=== PATIENT | male | born 1970 | race African-American/Black ===

== ENCOUNTER 2017-12-08 08:32 | Emergency (ER) | payer MEDICAID ==
[~2017-12-08] VITALS: Ht 177.8 cm; Wt 6.4 kg
[2017-12-08] MEDS ORDERED: Morphine Sulfate 4mg/ml Inj IVP ONE (08:45)
--- NOTE | 2017-12-08 08:48 | Emergency Room Report ---
History of Present Illness General Chief Complaint: Abdominal Pain Source: Patient Present Illness HPI 47-year-old male presents to ED for evaluation. Patient presents with abdominal pain with vomiting. Brought in by EMS. Notes blood tinged vomitus. Started yesterday. Started after patient ate pizza. Patient describes history of gastritis. States he is currently not taking any medication. Also admits to marijuana use. Pain is epigastric, 8/10, nonradiating. Denies any alcohol use. Denies any other drug use. No other aggravating relieving factors. Denies any other associated symptom Allergies: Coded Allergies: No Known Allergies (Unverified , 12/08/17) Patient History Past Medical History: GERD Past Surgical History: none Pertinent Family History: none Social History: Reports: drug use Immunizations: UTD Reviewed Nursing Documentation: PMH: Agreed, PSxH: Agreed Nursing Documentation-PMH Past Medical History: No History, Except For Hx Gastrointestinal Problems: Yes - Gastritis Review of Systems All Other Systems: negative except mentioned in HPI Physical Exam Vital Signs Date Time Temp Pulse Resp B/P (MAP) Pulse Ox O2 Delivery O2 Flow Rate FiO2 12/08/17 08:11 99.1 60 16 121/83 98 Room Air Sp02 EP Interpretation: reviewed, normal General Appearance: no apparent distress, alert, GCS 15, non-toxic Head: normocephalic, atraumatic Eyes: bilateral eye normal inspection, bilateral eye PERRL ENT: hearing grossly normal, normal pharynx, no angioedema, normal voice Neck: full range of motion, supple/symm/no masses Respiratory: chest non-tender, lungs clear, normal breath sounds, speaking full sentences Cardiovascular #1: regular rate, rhythm, no edema Cardiovascular #2: 2+ carotid (R), 2+ carotid (L), 2+ radial (R), 2+ radial (L) , 2+ dorsalis pedis (R), 2+ dorsalis pedis (L) Gastrointestinal: normal bowel sounds, soft, non-distended, no guarding, no rebound, tenderness - epigastric Rectal: deferred Genitourinary: normal inspection, no CVA tenderness Musculoskeletal: back normal, gait/station normal, normal range of motion, non- tender Neurologic: alert, oriented x3, responsive, motor strength/tone normal, sensory intact, speech normal Psychiatric: judgement/insight normal, memory normal, mood/affect normal, no suicidal/homicidal ideation Reflexes: 3+ bicep (R), 3+ bicep (L), 3+ tricep (R), 3+ tricep (L), 3+ knee (R) , 3+ knee (L) Skin: normal color, no rash, warm/dry, well hydrated Lymphatic: no adenopathy Medical Decision Making Diagnostic Impression: Primary Impression: Gastritis Qualified Codes: K29.01 - Acute gastritis with bleeding ER Course Hospital Course 47-year-old M presents to ED with epigastric pain with N/V. differential diagnosis: gastritis, SBO, cholecystits Clinical course Patient placed on stretcher. 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 After initial history and physical I ordered labs, IV fluids, Zofran, pain meds and pepcid Labs - noted leukocytosis, no electrolyte abnormalities, LFTs normal Upon reassessment, patient states pain has improved. tolerating PO intake. findings consistent with gastritis I feel this is a highly complex case requiring extensive working including EKG/ Rhythm strip, Xray/CT/US, Blood/urine lab work, repeat exams while in ED, and administration of strong opiates/narcotics for pain control, admission to hospital or close patient follow up. Diagnosis - gastritis Stable and discharged to home with prescriptions for Zantac, zofran. Followup with PMD. Return to ED if symptoms recur or worsen Labs Test 12/08/17 08:40 White Blood Count 14.6 K/UL (4.8-10.8) Red Blood Count 6.42 M/UL (4.70-6.10) Hemoglobin 18.3 G/DL (14.2-18.0) Hematocrit 56.9 % (42.0-52.0) Mean Corpuscular Volume 89 FL (80-99) Mean Corpuscular Hemoglobin 28.6 PG (27.0-31.0) Mean Corpuscular Hemoglobin Concent 32.2 G/DL (32.0-36.0) Red Cell Distribution Width 11.6 % (11.6-14.8) Platelet Count 439 K/UL (150-450) Mean Platelet Volume 5.8 FL (6.5-10.1) Neutrophils (%) (Auto) 69.9 % (45.0-75.0) Lymphocytes (%) (Auto) 19.6 % (20.0-45.0) Monocytes (%) (Auto) 9.8 % (1.0-10.0) Eosinophils (%) (Auto) 0.3 % (0.0-3.0) Basophils (%) (Auto) 0.5 % (0.0-2.0) Sodium Level 136 MMOL/L (136-145) Potassium Level 3.4 MMOL/L (3.5-5.1) Chloride Level 97 MMOL/L (98-107) Carbon Dioxide Level 29 MMOL/L (21-32) Anion Gap 10 mmol/L (5-15) Blood Urea Nitrogen 14 mg/dL (7-18) Creatinine 1.0 MG/DL (0.55-1.30) Estimat Glomerular Filtration Rate > 60 mL/min (>60) Glucose Level 109 MG/DL (74-106) Calcium Level 9.8 MG/DL (8.5-10.1) Total Bilirubin 0.5 MG/DL (0.2-1.0) Aspartate Amino Transf (AST/SGOT) 40 U/L (15-37) Alanine Aminotransferase (ALT/SGPT) 72 U/L (12-78) Alkaline Phosphatase 104 U/L (46-116) Total Protein 8.6 G/DL (6.4-8.2) Albumin 4.3 G/DL (3.4-5.0) Globulin 4.3 g/dL Albumin/Globulin Ratio 1.0 (1.0-2.7) Lipase 101 U/L (73-393) Last Vital Signs Date Time Temp Pulse Resp B/P (MAP) Pulse Ox O2 Delivery O2 Flow Rate FiO2 12/08/17 08:11 99.1 60 16 121/83 98 Room Air Status: improved Disposition: HOME, SELF-CARE Condition: Stable Scripts Ondansetron Odt* (ZOFRAN ODT*) 4 Mg Tab.rapdis 4 MG ORAL Q6H Y for Nausea & Vomiting, #30 TAB 0 Refills Prov: MANUELITO LAZO M.D. 12/08/17 Ranitidine Hcl* (ZANTAC*) 150 Mg Tablet 150 MG ORAL TWICE A DAY, #30 TAB Prov: MANUELITO LAZO M.D. 12/08/17 MANUELITO LAZO M.D. Dec 08, 2017 08:48
[2017-12-08 09:21] LABS: BASOPHILS % (AUTO) 0.5 % (0.0-2.0); EOSINOPHILS % (AUTO) 0.3 % (0.0-3.0); HEMATOCRIT 56.9 % (42.0-52.0); LYMPHOCYTES % (AUTO) 19.6 % (20.0-45.0); MEAN CORPUSCULAR VOLUME 89 FL (80-99); MONOCYTES % (AUTO) 9.8 % (1.0-10.0); NEUTROPHILS % (AUTO) 69.9 % (45.0-75.0); PLATELET COUNT 439 K/UL (150-450); RED BLOOD COUNT 6.42 M/UL (4.70-6.10); RED CELL DISTRIBUTION WIDTH 11.6 % (11.6-14.8); WHITE BLOOD COUNT 14.6 K/UL (4.8-10.8)
[2017-12-08 09:27] LABS: HEMOGLOBIN 18.3 G/DL (14.2-18.0)
[2017-12-08 09:28] LABS: ANION GAP 10 mmol/L (5-15); BLOOD UREA NITROGEN 14 mg/dL (7-18); CALCIUM 9.8 MG/DL (8.5-10.1); CARBON DIOXIDE 29 MMOL/L (21-32); CHLORIDE 97 MMOL/L (98-107); POTASSIUM 3.4 MMOL/L (3.5-5.1); SODIUM 136 MMOL/L (136-145)
[2017-12-08 09:32] LABS: ALANINE AMINOTRANSFERASE 72 U/L (12-78); ALBUMIN 4.3 G/DL (3.4-5.0); ALKALINE PHOSPHATASE 104 U/L (46-116); ASPARTATE AMINO TRANSFERASE 40 U/L (15-37); BILIRUBIN,TOTAL 0.5 MG/DL (0.2-1.0)
[2017-12-08 10:04] VITALS: BP 125/84
[2017-12-08] MEDS ORDERED: ZOFRAN ODT4 MG ORAL (11:36)
[2017-12-08] MEDS ORDERED: ZANTAC150 MG ORAL (11:36)
[2017-12-08 12:58] VITALS: BP 128/84
== END 2017-12-08 12:58 | disposition home or self-care (01) ==
LOC: EDBD 08:32 → EMR 10:18
DX: K29.70 Gastritis, unspecified, without bleeding (principal); K21.9 Gastro-esophageal reflux disease without esophagitis
CPT/HCPCS: 36415; 80053; 83690; 85025; 96361; 96374; 96375; 99284; J2270; J2405; S0028

== ENCOUNTER 2019-09-04 21:13 | Inpatient (IN) | payer MEDICAID ==
[~2019-09-04] VITALS: Ht 177.8 cm; Wt 68.9 kg
[~2019-09-04 21:13] MED LIST: ZANTAC150 MG ORAL; ZOFRAN ODT4 MG ORAL
--- NOTE | 2019-09-04 21:20 | NUR ---
ED Nurse Note: Recieved pt from home, BIBA with c/o severe abd p[ain with active nausea and emesis, pt is awake, alert and oriented x 4, pt states just released from hospitl for gastritis 3 days ago, caused by marijuanna use and pt admits to smoking prior to s/s, denies cp, no sob or labored breathing, pt immediately gowned and palced on monitoring, MD at bedside, will resume care as ordered and closely monitor.
[2019-09-04] MEDS ORDERED: Haloperidol Lactate 5 MG in D5W 55 ML IVPB ONE (21:30)
[2019-09-04] MEDS ORDERED: Promethazine HCl 25 MG in NS 55 ML IVPB ONE ×2 (21:30→23:45)
--- NOTE | 2019-09-04 21:34 | Emergency Room Report ---
History of Present Illness General Chief Complaint: Abdominal Pain Source: Patient Present Illness HPI This is a 48-year-old male with a history of cyclic vomiting syndrome based on the description of multiple episode of abdominal pain with nausea and vomiting. He presented with chief complaint of abdominal pain with vomiting. He was just at [facility] yesterday. Vomiting is nonstop. Unable to keep anything down. Pain is sharp and crampy. 9 out of 10. Similar symptoms in the past. He smokes marijuana. Said he is cutting down. No blood. No diarrhea. No fever. Nothing made it better. Nothing made it worse. Allergies: Coded Allergies: No Known Allergies (Unverified , 12/08/17) Patient History Past Medical History: see triage record, old chart reviewed Past Surgical History: none Pertinent Family History: none Social History: Reports: drug use - Immunizations: other Reviewed Nursing Documentation: PMH: Agreed; PSxH: Agreed Nursing Documentation-PMH Past Medical History: No History, Except For Hx Gastrointestinal Problems: Yes - GASTRITIS Review of Systems Eye: Denies: eye pain, blurred vision ENT: Denies: ear pain, nose congestion, throat swelling Respiratory: Denies: cough, shortness of breath Cardiovascular: Denies: chest pain, palpitations Gastrointestinal: Reports: abdominal pain, nausea, vomiting; Denies: diarrhea Musculoskeletal: Denies: back pain, joint pain Skin: Denies: rash Neurological: Denies: headache, numbness Endocrine: Denies: increased thirst, increased urine Hematologic/Lymphatic: Denies: easy bruising All Other Systems: negative except mentioned in HPI Physical Exam Vital Signs Date Time Temp Pulse Resp B/P (MAP) Pulse Ox O2 Delivery O2 Flow Rate FiO2 09/04/19 21:08 98.8 68 18 143/89 (107) 96 Room Air Vitals normal Sp02 EP Interpretation: reviewed, normal General Appearance: well appearing, no apparent distress, alert Head: normocephalic, atraumatic Eyes: bilateral eye PERRL, bilateral eye EOMI ENT: hearing grossly normal, normal pharynx Neck: full range of motion, supple, no meningismus Respiratory: chest non-tender, lungs clear, normal breath sounds Cardiovascular #1: regular rate, rhythm, no murmur Gastrointestinal: no mass, no organomegaly, no bruit, non-distended, decreased bowel sounds Musculoskeletal: back normal, gait/station normal, normal range of motion Psychiatric: mood/affect normal Medical Decision Making Diagnostic Impression: Primary Impression: Intractable abdominal pain Additional Impressions: Intractable nausea and vomiting Cyclic vomiting syndrome ER Course This patient presents with intractable abdominal pain with nausea and vomiting. This is a chronic problem. He was just admitted and discharged from [facility] for the same thing. Several episode of vomiting here even after multiple rounds of antiemetics and pain medication. Because of this, will admit for IV hydration. I contacted Dr. Vazquez who will admit for Dr. Jack. Last Vital Signs Date Time Temp Pulse Resp B/P (MAP) Pulse Ox O2 Delivery O2 Flow Rate FiO2 09/04/19 21:08 98.8 68 18 143/89 (107) 96 Room Air Status: improved Disposition: ADMITTED INPATIENT Condition: Serious Víctor Saez MD Sep 04, 2019 21:34
[2019-09-04 21:39] LABS: BASOPHILS % (AUTO) 0.8 % (0.0-2.0); EOSINOPHILS % (AUTO) 1.2 % (0.0-3.0); HEMATOCRIT 45.6 % (42.0-52.0); HEMOGLOBIN 15.3 G/DL (14.2-18.0); LYMPHOCYTES % (AUTO) 21.4 % (20.0-45.0); MEAN CORPUSCULAR VOLUME 87 FL (80-99); MONOCYTES % (AUTO) 6.2 % (1.0-10.0); NEUTROPHILS % (AUTO) 70.4 % (45.0-75.0); PLATELET COUNT 373 K/UL (150-450); RED BLOOD COUNT 5.22 M/UL (4.70-6.10); RED CELL DISTRIBUTION WIDTH 11.8 % (11.6-14.8); WHITE BLOOD COUNT 12.9 K/UL (4.8-10.8)
[2019-09-04 21:59] LABS: ANION GAP 12 mmol/L (5-15); BLOOD UREA NITROGEN 7 mg/dL (7-18); CALCIUM 9.2 MG/DL (8.5-10.1); CARBON DIOXIDE 26 MMOL/L (21-32); CHLORIDE 104 MMOL/L (98-107); CREATININE 1.1 MG/DL (0.55-1.30); POTASSIUM 3.4 MMOL/L (3.5-5.1); SODIUM 142 MMOL/L (136-145)
[2019-09-04 22:00] VITALS: BP 129/83
[2019-09-04 22:12] LABS: APPEARANCE,URINE SLIGHTLY CLOUDY; BILIRUBIN, URINE NEGATIVE (NEGATIVE); COLOR,URINE PALE YELLOW; GLUCOSE, URINE (UA) NEGATIVE (NEGATIVE); KETONES,URINE 2+ (NEGATIVE); LEUKOCYTE ESTERASE ,URINE 1+ (NEGATIVE); NITRITE,URINE NEGATIVE (NEGATIVE); PH,URINE 8 (4.5-8.0); PROTEIN,URINE 2+ (NEGATIVE); UROBILINOGEN,URINE NORMAL MG/DL (0.0-1.0)
[2019-09-04] MEDS ORDERED: HYDROmorphone 1mg/ml Carpuject IVP ONE (22:15)
[2019-09-04 23:00] VITALS: BP 134/88
--- NOTE | 2019-09-04 23:00 | NUR ---
ED Nurse Note: pt continues to c/o having abd pain, nausea has gotten a little better, MD informed, pt re-medicated, remains on cardiac monitoring, IV site patent, urine sample collected and sent, IV fluids infusing as ordered, will continue t0 closely monitor.
--- NOTE | 2019-09-05 | NUR ---
ED Nurse Note: Pt copntinues to have active emesis, requiring very frequent assistance, emesis is first food contents, now with yellow and greenish solored sputum, large amounts, pt also c/o having pain return at 10/10, pt assisted to bathroom, ambulates with assistance due to pain, remains with active vomiting, denies cp, no sob or labored breahting, during having emesis pt IV line out, new line restarted, informed of pt request for more nausea and pain meds, pt waiting for admission, will continue to closely monitor and medicate as ordered.
[2019-09-05 00:15] VITALS: BP 133/86
[2019-09-05] MEDS ORDERED: Morphine Sulfate 4mg/ml Inj (IV USE ONLY) IVP PRN (01:15)
--- NOTE | 2019-09-05 01:25 | NUR ---
ED Nurse Note: Pt medicated with zofran and morphine, emesis resolved for now, pt sleeping quietly, arouses easilyt o verbal stimuli, no sob or labored breathing, pt denies chest pain, pt has room for hospital admission, report called to floor nurse shital ayon, pt has all belonging and list completed, pt being taken to unit via gurney with er-tech, nad noted during pt transport to floor.
[2019-09-05] MEDS ORDERED: LORazepam Inj 2mg/ml 1ml IV PRN (01:30)
--- NOTE | 2019-09-05 01:30 | NUR ---
ED Nurse Note: Pt being taken to unit via gurney with ER-Tech, pt has all belongings, IV site patent with fluid bolus completing as ordered, pt denies cp, sob, or any other complaints, med rec completed, nad noted during pt transport.
[2019-09-05 04:00] VITALS: BP 142/80
--- NOTE | 2019-09-05 07:25 | NUR ---
HAND-OFF: Report given to Julia JOLLEY.
--- NOTE | 2019-09-05 07:56 | NUR ---
NURSE NOTES: Received report from Delmy JOLLEY. Patient is awake and oriented, vomiting green colored emesis. Clear liquid tray at bedside, educated patient not to eat if unable to tolerate. Will administer Zofran per order. IVF running per order. Patient not reporting pain otherwise at this time. Updated on plan of care for the day. Side rails upx2, bed low and locked, call light in reach. Will continue to monitor.
[2019-09-05 08:00] VITALS: BP 143/86
[2019-09-05] MEDS: Enoxaparin 40mg Inj SUBQ SCH (08:31)
--- NOTE | 2019-09-05 11:52 | History and Physical ---
History of Present Illness General Date patient seen: Sep 05, 2019 Time patient seen: 11:20 Reason for Hospitalization: Abdominal Pain Present Illness HPI 48-year-old male with a history of cyclic vomiting syndrome based on the description of multiple episode of abdominal pain with nausea and vomiting in the recent past. He presented to [facility] last night with chief complaint of abdominal pain with vomiting. He was just at [facility] yesterday and reports having been in 2 hospitals in the past 2 weeks. Vomiting is nonstop. Unable to keep anything down. Pain is sharp and crampy. 9 out of 10. Similar symptoms in the past. He smokes marijuana and reports not having been told that it can be the cause of his vomiting. Said he is cutting down MJ use. No blood. No diarrhea. No fever. Nothing made it better. Nothing made it worse. He was admitted for IVF support and anti emetic therapy. Allergies: Coded Allergies: No Known Allergies (Unverified , 12/08/17) Medication History Scheduled Ranitidine Hcl* (Zantac*), 150 MG ORAL TWICE A DAY Scheduled PRN Ondansetron Odt* (Zofran Odt*), 4 MG ORAL Q6H PRN for Nausea & Vomiting Patient History Healthcare decision maker Resuscitation status Full Code Advanced Directive on File Review of Systems Constitutional: Reports: see HPI Gastrointestinal: Reports: abdominal pain, nausea, vomiting Physical Exam General Appearance: moderate distress Lines, tubes and drains: peripheral HEENT: normocephalic, atraumatic Neck: supple Respiratory/Chest: lungs clear Cardiovascular/Chest: regular rhythm Abdomen: soft, hyperactive bowel sounds, guarding, tender Extremities: normal range of motion 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 Last 24 Hour Vital Signs Date Time Temp Pulse Resp B/P (MAP) Pulse Ox O2 Delivery O2 Flow Rate FiO2 09/05/19 08:00 98.0 69 17 143/86 (105) 98 09/05/19 06:01 Room Air 09/05/19 04:00 97.8 84 18 142/80 (100) 99 09/05/19 01:56 Room Air 09/05/19 01:38 98.8 09/05/19 01:35 98.8 72 18 133/86 98 Room Air 09/05/19 00:15 98.8 72 18 133/86 98 Room Air 09/04/19 23:00 98.8 74 18 134/88 98 Room Air 09/04/19 22:53 98.8 09/04/19 22:00 98.8 68 18 129/83 98 Room Air 09/04/19 21:20 68 18 Room Air 09/04/19 21:08 98.8 68 18 143/89 (107) 96 Room Air Intake and Output 09/04/19 09/05/19 19:00 07:00 Intake Total 181.25 ml Output Total 350 ml Balance -168.75 ml Intake IV Total 181.25 ml Output Emesis 350 ml # Voids 3 Laboratory Tests Test 09/04/19 19:15 09/04/19 21:35 White Blood Count 12.9 K/UL (4.8-10.8) H Red Blood Count 5.22 M/UL (4.70-6.10) Hemoglobin 15.3 G/DL (14.2-18.0) Hematocrit 45.6 % (42.0-52.0) Mean Corpuscular Volume 87 FL (80-99) Mean Corpuscular Hemoglobin 29.3 PG (27.0-31.0) Mean Corpuscular Hemoglobin Concent 33.5 G/DL (32.0-36.0) Red Cell Distribution Width 11.8 % (11.6-14.8) Platelet Count 373 K/UL (150-450) Mean Platelet Volume 4.6 FL (6.5-10.1) L Neutrophils (%) (Auto) 70.4 % (45.0-75.0) Lymphocytes (%) (Auto) 21.4 % (20.0-45.0) Monocytes (%) (Auto) 6.2 % (1.0-10.0) Eosinophils (%) (Auto) 1.2 % (0.0-3.0) Basophils (%) (Auto) 0.8 % (0.0-2.0) Sodium Level 142 MMOL/L (136-145) Potassium Level 3.4 MMOL/L (3.5-5.1) L Chloride Level 104 MMOL/L (98-107) Carbon Dioxide Level 26 MMOL/L (21-32) Anion Gap 12 mmol/L (5-15) Blood Urea Nitrogen 7 mg/dL (7-18) Creatinine 1.1 MG/DL (0.55-1.30) Estimat Glomerular Filtration Rate > 60 mL/min (>60) Glucose Level 127 MG/DL (74-106) H Calcium Level 9.2 MG/DL (8.5-10.1) Urine Color Pale yellow Urine Appearance Slightly cloudy Urine pH 8 (4.5-8.0) Urine Specific [place] 1.010 (1.005-1.035) Urine Protein 2+ (NEGATIVE) H Urine Glucose (UA) Negative (NEGATIVE) Urine Ketones 2+ (NEGATIVE) H Urine Blood 1+ (NEGATIVE) H Urine Nitrite Negative (NEGATIVE) Urine Bilirubin Negative (NEGATIVE) Urine Urobilinogen Normal MG/DL (0.0-1.0) Urine Leukocyte Esterase 1+ (NEGATIVE) H Urine RBC 2-4 /HPF (0 - 0) H Urine WBC 0-2 /HPF (0 - 0) Urine Squamous Epithelial Cells None /LPF (NONE/OCC) Urine Amorphous Sediment Few /LPF (NONE) H Urine Bacteria Few /HPF (NONE) Height (Feet): 5 Height (Inches): 10.00 Weight (Pounds): 150 Medications Current Medications Medications (Trade) Dose Ordered Sig/Toni Route PRN Reason Start Time Stop Time Status Last Admin Dose Admin Acetaminophen (Tylenol) 650 mg Q4H PRN ORAL Mild Pain (Pain Scale 1-3) 09/05/19 01:30 10/05/19 01:29 Dextrose (Dextrose 50%) 25 ml Q30M PRN IV Hypoglycemia 09/05/19 01:30 10/05/19 01:29 Dextrose (Dextrose 50%) 50 ml Q30M PRN IV Hypoglycemia 09/05/19 01:30 10/05/19 01:29 Enoxaparin Sodium (Lovenox) 40 mg Q24H SUBQ 09/05/19 09:00 10/05/19 08:59 09/05/19 08:31 Hydromorphone HCl (Dilaudid) 0.5 mg Q6H PRN IVP Pain Scale (6-10) 09/05/19 01:30 09/12/19 01:29 Lorazepam (Ativan 2mg/ml 1ml) 0.5 mg Q4H PRN IV For Anxiety 09/05/19 01:30 09/12/19 01:29 Ondansetron HCl (Zofran) 4 mg Q6H PRN IVP Nausea & Vomiting 09/05/19 01:30 10/05/19 01:29 09/05/19 08:29 Sodium Chloride 1,000 ml @ 75 mls/hr [id number] IVLG 09/05/19 02:30 10/05/19 02:29 09/05/19 02:35 Assessment/Plan Status: not improved Assessment/Plan: 48-year-old male with a history of cyclic vomiting syndrome based on the description of multiple episode of abdominal pain with nausea and vomiting. # Abdominal pain # Cyclic vomiting syndrome due to Cannabis use - Supportive care with IVF - If persistent will consider GI evaluation. - Antiemetics Zofran and trial of compazine - Repeat labs today as he is at risk of electrolyte derangement # Cannabis use - Counselling provided - SW follow up as needed # DVT ppx - Ambulatory, low risk for DVT # GI ppx - PPI started IV # FULL CODE # Diet as tolerated. Loraine Abarca MD Sep 05, 2019 11:52
[2019-09-05] MEDS ORDERED: Prochlorperazine 10mg tab ORAL PRN (12:00)
--- NOTE | 2019-09-05 12:31 | NUR ---
NURSE NOTES: Informed Dr. Abarca patient still vomiting frequently and unlikely to keep down any PO meds. MD gave order to change Compazine to IV PRN. Order entered, will carry out.
[2019-09-05 12:51] VITALS: BP 140/83
[2019-09-05 13:10] LABS: BASOPHILS % (AUTO) 0.6 % (0.0-2.0); HEMATOCRIT 48.4 % (42.0-52.0); LYMPHOCYTES % (AUTO) 11.1 % (20.0-45.0); MEAN CORPUSCULAR VOLUME 88 FL (80-99); MONOCYTES % (AUTO) 6.1 % (1.0-10.0); NEUTROPHILS % (AUTO) 82.2 % (45.0-75.0); PLATELET COUNT 353 K/UL (150-450); RED BLOOD COUNT 5.51 M/UL (4.70-6.10); RED CELL DISTRIBUTION WIDTH 11.8 % (11.6-14.8); WHITE BLOOD COUNT 15.1 K/UL (4.8-10.8)
[2019-09-05] MEDS: D5 1/2NS w/KCl 20mEq 1,000 ML IV SCH ×2 (13:26→23:00)
[2019-09-05 13:43] LABS: ANION GAP 17 mmol/L (5-15); BLOOD UREA NITROGEN 6 mg/dL (7-18); CALCIUM 9.1 MG/DL (8.5-10.1); CARBON DIOXIDE 24 MMOL/L (21-32); CHLORIDE 104 MMOL/L (98-107); CREATININE 0.8 MG/DL (0.55-1.30); POTASSIUM 3.7 MMOL/L (3.5-5.1); SODIUM 144 MMOL/L (136-145)
--- NOTE | 2019-09-05 13:50 | NUR ---
NURSE NOTES: Contacted Dr. Abarca, informed MD patient's WBC increased to 15.1. is aware, no new orders received at this time.
[2019-09-05 16:00] VITALS: BP 154/91
--- NOTE | 2019-09-05 19:30 | NUR ---
HAND-OFF: Report given to Felice JOLLEY.
--- NOTE | 2019-09-05 20:02 | NUR ---
NURSE NOTES: Patient asleep in bed. IV site intact and running fluids. No pain at this time. Needs attended. Call light within reach. Needs attended. In stable condition.
[2019-09-05 20:05] VITALS: BP 100/75
[2019-09-06] VITALS: BP 123/72
--- NOTE | 2019-09-06 01:35 | NUR ---
NURSE NOTES: Patient still has episode of nausea and vomiting. PRN anti emetics given. IV fluid tolerated. Needs attended.
[2019-09-06 04:00] VITALS: BP 147/86
[2019-09-06 07:10] LABS: BASOPHILS % (AUTO) 1.2 % (0.0-2.0); EOSINOPHILS % (AUTO) 0.2 % (0.0-3.0); HEMATOCRIT 51.9 % (42.0-52.0); HEMOGLOBIN 17.3 G/DL (14.2-18.0); LYMPHOCYTES % (AUTO) 22.4 % (20.0-45.0); MEAN CORPUSCULAR VOLUME 87 FL (80-99); NEUTROPHILS % (AUTO) 68.2 % (45.0-75.0); PLATELET COUNT 372 K/UL (150-450); RED BLOOD COUNT 5.98 M/UL (4.70-6.10); RED CELL DISTRIBUTION WIDTH 10.9 % (11.6-14.8); WHITE BLOOD COUNT 16.1 K/UL (4.8-10.8)
[2019-09-06 07:24] LABS: ANION GAP 7 mmol/L (5-15); BLOOD UREA NITROGEN 6 mg/dL (7-18); CALCIUM 9.7 MG/DL (8.5-10.1); CARBON DIOXIDE 29 MMOL/L (21-32); CHLORIDE 103 MMOL/L (98-107); POTASSIUM 3.6 MMOL/L (3.5-5.1); SODIUM 139 MMOL/L (136-145)
--- NOTE | 2019-09-06 07:30 | NUR ---
NURSE NOTES: Patient is in bed asleep. Stable. No visible signs of distress noted. Breathing is even and unlabored. Patient is in bed in locked and lowest position with call light within reach. All safety measures provided. Will continue to monitor.
[2019-09-06 08:00] VITALS: BP 116/78
[2019-09-06 08:33] LABS: ALANINE AMINOTRANSFERASE 30 U/L (12-78); ALBUMIN 3.9 G/DL (3.4-5.0); ALKALINE PHOSPHATASE 93 U/L (46-116); ASPARTATE AMINO TRANSFERASE 22 U/L (15-37); BILIRUBIN,DIRECT 0.1 MG/DL (0.0-0.3); BILIRUBIN,TOTAL 0.6 MG/DL (0.2-1.0)
[2019-09-06] MEDS: Enoxaparin 40mg Inj SUBQ SCH (08:35)
[2019-09-06] MEDS: D5 1/2NS w/KCl 20mEq 1,000 ML IV SCH ×3 (09:00→22:38)
[2019-09-06] MEDS ORDERED: Omnipaque-300 100ml vial INJ PRN ×2 (11:45→19:15)
[2019-09-06 12:00] VITALS: BP 150/96
[2019-09-06] MEDS: Pantoprazole Inj IVP SCH (12:51)
--- NOTE | 2019-09-06 13:06 | General Progress Note ---
Assessment/Plan Problem List: (1) Cyclic vomiting syndrome ICD Codes: R11.15 - Cyclical vomiting syndrome unrelated to migraine SNOMED: 96540461 (2) Intractable abdominal pain ICD Codes: R10.9 - Unspecified abdominal pain SNOMED: 52154440 (3) Intractable nausea and vomiting ICD Codes: R11.2 - Nausea with vomiting, unspecified SNOMED: 647038539 (4) Marijuana abuse ICD Codes: F12.10 - Cannabis abuse, uncomplicated SNOMED: 48838443 (5) Gastritis ICD Codes: K29.70 - Gastritis, unspecified, without bleeding SNOMED: 0893819 Status: not improved, unchanged Assessment/Plan: 48-year-old male with a history of cyclic vomiting syndrome based on the description of multiple episode of abdominal pain with nausea and vomiting. # Abdominal pain, epigastric/left upper quadrant/nonradiating for the past 2 to 3 days. Not associated with eating. Differential includes gastritis, peptic ulcer, due to persistent nausea/ vomiting from marijuana hyperemesis, gastroenteritis. Doubt ACS given negative troponin. Doubt pancreatitis given normal lipase. # Cyclic vomiting syndrome due to Cannabis use #Leukocytosis, suspect reactive. Will rule out infectious etiology. #hypokalemia due to vomiting - CT abdomen pelvis with contrast given persistent abdominal pain - RUQ abdominal ultrasound to rule out acute oli - Supportive care with IVF -Appreciate GI recommendations: Dr. Zabala -Appreciate general surgery recommendations: Dr. Back -Zofran 4 mg IV every 6 hours (QTC normal) -Compazine as needed for breakthrough nausea -Protonix 40mg IV daily -Will consider Haldol -Follow electrolytes and replete PRN # Cannabis use - Counselling provided - follow up as needed FENPPX DVTPPX: Lovenox 40mg SbQ daily GI PPX: protonix Fluids: D5 1/2 NS @100 cc/hr Diet: CLD Lines: peripheral PT/OT: pending Code status: Full code Dispo: Home after acute issues resolved Reason for continued hospitalization: Intractable nausea vomiting and abdominal pain 38 minutes spent on this encounter. Discussed with RN, patient, GI, general surgery . > 50% spent on counseling and care coordination. Time of note may not reflect time patient was seen. Subjective Date patient seen: Sep 06, 2019 Constitutional: Denies: chills, diaphoresis, fever, malaise, weakness, other HEENT: Denies: eye pain, blurred vision, tearing, double vision, ear pain, ear discharge, nose pain, nose congestion, throat pain, throat swelling, mouth pain , mouth swelling, other Cardiovascular: Denies: chest pain, edema, irregular heart rate, lightheadedness, palpitations, syncope, other Respiratory: Denies: cough, orthopnea, shortness of breath, SOB with excertion , SOB at rest, sputum, stridor, wheezing, other Gastrointestinal/Abdominal: Reports: abdominal pain, nausea, vomiting; Denies: abdomen distended, black stools, tarry stools, blood in stool, constipated, diarrhea, difficulty swallowing, poor appetite, poor fluid intake, rectal bleeding, other Genitourinary: Denies: burning, discharge, frequency, flank pain, hematuria, incontinence, pain, urgency, other Neurologic/Psychiatric: Denies: anxiety, depressed, emotional problems, headache, numbness, paresthesia, pre-existing deficit, seizure, tingling, tremors, weakness, other Endocrine: Denies: excessive sweating, flushing, intolerance to cold, intolerance to heat, increased hunger, increased thirst, increased urine, unexplained weight gain, unexplained weight loss, other Hematologic/Lymphatic: Denies: anemia, easy bleeding, easy bruising, other Allergies: Coded Allergies: No Known Allergies (Unverified , 12/08/17) Subjective Patient continues to complain of left upper quadrant/epigastric abdominal pain, constant, sharp, 8 out of 10, nonradiating. Continues to have persistent nausea with nonbloody bilious emesis. Positive bowel movements. Uses Zofran 3 times and Compazine 2 times in the past 24 hours. Denies any chest pain, fever , cough, cold symptoms. Has a mild frontal bilateral tension type headache. No focal numbness tingling or weakness. Patient denies any prior alcohol use. He does smoke marijuana heavily every day. He does not quantify how much but he says it is a lot. Objective Last 24 Hour Vital Signs Date Time Temp Pulse Resp B/P (MAP) Pulse Ox O2 Delivery O2 Flow Rate FiO2 09/06/19 09:00 Room Air 09/06/19 08:00 98.0 70 18 116/78 (91) 99 09/06/19 04:00 99.1 80 18 147/86 (106) 97 09/06/19 00:00 98.2 72 18 123/72 (89) 98 09/05/19 21:00 Room Air 09/05/19 20:28 98.0 09/05/19 20:05 75 17 100/75 (83) 09/05/19 16:00 98.2 63 17 154/91 (112) 98 Intake and Output 09/05/19 09/06/19 19:00 07:00 Intake Total 1150 ml 600 ml Output Total 3100 ml 800 ml Balance -1950 ml -200 ml Intake Oral 250 ml IV Total 900 ml 600 ml Output Urine Total 400 ml Emesis 2700 ml 800 ml # Voids 3 Laboratory Tests 09/06/19 04:45: White Blood Count 16.1H, Red Blood Count 5.98, Hemoglobin 17.3, Hematocrit 51.9 , Mean Corpuscular Volume 87, Mean Corpuscular Hemoglobin 28.9, Mean Corpuscular Hemoglobin Concent 33.3, Red Cell Distribution Width 10.9L, Platelet Count 372, Mean Platelet Volume 4.9L, Neutrophils (%) (Auto) 68.2, Lymphocytes (%) (Auto) 22.4, Monocytes (%) (Auto) 8.0, Eosinophils (%) (Auto) 0.2, Basophils (%) (Auto) 1.2, Sodium Level 139, Potassium Level 3.6, Chloride Level 103, Carbon Dioxide Level 29, Anion Gap 7, Blood Urea Nitrogen 6L, Creatinine 1.0, Estimat Glomerular Filtration Rate > 60, Glucose Level 112H, Calcium Level 9.7, Phosphorus Level 3.6, Total Bilirubin 0.6, Direct Bilirubin 0.1, Aspartate Amino Transf (AST/SGOT) 22, Alanine Aminotransferase (ALT/SGPT) 30, Alkaline Phosphatase 93, Troponin I 0.000, Total Protein 7.5, Albumin 3.9, Lipase 91 Height (Feet): 5 Height (Inches): 10.00 Weight (Pounds): 150 General Appearance: WD/WN, alert, mild distress EENT: PERRL/EOMI, normal ENT inspection Neck: non-tender, normal alignment, supple Cardiovascular: normal peripheral pulses, normal rate, regular rhythm, no JVD Respiratory/Chest: chest wall non-tender, lungs clear, normal breath sounds Abdomen: normal bowel sounds, soft, other - Epigastric/left upper quadrant tenderness with mild guarding and rebound. 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 Sep 06, 2019 13:06
--- NOTE | 2019-09-06 13:15 | GI Initial Consult Note ---
History of Present Illness General Date patient seen: Sep 06, 2019 Time patient seen: 13:11 Reason for Hospitalization: Abdominal Pain Referring physician: SANDY Reason for Consultation: CYCLIC VOMITING SYNDROME Present Illness HPI This is a 48-year-old male with a history of cyclic vomiting syndrome based on the description of multiple episode of abdominal pain with nausea and vomiting. He presented with chief complaint of abdominal pain with vomiting. He was just at [facility] yesterday. Vomiting is nonstop. Unable to keep anything down. Pain is sharp and crampy. 9 out of 10. Similar symptoms in the past. He smokes marijuana. Said he is cutting down. No blood. No diarrhea. No fever. Nothing made it better. Nothing made it worse. GI consulted for persistent nausea and vomiting. Patient seen, awake alert oriented x4. At time of evaluation, the patient has complaint of severe nausea with reported vomiting. No reports of any melena emesis or coffee grounds. Patient has no history of endoscopy. All labs reviewed. Home Meds Active Scripts Ondansetron Odt* (ZOFRAN ODT*) 4 Mg Tab.rapdis, 4 MG ORAL Q6H PRN for Nausea & Vomiting, #30 TAB 0 Refills Prov:Siddharth Suazo MD 12/08/17 Ranitidine Hcl* (ZANTAC*) 150 Mg Tablet, 150 MG ORAL TWICE A DAY, #30 TAB Prov:Siddharth Suazo MD 12/08/17 Med list reviewed/reconciled: Yes Allergies: Coded Allergies: No Known Allergies (Unverified , 12/08/17) Patient History Limited by: medical condition History Provided By: Patient, Medical Record PMH Narrative Past Medical History: see triage record, old chart reviewed Past Surgical History: none Pertinent Family History: none Social History: Reports: drug use - MJ Immunizations: other Reviewed Nursing Documentation: PMH: Agreed; PSxH: Agreed Nursing Documentation-PMH Past Medical History: No History, Except For Hx Gastrointestinal Problems: Yes - GASTRITIS Social History: Reports: drug use Review of Systems All Other Systems: negative except mentioned in HPI Physical Exam Vital Signs Date Time Temp Pulse Resp B/P (MAP) Pulse Ox O2 Delivery O2 Flow Rate FiO2 09/04/19 21:08 98.8 68 18 143/89 (107) 96 Room Air Sp02 EP Interpretation: reviewed, normal Labs Laboratory Tests Test 09/06/19 04:45 White Blood Count 16.1 K/UL (4.8-10.8) H Red Blood Count 5.98 M/UL (4.70-6.10) Hemoglobin 17.3 G/DL (14.2-18.0) Hematocrit 51.9 % (42.0-52.0) Mean Corpuscular Volume 87 FL (80-99) Mean Corpuscular Hemoglobin 28.9 PG (27.0-31.0) Mean Corpuscular Hemoglobin Concent 33.3 G/DL (32.0-36.0) Red Cell Distribution Width 10.9 % (11.6-14.8) L Platelet Count 372 K/UL (150-450) Mean Platelet Volume 4.9 FL (6.5-10.1) L Neutrophils (%) (Auto) 68.2 % (45.0-75.0) Lymphocytes (%) (Auto) 22.4 % (20.0-45.0) Monocytes (%) (Auto) 8.0 % (1.0-10.0) Eosinophils (%) (Auto) 0.2 % (0.0-3.0) Basophils (%) (Auto) 1.2 % (0.0-2.0) Sodium Level 139 MMOL/L (136-145) Potassium Level 3.6 MMOL/L (3.5-5.1) Chloride Level 103 MMOL/L (98-107) Carbon Dioxide Level 29 MMOL/L (21-32) Anion Gap 7 mmol/L (5-15) Blood Urea Nitrogen 6 mg/dL (7-18) L Creatinine 1.0 MG/DL (0.55-1.30) Estimat Glomerular Filtration Rate > 60 mL/min (>60) Glucose Level 112 MG/DL (74-106) H Calcium Level 9.7 MG/DL (8.5-10.1) Phosphorus Level 3.6 MG/DL (2.5-4.9) Total Bilirubin 0.6 MG/DL (0.2-1.0) Direct Bilirubin 0.1 MG/DL (0.0-0.3) Aspartate Amino Transf (AST/SGOT) 22 U/L (15-37) Alanine Aminotransferase (ALT/SGPT) 30 U/L (12-78) Alkaline Phosphatase 93 U/L (46-116) Troponin I 0.000 ng/mL (0.000-0.056) Total Protein 7.5 G/DL (6.4-8.2) Albumin 3.9 G/DL (3.4-5.0) Lipase 91 U/L (73-393) General Appearance: well appearing, no apparent distress, alert Head: normocephalic EENT: PERRL/EOMI, normal ENT inspection Neck: supple Respiratory: normal breath sounds, no respiratory distress Cardiovascular: normal rate Gastrointestinal: normal inspection, non tender, soft, normal bowel sounds, non -distended Rectal: deferred Genitourinary: deferred Musculoskeletal: normal inspection, back normal Neurologic: normal inspection, alert, oriented x3, responsive Psychiatric: normal inspection, judgement/insight normal, memory normal Skin: normal inspection, normal color, no rash, warm/dry, palpation normal, well hydrated Lymphatic: normal inspection, no adenopathy Current Medications Current Medications Medications (Trade) Dose Ordered Sig/Toni Route PRN Reason Start Time Stop Time Status Last Admin Dose Admin Acetaminophen (Tylenol) 650 mg Q4H PRN ORAL Mild Pain (Pain Scale 1-3) 09/05/19 01:30 10/05/19 01:29 Barium Sulfate (Readi-Cat 2) 450 ml NOW PRN ORAL Radiology Procedure 09/06/19 11:45 09/08/19 11:40 Dextrose (Dextrose 50%) 25 ml Q30M PRN IV Hypoglycemia 09/05/19 01:30 10/05/19 01:29 Dextrose (Dextrose 50%) 50 ml Q30M PRN IV Hypoglycemia 09/05/19 01:30 10/05/19 01:29 Dextrose/ Electrolytes 1,000 ml @ 100 mls/hr Q10H IV 09/05/19 13:00 10/05/19 12:59 09/05/19 23:00 Enoxaparin Sodium (Lovenox) 40 mg Q24H SUBQ 09/05/19 09:00 10/05/19 08:59 09/06/19 08:35 Hydromorphone HCl (Dilaudid) 0.5 mg Q6H PRN IVP Pain Scale (6-10) 09/05/19 01:30 09/12/19 01:29 Iohexol (OMNIPAQUE-300 100ml) 100 ml NOW PRN INJ Radiology Procedure 09/06/19 11:45 09/08/19 11:40 Lorazepam (Ativan 2mg/ml 1ml) 0.5 mg Q4H PRN IV For Anxiety 09/05/19 01:30 09/12/19 01:29 Ondansetron HCl (Zofran) 4 mg Q6H IVP 09/06/19 13:30 10/06/19 13:29 09/06/19 13:08 Pantoprazole (Protonix) 40 mg DAILY IVP 09/06/19 11:45 10/06/19 11:44 09/06/19 12:51 Prochlorperazine (Compazine) 10 mg Q6H PRN IVP Nausea & Vomiting 09/05/19 12:33 10/05/19 12:32 09/05/19 20:11 GI: Plan Problems: (1) Dehydration (2) Intractable nausea and vomiting (3) Cyclic vomiting syndrome (4) Marijuana abuse (5) Intractable abdominal pain Plan Intractable nausea and vomiting most likely secondary due to cyclic vomiting syndrome Maintain n.p.o. plus IV fluids Electrolyte correction Zofran as needed, Reglan for persistent vomiting. PPI Obtain urine toxicity Follow labs Discussed with Dr. Zabala. Thank you for this patient referral, we will follow. The patient was seen and examined at bedside and all new and available data was reviewed in the patients chart. I agree with the above findings, impression and plan. (Patient seen earlier today. Signature stamp does not reflect patient encounter time.). - MD Nadja Nuñez,[facility] [employer] Sep 06, 2019 13:15
--- NOTE | 2019-09-06 14:19 | NUR ---
HAND-OFF: Report given to Seble JOLLEY. Patient is stable.
--- NOTE | 2019-09-06 14:43 | NUR ---
*-* INSURANCE *--* ALL AVAILABLE CLINICALS HAVE BEEN FAXED TO: [facility]#[id number] NO CM YET PH#[phone] FAX#[phone] REVIEWS/CLINICALS
--- NOTE | 2019-09-06 15:09 | Consultation ---
History of Present Illness General Date patient seen: Sep 06, 2019 Reason for Hospitalization: Abdominal Pain Present Illness HPI 48-year-old male with a history of cyclic vomiting syndrome based on the description of multiple episode of abdominal pain with nausea and vomiting. He presented with chief complaint of abdominal pain with vomiting. He was just at [facility] recently with similar symptoms. Vomiting is nonstop. Unable to keep anything down. Pain is sharp and crampy. 9 out of 10. Similar symptoms in the past. He smokes marijuana. Said he is cutting down. No blood. No diarrhea. No fever. Nothing made it better. Nothing made it worse. Leukocytosis. Abnormal labs. Surgery consulted for persistent abd pain , n/v, leukocytosis. Allergies: Coded Allergies: No Known Allergies (Unverified , 12/08/17) Medication History Scheduled Ranitidine Hcl* (Zantac*), 150 MG ORAL TWICE A DAY Scheduled PRN Ondansetron Odt* (Zofran Odt*), 4 MG ORAL Q6H PRN for Nausea & Vomiting Patient History History Provided By: Patient Healthcare decision maker Resuscitation status Full Code Advanced Directive on File Past Medical/Surgical History Past Medical/Surgical History: (1) Gastritis (2) Marijuana abuse (3) Cyclic vomiting syndrome (4) Intractable abdominal pain (5) Intractable nausea and vomiting (6) Dehydration Review of Systems Review of Symptoms General ROS: no weight loss or fever Psychological ROS: no depression or mood changes, no memory loss Ophthalmic ROS: no visual changes or eye irritation ENT ROS: no nasal congestion, hearing loss, dizziness Allergy and Immunology ROS: no allergic symptoms or urticaria Hematological and Lymphatic ROS: no swollen glands, unusual bleeding or bruising Endocrine ROS: no polyuria, polydipsia, weight changes, temperature intolerance Respiratory ROS: no cough, shortness of breath, or wheezing Cardiovascular ROS: no chest pain or dyspnea on exertion Gastrointestinal ROS: mild abdominal pain, bright red blood in stool. Musculoskeletal ROS: no myalgias or arthralgias Neurological ROS: no TIA or stroke symptoms Dermatological ROS: no new or changing skin lesions, rashes or pruritis Physical Exam Physical Exam General appearance: alert, cooperative, no distress, appears stated age Head: Normocephalic, without obvious abnormality, atraumatic Eyes: conjunctivae/corneas clear. PERRL, EOM's intact. Fundi benign Throat: Lips, mucosa, and tongue normal. Teeth and gums normal Neck: supple, symmetrical, trachea midline, no adenopathy, thyroid: not enlarged, symmetric, no tenderness/mass/nodules, no carotid bruit and no JVD Lungs: clear to auscultation bilaterally Heart: regular rate and rhythm, S1, S2 normal, no murmur, click, rub or gallop Abdomen: soft, non-tender. Bowel sounds normal. No masses, no organomegaly Extremities: extremities normal, atraumatic, no cyanosis or edema Pulses: 2+ and symmetric Skin: Skin color, texture, turgor normal. No rashes or lesions Neurologic: Grossly normal Last 24 Hour Vital Signs Date Time Temp Pulse Resp B/P (MAP) Pulse Ox O2 Delivery O2 Flow Rate FiO2 09/06/19 12:00 98.2 65 16 150/96 (114) 99 09/06/19 09:00 Room Air 09/06/19 08:00 98.0 70 18 116/78 (91) 99 09/06/19 04:00 99.1 80 18 147/86 (106) 97 09/06/19 00:00 98.2 72 18 123/72 (89) 98 09/05/19 21:00 Room Air 09/05/19 20:28 98.0 09/05/19 20:05 75 17 100/75 (83) 09/05/19 16:00 98.2 63 17 154/91 (112) 98 Intake and Output 09/05/19 09/06/19 19:00 07:00 Intake Total 1150 ml 600 ml Output Total 3100 ml 800 ml Balance -1950 ml -200 ml Intake Oral 250 ml IV Total 900 ml 600 ml Output Urine Total 400 ml Emesis 2700 ml 800 ml # Voids 3 Laboratory Tests Test 09/06/19 04:45 White Blood Count 16.1 K/UL (4.8-10.8) H Red Blood Count 5.98 M/UL (4.70-6.10) Hemoglobin 17.3 G/DL (14.2-18.0) Hematocrit 51.9 % (42.0-52.0) Mean Corpuscular Volume 87 FL (80-99) Mean Corpuscular Hemoglobin 28.9 PG (27.0-31.0) Mean Corpuscular Hemoglobin Concent 33.3 G/DL (32.0-36.0) Red Cell Distribution Width 10.9 % (11.6-14.8) L Platelet Count 372 K/UL (150-450) Mean Platelet Volume 4.9 FL (6.5-10.1) L Neutrophils (%) (Auto) 68.2 % (45.0-75.0) Lymphocytes (%) (Auto) 22.4 % (20.0-45.0) Monocytes (%) (Auto) 8.0 % (1.0-10.0) Eosinophils (%) (Auto) 0.2 % (0.0-3.0) Basophils (%) (Auto) 1.2 % (0.0-2.0) Sodium Level 139 MMOL/L (136-145) Potassium Level 3.6 MMOL/L (3.5-5.1) Chloride Level 103 MMOL/L (98-107) Carbon Dioxide Level 29 MMOL/L (21-32) Anion Gap 7 mmol/L (5-15) Blood Urea Nitrogen 6 mg/dL (7-18) L Creatinine 1.0 MG/DL (0.55-1.30) Estimat Glomerular Filtration Rate > 60 mL/min (>60) Glucose Level 112 MG/DL (74-106) H Calcium Level 9.7 MG/DL (8.5-10.1) Phosphorus Level 3.6 MG/DL (2.5-4.9) Total Bilirubin 0.6 MG/DL (0.2-1.0) Direct Bilirubin 0.1 MG/DL (0.0-0.3) Aspartate Amino Transf (AST/SGOT) 22 U/L (15-37) Alanine Aminotransferase (ALT/SGPT) 30 U/L (12-78) Alkaline Phosphatase 93 U/L (46-116) Troponin I 0.000 ng/mL (0.000-0.056) Total Protein 7.5 G/DL (6.4-8.2) Albumin 3.9 G/DL (3.4-5.0) Lipase 91 U/L (73-393) Height (Feet): 5 Height (Inches): 10.00 Weight (Pounds): 150 Medications Current Medications Medications (Trade) Dose Ordered Sig/Toni Route PRN Reason Start Time Stop Time Status Last Admin Dose Admin Acetaminophen (Tylenol) 650 mg Q4H PRN ORAL Mild Pain (Pain Scale 1-3) 09/05/19 01:30 10/05/19 01:29 Barium Sulfate (Readi-Cat 2) 450 ml NOW PRN ORAL Radiology Procedure 09/06/19 11:45 09/08/19 11:40 Dextrose (Dextrose 50%) 25 ml Q30M PRN IV Hypoglycemia 09/05/19 01:30 10/05/19 01:29 Dextrose (Dextrose 50%) 50 ml Q30M PRN IV Hypoglycemia 09/05/19 01:30 10/05/19 01:29 Dextrose/ Electrolytes 1,000 ml @ 100 mls/hr Q10H IV 09/05/19 13:00 10/05/19 12:59 09/05/19 23:00 Enoxaparin Sodium (Lovenox) 40 mg Q24H SUBQ 09/05/19 09:00 10/05/19 08:59 09/06/19 08:35 Hydromorphone HCl (Dilaudid) 0.5 mg Q6H PRN IVP Pain Scale (6-10) 09/05/19 01:30 09/12/19 01:29 Iohexol (OMNIPAQUE-300 100ml) 100 ml NOW PRN INJ Radiology Procedure 09/06/19 11:45 09/08/19 11:40 Lorazepam (Ativan 2mg/ml 1ml) 0.5 mg Q4H PRN IV For Anxiety 09/05/19 01:30 09/12/19 01:29 Ondansetron HCl (Zofran) 4 mg Q6H IVP 09/06/19 13:30 10/06/19 13:29 09/06/19 13:08 Pantoprazole (Protonix) 40 mg DAILY IVP 09/06/19 11:45 10/06/19 11:44 09/06/19 12:51 Prochlorperazine (Compazine) 10 mg Q6H PRN IVP Nausea & Vomiting 09/05/19 12:33 10/05/19 12:32 09/05/19 20:11 Assessment/Plan Problem List: (1) Intractable abdominal pain Assessment & Plan: afebrile, HD stable, leukocytosis persistent n/v persistent unable to tolerate much po diet exam fairly benign CT A/P iv fluids will follow with exam pending imaging thank you ICD Codes: R10.9 - Unspecified abdominal pain SNOMED: 68501360 (2) Intractable nausea and vomiting ICD Codes: R11.2 - Nausea with vomiting, unspecified SNOMED: 043965295 Jose Back Sep 06, 2019 15:09
--- NOTE | 2019-09-06 15:31 | NUR ---
NURSE NOTES: Care was taken over for pt, Dr Crump here seen pt gave instructions to give him a call once the results were i for the CT of the abdomen
--- NOTE | 2019-09-06 16:11 | Diagnostic Imaging Report ---
Indication: Abdominal tenderness, nausea, vomiting Technique: Becker-scale and duplex images of the right upper quadrant were obtained Comparison: No comparison sonograms. Reference made to CT of the abdomen and pelvis dated 08/24/2009 Findings: Gallbladder is unremarkable, without stones, wall thickening, nor pericholecystic fluid. Sonographic Giang's sign is negative. Common bile duct measures 3 mm in diameter. No intrahepatic biliary ductal dilatation. Liver demonstrates normal echogenicity, no focal abnormality. Portal vein and hepatic veins are patent. Pancreas is unremarkable. Right kidney measures 9.7 cm length. Right kidney demonstrates normal echogenicity. There is no hydronephrosis. No focal abnormality . Non-aneurysmal abdominal aorta . Impression: Negative
[2019-09-06] MEDS: Hydromorphone 0.5mg/0.5ml inj IVP PRN (17:38)
--- NOTE | 2019-09-06 18:23 | NUR ---
NURSE NOTES: Pt is NPO pt given another IV line placed in left hand , due to previous line being in rt AC. Pt provided with Compazine, due to repeated vomitus. Dr Medrano called to inform him that pt did not keep down the contrast, stated to precede with ct despite not being to keep it down , without additional contrast. Vomitus is liquid smells acidic without noted digested food. IV fluids continues at this time. Pt has not urinated at this time. Informed that urine needed to be collected
--- NOTE | 2019-09-06 18:58 | NUR ---
NURSE NOTES: Dr Medrano callled due to CT not picking up pt due to cancellation. Child Development Specialist left verbal message for CT as well as to inquire if another ct abdomen should be order
--- NOTE | 2019-09-06 19:06 | NUR ---
NURSE NOTES: Gave orders to do CT of the ABDOMEN STAT
--- NOTE | 2019-09-06 19:34 | NUR ---
HAND-OFF: Report given to Angela JOLLEY made aware of STAT order for CT of the Abdomen and to notify [facility] with results.
--- NOTE | 2019-09-06 19:53 | NUR ---
CASE MANAGEMENT: REVIEW 48Y/MALE BIBA FROM [facility] CC: ABD PAIN X3 HOURS . N/V . HX MARIJUANA SMOKER SI: INTRACTABLE VOMITING . CYCLIC VOMITING SYNDROME T 98.8 HR 68 RR 18 BP 143/89 SAT 96 SAT% ROOM AIR WBC 12.9 GLUCOSE 122 IS: NS IVF BOLUS X1 HALDOL IV X1 PROMETHAZINE IV X1 DILAUDID IV X1 CLEAR LIQUID DIET PATIENT ADMITTED TO MED/SURG UNIT 09/04/2019 DCP: PATIENT IS FROM HOME
[2019-09-06 20:00] VITALS: BP 130/94
--- NOTE | 2019-09-06 21:13 | Diagnostic Imaging Report ---
Clinical Indication: Abdominal pain and vomiting Technique: No oral contrast utilized, per emergency room physician request IV administration nonionic contrast. Venous phase spiral acquisition obtained through the abdomen and pelvis. Multiplanar reconstructions were generated. Total dose length product 6 cm 13 mGycm. CTDIvol(s) 11 mGy. Dose reduction achieved using automated exposure control Comparison: 08/24/2009 Findings: There is a filling defect within the superior mesenteric vein, extending into the portal vein. This is probably real rather than an inflow artifact, as upstream venous branches are opacified. This does not appear to be obstructive. There does not appear to be any associated bowel wall thickening or mesenteric congestion. This is not evident previously. The appendix is normal. Contrast, presumably from an earlier study, is seen in the ascending colon. There is no evidence of diverticulosis or diverticulitis. No small bowel distention. No free or loculated intraperitoneal gas or fluid is evident. There is a small sliding-type hiatal hernia again noted. The liver demonstrates a focal area of fatty change in the usual location adjacent to the falciform ligament. The gallbladder, bile ducts, pancreas, spleen, adrenals, kidneys are unremarkable. No retroperitoneal or mesenteric mass or adenopathy. No pelvic mass or adenopathy. The bladder is somewhat distended. The included lung bases demonstrate bullous changes bilaterally. The bones are unremarkable. Impression: Linear filling defect in the superior mesenteric vein extending into the portal vein. While possibly in inflow artifact from nonopacified blood, suspect that this is a real finding representing thrombus within the superior mesenteric vein and portal vein. This does not appear to be occlusive and there is no bowel wall thickening. This finding was not described on the [facility] preliminary report, was phoned to Dr. Back at the time of interpretation. [facility] was also notified of either website No other abnormality. Evidence of bullous COPD. This is a new finding since the prior 2008 exam Incidental findings of focal fatty change within the liver, small hiatal hernia The CT scanner at [facility] is accredited by the [employer] and the scans are performed using protocols designed to limit radiation exposure to as low as reasonably achievable to attain images of sufficient resolution adequate for diagnostic evaluation.
[2019-09-07] VITALS: BP 158/90
--- NOTE | 2019-09-07 00:02 | NUR ---
NURSES NOTES: Met patient in bed. A/O X4, communicable and able to let needs be known. Patient displaying no outward s/s of distress. Breathing pattern is even and unlabored. VS stable, within normal limits. All due medications given according to eMAR. Patient picked up for STAT CT scan at approximately 2029. Patient cleared for clear liquid diet upon arrival back. Patient made aware a urine sample needs to be collected and to advise nurse when urination possible. Dr Medrano called to relay results of CT scan. Non-urgent message left through answering service. Patient has had vomited once since start of NOC shift. Total emises will be noted at end of shift.
[2019-09-07] MEDS: Hydromorphone 0.5mg/0.5ml inj IVP PRN ×4 (01:44→20:34)
[2019-09-07 04:00] VITALS: BP 117/77
[2019-09-07 05:42] LABS: BASOPHILS % (AUTO) 0.9 % (0.0-2.0); EOSINOPHILS % (AUTO) 0.2 % (0.0-3.0); HEMATOCRIT 46.4 % (42.0-52.0); HEMOGLOBIN 15.6 G/DL (14.2-18.0); LYMPHOCYTES % (AUTO) 16.1 % (20.0-45.0); MEAN CORPUSCULAR VOLUME 86 FL (80-99); NEUTROPHILS % (AUTO) 74.7 % (45.0-75.0); PLATELET COUNT 361 K/UL (150-450); RED BLOOD COUNT 5.38 M/UL (4.70-6.10); RED CELL DISTRIBUTION WIDTH 11.4 % (11.6-14.8); WHITE BLOOD COUNT 13.3 K/UL (4.8-10.8)
[2019-09-07 05:59] LABS: ANION GAP 8 mmol/L (5-15); BLOOD UREA NITROGEN 8 mg/dL (7-18); CALCIUM 8.8 MG/DL (8.5-10.1); CARBON DIOXIDE 31 MMOL/L (21-32); CHLORIDE 103 MMOL/L (98-107); CREATININE 0.9 MG/DL (0.55-1.30); PHOSPHORUS 3.9 MG/DL (2.5-4.9); POTASSIUM 3.4 MMOL/L (3.5-5.1); SODIUM 142 MMOL/L (136-145)
--- NOTE | 2019-09-07 07:25 | NUR ---
NURSE NOTES: WALKING ROUNDS DONE WITH OUTGOING RN. PATIENT UNABLE TO TOLERATE CLEAR LIQUIDS. HAD SMALL EMESIS AND SPITTING UP. QUESTIONS ANSWERED NEEDS MET.DISCUSSED PLAN OF CARE FOR THE DAY. ACKNOWLEDGED UNDERSTANDING. BED IN LOW AND LOCKED POSITION. CALL LIGHT WITHIN REACH. WILL CHECK E-MAR FOR ANTI-EMETICS DUE AND ADMINISTER.
--- NOTE | 2019-09-07 07:50 | NUR ---
NURSES NOTE: EMESIS TOTAL: 1300- Noc Shift. called to be made aware. Message left to pls advise if further orders required. Endorsed to oncoming nurse. Report given to SHOLA Melvin.
[2019-09-07] MEDS: D5 1/2NS w/KCl 20mEq 1,000 ML IV SCH ×2 (07:52→19:26)
--- NOTE | 2019-09-07 07:59 | NUR ---
HAND OFF: Report given to SHOLA Melvin. Pt in stable condition. Thoracentesis and discharge 09/07/19 endorsed to lata carroll. Addendum: 09/07/19 at 0820 by Audra Oscar RN NOTE not reflective of patient Leandro Field. New note will be placed clarifying.
[2019-09-07 08:00] VITALS: BP 158/96
--- NOTE | 2019-09-07 08:20 | NUR ---
HAND OFF: : EMESIS TOTAL: 1300- Noc Shift. Dr called to be made aware. Message left to pls advise if further orders required. Endorsed to oncoming nurse. Report given to SHOLA Melvin. Dr. Back responded and no new orders given. States he will be coming in to see patient.
[2019-09-07] MEDS: Pantoprazole Inj IVP SCH (09:28)
[2019-09-07] MEDS: Enoxaparin 40mg Inj SUBQ SCH (09:33)
[2019-09-07] MEDS ORDERED: Heparin 5000 units/ml inj IV SCH ×2 (11:30→21:15)
[2019-09-07] MEDS ORDERED: Heparin 1000 units/ml 1ml Vial INJ ONE (11:30)
[2019-09-07] MEDS ORDERED: Enoxaparin 80mg Inj SUBQ SCH (11:30)
--- NOTE | 2019-09-07 11:31 | General Progress Note ---
Assessment/Plan Status: not improved, unchanged Assessment/Plan: GI: Plan Problems: (1) Dehydration (2) Intractable nausea and vomiting (3) Cyclic vomiting syndrome (4) Marijuana abuse (5) Intractable abdominal pain (6) Fatty liver (7) Hiatal hernia Plan Intractable nausea and vomiting most likely secondary due to cyclic vomiting syndrome Maintain n.p.o. plus IV fluids Electrolyte correction Zofran as needed, Reglan for persistent vomiting. PPI D/W surg team, plan EGD in am Follow labs Subjective ROS Limited/Unobtainable: Yes Allergies: Coded Allergies: No Known Allergies (Unverified , 12/08/17) Objective Last 24 Hour Vital Signs Date Time Temp Pulse Resp B/P (MAP) Pulse Ox O2 Delivery O2 Flow Rate FiO2 09/07/19 09:00 Room Air 09/07/19 08:25 98.2 09/07/19 08:00 98.2 74 17 158/96 (116) 99 09/07/19 04:00 98.2 65 16 117/77 (90) 96 60 09/07/19 00:00 99.1 60 16 158/90 (112) 96 60 09/06/19 21:00 Room Air 09/06/19 20:00 97.7 59 17 130/94 (106) 95 59 09/06/19 12:00 98.2 65 16 150/96 (114) 99 Intake and Output 09/06/19 09/07/19 19:00 07:00 Intake Total 200 ml 1800 ml Output Total 1300 ml Balance 200 ml 500 ml Intake Oral 800 ml IV Total 200 ml 1000 ml Emesis 1300 ml # Voids 4 Laboratory Tests 09/07/19 02:00: Urine Opiates Screen Negative, Urine Barbiturates Screen Negative, Phencyclidine (PCP) Screen Negative, Urine Amphetamines Screen Negative, Urine Benzodiazepines Screen Negative, Urine Cocaine Screen Negative, Urine Marijuana (THC) Screen PositiveH 09/07/19 04:50: White Blood Count 13.3H, Red Blood Count 5.38, Hemoglobin 15.6, Hematocrit 46.4 , Mean Corpuscular Volume 86, Mean Corpuscular Hemoglobin 29.0, Mean Corpuscular Hemoglobin Concent 33.6, Red Cell Distribution Width 11.4L, Platelet Count 361, Mean Platelet Volume 5.1L, Neutrophils (%) (Auto) 74.7, Lymphocytes (%) (Auto) 16.1L, Monocytes (%) (Auto) 8.0, Eosinophils (%) (Auto) 0.2, Basophils (%) (Auto) 0.9, Sodium Level 142, Potassium Level 3.4L, Chloride Level 103, Carbon Dioxide Level 31, Anion Gap 8, Blood Urea Nitrogen 8, Creatinine 0.9, Estimat Glomerular Filtration Rate > 60, Glucose Level 122H, Calcium Level 8.8, Phosphorus Level 3.9, Magnesium Level 1.8 Height (Feet): 5 Height (Inches): 10.00 Weight (Pounds): 150 General Appearance: alert EENT: normal ENT inspection Neck: supple Cardiovascular: normal rate Respiratory/Chest: lungs clear Abdomen: normal bowel sounds, soft, tender Extremities: non-tender Ashok Zabala MD Sep 07, 2019 11:31
--- NOTE | 2019-09-07 11:51 | NUR ---
*-* INSURANCE *--* ALL AVAILABLE CLINICALS HAVE BEEN FAXED TO: [facility]#[id number] NO CM YET PH#[phone] FAX#[phone] REVIEWS/CLINICALS
[2019-09-07 12:00] VITALS: BP 113/72
[2019-09-07 12:09] LABS: BASOPHILS % (AUTO) 0.8 % (0.0-2.0); EOSINOPHILS % (AUTO) 0.5 % (0.0-3.0); HEMATOCRIT 44.8 % (42.0-52.0); HEMOGLOBIN 14.9 G/DL (14.2-18.0); LYMPHOCYTES % (AUTO) 20.5 % (20.0-45.0); MEAN CORPUSCULAR VOLUME 87 FL (80-99); MONOCYTES % (AUTO) 8.4 % (1.0-10.0); NEUTROPHILS % (AUTO) 69.8 % (45.0-75.0); PLATELET COUNT 348 K/UL (150-450); RED BLOOD COUNT 5.15 M/UL (4.70-6.10); RED CELL DISTRIBUTION WIDTH 11.4 % (11.6-14.8); WHITE BLOOD COUNT 12.1 K/UL (4.8-10.8)
--- NOTE | 2019-09-07 12:09 | Surgery Progress Note ---
Surgery Progress Note Subjective Additional Comments CT noted and reviewed with radiology, pcp, heme/onc exam stable still with n/v labs noted discussed with GI Objective Last 24 Hour Vital Signs Date Time Temp Pulse Resp B/P (MAP) Pulse Ox O2 Delivery O2 Flow Rate FiO2 09/07/19 09:00 Room Air 09/07/19 08:25 98.2 09/07/19 08:00 98.2 74 17 158/96 (116) 99 09/07/19 04:00 98.2 65 16 117/77 (90) 96 60 09/07/19 00:00 99.1 60 16 158/90 (112) 96 60 09/06/19 21:00 Room Air 09/06/19 20:00 97.7 59 17 130/94 (106) 95 59 I&O Intake and Output 09/06/19 09/07/19 19:00 07:00 Intake Total 200 ml 1800 ml Output Total 1300 ml Balance 200 ml 500 ml Intake Oral 800 ml IV Total 200 ml 1000 ml Emesis 1300 ml # Voids 4 Cardiovascular: RSR Respiratory: clear Abdomen: soft, non-tender, present bowel sounds, non-distended Extremities: no edema, no tenderness, no cyanosis Laboratory Tests Test 09/07/19 02:00 09/07/19 04:50 09/07/19 12:00 Urine Opiates Screen Negative (NEGATIVE) Urine Barbiturates Screen Negative (NEGATIVE) Phencyclidine (PCP) Screen Negative (NEGATIVE) Urine Amphetamines Screen Negative (NEGATIVE) Urine Benzodiazepines Screen Negative (NEGATIVE) Urine Cocaine Screen Negative (NEGATIVE) Urine Marijuana (THC) Screen Positive (NEGATIVE) H White Blood Count 13.3 K/UL (4.8-10.8) H Pending Red Blood Count 5.38 M/UL (4.70-6.10) Pending Hemoglobin 15.6 G/DL (14.2-18.0) Pending Hematocrit 46.4 % (42.0-52.0) Pending Mean Corpuscular Volume 86 FL (80-99) Pending Mean Corpuscular Hemoglobin 29.0 PG (27.0-31.0) Pending Mean Corpuscular Hemoglobin Concent 33.6 G/DL (32.0-36.0) Pending Red Cell Distribution Width 11.4 % (11.6-14.8) L Pending Platelet Count 361 K/UL (150-450) Pending Mean Platelet Volume 5.1 FL (6.5-10.1) L Pending Neutrophils (%) (Auto) 74.7 % (45.0-75.0) Pending Lymphocytes (%) (Auto) 16.1 % (20.0-45.0) L Pending Monocytes (%) (Auto) 8.0 % (1.0-10.0) Pending Eosinophils (%) (Auto) 0.2 % (0.0-3.0) Pending Basophils (%) (Auto) 0.9 % (0.0-2.0) Pending Sodium Level 142 MMOL/L (136-145) Potassium Level 3.4 MMOL/L (3.5-5.1) L Chloride Level 103 MMOL/L (98-107) Carbon Dioxide Level 31 MMOL/L (21-32) Anion Gap 8 mmol/L (5-15) Blood Urea Nitrogen 8 mg/dL (7-18) Creatinine 0.9 MG/DL (0.55-1.30) Estimat Glomerular Filtration Rate > 60 mL/min (>60) Glucose Level 122 MG/DL (74-106) H Calcium Level 8.8 MG/DL (8.5-10.1) Phosphorus Level 3.9 MG/DL (2.5-4.9) Magnesium Level 1.8 MG/DL (1.8-2.4) Activated Partial Thromboplast Time Pending Alpha Fetoprotein Pending Carcinoembryonic Antigen Pending CA 19-9 Antigen Pending Prostate Specific Antigen Pending Plan Problems: (1) Intractable abdominal pain Assessment & Plan: afebrile, HD stable, leukocytosis persistent n/v persistent unable to tolerate much po diet exam fairly benign Impression: Linear filling defect in the superior mesenteric vein extending into the portal vein. While possibly in inflow artifact from nonopacified blood, suspect that this is a real finding representing thrombus within the superior mesenteric vein and portal vein. This does not appear to be occlusive and there is no bowel wall thickening. This finding was not described on the [facility] preliminary report, was phoned to Dr. Back at the time of interpretation. [employer] was also notified of either website No other abnormality. Evidence of bullous COPD. This is a new finding since the prior 2009 exam Incidental findings of focal fatty change within the liver, small hiatal hernia iv fluids will follow with exam heparin gtt GI for EGD thank you (2) Intractable nausea and vomiting Jose Back Sep 07, 2019 12:09
--- NOTE | 2019-09-07 12:14 | General Progress Note ---
Assessment/Plan Problem List: (1) Superior mesenteric vein thrombosis SNOMED: 319877866 (2) Cyclic vomiting syndrome ICD Codes: R11.15 - Cyclical vomiting syndrome unrelated to migraine SNOMED: 00866028 (3) Intractable abdominal pain ICD Codes: R10.9 - Unspecified abdominal pain SNOMED: 72552386 (4) Intractable nausea and vomiting ICD Codes: R11.2 - Nausea with vomiting, unspecified SNOMED: 078732149 (5) Marijuana abuse ICD Codes: F12.10 - Cannabis abuse, uncomplicated SNOMED: 40748724 (6) Gastritis ICD Codes: K29.70 - Gastritis, unspecified, without bleeding SNOMED: 7450635 Status: not improved, unchanged Assessment/Plan: 48-year-old male with past medical history of cannabis use, presenting with acute epigastric/left upper quadrant abdominal pain and persistent intractable nausea vomiting. Found to have acute SMV thrombus. # Abdominal pain, epigastric/left upper quadrant/nonradiating suspected 2/2 acute SMV thrombus > Doubt ACS given negative troponin. Doubt pancreatitis given normal lipase. #Leukocytosis, reactive vs. infectious. Will rule out infectious etiology. #hypokalemia due to vomiting > CT abdomen pelvis with contrast given persistent abdominal pain - SMV thrombus. Discussed with radiologist Dr. Laguna and appears acute. > RUQ abdominal ultrasound to rule out acute oli - negative - Supportive care with IVF -Start heparin drip - blood cultures x 2 -Start Zosyn 3.375 g every 8 hours IV for possible gut translocation (09/07 - ) -Appreciate GI recommendations: Dr. Zabala -Appreciate general surgery recommendations: Dr. Back - Appreciate hematology oncology recommendations: Dr. Gant -start heparin drip, will likely need hypercoagulable work-up as outpatient -Zofran 4 mg IV every 6 hours (QTC normal) -Continue to monitor QTC periodically -Compazine as needed for breakthrough nausea -Protonix 40mg IV daily -Will consider Haldol -Follow electrolytes and replete PRN # Cannabis use - Counselling provided - SW follow up as needed #Hypokalemia - replete PRN FENPPX DVTPPX: Heparin GTT GI PPX: protonix Fluids: D5 1/2 NS @100 cc/hr Diet: CLD Lines: peripheral PT/OT: pending Code status: Full code Dispo: Home after acute issues resolved Reason for continued hospitalization: Acute SMV thrombus 39 minutes spent on this encounter. Discussed with RN, patient, GI, general surgery, and hematology/oncology. > 50% spent on counseling and care coordination. Time of note may not reflect time patient was seen. Subjective Date patient seen: Sep 07, 2019 Constitutional: Denies: chills, diaphoresis, fever, malaise, weakness, other HEENT: Denies: eye pain, blurred vision, tearing, double vision, ear pain, ear discharge, nose pain, nose congestion, throat pain, throat swelling, mouth pain , mouth swelling, other Cardiovascular: Denies: no symptoms, chest pain, edema, irregular heart rate, lightheadedness, palpitations, syncope, other Respiratory: Denies: cough, orthopnea, shortness of breath, SOB with excertion , SOB at rest, sputum, stridor, wheezing, other Gastrointestinal/Abdominal: Reports: abdominal pain, nausea, vomiting; Denies: abdomen distended, black stools, tarry stools, blood in stool, constipated, diarrhea, difficulty swallowing, poor appetite, poor fluid intake, rectal bleeding, other Genitourinary: Denies: no symptoms, burning, discharge, frequency, flank pain, hematuria, incontinence, pain, urgency, other Neurologic/Psychiatric: Denies: anxiety, depressed, emotional problems, headache, numbness, paresthesia, pre-existing deficit, seizure, tingling, tremors, weakness, other Endocrine: Denies: no symptoms, excessive sweating, flushing, intolerance to cold, intolerance to heat, increased hunger, increased thirst, increased urine, unexplained weight gain, unexplained weight loss, other Hematologic/Lymphatic: Denies: anemia, easy bleeding, easy bruising, other Allergies: Coded Allergies: No Known Allergies (Unverified , 12/08/17) Subjective Patient continues to complain of left upper quadrant/epigastric abdominal pain, constant, sharp, 7 out of 10, nonradiating. With minimal improvement compared to yesterday. Nausea and vomiting are better controlled. Having nonbloody emesis every 2 hours. +flatus. CT abdomen pelvis read overnight as no acute process. Reexamined by morning radiologist and noticed SMV thrombus, suspect acute. Denies any chest pain, fever, chills, shortness of breath. Objective Last 24 Hour Vital Signs Date Time Temp Pulse Resp B/P (MAP) Pulse Ox O2 Delivery O2 Flow Rate FiO2 09/07/19 09:00 Room Air 09/07/19 08:25 98.2 09/07/19 08:00 98.2 74 17 158/96 (116) 99 09/07/19 04:00 98.2 65 16 117/77 (90) 96 60 09/07/19 00:00 99.1 60 16 158/90 (112) 96 60 09/06/19 21:00 Room Air 09/06/19 20:00 97.7 59 17 130/94 (106) 95 59 Intake and Output 09/06/19 09/07/19 19:00 07:00 Intake Total 200 ml 1800 ml Output Total 1300 ml Balance 200 ml 500 ml Intake Oral 800 ml IV Total 200 ml 1000 ml Emesis 1300 ml # Voids 4 Laboratory Tests 09/07/19 02:00: Urine Opiates Screen Negative, Urine Barbiturates Screen Negative, Phencyclidine (PCP) Screen Negative, Urine Amphetamines Screen Negative, Urine Benzodiazepines Screen Negative, Urine Cocaine Screen Negative, Urine Marijuana (THC) Screen PositiveH 09/07/19 04:50: White Blood Count 13.3H, Red Blood Count 5.38, Hemoglobin 15.6, Hematocrit 46.4 , Mean Corpuscular Volume 86, Mean Corpuscular Hemoglobin 29.0, Mean Corpuscular Hemoglobin Concent 33.6, Red Cell Distribution Width 11.4L, Platelet Count 361, Mean Platelet Volume 5.1L, Neutrophils (%) (Auto) 74.7, Lymphocytes (%) (Auto) 16.1L, Monocytes (%) (Auto) 8.0, Eosinophils (%) (Auto) 0.2, Basophils (%) (Auto) 0.9, Sodium Level 142, Potassium Level 3.4L, Chloride Level 103, Carbon Dioxide Level 31, Anion Gap 8, Blood Urea Nitrogen 8, Creatinine 0.9, Estimat Glomerular Filtration Rate > 60, Glucose Level 122H, Calcium Level 8.8, Phosphorus Level 3.9, Magnesium Level 1.8 09/07/19 12:00: White Blood Count [Pending], Red Blood Count [Pending], Hemoglobin [Pending], Hematocrit [Pending], Mean Corpuscular Volume [Pending], Mean Corpuscular Hemoglobin [Pending], Mean Corpuscular Hemoglobin Concent [Pending], Red Cell Distribution Width [Pending], Platelet Count [Pending], Mean Platelet Volume [ Pending], Neutrophils (%) (Auto) [Pending], Lymphocytes (%) (Auto) [Pending], Monocytes (%) (Auto) [Pending], Eosinophils (%) (Auto) [Pending], Basophils (%) (Auto) [Pending], Activated Partial Thromboplast Time [Pending], Alpha Fetoprotein [Pending], Carcinoembryonic Antigen [Pending], CA 19-9 Antigen [ Pending], Prostate Specific Antigen [Pending] Height (Feet): 5 Height (Inches): 10.00 Weight (Pounds): 150 General Appearance: WD/WN, no apparent distress, alert EENT: PERRL/EOMI, normal ENT inspection Neck: non-tender, normal alignment, supple Cardiovascular: normal peripheral pulses, normal rate, regular rhythm, no JVD Respiratory/Chest: chest wall non-tender, lungs clear, normal breath sounds Abdomen: normal bowel sounds, other - Nondistended, tenderness to palpation in left upper quadrant, with minimal guarding or rebound Extremities: normal range of motion, non-tender, normal inspection Edema: other - No lower extremity edema bilaterally Neurologic: interactive media marketing strategist II-XII grossly normal, no motor/sensory deficits, alert, oriented x 3 Skin: normal pigmentation, warm/dry Sea Partida D.O. Sep 07, 2019 12:14
[2019-09-07] MEDS: Metoclopramide 10mg/2ml Inj IVP SCH ×2 (12:41→18:23)
[2019-09-07] MEDS ORDERED: Heparin 25,000u/D5W 500ml 500 ML IV SCH (13:30)
[2019-09-07] MEDS: Piperacillin/Tazobactam 3.375 GM in NS 110 ML IVPB SCH ×2 (14:59→21:34)
[2019-09-07 16:00] VITALS: BP 125/79
--- NOTE | 2019-09-07 18:30 | NUR ---
NURSE NOTES: HEPARIN DRIP STARTED THIS AFTERNOON. NO S/S BLEEDING. VSS. AFEBRILE.
--- NOTE | 2019-09-07 19:19 | NUR ---
HAND-OFF: Report given to JADA MORILLO RN.
--- NOTE | 2019-09-07 19:30 | NUR ---
NURSE NOTES: Received patient awake,alert,verbal,resting in bed,with stable vital signs.
[2019-09-07 19:56] VITALS: BP 158/99
[2019-09-07] MEDS: Heparin 25,000u/D5W 500ml 500 ML IV SCH (21:33)
[2019-09-08] VITALS (12 sets, daily range): BP systolic 116–171; BP diastolic 77–106
[2019-09-08] MEDS: Metoclopramide 10mg/2ml Inj IVP SCH ×4 (00:14→17:43)
[2019-09-08 03:47] LABS: BASOPHILS % (AUTO) 0.9 % (0.0-2.0); EOSINOPHILS % (AUTO) 1.3 % (0.0-3.0); HEMATOCRIT 42.8 % (42.0-52.0); HEMOGLOBIN 14.6 G/DL (14.2-18.0); LYMPHOCYTES % (AUTO) 31.8 % (20.0-45.0); MEAN CORPUSCULAR VOLUME 85 FL (80-99); MONOCYTES % (AUTO) 10.1 % (1.0-10.0); NEUTROPHILS % (AUTO) 55.9 % (45.0-75.0); PLATELET COUNT 344 K/UL (150-450); RED BLOOD COUNT 5.02 M/UL (4.70-6.10); RED CELL DISTRIBUTION WIDTH 11.1 % (11.6-14.8); WHITE BLOOD COUNT 10.6 K/UL (4.8-10.8)
[2019-09-08 04:00] LABS: ANION GAP 9 mmol/L (5-15); BLOOD UREA NITROGEN 6 mg/dL (7-18); CALCIUM 8.5 MG/DL (8.5-10.1); CARBON DIOXIDE 28 MMOL/L (21-32); CHLORIDE 104 MMOL/L (98-107); POTASSIUM 3.5 MMOL/L (3.5-5.1); SODIUM 141 MMOL/L (136-145)
[2019-09-08] MEDS: Piperacillin/Tazobactam 3.375 GM in NS 110 ML IVPB SCH ×3 (04:43→21:00)
--- NOTE | 2019-09-08 05:00 | NUR ---
NURSE NOTES: PTT at 0330 is 81, no change in dose, repeat PTT tomorrow AM.
[2019-09-08] MEDS: D5 1/2NS w/KCl 20mEq 1,000 ML IV SCH ×2 (06:25→20:08)
--- NOTE | 2019-09-08 06:29 | Hematology/Onc Progress Note ---
Assessment/Plan Assessment/Plan # Acute SMV and portal vein thrombosis -- potential contributor to abdominal pain, epigastric/left upper quadrant/nonradiating suspected 2/2 acute SMV thrombus --> imaging has been reviewed and cw acute process, millicent rad, pcp, surg --> agree with the use of anticoagulation, hep gtt has been started --> minimum of 3 months of anticoag --> will need a workup to r/o malignancy, tumor markers have been ordered --> recommend hypercoag w/u as well, may be done in o/p setting --> gi to access soon with EGD 09/08: esophagitis # Leukocytosis, reactive vs. infectious. Will rule out infectious etiology. --> trend on abx, zosyn --> wbc trend 15-->9 --> blood cultures pend # Hypokalemia due to vomiting --> k given as needed, daily --> zofran started q6h --> Compazine as needed for breakthrough nausea # Cannabis use --> Counselling provided --> may be contributor to n.v # Dvt ppx now with hep gtt Appreciate consultation and millicent RN. Subjective Constitutional: Denies: no symptoms, chills, fever, malaise, weakness, other HEENT: Denies: no symptoms, eye pain, blurred vision, tearing, double vision, ear pain, ear discharge, nose pain, nose congestion, throat pain, throat swelling, mouth pain, mouth swelling, other Cardiovascular: Denies: no symptoms, chest pain, edema, irregular heart rate, lightheadedness, palpitations, syncope, other Respiratory: Denies: no symptoms, cough, shortness of breath, SOB with excertion, SOB at rest, sputum, wheezing, other Gastrointestinal/Abdominal: Denies: no symptoms, abdomen distended, abdominal pain, black stools, tarry stools, blood in stool, constipated, diarrhea, difficulty swallowing, nausea, poor appetite, poor fluid intake, rectal bleeding , vomiting, other Genitourinary: Denies: no symptoms, burning, discharge, frequency, flank pain, hematuria, incontinence, pain, urgency, other Neurologic/Psychiatric: Denies: no symptoms, anxiety, depressed, emotional problems, headache, numbness, paresthesia, pre-existing deficit, seizure, tingling, tremors, weakness, other Endocrine: Denies: no symptoms, excessive sweating, flushing, intolerance to cold, intolerance to heat, increased hunger, increased thirst, increased urine, unexplained weight gain, unexplained weight loss, other Allergies: Coded Allergies: No Known Allergies (Unverified , 12/08/17) Subjective 09/08: no events noted, no bleeding, heparin gtt started yesterday, otherwise feeling better Objective Objective Current Medications Medications (Trade) Dose Ordered Sig/Toni Route PRN Reason Start Time Stop Time Status Last Admin Dose Admin Acetaminophen (Tylenol) 650 mg Q4H PRN ORAL Mild Pain (Pain Scale 1-3) 09/05/19 01:30 10/05/19 01:29 09/07/19 18:31 Barium Sulfate (Readi-Cat 2) 450 ml NOW PRN ORAL Radiology Procedure 09/06/19 11:45 09/08/19 11:40 Barium Sulfate (Readi-Cat 2) 450 ml NOW PRN ORAL Radiology Procedure 09/06/19 19:15 09/08/19 19:03 Dextrose (Dextrose 50%) 25 ml Q30M PRN IV Hypoglycemia 09/05/19 01:30 10/05/19 01:29 Dextrose (Dextrose 50%) 50 ml Q30M PRN IV Hypoglycemia 09/05/19 01:30 10/05/19 01:29 Dextrose/ Electrolytes 1,000 ml @ 100 mls/hr Q10H IV 09/05/19 13:00 10/05/19 12:59 09/07/19 19:26 Heparin Sodium/ Dextrose 500 ml @ 25.946 mls/ hr ADJUST PER PROTOCOL IV 09/07/19 21:15 10/07/19 21:14 09/07/19 21:33 Hydromorphone HCl (Dilaudid) 0.5 mg Q6H PRN IVP Pain Scale (6-10) 09/05/19 01:30 09/12/19 01:29 09/07/19 20:34 Iohexol (OMNIPAQUE-300 100ml) 100 ml NOW PRN INJ Radiology Procedure 09/06/19 11:45 09/08/19 11:40 Iohexol (OMNIPAQUE-300 100ml) 100 ml NOW PRN INJ Radiology Procedure 09/06/19 19:15 09/08/19 19:03 Lorazepam (Ativan 2mg/ml 1ml) 0.5 mg Q4H PRN IV For Anxiety 09/05/19 01:30 09/12/19 01:29 Metoclopramide HCl (Reglan) 10 mg Q6H IVP 09/07/19 12:15 10/07/19 12:14 09/08/19 00:14 Ondansetron HCl (Zofran) 4 mg Q6H IVP 09/06/19 13:30 10/06/19 13:29 09/08/19 01:44 Pantoprazole (Protonix) 40 mg DAILY IVP 09/06/19 11:45 10/06/19 11:44 09/07/19 09:28 Piperacillin Sod/ Tazobactam Sod 3.375 gm/Sodium Chloride 110 ml @ 27.5 mls/hr EVERY 8 HOURS IVPB 09/07/19 14:00 09/12/19 13:59 09/08/19 04:43 Prochlorperazine (Compazine) 10 mg Q6H PRN IVP Nausea & Vomiting 09/05/19 12:33 10/05/19 12:32 09/07/19 09:28 Last 24 Hour Vital Signs Date Time Temp Pulse Resp B/P (MAP) Pulse Ox O2 Delivery O2 Flow Rate FiO2 09/08/19 04:00 98.4 56 18 116/77 (90) 92 09/07/19 21:04 99.8 09/07/19 20:10 Room Air 09/07/19 19:56 99.8 61 18 158/99 (118) 97 09/07/19 19:01 100.3 09/07/19 16:00 100.3 63 18 125/79 (94) 95 09/07/19 12:00 98.6 67 17 113/72 (86) 98 09/07/19 09:00 Room Air 09/07/19 08:00 98.2 74 17 158/96 (116) 99 09/07/19 04:00 98.2 65 16 117/77 (90) 96 60 09/07/19 00:00 99.1 60 16 158/90 (112) 96 60 09/06/19 21:00 Room Air 09/06/19 20:00 97.7 59 17 130/94 (106) 95 59 09/06/19 12:00 98.2 65 16 150/96 (114) 99 09/06/19 09:00 Room Air 09/06/19 08:00 98.0 70 18 116/78 (91) 99 Intake and Output 09/07/19 09/08/19 18:59 06:59 Intake Total 1262.553 ml 1400.675 ml Output Total 700 ml Balance 562.553 ml 1400.675 ml Intake Oral 180 ml IV Total 1082.553 ml 1400.675 ml Output Urine Total 700 ml Labs Test 09/05/19 12:41 09/06/19 04:45 09/07/19 02:00 09/07/19 04:50 White Blood Count 15.1 K/UL (4.8-10.8) 16.1 K/UL (4.8-10.8) 13.3 K/UL (4.8-10.8) Red Blood Count 5.51 M/UL (4.70-6.10) 5.98 M/UL (4.70-6.10) 5.38 M/UL (4.70-6.10) Hemoglobin 16.0 G/DL (14.2-18.0) 17.3 G/DL (14.2-18.0) 15.6 G/DL (14.2-18.0) Hematocrit 48.4 % (42.0-52.0) 51.9 % (42.0-52.0) 46.4 % (42.0-52.0) Mean Corpuscular Volume 88 FL (80-99) 87 FL (80-99) 86 FL (80-99) Mean Corpuscular Hemoglobin 29.1 PG (27.0-31.0) 28.9 PG (27.0-31.0) 29.0 PG (27.0-31.0) Mean Corpuscular Hemoglobin Concent 33.1 G/DL (32.0-36.0) 33.3 G/DL (32.0-36.0) 33.6 G/DL (32.0-36.0) Red Cell Distribution Width 11.8 % (11.6-14.8) 10.9 % (11.6-14.8) 11.4 % (11.6-14.8) Platelet Count 353 K/UL (150-450) 372 K/UL (150-450) 361 K/UL (150-450) Mean Platelet Volume 5.0 FL (6.5-10.1) 4.9 FL (6.5-10.1) 5.1 FL (6.5-10.1) Neutrophils (%) (Auto) 82.2 % (45.0-75.0) 68.2 % (45.0-75.0) 74.7 % (45.0-75.0) Lymphocytes (%) (Auto) 11.1 % (20.0-45.0) 22.4 % (20.0-45.0) 16.1 % (20.0-45.0) Monocytes (%) (Auto) 6.1 % (1.0-10.0) 8.0 % (1.0-10.0) 8.0 % (1.0-10.0) Eosinophils (%) (Auto) 0.0 % (0.0-3.0) 0.2 % (0.0-3.0) 0.2 % (0.0-3.0) Basophils (%) (Auto) 0.6 % (0.0-2.0) 1.2 % (0.0-2.0) 0.9 % (0.0-2.0) Sodium Level 144 MMOL/L (136-145) 139 MMOL/L (136-145) 142 MMOL/L (136-145) Potassium Level 3.7 MMOL/L (3.5-5.1) 3.6 MMOL/L (3.5-5.1) 3.4 MMOL/L (3.5-5.1) Chloride Level 104 MMOL/L (98-107) 103 MMOL/L (98-107) 103 MMOL/L (98-107) Carbon Dioxide Level 24 MMOL/L (21-32) 29 MMOL/L (21-32) 31 MMOL/L (21-32) Anion Gap 17 mmol/L (5-15) 7 mmol/L (5-15) 8 mmol/L (5-15) Blood Urea Nitrogen 6 mg/dL (7-18) 6 mg/dL (7-18) 8 mg/dL (7-18) Creatinine 0.8 MG/DL (0.55-1.30) 1.0 MG/DL (0.55-1.30) 0.9 MG/DL (0.55-1.30) Estimat Glomerular Filtration Rate > 60 mL/min (>60) > 60 mL/min (>60) > 60 mL/min (>60) Glucose Level 122 MG/DL (74-106) 112 MG/DL (74-106) 122 MG/DL (74-106) Calcium Level 9.1 MG/DL (8.5-10.1) 9.7 MG/DL (8.5-10.1) 8.8 MG/DL (8.5-10.1) Magnesium Level 1.8 MG/DL (1.8-2.4) 1.8 MG/DL (1.8-2.4) Phosphorus Level 3.6 MG/DL (2.5-4.9) 3.9 MG/DL (2.5-4.9) Total Bilirubin 0.6 MG/DL (0.2-1.0) Direct Bilirubin 0.1 MG/DL (0.0-0.3) Aspartate Amino Transf (AST/SGOT) 22 U/L (15-37) Alanine Aminotransferase (ALT/SGPT) 30 U/L (12-78) Alkaline Phosphatase 93 U/L (46-116) Troponin I 0.000 ng/mL (0.000-0.056) Total Protein 7.5 G/DL (6.4-8.2) Albumin 3.9 G/DL (3.4-5.0) Lipase 91 U/L (73-393) Urine Opiates Screen Negative (NEGATIVE) Urine Barbiturates Screen Negative (NEGATIVE) Phencyclidine (PCP) Screen Negative (NEGATIVE) Urine Amphetamines Screen Negative (NEGATIVE) Urine Benzodiazepines Screen Negative (NEGATIVE) Urine Cocaine Screen Negative (NEGATIVE) Urine Marijuana (THC) Screen Positive (NEGATIVE) Test 09/07/19 12:00 09/07/19 20:20 09/08/19 03:40 White Blood Count 12.1 K/UL (4.8-10.8) 10.6 K/UL (4.8-10.8) Red Blood Count 5.15 M/UL (4.70-6.10) 5.02 M/UL (4.70-6.10) Hemoglobin 14.9 G/DL (14.2-18.0) 14.6 G/DL (14.2-18.0) Hematocrit 44.8 % (42.0-52.0) 42.8 % (42.0-52.0) Mean Corpuscular Volume 87 FL (80-99) 85 FL (80-99) Mean Corpuscular Hemoglobin 28.8 PG (27.0-31.0) 29.2 PG (27.0-31.0) Mean Corpuscular Hemoglobin Concent 33.2 G/DL (32.0-36.0) 34.2 G/DL (32.0-36.0) Red Cell Distribution Width 11.4 % (11.6-14.8) 11.1 % (11.6-14.8) Platelet Count 348 K/UL (150-450) 344 K/UL (150-450) Mean Platelet Volume 5.3 FL (6.5-10.1) 5.2 FL (6.5-10.1) Neutrophils (%) (Auto) 69.8 % (45.0-75.0) 55.9 % (45.0-75.0) Lymphocytes (%) (Auto) 20.5 % (20.0-45.0) 31.8 % (20.0-45.0) Monocytes (%) (Auto) 8.4 % (1.0-10.0) 10.1 % (1.0-10.0) Eosinophils (%) (Auto) 0.5 % (0.0-3.0) 1.3 % (0.0-3.0) Basophils (%) (Auto) 0.8 % (0.0-2.0) 0.9 % (0.0-2.0) Activated Partial Thromboplast Time 32 SEC (23-33) 52 SEC (23-33) 81 SEC (23-33) Prostate Specific Antigen 3.12 ng/mL (0.13-4.0) Sodium Level 141 MMOL/L (136-145) Potassium Level 3.5 MMOL/L (3.5-5.1) Chloride Level 104 MMOL/L (98-107) Carbon Dioxide Level 28 MMOL/L (21-32) Anion Gap 9 mmol/L (5-15) Blood Urea Nitrogen 6 mg/dL (7-18) Creatinine 1.0 MG/DL (0.55-1.30) Estimat Glomerular Filtration Rate > 60 mL/min (>60) Glucose Level 123 MG/DL (74-106) Calcium Level 8.5 MG/DL (8.5-10.1) Height (Feet): 5 Height (Inches): 10.00 Weight (Pounds): 143 Objective Gen: Nad, comfortable Pulm: ctab, no cwr CV: Rrr, no mgr Abd: soft, nd ++ bowel sounds Ext: no cce Thomas Gant MD Sep 08, 2019 06:29
--- NOTE | 2019-09-08 06:34 | Anethesia Preoperative Eval ---
Anesthesia Pre-op PMH/ROS General Date of Evaluation: Sep 08, 2019 Time of Evaluation: 06:32 Anesthesiologist: haylee ASA Score: ASA 2 Mallampati Score Class I : Soft palate, uvula, fauces, pillars visible Class II: Soft palate, uvula, fauces visible Class III: Soft palate, base of uvula visible Class IV: Only hard plate visible Mallampati Classification: Class II Surgeon: jg Diagnosis: intractable nausea/vomiting Surgical Procedure: egd Anesthesia History: none Social History: current smoker Allergies: Coded Allergies: No Known Allergies (Unverified , 12/08/17) Medications: see eMAR Patient NPO?: Yes Past Medical History Cardiovascular: Reports: other - superior mesenteric vein thombosis Gastrointestinal/Genitourinary: Reports: other - nausea, vomiting Anesthesia Pre-op Phys. Exam Physician Exam Last Vital Signs Date Time Temp Pulse Resp B/P (MAP) Pulse Ox O2 Delivery O2 Flow Rate FiO2 09/08/19 04:00 98.4 56 18 116/77 (90) 92 09/07/19 20:10 Room Air Constitutional: NAD Neurologic: CN 2-12 intact Cardiovascular: RRR Respiratory: CTA Gastrointestinal: S/NT/ND Airway Exam Mallampati Score: Class II MO: full Neck: flexible TMD: 2fb ROM: full Teeth: missing Anesthesia Pre-op A/P Labs Hematology Test 09/07/19 12:00 09/08/19 03:40 White Blood Count 12.1 K/UL (4.8-10.8) H 10.6 K/UL (4.8-10.8) Red Blood Count 5.15 M/UL (4.70-6.10) 5.02 M/UL (4.70-6.10) Hemoglobin 14.9 G/DL (14.2-18.0) 14.6 G/DL (14.2-18.0) Hematocrit 44.8 % (42.0-52.0) 42.8 % (42.0-52.0) Mean Corpuscular Volume 87 FL (80-99) 85 FL (80-99) Mean Corpuscular Hemoglobin 28.8 PG (27.0-31.0) 29.2 PG (27.0-31.0) Mean Corpuscular Hemoglobin Concent 33.2 G/DL (32.0-36.0) 34.2 G/DL (32.0-36.0) Red Cell Distribution Width 11.4 % (11.6-14.8) L 11.1 % (11.6-14.8) L Platelet Count 348 K/UL (150-450) 344 K/UL (150-450) Mean Platelet Volume 5.3 FL (6.5-10.1) L 5.2 FL (6.5-10.1) L Neutrophils (%) (Auto) 69.8 % (45.0-75.0) 55.9 % (45.0-75.0) Lymphocytes (%) (Auto) 20.5 % (20.0-45.0) 31.8 % (20.0-45.0) Monocytes (%) (Auto) 8.4 % (1.0-10.0) 10.1 % (1.0-10.0) H Eosinophils (%) (Auto) 0.5 % (0.0-3.0) 1.3 % (0.0-3.0) Basophils (%) (Auto) 0.8 % (0.0-2.0) 0.9 % (0.0-2.0) Coagulation Test 09/07/19 12:00 09/07/19 20:20 09/08/19 03:40 Activated Partial Thromboplast Time 32 SEC (23-33) 52 SEC (23-33) H 81 SEC (23-33) H Chemistry Test 09/07/19 12:00 09/08/19 03:40 Alpha Fetoprotein Pending Carcinoembryonic Antigen Pending CA 19-9 Antigen Pending Prostate Specific Antigen 3.12 ng/mL (0.13-4.0) Sodium Level 141 MMOL/L (136-145) Potassium Level 3.5 MMOL/L (3.5-5.1) Chloride Level 104 MMOL/L (98-107) Carbon Dioxide Level 28 MMOL/L (21-32) Anion Gap 9 mmol/L (5-15) Blood Urea Nitrogen 6 mg/dL (7-18) L Creatinine 1.0 MG/DL (0.55-1.30) Estimat Glomerular Filtration Rate > 60 mL/min (>60) Glucose Level 123 MG/DL (74-106) H Calcium Level 8.5 MG/DL (8.5-10.1) Risk Assessment & Plan Assessment: asa2 Plan: mac Status Change Before Surgery: No Pre-Antibiotics Drug: na Marisol Leon MD Sep 08, 2019 06:34
[2019-09-08] MEDS ORDERED: Atropine Inj 1mg/10ml Syr IV PRN (06:45)
[2019-09-08] MEDS ORDERED: fentaNYL 100 mcg/2 mL IV PRN (06:45)
[2019-09-08] MEDS ORDERED: Midazolam 2mg/2ml Inj IVP PRN (06:45)
[2019-09-08] MEDS ORDERED: DiphenhydrAMINE 50mg/ml Inj IVP PRN (06:45)
--- NOTE | 2019-09-08 07:26 | NUR ---
HAND-OFF: Report given to Sharon Watson RN.
[2019-09-08] MEDS: Hydromorphone 0.5mg/0.5ml inj IVP PRN ×2 (07:35→16:30)
--- NOTE | 2019-09-08 07:39 | NUR ---
NURSE NOTES: AWAKE/ALERT. C/O PAIN SCALE 9/10. HAD EMESIS LIGHT GREEN GASTRIC CONTENT. MEDICATED WITH DILAUDID 0.5MG IV ORDERED AND ZOFRAN 4MG IV FOR N/V. WILL CONTINUE TO MONITOR PT.
--- NOTE | 2019-09-08 08:00 | NUR ---
NURSE NOTES: DR Scarlet GONSALVES CALLED RE: PT GOING FOR GI PROCEDURE TODAY AND IS ON HPARIN DRIP. DR GONSALVES ORDERED TO HOLD HEPARIN DRIP 4HR BEFORE PROCEDURE. HEPARIN HELD ORDERED.
--- NOTE | 2019-09-08 08:10 | NUR ---
NURSE NOTES: DR KWOK CALLED RE PT'S BP 162/106,P 55. LEFT MESSAGE TO RETURN CALL.
[2019-09-08] MEDS: Pantoprazole Inj IVP SCH (09:01)
[2019-09-08] MEDS: HydrALAZINE 25mg tab ORAL PRN ×3 (09:09→21:01)
--- NOTE | 2019-09-08 09:09 | NUR ---
NURSE NOTES: BP CHECKED 167/105,P 56. HYDRALAZINE 5MG GIVEN PO ORDERED. WILL MONITOR PT.
--- NOTE | 2019-09-08 10:05 | Pre-Procedure Note/Attestation ---
Pre-Procedure Note/Attestation Complete Prior to Procedure Planned Procedure: not applicable Procedure Narrative: egd Indications for Procedure Pre-Operative Diagnosis: vomoting Attestation I attest that I discussed the nature of the procedure; its benefits; risks and complications; and alternatives (and the risks and benefits of such alternatives ), prior to the procedure, with the patient (or the patient's legal termite control representative). I attest that, if there was a reasonable possibility of needing a blood transfusion, the patient (or the patient's legal termite control representative) was given the [facility] standardized written summary, pursuant to the Yobany Rosanne Blood Safety Act ([place] Health and Safety Code # 1645, as amended). I attest that I re-evaluated the patient just prior to the surgery and that there has been no change in the patient's H&P, except as documented below: Ashok Zabala MD Sep 08, 2019 10:05
--- NOTE | 2019-09-08 10:30 | NUR ---
NURSE NOTES: DR KWOK HERE TO SEE PT AWARE OF PT'S BP.
--- NOTE | 2019-09-08 10:40 | NUR ---
NURSE NOTES: NPO MAINTAINED. TO GI LAB VIA [facility].
--- NOTE | 2019-09-08 10:41 | NUR ---
NURSE NOTES: TALKED TO PAMELA JOLLEY. RE PT GIVEN COMPAZINE FOR VOMITING AND RE PT BP.
--- NOTE | 2019-09-08 10:51 | NUR ---
*-* INSURANCE *--* ALL AVAILABLE CLINICALS HAVE BEEN FAXED TO: [facility]#[id number] NO CM YET PH#[phone] FAX#[phone] REVIEWS/CLINICALS
[2019-09-08] MEDS ORDERED: NS 500ML IVPB ONE (10:55)
[2019-09-08] MEDS ORDERED: Lidocaine 1% MPF 10mg/ml 5ml ONE (11:00)
[2019-09-08] MEDS ORDERED: Propofol 200mg/20ml IV ONE (11:00)
--- NOTE | 2019-09-08 11:06 | Endoscopy Procedure Note ---
Endoscopy Procedure Note General Indication for Procedure: vomitng Procedures Performed: EGD Operative Findings/Diagnosis: gastritis Specimen: yes Pt Tolerated Procedure Well: Yes Estimated Blood Loss: none Anesthesia Anesthesiologist: alva Anesthesia: MAC Inserted Devices Implant(s) used?: No GI Core Measures 50 yrs or older w/o bx or poly: Not Applicable 10yrs. F/U recommended: Not Applicable Ashok Zabala MD Sep 08, 2019 11:05
--- NOTE | 2019-09-08 11:37 | Immediate Post-Op Evaluation ---
Immediate Post-Op Evalulation Immediate Post-Op Evalulation Procedure: egd w/bx Date of Evaluation: Sep 08, 2019 Time of Evaluation: 11:32 IV Fluids: 150ml 0.9ns Blood Products: none Estimated Blood Loss: neglgible Blood Pressure Systolic: 142 Blood Pressure Diastolic: 95 Pulse Rate: 94 Respiratory Rate: 18 O2 Sat by Pulse Oximetry: 100 Temperature (Fahrenheit): 97.8 Pain Score (1-10): 0 Nausea: No Vomiting: No Complications none Patient Status: awake, reacts, patent Hydration Status: adequate Drug: Marisol Blackman MD Sep 08, 2019 11:37
--- NOTE | 2019-09-08 11:38 | 48 Hour Post Anesthesia Eval ---
Post Anesthesia Evaluation Procedure: egd w/bx Date of Evaluation: Sep 08, 2019 Time of Evaluation: 11:34 Blood Pressure Systolic: 155 0: 94 Pulse Rate: 55 Respiratory Rate: 18 Temperature (Fahrenheit): 97.8 O2 Sat by Pulse Oximetry: 100 Airway: patent Nausea: No Vomiting: No Pain Intensity: 0 Hydration Status: adequate Cardiopulmonary Status: stable Mental Status/LOC: patient returned to baseline Post-Anesthesia Complications: none Follow-up care needed: N/A Marisol Leon MD Sep 08, 2019 11:38
--- NOTE | 2019-09-08 11:50 | NUR ---
NURSE NOTES: BACK FROM PACU SP EGD. AWAKE /ALERT. V/S TAKEN. C/O NAUSEA AND HAD EMESIS 200 CC GREEN LIQUID. REGLAN GIVEN ORDERED.WILL CONTINUE TO MONITOR PT.
[2019-09-08] MEDS: Sucralfate 1gm tab ORAL SCH ×4 (12:17→20:08)
--- NOTE | 2019-09-08 12:21 | General Progress Note ---
Assessment/Plan Problem List: (1) Superior mesenteric vein thrombosis SNOMED: 773218192 (2) Cyclic vomiting syndrome ICD Codes: R11.15 - Cyclical vomiting syndrome unrelated to migraine SNOMED: 95680421 (3) Intractable abdominal pain ICD Codes: R10.9 - Unspecified abdominal pain SNOMED: 62827314 (4) Intractable nausea and vomiting ICD Codes: R11.2 - Nausea with vomiting, unspecified SNOMED: 077757797 (5) Marijuana abuse ICD Codes: F12.10 - Cannabis abuse, uncomplicated SNOMED: 67108164 (6) Gastritis ICD Codes: K29.70 - Gastritis, unspecified, without bleeding SNOMED: 0471488 Status: not improved, unchanged Assessment/Plan: 48-year-old male with past medical history of cannabis use, presenting with acute epigastric/left upper quadrant abdominal pain and persistent intractable nausea vomiting. Found to have acute SMV thrombus. # Abdominal pain, epigastric/left upper quadrant/nonradiating suspected 2/2 acute SMV thrombus > Doubt ACS given negative troponin. Doubt pancreatitis given normal lipase. Component of gastritis? Cyclic vomiting syndrome? #Leukocytosis, reactive vs. infectious. Will rule out infectious etiology. #hypokalemia due to vomiting > CT abdomen pelvis with contrast given persistent abdominal pain - SMV thrombus. Discussed with radiologist Dr. Laguna and appears acute. > RUQ abdominal ultrasound to rule out acute oli - negative - Supportive care with IVF -Start heparin drip (09/07) -Plan for at least 3 months of anticoagulation. -Malignancy work-up per oncology - blood cultures x 2 -Start Zosyn 3.375 g every 8 hours IV for possible gut translocation (09/07 - ) -Appreciate GI recommendations: Dr. Zabala- NPO for EGD 09/08/19 -Appreciate general surgery recommendations: Dr. Back - Appreciate hematology oncology recommendations: Dr. Gant -start heparin drip, -Zofran 4 mg IV every 6 hours (QTC normal) - Reglan 10mg IV q6hr - Compazine 10mg IV Q6hr PRN -Continue to monitor QTC QOD -Protonix 40mg IV daily -Follow electrolytes and replete PRN # Cannabis use - Counselling provided - SW follow up as needed #Hypokalemia - replete PRN FENPPX DVTPPX: Heparin GTT GI PPX: protonix Fluids: D5 1/2 NS @100 cc/hr Diet: CLD Lines: peripheral PT/OT: pending Code status: Full code Dispo: Home after acute issues resolved Reason for continued hospitalization: Acute SMV thrombus 37 minutes spent on this encounter. Discussed with RN, patient, GI, and hematology/oncology. > 50% spent on counseling and care coordination. Time of note may not reflect time patient was seen. Subjective Date patient seen: Sep 08, 2019 Constitutional: Denies: chills, diaphoresis, fever, malaise, weakness, other HEENT: Denies: eye pain, blurred vision, tearing, double vision, ear pain, ear discharge, nose pain, nose congestion, throat pain, throat swelling, mouth pain , mouth swelling, other Cardiovascular: Denies: chest pain, edema, irregular heart rate, lightheadedness, palpitations, syncope, other Respiratory: Denies: cough, orthopnea, shortness of breath, SOB with excertion , SOB at rest, sputum, stridor, wheezing, other Gastrointestinal/Abdominal: Reports: abdominal pain, nausea, vomiting; Denies: abdomen distended, black stools, tarry stools, blood in stool, constipated, diarrhea, difficulty swallowing, poor appetite, poor fluid intake, rectal bleeding, other Genitourinary: Denies: burning, discharge, frequency, flank pain, hematuria, incontinence, pain, urgency, other Neurologic/Psychiatric: Denies: anxiety, depressed, emotional problems, headache, numbness, paresthesia, pre-existing deficit, seizure, tingling, tremors, weakness, other Endocrine: Denies: excessive sweating, flushing, intolerance to cold, intolerance to heat, increased hunger, increased thirst, increased urine, unexplained weight gain, unexplained weight loss, other Hematologic/Lymphatic: Denies: anemia, easy bleeding, easy bruising, other Allergies: Coded Allergies: No Known Allergies (Unverified , 12/08/17) Subjective Patient continues to complain of left upper quadrant/epigastric abdominal pain, constant, sharp, 8 out of 10, nonradiating. Stays about the same as yesterday. On heparin drip started yesterday. No bleeding observed. Continues to have persistent nausea vomiting. N.p.o. today for EGD. Denies any chest pain, fever, chills, shortness of breath. Objective Last 24 Hour Vital Signs Date Time Temp Pulse Resp B/P (MAP) Pulse Ox O2 Delivery O2 Flow Rate FiO2 09/08/19 11:40 98.3 70 20 149/98 100 Room Air 09/08/19 11:38 55 18 100 09/08/19 11:37 94 18 100 09/08/19 11:30 55 22 155/94 100 Nasal Cannula 3 09/08/19 11:25 56 20 153/92 100 Nasal Cannula 3 09/08/19 11:20 97.8 60 24 142/95 100 Nasal Cannula 3 09/08/19 10:00 57 165/105 (125) 09/08/19 10:00 55 166/102 (123) 09/08/19 09:21 Room Air 09/08/19 09:09 56 167/105 (125) 09/08/19 09:09 167/105 09/08/19 08:05 98.4 09/08/19 08:00 98.3 55 21 162/106 (124) 99 09/08/19 04:00 98.4 56 18 116/77 (90) 92 09/07/19 20:10 Room Air 09/07/19 19:56 99.8 61 18 158/99 (118) 97 09/07/19 19:01 100.3 09/07/19 16:00 100.3 63 18 125/79 (94) 95 Intake and Output 09/07/19 09/08/19 19:00 07:00 Intake Total 1413.404 ml 1702.662 ml Output Total 700 ml 100 ml Balance 713.404 ml 1602.662 ml Intake Oral 180 ml 120 ml IV Total 1233.404 ml 1582.662 ml Output Urine Total 700 ml Emesis 100 ml # Voids 2 Laboratory Tests 09/07/19 20:20: Activated Partial Thromboplast Time 52H 09/08/19 03:40: Activated Partial Thromboplast Time 81H, White Blood Count 10.6, Red Blood Count 5.02, Hemoglobin 14.6, Hematocrit 42.8, Mean Corpuscular Volume 85, Mean Corpuscular Hemoglobin 29.2, Mean Corpuscular Hemoglobin Concent 34.2, Red Cell Distribution Width 11.1L, Platelet Count 344, Mean Platelet Volume 5.2L, Neutrophils (%) (Auto) 55.9, Lymphocytes (%) (Auto) 31.8, Monocytes (%) (Auto) 10.1H, Eosinophils (%) (Auto) 1.3, Basophils (%) (Auto) 0.9, Sodium Level 141, Potassium Level 3.5, Chloride Level 104, Carbon Dioxide Level 28, Anion Gap 9, Blood Urea Nitrogen 6L, Creatinine 1.0, Estimat Glomerular Filtration Rate > 60 , Glucose Level 123H, Calcium Level 8.5 Height (Feet): 5 Height (Inches): 10.00 Weight (Pounds): 177 General Appearance: WD/WN, alert, mild distress EENT: PERRL/EOMI, normal ENT inspection Neck: non-tender, normal alignment, supple Cardiovascular: normal peripheral pulses, normal rate, regular rhythm, no JVD Respiratory/Chest: chest wall non-tender, lungs clear, normal breath sounds Abdomen: normal bowel sounds, other - Nondistended, tenderness to palpation in epigastric/right lower quadrant area without guarding or rebound. 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 Sep 08, 2019 12:21
--- NOTE | 2019-09-08 12:54 | NUR ---
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 97.8 HR 55 RR 24 B/P 153/92 ABD/PELVIC CT= THROMBUS IN THE MESENTERIC VEIN AND PORTAL VEIN EGD= GASTRITIS IS; CARAFATE PO HEPARIN GTT ZOSYN IV PROTONIX MED/SURG STATUS
[2019-09-08] MEDS: Heparin 25,000u/D5W 500ml 500 ML IV SCH ×2 (12:59→21:15)
--- NOTE | 2019-09-08 14:52 | Surgery Progress Note ---
Surgery Progress Note Subjective Additional Comments Still with persistent nausea and emesis. Heparin drip started. Otherwise exam stable. Labs noted. leukocytosis resolved Objective Last 24 Hour Vital Signs Date Time Temp Pulse Resp B/P (MAP) Pulse Ox O2 Delivery O2 Flow Rate FiO2 09/08/19 14:43 60 159/98 (118) 98 09/08/19 12:00 99.9 88 21 171/95 (120) 96 09/08/19 11:40 98.3 70 20 149/98 100 Room Air 09/08/19 11:38 55 18 100 09/08/19 11:37 94 18 100 09/08/19 11:30 55 22 155/94 100 Nasal Cannula 3 09/08/19 11:25 56 20 153/92 100 Nasal Cannula 3 09/08/19 11:20 97.8 60 24 142/95 100 Nasal Cannula 3 09/08/19 10:00 57 165/105 (125) 09/08/19 10:00 55 166/102 (123) 09/08/19 09:21 Room Air 09/08/19 09:09 56 167/105 (125) 09/08/19 09:09 167/105 09/08/19 08:05 98.4 09/08/19 08:00 98.3 55 21 162/106 (124) 99 09/08/19 04:00 98.4 56 18 116/77 (90) 92 09/07/19 20:10 Room Air 09/07/19 19:56 99.8 61 18 158/99 (118) 97 09/07/19 19:01 100.3 09/07/19 16:00 100.3 63 18 125/79 (94) 95 I&O Intake and Output 09/07/19 09/08/19 19:00 07:00 Intake Total 1413.404 ml 1702.662 ml Output Total 700 ml 100 ml Balance 713.404 ml 1602.662 ml Intake Oral 180 ml 120 ml IV Total 1233.404 ml 1582.662 ml Output Urine Total 700 ml Emesis 100 ml # Voids 2 Cardiovascular: RSR Respiratory: clear Abdomen: flat, non-tender, present bowel sounds Extremities: no edema, no tenderness, no cyanosis Laboratory Tests Test 09/07/19 20:20 09/08/19 03:40 Activated Partial Thromboplast Time 52 SEC (23-33) H 81 SEC (23-33) H White Blood Count 10.6 K/UL (4.8-10.8) Red Blood Count 5.02 M/UL (4.70-6.10) Hemoglobin 14.6 G/DL (14.2-18.0) Hematocrit 42.8 % (42.0-52.0) Mean Corpuscular Volume 85 FL (80-99) Mean Corpuscular Hemoglobin 29.2 PG (27.0-31.0) Mean Corpuscular Hemoglobin Concent 34.2 G/DL (32.0-36.0) Red Cell Distribution Width 11.1 % (11.6-14.8) L Platelet Count 344 K/UL (150-450) Mean Platelet Volume 5.2 FL (6.5-10.1) L Neutrophils (%) (Auto) 55.9 % (45.0-75.0) Lymphocytes (%) (Auto) 31.8 % (20.0-45.0) Monocytes (%) (Auto) 10.1 % (1.0-10.0) H Eosinophils (%) (Auto) 1.3 % (0.0-3.0) Basophils (%) (Auto) 0.9 % (0.0-2.0) Sodium Level 141 MMOL/L (136-145) Potassium Level 3.5 MMOL/L (3.5-5.1) Chloride Level 104 MMOL/L (98-107) Carbon Dioxide Level 28 MMOL/L (21-32) Anion Gap 9 mmol/L (5-15) Blood Urea Nitrogen 6 mg/dL (7-18) L Creatinine 1.0 MG/DL (0.55-1.30) Estimat Glomerular Filtration Rate > 60 mL/min (>60) Glucose Level 123 MG/DL (74-106) H Calcium Level 8.5 MG/DL (8.5-10.1) Plan Problems: (1) Intractable abdominal pain Assessment & Plan: afebrile, HD stable, leukocytosis persistent n/v persistent unable to tolerate much po diet exam fairly benign Impression: Linear filling defect in the superior mesenteric vein extending into the portal vein. While possibly in inflow artifact from nonopacified blood, suspect that this is a real finding representing thrombus within the superior mesenteric vein and portal vein. This does not appear to be occlusive and there is no bowel wall thickening. This finding was not described on the [employer] preliminary report, was phoned to Dr. Back at the time of interpretation. [employer] was also notified of either website No other abnormality. Evidence of bullous COPD. This is a new finding since the prior 2008 exam Incidental findings of focal fatty change within the liver, small hiatal hernia iv fluids will follow with exam heparin gtt GI for EGD thank you (2) Intractable nausea and vomiting Jose Back Sep 08, 2019 14:52
--- NOTE | 2019-09-08 15:01 | NUR ---
NURSE NOTES: dr heck called re: blood culture results. left message to return call.
--- NOTE | 2019-09-08 15:05 | NUR ---
NURSE NOTES: dr ulloa=carol returned call informed of bc results no new order.
--- NOTE | 2019-09-08 16:23 | NUR ---
NURSE NOTES: TEMP 100.3. TYLENOL 650MG GIVEN PO. WILL MONITOR TEMP LATER.
--- NOTE | 2019-09-08 16:36 | NUR ---
NURSE NOTES: PT STILL FREQUENTLY VOMITING. COMPAZINE 10MG GIVEN ORDERED. CONTINUED TO MONITOR PT. PT UNABLE TO TOLERATE DIET, DR BRENNER CALLED LEFT MESSAGE TO RETURN CALL.
--- NOTE | 2019-09-08 17:03 | NUR ---
NURSE NOTES: TEMP RECHECKED. 98.6
--- NOTE | 2019-09-08 17:30 | Procedure Note ---
DATE OF PROCEDURE: 09/08/2019 SURGEON: Ashok Zabala M.D. PROCEDURE: Upper endoscopy with biopsy. ANESTHESIA: Per Dr. Gonsales. INSTRUMENT: Olympus adult flexible upper endoscope. INDICATION: Persistent vomiting. REASON FOR PROCEDURE: The procedure, risks, benefits, and possible consequences, including hemorrhage, aspiration, perforation and infection, and alternative treatments, were explained to the patient/legal guardian by Dr. Ashok Zabala and the patient/legal guardian understood and accepted these risks. PROCEDURE IN DETAIL: After informed consent was obtained and the patient was adequately sedated, Olympus upper endoscope was advanced from the mouth into second portion of duodenum and retroflexion was performed in the stomach. The patient has evidence of 6 cm hiatal hernia from 34 cm to 40 cm. The patient also has evidence of erosive distal esophagitis. In the stomach, there was diffuse gastritis. Random biopsy from antrum was obtained to rule out H. pylori infection. At this time, the scope was retrieved and procedure was terminated. SUMMARY OF FINDINGS: 1. Distal esophagitis. 2. A 6 cm hiatal hernia. 3. Gastritis, status biopsy. RECOMMENDATIONS: 1. Reflux measures. 2. Elevate the head of the bed at all times. 3. PPI and Carafate. 4. Resume diet. 5. Follow pathology. Ashok Zabala M.D. DR: LAYO JOB#: [id number] CC:
[2019-09-08] MEDS: Vancomycin 1.25gm/NS Premix 275 ML IVPB SCH (17:46)
--- NOTE | 2019-09-08 19:00 | NUR ---
NURSE NOTES: RESTING QUIETLY IN BED. IN NO ACUTE DISTRESS.
--- NOTE | 2019-09-08 19:35 | NUR ---
NURSE NOTES: Received report from SHOLA Herrera. Patient is vomitting 200cc of fluids and food particles and c/o constant nausea and no appetite. Patient has Left IV running heparin per eMAR order and right IV running fluids. Both are intact and asymptomatic. He is alert and oriented x4. Patient is running a slight fever, MD Ashley is aware, will continue to monitor.
--- NOTE | 2019-09-08 19:35 | NUR ---
HAND-OFF: Report given to Jemal MCKEON RN.
[2019-09-09] VITALS: BP 157/99
[2019-09-09] MEDS: Metoclopramide 10mg/2ml Inj IVP SCH ×4 (00:21→17:40)
[2019-09-09] MEDS: Hydromorphone 0.5mg/0.5ml inj IVP PRN ×3 (00:32→18:06)
--- NOTE | 2019-09-09 01:30 | NUR ---
NURSE NOTES: Patient continues to c/o nausea and vomits frequently orange liquid emesis. Given medication per eMAR. Will continue to monitor.
[2019-09-09 04:00] VITALS: BP 141/102
[2019-09-09 04:57] LABS: BASOPHILS % (AUTO) 0.9 % (0.0-2.0); EOSINOPHILS % (AUTO) 0.4 % (0.0-3.0); HEMATOCRIT 43.2 % (42.0-52.0); HEMOGLOBIN 14.7 G/DL (14.2-18.0); MEAN CORPUSCULAR VOLUME 85 FL (80-99); MONOCYTES % (AUTO) 7.5 % (1.0-10.0); NEUTROPHILS % (AUTO) 72.2 % (45.0-75.0); PLATELET COUNT 343 K/UL (150-450); RED BLOOD COUNT 5.06 M/UL (4.70-6.10); RED CELL DISTRIBUTION WIDTH 11.2 % (11.6-14.8); WHITE BLOOD COUNT 10.9 K/UL (4.8-10.8)
[2019-09-09] MEDS: Vancomycin 1.25gm/NS Premix 275 ML IVPB SCH ×2 (05:15→17:40)
[2019-09-09] MEDS: Piperacillin/Tazobactam 3.375 GM in NS 110 ML IVPB SCH ×3 (05:16→22:08)
[2019-09-09] MEDS: D5 1/2NS w/KCl 20mEq 1,000 ML IV SCH ×2 (05:16→13:41)
[2019-09-09 05:33] LABS: ANION GAP 10 mmol/L (5-15); BLOOD UREA NITROGEN 4 mg/dL (7-18); CALCIUM 8.5 MG/DL (8.5-10.1); CARBON DIOXIDE 26 MMOL/L (21-32); CHLORIDE 104 MMOL/L (98-107); CREATININE 0.9 MG/DL (0.55-1.30); PHOSPHORUS 3.5 MG/DL (2.5-4.9); SODIUM 140 MMOL/L (136-145)
[2019-09-09] MEDS ORDERED: Heparin 25,000u/D5W 500ml 500 ML IV SCH (05:45)
[2019-09-09] MEDS ORDERED: Heparin 5000 units/ml inj IV SCH (06:00)
[2019-09-09] MEDS: HydrALAZINE 25mg tab ORAL PRN (06:09)
--- NOTE | 2019-09-09 07:43 | NUR ---
NURSE NOTES: Pt is currently sleeping per report of outgoing nurse pt had an episode of vomitus x6 , and he not tolerating meals . Follow will be made with Michelle. Current paln of care will be followed
[2019-09-09 08:00] VITALS: BP 155/97
--- NOTE | 2019-09-09 08:03 | NUR ---
HAND-OFF: Report given to SHOLA Pruett. Patient in stable condition.
[2019-09-09] MEDS: Pantoprazole Inj IVP SCH (08:32)
[2019-09-09] MEDS: Sucralfate 1gm tab ORAL SCH ×4 (08:32→20:13)
--- NOTE | 2019-09-09 10:12 | NUR ---
NURSE NOTES: Pt continues to have episode of vomitus, x 2 this shift, Comapazine given IV. Compazine effective denies nausea at this time. Vomitus is clear with some frothy yellow substance. No odor, in comparison to previous vomitus episodes. Pt is currently sleeping. Dr Syed, called to inform him that the outgoing nurse reported that the pt had 6 epsidosed of vomitus.
--- NOTE | 2019-09-09 10:53 | NUR ---
NURSE NOTES: Dr Espinoza ordered EKG for today. Order repeated and carried out. Made aware of pattern of high blood pressure, NNO at this time
--- NOTE | 2019-09-09 11:43 | NUR ---
*-* INSURANCE *--* ALL AVAILABLE CLINICALS HAVE BEEN FAXED TO: [facility]#[id number] NO CM YET PH#[phone] FAX#[phone] REVIEWS/CLINICALS
--- NOTE | 2019-09-09 11:59 | General Progress Note ---
Assessment/Plan Problem List: (1) Superior mesenteric vein thrombosis SNOMED: 972174621 (2) Cyclic vomiting syndrome ICD Codes: R11.15 - Cyclical vomiting syndrome unrelated to migraine SNOMED: 92049123 (3) Intractable abdominal pain ICD Codes: R10.9 - Unspecified abdominal pain SNOMED: 69964676 (4) Intractable nausea and vomiting ICD Codes: R11.2 - Nausea with vomiting, unspecified SNOMED: 262506712 (5) Marijuana abuse ICD Codes: F12.10 - Cannabis abuse, uncomplicated SNOMED: 33209117 (6) Gastritis ICD Codes: K29.70 - Gastritis, unspecified, without bleeding SNOMED: 7634893 (7) Essential hypertension ICD Codes: I10 - Essential (primary) hypertension SNOMED: 25321009 (8) Esophagitis ICD Codes: K20.9 - Esophagitis, unspecified SNOMED: 62118692 (9) Hypomagnesemia ICD Codes: E83.42 - Hypomagnesemia SNOMED: 498261298 (10) Hypokalemia ICD Codes: E87.6 - Hypokalemia SNOMED: 30196763 (11) Bacteremia ICD Codes: R78.81 - Bacteremia SNOMED: 5612482 Status: not improved, unchanged Assessment/Plan: 48-year-old male with past medical history of cannabis use, presenting with acute epigastric/left upper quadrant abdominal pain and persistent intractable nausea vomiting. Found to have acute SMV thrombus. # Abdominal pain, epigastric/left upper quadrant/nonradiating suspected 2/2 acute SMV thrombus -improving > Doubt ACS given negative troponin. Doubt pancreatitis given normal lipase. Component of gastritis? Cyclic vomiting syndrome? #Leukocytosis, reactive vs. infectious. Will rule out infectious etiology. #hypokalemia due to vomiting #Distal esophagitis #Gastritis > CT abdomen pelvis with contrast given persistent abdominal pain - SMV thrombus. Discussed with radiologist Dr. Laguna and appears acute. > RUQ abdominal ultrasound to rule out acute oli - negative - Supportive care with IVF -Continue heparin drip (09/07) -Plan for at least 3 months of anticoagulation. -Malignancy work-up per oncology - blood cultures x 2 -Continue Zosyn 3.375 g every 8 hours IV for possible gut translocation (09/07 - ) -Appreciate GI recommendations: Dr. Zabala- NPO for EGD 09/08/19 -Appreciate general surgery recommendations: Dr. Back - Appreciate hematology oncology recommendations: Dr. Gant -start heparin drip, -Zofran 4 mg IV every 6 hours (QTC normal) - Reglan 10mg IV q6hr - Compazine 10mg IV Q6hr PRN -Continue to monitor QTC QOD -Protonix 40mg IV daily -Follow electrolytes and replete PRN -Follow-up pathology of EGD 09/08/19 #coag neg staph bacteremia, suspect contaminant - Vancomycin per pharmacy (09/08 - ) -Follow-up surveillance blood cultures -Appreciate infectious disease recommendations: Dr. Casanova #Essential hypertension -Start amlodipine 5 mg p.o. daily -Hydralazine 25 mg p.o. every 6 hours as needed # Cannabis use - Counselling provided - SW follow up as needed #Hypokalemia #hypomagnesemia - replete PRN FENPPX DVTPPX: Heparin GTT GI PPX: protonix Fluids: D5 1/2 NS @50 cc/hr Diet: CLD Lines: peripheral PT/OT: pending Code status: Full code Dispo: Home after acute issues resolved Reason for continued hospitalization: Acute SMV thrombus 39 minutes spent on this encounter. Discussed with RN and patient. > 50% spent on counseling and care coordination. Time of note may not reflect time patient was seen. Subjective Date patient seen: Sep 09, 2019 Constitutional: Denies: chills, diaphoresis, fever, malaise, weakness, other HEENT: Denies: eye pain, blurred vision, tearing, double vision, ear pain, ear discharge, nose pain, nose congestion, throat pain, throat swelling, mouth pain , mouth swelling, other Cardiovascular: Denies: chest pain, edema, irregular heart rate, lightheadedness, palpitations, syncope, other Respiratory: Denies: cough, orthopnea, shortness of breath, SOB with excertion , SOB at rest, sputum, stridor, wheezing, other Gastrointestinal/Abdominal: Reports: abdominal pain, nausea; Denies: abdomen distended, black stools, tarry stools, blood in stool, constipated, diarrhea, difficulty swallowing, poor appetite, poor fluid intake, rectal bleeding, vomiting, other Genitourinary: Denies: burning, discharge, frequency, flank pain, hematuria, incontinence, pain, urgency, other Neurologic/Psychiatric: Denies: anxiety, depressed, emotional problems, headache, numbness, paresthesia, pre-existing deficit, seizure, tingling, tremors, weakness, other Endocrine: Denies: excessive sweating, flushing, intolerance to cold, intolerance to heat, increased hunger, increased thirst, increased urine, unexplained weight gain, unexplained weight loss, other Hematologic/Lymphatic: Denies: anemia, easy bleeding, easy bruising, other Allergies: Coded Allergies: No Known Allergies (Unverified , 12/08/17) Subjective No acute events overnight per nursing. Patient underwent EGD yesterday showing distal esophagitis, gastritis. Recommendations for PPI and Carafate. Patient states that he feels better. Less nausea and vomiting. No signs of any hematemesis or other bleeding. Denies any chest pain, fever, chills, shortness of breath. Objective Last 24 Hour Vital Signs Date Time Temp Pulse Resp B/P (MAP) Pulse Ox O2 Delivery O2 Flow Rate FiO2 09/09/19 09:00 Room Air 09/09/19 08:00 98.2 67 21 155/97 (116) 98 09/09/19 06:09 141/102 09/09/19 04:00 98.1 69 18 141/102 (115) 98 09/09/19 00:00 98.6 62 18 157/99 (118) 98 09/08/19 21:01 156/100 09/08/19 21:00 Room Air 09/08/19 20:00 100.4 65 18 156/100 (118) 98 09/08/19 17:00 98.6 09/08/19 16:59 98.6 09/08/19 16:53 98.6 09/08/19 16:00 100.3 72 19 153/99 (117) 98 09/08/19 14:51 159/98 09/08/19 14:43 60 159/98 (118) 98 09/08/19 12:00 99.9 88 21 171/95 (120) 96 Intake and Output 09/08/19 09/09/19 19:00 07:00 Intake Total 1705.676 ml 2418.095 ml Output Total 1850 ml 1350 ml Balance -144.324 ml 1068.095 ml Intake Oral 240 ml 800 ml IV Total 1465.676 ml 1618.095 ml Output Urine Total 600 ml 650 ml Emesis 1250 ml 700 ml # Voids 3 3 # Bowel Movements 1 Laboratory Tests 09/09/19 04:12: White Blood Count 10.9H, Red Blood Count 5.06, Hemoglobin 14.7, Hematocrit 43.2 , Mean Corpuscular Volume 85, Mean Corpuscular Hemoglobin 29.0, Mean Corpuscular Hemoglobin Concent 33.9, Red Cell Distribution Width 11.2L, Platelet Count 343, Mean Platelet Volume 5.0L, Neutrophils (%) (Auto) 72.2, Lymphocytes (%) (Auto) 19.0L, Monocytes (%) (Auto) 7.5, Eosinophils (%) (Auto) 0.4, Basophils (%) (Auto) 0.9, Activated Partial Thromboplast Time 39H, Sodium Level 140, Potassium Level 3.0L, Chloride Level 104, Carbon Dioxide Level 26, Anion Gap 10, Blood Urea Nitrogen 4L, Creatinine 0.9, Estimat Glomerular Filtration Rate > 60, Glucose Level 120H, Calcium Level 8.5, Phosphorus Level 3.5, Magnesium Level 1.7L Height (Feet): 5 Height (Inches): 10.00 Weight (Pounds): 177 General Appearance: WD/WN, no apparent distress, alert EENT: PERRL/EOMI, normal ENT inspection Neck: non-tender, normal alignment, supple Cardiovascular: normal peripheral pulses, normal rate, no JVD Respiratory/Chest: chest wall non-tender, lungs clear, normal breath sounds Abdomen: normal bowel sounds, soft - Mild tenderness to palpation in epigastric region, improved compared to yesterday Extremities: normal range of motion, non-tender, other - No lower extremity edema bilaterally Neurologic: qa software 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 Sep 09, 2019 11:59
[2019-09-09 12:00] VITALS: BP 114/76
--- NOTE | 2019-09-09 12:31 | GI Progress Note ---
Assessment/Plan Problems: (1) Hypokalemia ICD Codes: E87.6 - Hypokalemia SNOMED: 27899305 (2) Dehydration ICD Codes: E86.0 - Dehydration SNOMED: 97866014 (3) Esophagitis ICD Codes: K20.9 - Esophagitis, unspecified SNOMED: 83455100 (4) Cyclic vomiting syndrome ICD Codes: R11.15 - Cyclical vomiting syndrome unrelated to migraine SNOMED: 04078795 (5) Intractable abdominal pain ICD Codes: R10.9 - Unspecified abdominal pain SNOMED: 76608764 (6) Marijuana abuse ICD Codes: F12.10 - Cannabis abuse, uncomplicated SNOMED: 13475318 (7) Gastritis ICD Codes: K29.70 - Gastritis, unspecified, without bleeding SNOMED: 7337394 Status: progressing Status Narrative Discussed with Dr. Zabala. Assessment/Plan SUMMARY OF FINDINGS: 1. Distal esophagitis. 2. A 6 cm hiatal hernia. 3. Gastritis, status biopsy. Intractable nausea and vomiting most likely secondary due to cyclic vomiting syndrome RECOMMENDATIONS: advance diet as tolerated Electrolyte correction, had reported emesis x6 last night. Zofran as needed, Reglan ATC PPI + carafate Obtain urine toxicity Follow labs, pathology The patient was seen and examined at bedside and all new and available data was reviewed in the patients chart. I agree with the above findings, impression and plan. (Patient seen earlier today. Signature stamp does not reflect patient encounter time.). - Ashok Zabala MD Subjective Gastrointestinal/Abdominal: Reports: no symptoms Objective Last 24 Hour Vital Signs Date Time Temp Pulse Resp B/P (MAP) Pulse Ox O2 Delivery O2 Flow Rate FiO2 09/09/19 09:00 Room Air 09/09/19 08:00 98.2 67 21 155/97 (116) 98 09/09/19 06:09 141/102 09/09/19 04:00 98.1 69 18 141/102 (115) 98 09/09/19 00:00 98.6 62 18 157/99 (118) 98 09/08/19 21:01 156/100 09/08/19 21:00 Room Air 09/08/19 20:00 100.4 65 18 156/100 (118) 98 09/08/19 17:00 98.6 09/08/19 16:59 98.6 09/08/19 16:53 98.6 09/08/19 16:00 100.3 72 19 153/99 (117) 98 09/08/19 14:51 159/98 09/08/19 14:43 60 159/98 (118) 98 Intake and Output 09/08/19 09/09/19 19:00 07:00 Intake Total 1705.676 ml 2418.095 ml Output Total 1850 ml 1350 ml Balance -144.324 ml 1068.095 ml Intake Oral 240 ml 800 ml IV Total 1465.676 ml 1618.095 ml Output Urine Total 600 ml 650 ml Emesis 1250 ml 700 ml # Voids 3 3 # Bowel Movements 1 Laboratory Tests Test 09/09/19 04:12 09/09/19 11:55 White Blood Count 10.9 K/UL (4.8-10.8) H Red Blood Count 5.06 M/UL (4.70-6.10) Hemoglobin 14.7 G/DL (14.2-18.0) Hematocrit 43.2 % (42.0-52.0) Mean Corpuscular Volume 85 FL (80-99) Mean Corpuscular Hemoglobin 29.0 PG (27.0-31.0) Mean Corpuscular Hemoglobin Concent 33.9 G/DL (32.0-36.0) Red Cell Distribution Width 11.2 % (11.6-14.8) L Platelet Count 343 K/UL (150-450) Mean Platelet Volume 5.0 FL (6.5-10.1) L Neutrophils (%) (Auto) 72.2 % (45.0-75.0) Lymphocytes (%) (Auto) 19.0 % (20.0-45.0) L Monocytes (%) (Auto) 7.5 % (1.0-10.0) Eosinophils (%) (Auto) 0.4 % (0.0-3.0) Basophils (%) (Auto) 0.9 % (0.0-2.0) Activated Partial Thromboplast Time 39 SEC (23-33) H Pending Sodium Level 140 MMOL/L (136-145) Potassium Level 3.0 MMOL/L (3.5-5.1) L Chloride Level 104 MMOL/L (98-107) Carbon Dioxide Level 26 MMOL/L (21-32) Anion Gap 10 mmol/L (5-15) Blood Urea Nitrogen 4 mg/dL (7-18) L Creatinine 0.9 MG/DL (0.55-1.30) Estimat Glomerular Filtration Rate > 60 mL/min (>60) Glucose Level 120 MG/DL (74-106) H Calcium Level 8.5 MG/DL (8.5-10.1) Phosphorus Level 3.5 MG/DL (2.5-4.9) Magnesium Level 1.7 MG/DL (1.8-2.4) L Height (Feet): 5 Height (Inches): 10.00 Weight (Pounds): 177 General Appearance: WD/WN, no apparent distress, alert Cardiovascular: normal rate Respiratory/Chest: normal breath sounds, no respiratory distress Abdominal Exam: normal bowel sounds, non tender, soft Extremities: normal range of motion, non-tender Gui Saez NP Sep 09, 2019 12:31
--- NOTE | 2019-09-09 14:07 | NUR ---
NURSE NOTES: Pt is currently nauseated, yet wants to take a shower. Does not want IV to be started , until he showers. Pt informed that it may be beneficial to sit up after eating and drinking instead of laying flat.
[2019-09-09 14:32] LABS: INR 1.1 (0.9-1.1)
[2019-09-09] MEDS ORDERED: Tubing IV Secondary IV ONE (14:50)
[2019-09-09] MEDS ORDERED: NS 500ML ONE (14:50)
--- NOTE | 2019-09-09 15:09 | Infectious Diseases Prog Note ---
Assessment/Plan Assessment/Plan Full consult dictated: A) 1) possible sepsis, leukocytosis, fevers, n/v 2) ? translocation from GI tract source, SMV thrombosis 3) 11/20 [employer] blood culture +, ? pathogen, ? contaminant 4) pmh noted 5) allergies - nkda P) 1) vancomycin and zosyn 2) re-check blood cultures, labs and chest x-ray 3) monitor clinically 4) d/w Dr. Partida 5) thank you Subjective Allergies: Coded Allergies: No Known Allergies (Unverified , 12/08/17) Objective Vital Signs Last 24 Hour Vital Signs Date Time Temp Pulse Resp B/P (MAP) Pulse Ox O2 Delivery O2 Flow Rate FiO2 09/09/19 13:34 74 116/84 09/09/19 12:00 98.0 74 22 114/76 (89) 97 09/09/19 09:00 Room Air 09/09/19 08:00 98.2 67 21 155/97 (116) 98 09/09/19 06:09 141/102 09/09/19 04:00 98.1 69 18 141/102 (115) 98 09/09/19 00:00 98.6 62 18 157/99 (118) 98 09/08/19 21:01 156/100 09/08/19 21:00 Room Air 09/08/19 20:00 100.4 65 18 156/100 (118) 98 09/08/19 17:00 98.6 09/08/19 16:59 98.6 09/08/19 16:53 98.6 09/08/19 16:00 100.3 72 19 153/99 (117) 98 Height (Feet): 5 Height (Inches): 10.00 Weight (Pounds): 177 Microbiology Date/Time Source Procedure Growth Status 09/07/19 18:00 Blood Blood Culture - Preliminary NO GROWTH AFTER 24 HOURS Resulted 09/07/19 17:45 Blood Blood Culture - Preliminary Staphylococcus Sp Coag Neg Resulted Laboratory Tests Test 09/09/19 04:12 09/09/19 11:55 09/09/19 13:55 White Blood Count 10.9 K/UL (4.8-10.8) H Red Blood Count 5.06 M/UL (4.70-6.10) Hemoglobin 14.7 G/DL (14.2-18.0) Hematocrit 43.2 % (42.0-52.0) Mean Corpuscular Volume 85 FL (80-99) Mean Corpuscular Hemoglobin 29.0 PG (27.0-31.0) Mean Corpuscular Hemoglobin Concent 33.9 G/DL (32.0-36.0) Red Cell Distribution Width 11.2 % (11.6-14.8) L Platelet Count 343 K/UL (150-450) Mean Platelet Volume 5.0 FL (6.5-10.1) L Neutrophils (%) (Auto) 72.2 % (45.0-75.0) Lymphocytes (%) (Auto) 19.0 % (20.0-45.0) L Monocytes (%) (Auto) 7.5 % (1.0-10.0) Eosinophils (%) (Auto) 0.4 % (0.0-3.0) Basophils (%) (Auto) 0.9 % (0.0-2.0) Activated Partial Thromboplast Time 39 SEC (23-33) H 68 SEC (23-33) H Sodium Level 140 MMOL/L (136-145) Potassium Level 3.0 MMOL/L (3.5-5.1) L Chloride Level 104 MMOL/L (98-107) Carbon Dioxide Level 26 MMOL/L (21-32) Anion Gap 10 mmol/L (5-15) Blood Urea Nitrogen 4 mg/dL (7-18) L Creatinine 0.9 MG/DL (0.55-1.30) Estimat Glomerular Filtration Rate > 60 mL/min (>60) Glucose Level 120 MG/DL (74-106) H Calcium Level 8.5 MG/DL (8.5-10.1) Phosphorus Level 3.5 MG/DL (2.5-4.9) Magnesium Level 1.7 MG/DL (1.8-2.4) L Prothrombin Time 11.7 SEC (9.30-11.50) H Prothromb Time International Ratio 1.1 (0.9-1.1) Current Medications Medications (Trade) Dose Ordered Sig/Toni Route PRN Reason Start Time Stop Time Status Last Admin Dose Admin Acetaminophen (Tylenol) 650 mg Q4H PRN ORAL Mild Pain (Pain Scale 1-3) 09/05/19 01:30 10/05/19 01:29 09/08/19 16:23 Amlodipine Besylate (Norvasc) 5 mg DAILY ORAL 09/09/19 13:04 10/09/19 13:03 09/09/19 13:34 Dextrose (Dextrose 50%) 25 ml Q30M PRN IV Hypoglycemia 09/05/19 01:30 10/05/19 01:29 Dextrose (Dextrose 50%) 50 ml Q30M PRN IV Hypoglycemia 09/05/19 01:30 10/05/19 01:29 Dextrose/ Electrolytes 1,000 ml @ 50 mls/hr Q20H IV 09/09/19 13:00 10/09/19 12:59 Enoxaparin Sodium (Lovenox) 80 mg EVERY 12 HOURS SUBQ 09/09/19 21:00 10/09/19 20:59 Hydralazine HCl (Apresoline) 25 mg Q6H PRN ORAL SBP>150 09/08/19 08:45 10/08/19 08:44 09/09/19 06:09 Hydromorphone HCl (Dilaudid) 0.5 mg Q6H PRN IVP Pain Scale (6-10) 09/05/19 01:30 09/12/19 01:29 09/09/19 06:46 Lorazepam (Ativan 2mg/ml 1ml) 0.5 mg Q4H PRN IV For Anxiety 09/05/19 01:30 09/12/19 01:29 Metoclopramide HCl (Reglan) 10 mg Q6H IVP 09/07/19 12:15 10/07/19 12:14 09/09/19 12:19 Ondansetron HCl (Zofran) 4 mg Q6H IVP 09/06/19 13:30 10/06/19 13:29 09/09/19 13:34 Pantoprazole (Protonix) 40 mg DAILY IVP 09/06/19 11:45 10/06/19 11:44 09/09/19 08:32 Piperacillin Sod/ Tazobactam Sod 3.375 gm/Sodium Chloride 110 ml @ 27.5 mls/hr EVERY 8 HOURS IVPB 09/07/19 14:00 09/12/19 13:59 09/09/19 05:16 Prochlorperazine (Compazine) 10 mg Q6H PRN IVP Nausea & Vomiting 09/05/19 12:33 10/05/19 12:32 09/09/19 09:34 Sucralfate (Carafate) 1 gm FOUR TIMES A DAY ORAL 09/08/19 13:00 10/08/19 12:59 09/09/19 12:19 Vancomycin HCl (Vanco rx to dose) 1 ea DAILY PRN MISC Per rx protocol 09/08/19 15:15 10/08/19 15:14 Vancomycin/Sodium Chloride 275 ml @ 183.333 mls/hr Q12HR@0600,1800 IVPB 09/08/19 18:00 09/13/19 17:59 09/09/19 05:15 Warfarin Sodium (Coumadin per pharmacy) 1 ea DAILY PRN MISC . 09/09/19 13:45 10/09/19 13:44 Warfarin Sodium (Coumadin) 5 mg ONCE ORAL 09/09/19 17:00 09/09/19 19:00 Shahzad Nath MD Sep 09, 2019 15:09
--- NOTE | 2019-09-09 15:40 | NUR ---
NURSE NOTES: Compazine given pt repeatedly vomiting. Dr Back informed, Jerad BI[employer] ENGINEERING TECH[employer]OLOGIST informed here earlier , in shift informed that pt has been having vomitus. Magnesium IV given as well as po potassium, pt continues to not tolerate , fluids or meals. Requires to be reminded not to lay flat. Vomitus x 5 upon this writing. NNO. Heparin gtt d/c earlier in shift. Pt informed that he will be on a different anticoagulant.
[2019-09-09 16:00] VITALS: BP 129/68
[2019-09-09] MEDS ORDERED: Warfarin Sodium 5mg ORAL SCH (17:00)
--- NOTE | 2019-09-09 17:39 | Surgery Progress Note ---
Surgery Progress Note Subjective Additional Comments egd report noted still with emesis labs noted exam unchanged. Objective Last 24 Hour Vital Signs Date Time Temp Pulse Resp B/P (MAP) Pulse Ox O2 Delivery O2 Flow Rate FiO2 09/09/19 16:00 98.2 76 20 129/68 (88) 98 09/09/19 13:34 74 116/84 09/09/19 12:00 98.0 74 22 114/76 (89) 97 09/09/19 09:00 Room Air 09/09/19 08:00 98.2 67 21 155/97 (116) 98 09/09/19 06:09 141/102 09/09/19 04:00 98.1 69 18 141/102 (115) 98 09/09/19 00:00 98.6 62 18 157/99 (118) 98 09/08/19 21:01 156/100 09/08/19 21:00 Room Air 09/08/19 20:00 100.4 65 18 156/100 (118) 98 I&O Intake and Output 09/08/19 09/09/19 18:59 06:59 Intake Total 1705.676 ml 2412.906 ml Output Total 1850 ml 1350 ml Balance -144.324 ml 1062.906 ml Intake Oral 240 ml 800 ml IV Total 1465.676 ml 1612.906 ml Output Urine Total 600 ml 650 ml Emesis 1250 ml 700 ml # Voids 3 3 # Bowel Movements 1 Respiratory: clear Abdomen: soft, flat, non-tender, present bowel sounds Extremities: no tenderness, no cyanosis Laboratory Tests Test 09/09/19 04:12 09/09/19 11:55 09/09/19 13:55 09/09/19 16:15 White Blood Count 10.9 K/UL (4.8-10.8) H Red Blood Count 5.06 M/UL (4.70-6.10) Hemoglobin 14.7 G/DL (14.2-18.0) Hematocrit 43.2 % (42.0-52.0) Mean Corpuscular Volume 85 FL (80-99) Mean Corpuscular Hemoglobin 29.0 PG (27.0-31.0) Mean Corpuscular Hemoglobin Concent 33.9 G/DL (32.0-36.0) Red Cell Distribution Width 11.2 % (11.6-14.8) L Platelet Count 343 K/UL (150-450) Mean Platelet Volume 5.0 FL (6.5-10.1) L Neutrophils (%) (Auto) 72.2 % (45.0-75.0) Lymphocytes (%) (Auto) 19.0 % (20.0-45.0) L Monocytes (%) (Auto) 7.5 % (1.0-10.0) Eosinophils (%) (Auto) 0.4 % (0.0-3.0) Basophils (%) (Auto) 0.9 % (0.0-2.0) Activated Partial Thromboplast Time 39 SEC (23-33) H 68 SEC (23-33) H Sodium Level 140 MMOL/L (136-145) Potassium Level 3.0 MMOL/L (3.5-5.1) L Chloride Level 104 MMOL/L (98-107) Carbon Dioxide Level 26 MMOL/L (21-32) Anion Gap 10 mmol/L (5-15) Blood Urea Nitrogen 4 mg/dL (7-18) L Creatinine 0.9 MG/DL (0.55-1.30) Estimat Glomerular Filtration Rate > 60 mL/min (>60) Glucose Level 120 MG/DL (74-106) H Calcium Level 8.5 MG/DL (8.5-10.1) Phosphorus Level 3.5 MG/DL (2.5-4.9) Magnesium Level 1.7 MG/DL (1.8-2.4) L Prothrombin Time 11.7 SEC (9.30-11.50) H Prothromb Time International Ratio 1.1 (0.9-1.1) Lactic Acid Level 0.90 mmol/L (0.4-2.0) Plan Problems: (1) Intractable abdominal pain Assessment & Plan: afebrile, HD stable, leukocytosis persistent n/v persistent unable to tolerate much po diet exam fairly benign Impression: Linear filling defect in the superior mesenteric vein extending into the portal vein. While possibly in inflow artifact from nonopacified blood, suspect that this is a real finding representing thrombus within the superior mesenteric vein and portal vein. This does not appear to be occlusive and there is no bowel wall thickening. This finding was not described on the [facility] preliminary report, was phoned to Dr. Back at the time of interpretation. [facility] was also notified of either website No other abnormality. Evidence of bullous COPD. This is a new finding since the prior 2008 exam Incidental findings of focal fatty change within the liver, small hiatal hernia egd noted iv fluids will follow with exam heparin gtt reglan/zofran push po diet thank you (2) Intractable nausea and vomiting Jose Back Sep 09, 2019 17:39
--- NOTE | 2019-09-09 18:58 | NUR ---
NURSE NOTES: Pt currently sleeping . Jerad informed that pt is still not tolerating any meals fluids remain running. Dr Wood here put in ordered blood cultures, per report of record label internship pt has been reluctant with cooperating with labs. R/B explained to pt
--- NOTE | 2019-09-09 19:25 | NUR ---
NURSE NOTES: Report taken from SHOLA Pruett. Patient is asleep and in bed, arousable by name and light touch. No signs of distress on room air. Complaints of abdominal pain primarily with emesis, 5/10. Is having difficulty keeping food and liquids down. IV sites c/d/i and patent, running antibiotics and D51/2NS+20KCl at 50mls/hr. Skin is intact, encourage patient to ambulate when able. Patient would like to shower will assess for safety and contact MD. Bed in lowest position, and call light within reach.
--- NOTE | 2019-09-09 19:27 | NUR ---
HAND-OFF: Report given to Jose Cruz JOLLEY made aware that Yue was contacted due to pt continous vomtting , pt did not tolerate any meals or fluids.
[2019-09-09 20:00] VITALS: BP 120/80
[2019-09-09] MEDS: Enoxaparin 80mg Inj SUBQ SCH (20:14)
--- NOTE | 2019-09-09 20:25 | Hematology/Onc Progress Note ---
Assessment/Plan Assessment/Plan # Acute SMV and portal vein thrombosis -- potential contributor to abdominal pain, epigastric/left upper quadrant/nonradiating suspected 2/2 acute SMV thrombus --> imaging has been reviewed and cw acute process, millicent rad, pcp, surg --> agree with the use of anticoagulation, hep gtt has been started==> now mckenzie to lovenox/coumadin --> minimum of 3 months of anticoag --> will need a workup to r/o malignancy, tumor markers have been ordered --> recommend hypercoag w/u as well, may be done in o/p setting --> gi to access soon with EGD 09/08: esophagitisgastritis --> Agree to start lovenox and coumadin now --> inr goal 2-3 # Leukocytosis, reactive vs. infectious. Will rule out infectious etiology. --> trend on abx, zosyn/vanc --> wbc trend 15-->9 --> blood cultures reviewed --> id recs noted # Hypokalemia due to vomiting --> k given as needed, daily --> zofran started q6h --> Compazine as needed for breakthrough nausea # Cannabis use --> Counselling provided --> may be contributor to n.v # Dvt ppx now with loven/coumadin po Appreciate consultation and millicent RN. Subjective HEENT: Denies: no symptoms, eye pain, blurred vision, tearing, double vision, ear pain, ear discharge, nose pain, nose congestion, throat pain, throat swelling, mouth pain, mouth swelling, other Cardiovascular: Denies: no symptoms, chest pain, edema, irregular heart rate, lightheadedness, palpitations, syncope, other Respiratory: Denies: no symptoms, cough, shortness of breath, SOB with excertion, SOB at rest, sputum, wheezing, other Gastrointestinal/Abdominal: Denies: no symptoms, abdomen distended, abdominal pain, black stools, tarry stools, blood in stool, constipated, diarrhea, difficulty swallowing, nausea, poor appetite, poor fluid intake, rectal bleeding , vomiting, other Genitourinary: Denies: no symptoms, burning, discharge, frequency, flank pain, hematuria, incontinence, pain, urgency, other Neurologic/Psychiatric: Denies: no symptoms, anxiety, depressed, emotional problems, headache, numbness, paresthesia, pre-existing deficit, seizure, tingling, tremors, weakness, other Endocrine: Denies: no symptoms, excessive sweating, flushing, intolerance to cold, intolerance to heat, increased hunger, increased thirst, increased urine, unexplained weight gain, unexplained weight loss, other Hematologic/Lymphatic: Denies: no symptoms, anemia, easy bleeding, easy bruising, adenopathy, other Allergies: Coded Allergies: No Known Allergies (Unverified , 12/08/17) Subjective 09/08: no events noted, no bleeding, heparin gtt started yesterday, otherwise feeling better 09/09: egd/colo reviewed, started on love/coumadin and abx Objective Objective Current Medications Medications (Trade) Dose Ordered Sig/Toni Route PRN Reason Start Time Stop Time Status Last Admin Dose Admin Acetaminophen (Tylenol) 650 mg Q4H PRN ORAL Mild Pain (Pain Scale 1-3) 09/05/19 01:30 10/05/19 01:29 09/08/19 16:23 Amlodipine Besylate (Norvasc) 5 mg DAILY ORAL 09/09/19 13:04 10/09/19 13:03 09/09/19 13:34 Dextrose (Dextrose 50%) 25 ml Q30M PRN IV Hypoglycemia 09/05/19 01:30 10/05/19 01:29 Dextrose (Dextrose 50%) 50 ml Q30M PRN IV Hypoglycemia 09/05/19 01:30 10/05/19 01:29 Dextrose/ Electrolytes 1,000 ml @ 50 mls/hr Q20H IV 09/09/19 13:00 10/09/19 12:59 Enoxaparin Sodium (Lovenox) 80 mg EVERY 12 HOURS SUBQ 09/09/19 21:00 10/09/19 20:59 09/09/19 20:14 Hydralazine HCl (Apresoline) 25 mg Q6H PRN ORAL SBP>150 09/08/19 08:45 10/08/19 08:44 09/09/19 06:09 Hydromorphone HCl (Dilaudid) 0.5 mg Q6H PRN IVP Pain Scale (6-10) 09/05/19 01:30 09/12/19 01:29 09/09/19 18:06 Lorazepam (Ativan 2mg/ml 1ml) 0.5 mg Q4H PRN IV For Anxiety 09/05/19 01:30 09/12/19 01:29 Metoclopramide HCl (Reglan) 10 mg Q6H IVP 09/07/19 12:15 10/07/19 12:14 09/09/19 17:40 Ondansetron HCl (Zofran) 4 mg Q6H IVP 09/06/19 13:30 10/06/19 13:29 09/09/19 20:10 Pantoprazole (Protonix) 40 mg DAILY IVP 09/06/19 11:45 10/06/19 11:44 09/09/19 08:32 Piperacillin Sod/ Tazobactam Sod 3.375 gm/Sodium Chloride 110 ml @ 27.5 mls/hr EVERY 8 HOURS IVPB 09/07/19 14:00 09/12/19 13:59 09/09/19 15:07 Prochlorperazine (Compazine) 10 mg Q6H PRN IVP Nausea & Vomiting 09/05/19 12:33 10/05/19 12:32 09/09/19 15:28 Sucralfate (Carafate) 1 gm FOUR TIMES A DAY ORAL 09/08/19 13:00 10/08/19 12:59 09/09/19 20:13 Vancomycin HCl (Vanco rx to dose) 1 ea DAILY PRN MISC Per rx protocol 09/08/19 15:15 10/08/19 15:14 Vancomycin/Sodium Chloride 275 ml @ 183.333 mls/hr Q12HR@0600,1800 IVPB 09/08/19 18:00 09/13/19 17:59 09/09/19 17:40 Warfarin Sodium (Coumadin per pharmacy) 1 ea DAILY PRN MISC . 09/09/19 13:45 10/09/19 13:44 Last 24 Hour Vital Signs Date Time Temp Pulse Resp B/P (MAP) Pulse Ox O2 Delivery O2 Flow Rate FiO2 09/09/19 16:00 98.2 76 20 129/68 (88) 98 09/09/19 13:34 74 116/84 09/09/19 12:00 98.0 74 22 114/76 (89) 97 09/09/19 09:00 Room Air 09/09/19 08:00 98.2 67 21 155/97 (116) 98 09/09/19 06:09 141/102 09/09/19 04:00 98.1 69 18 141/102 (115) 98 09/09/19 00:00 98.6 62 18 157/99 (118) 98 09/08/19 21:01 156/100 09/08/19 21:00 Room Air 09/08/19 20:00 100.4 65 18 156/100 (118) 98 09/08/19 17:00 98.6 09/08/19 16:59 98.6 09/08/19 16:53 98.6 09/08/19 16:00 100.3 72 19 153/99 (117) 98 09/08/19 14:51 159/98 09/08/19 14:43 60 159/98 (118) 98 09/08/19 12:00 99.9 88 21 171/95 (120) 96 09/08/19 11:40 98.3 70 20 149/98 100 Room Air 09/08/19 11:38 55 18 100 09/08/19 11:37 94 18 100 09/08/19 11:30 55 22 155/94 100 Nasal Cannula 3 09/08/19 11:25 56 20 153/92 100 Nasal Cannula 3 09/08/19 11:20 97.8 60 24 142/95 100 Nasal Cannula 3 09/08/19 10:00 57 165/105 (125) 09/08/19 10:00 55 166/102 (123) 09/08/19 09:21 Room Air 09/08/19 09:09 56 167/105 (125) 09/08/19 09:09 167/105 09/08/19 08:00 98.3 55 21 162/106 (124) 99 09/08/19 04:00 98.4 56 18 116/77 (90) 92 Intake and Output 09/08/19 09/09/19 18:59 06:59 Intake Total 1705.676 ml 2412.906 ml Output Total 1850 ml 1350 ml Balance -144.324 ml 1062.906 ml Intake Oral 240 ml 800 ml IV Total 1465.676 ml 1612.906 ml Output Urine Total 600 ml 650 ml Emesis 1250 ml 700 ml # Voids 3 3 # Bowel Movements 1 Labs Test 09/07/19 02:00 09/07/19 04:50 09/07/19 12:00 09/07/19 20:20 Urine Opiates Screen Negative (NEGATIVE) Urine Barbiturates Screen Negative (NEGATIVE) Phencyclidine (PCP) Screen Negative (NEGATIVE) Urine Amphetamines Screen Negative (NEGATIVE) Urine Benzodiazepines Screen Negative (NEGATIVE) Urine Cocaine Screen Negative (NEGATIVE) Urine Marijuana (THC) Screen Positive (NEGATIVE) White Blood Count 13.3 K/UL (4.8-10.8) 12.1 K/UL (4.8-10.8) Red Blood Count 5.38 M/UL (4.70-6.10) 5.15 M/UL (4.70-6.10) Hemoglobin 15.6 G/DL (14.2-18.0) 14.9 G/DL (14.2-18.0) Hematocrit 46.4 % (42.0-52.0) 44.8 % (42.0-52.0) Mean Corpuscular Volume 86 FL (80-99) 87 FL (80-99) Mean Corpuscular Hemoglobin 29.0 PG (27.0-31.0) 28.8 PG (27.0-31.0) Mean Corpuscular Hemoglobin Concent 33.6 G/DL (32.0-36.0) 33.2 G/DL (32.0-36.0) Red Cell Distribution Width 11.4 % (11.6-14.8) 11.4 % (11.6-14.8) Platelet Count 361 K/UL (150-450) 348 K/UL (150-450) Mean Platelet Volume 5.1 FL (6.5-10.1) 5.3 FL (6.5-10.1) Neutrophils (%) (Auto) 74.7 % (45.0-75.0) 69.8 % (45.0-75.0) Lymphocytes (%) (Auto) 16.1 % (20.0-45.0) 20.5 % (20.0-45.0) Monocytes (%) (Auto) 8.0 % (1.0-10.0) 8.4 % (1.0-10.0) Eosinophils (%) (Auto) 0.2 % (0.0-3.0) 0.5 % (0.0-3.0) Basophils (%) (Auto) 0.9 % (0.0-2.0) 0.8 % (0.0-2.0) Sodium Level 142 MMOL/L (136-145) Potassium Level 3.4 MMOL/L (3.5-5.1) Chloride Level 103 MMOL/L (98-107) Carbon Dioxide Level 31 MMOL/L (21-32) Anion Gap 8 mmol/L (5-15) Blood Urea Nitrogen 8 mg/dL (7-18) Creatinine 0.9 MG/DL (0.55-1.30) Estimat Glomerular Filtration Rate > 60 mL/min (>60) Glucose Level 122 MG/DL (74-106) Calcium Level 8.8 MG/DL (8.5-10.1) Phosphorus Level 3.9 MG/DL (2.5-4.9) Magnesium Level 1.8 MG/DL (1.8-2.4) Activated Partial Thromboplast Time 32 SEC (23-33) 52 SEC (23-33) Alpha Fetoprotein 1.7 ng/mL (0.0-8.3) Carcinoembryonic Antigen 3.9 ng/mL (0.0-4.7) CA 19-9 Antigen 1 U/mL (0-35) Prostate Specific Antigen 3.12 ng/mL (0.13-4.0) Test 09/08/19 03:40 09/09/19 04:12 09/09/19 11:55 09/09/19 13:55 White Blood Count 10.6 K/UL (4.8-10.8) 10.9 K/UL (4.8-10.8) Red Blood Count 5.02 M/UL (4.70-6.10) 5.06 M/UL (4.70-6.10) Hemoglobin 14.6 G/DL (14.2-18.0) 14.7 G/DL (14.2-18.0) Hematocrit 42.8 % (42.0-52.0) 43.2 % (42.0-52.0) Mean Corpuscular Volume 85 FL (80-99) 85 FL (80-99) Mean Corpuscular Hemoglobin 29.2 PG (27.0-31.0) 29.0 PG (27.0-31.0) Mean Corpuscular Hemoglobin Concent 34.2 G/DL (32.0-36.0) 33.9 G/DL (32.0-36.0) Red Cell Distribution Width 11.1 % (11.6-14.8) 11.2 % (11.6-14.8) Platelet Count 344 K/UL (150-450) 343 K/UL (150-450) Mean Platelet Volume 5.2 FL (6.5-10.1) 5.0 FL (6.5-10.1) Neutrophils (%) (Auto) 55.9 % (45.0-75.0) 72.2 % (45.0-75.0) Lymphocytes (%) (Auto) 31.8 % (20.0-45.0) 19.0 % (20.0-45.0) Monocytes (%) (Auto) 10.1 % (1.0-10.0) 7.5 % (1.0-10.0) Eosinophils (%) (Auto) 1.3 % (0.0-3.0) 0.4 % (0.0-3.0) Basophils (%) (Auto) 0.9 % (0.0-2.0) 0.9 % (0.0-2.0) Activated Partial Thromboplast Time 81 SEC (23-33) 39 SEC (23-33) 68 SEC (23-33) Sodium Level 141 MMOL/L (136-145) 140 MMOL/L (136-145) Potassium Level 3.5 MMOL/L (3.5-5.1) 3.0 MMOL/L (3.5-5.1) Chloride Level 104 MMOL/L (98-107) 104 MMOL/L (98-107) Carbon Dioxide Level 28 MMOL/L (21-32) 26 MMOL/L (21-32) Anion Gap 9 mmol/L (5-15) 10 mmol/L (5-15) Blood Urea Nitrogen 6 mg/dL (7-18) 4 mg/dL (7-18) Creatinine 1.0 MG/DL (0.55-1.30) 0.9 MG/DL (0.55-1.30) Estimat Glomerular Filtration Rate > 60 mL/min (>60) > 60 mL/min (>60) Glucose Level 123 MG/DL (74-106) 120 MG/DL (74-106) Calcium Level 8.5 MG/DL (8.5-10.1) 8.5 MG/DL (8.5-10.1) Phosphorus Level 3.5 MG/DL (2.5-4.9) Magnesium Level 1.7 MG/DL (1.8-2.4) Prothrombin Time 11.7 SEC (9.30-11.50) Prothromb Time International Ratio 1.1 (0.9-1.1) Test 09/09/19 16:15 Lactic Acid Level 0.90 mmol/L (0.4-2.0) Height (Feet): 5 Height (Inches): 10.00 Weight (Pounds): 177 Objective Gen: Nad, comfortable Pulm: ctab, no cwr CV: Rrr, no mgr Abd: soft, nd ++ bowel sounds Ext: no cce Thomas Gant MD Sep 09, 2019 20:25
[2019-09-10] VITALS: BP_SYST 116; BP_SYST 74; BP_DIAS 80
[2019-09-10] MEDS: Hydromorphone 0.5mg/0.5ml inj IVP PRN ×4 (00:09→21:32)
[2019-09-10] MEDS: Metoclopramide 10mg/2ml Inj IVP SCH ×4 (00:09→17:54)
[2019-09-10 04:00] VITALS: BP 119/82
[2019-09-10] MEDS: Vancomycin 1.25gm/NS Premix 275 ML IVPB SCH (06:01)
[2019-09-10] MEDS: Piperacillin/Tazobactam 3.375 GM in NS 110 ML IVPB SCH ×3 (06:02→22:30)
[2019-09-10] MEDS: D5 1/2NS w/KCl 20mEq 1,000 ML IV SCH (06:07)
[2019-09-10 06:47] LABS: BASOPHILS % (AUTO) 1.2 % (0.0-2.0); EOSINOPHILS % (AUTO) 0.2 % (0.0-3.0); HEMATOCRIT 47.2 % (42.0-52.0); HEMOGLOBIN 15.9 G/DL (14.2-18.0); LYMPHOCYTES % (AUTO) 14.1 % (20.0-45.0); MEAN CORPUSCULAR VOLUME 87 FL (80-99); MONOCYTES % (AUTO) 9.6 % (1.0-10.0); NEUTROPHILS % (AUTO) 74.9 % (45.0-75.0); PLATELET COUNT 371 K/UL (150-450); RED BLOOD COUNT 5.44 M/UL (4.70-6.10); RED CELL DISTRIBUTION WIDTH 11.6 % (11.6-14.8); WHITE BLOOD COUNT 15.9 K/UL (4.8-10.8)
[2019-09-10 07:04] LABS: INR 1.1 (0.9-1.1)
[2019-09-10 07:25] LABS: ANION GAP 12 mmol/L (5-15); BLOOD UREA NITROGEN 6 mg/dL (7-18); CARBON DIOXIDE 28 MMOL/L (21-32); CHLORIDE 104 MMOL/L (98-107); CREATININE 1.6 MG/DL (0.55-1.30); PHOSPHORUS 4.4 MG/DL (2.5-4.9); POTASSIUM 3.8 MMOL/L (3.5-5.1); SODIUM 144 MMOL/L (136-145)
--- NOTE | 2019-09-10 07:30 | NUR ---
NURSE NOTES: Received pt from EMILY JOLLEY. Pt is alert and orient x4. pt is in RA, no SOB or acute respiratory distress noted. pt has intact iv access RAC 20G and L wrist 22g are running well. Dr FLETCHER notified about WBC 15.9 and other lab results, he will F/U. All needs attended, bed is locked and is in the lowest position, call light within easy reach, will continue to monitor.
--- NOTE | 2019-09-10 07:45 | NUR ---
HAND-OFF: Report given to SHOLA Bryant. Patient is awake and in bed, radiology present at bedside. Patient stable.
[2019-09-10 08:00] VITALS: BP 141/95
--- NOTE | 2019-09-10 08:15 | NUR ---
RADIOLOGY DEPT., CHEST X-RAY DONE.-P.DYE
[2019-09-10] MEDS: Pantoprazole Inj IVP SCH (08:26)
[2019-09-10] MEDS: D5NS 1,000 ML IV SCH ×3 (08:26→21:32)
[2019-09-10] MEDS: Sucralfate 1gm tab ORAL SCH ×4 (08:26→20:23)
[2019-09-10] MEDS: Enoxaparin 80mg Inj SUBQ SCH ×2 (08:29→20:24)
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
[2019-09-10 10:17] LABS: ANION GAP 12 mmol/L (5-15); BLOOD UREA NITROGEN 6 mg/dL (7-18); CALCIUM 8.9 MG/DL (8.5-10.1); CARBON DIOXIDE 26 MMOL/L (21-32); CHLORIDE 103 MMOL/L (98-107); CREATININE 1.7 MG/DL (0.55-1.30); POTASSIUM 3.3 MMOL/L (3.5-5.1); SODIUM 141 MMOL/L (136-145)
[2019-09-10 10:19] LABS: BASOPHILS % (AUTO) 1.2 % (0.0-2.0); EOSINOPHILS % (AUTO) 0.3 % (0.0-3.0); HEMATOCRIT 43.8 % (42.0-52.0); HEMOGLOBIN 14.9 G/DL (14.2-18.0); MEAN CORPUSCULAR VOLUME 86 FL (80-99); MONOCYTES % (AUTO) 9.7 % (1.0-10.0); NEUTROPHILS % (AUTO) 72.7 % (45.0-75.0); PLATELET COUNT 365 K/UL (150-450); RED BLOOD COUNT 5.09 M/UL (4.70-6.10); RED CELL DISTRIBUTION WIDTH 11.4 % (11.6-14.8); WHITE BLOOD COUNT 14.8 K/UL (4.8-10.8)
--- NOTE | 2019-09-10 11:15 | NUR ---
NURSE NOTES: Dr FELTCHER is notified about lab results and WBC and K, no new order to RN. Will continue to monitor.
--- NOTE | 2019-09-10 11:54 | Consultation ---
DATE OF CONSULTATION: 09/09/2019 INFECTIOUS DISEASE CONSULTATION CONSULTING PHYSICIAN: Shahzad Nath M.D. ATTENDING PHYSICIAN: Arsh Jack M.D. REFERRING PHYSICIAN: Sea Partida D.O. REASON FOR CONSULTATION: Possible sepsis, fevers, leukocytosis, and possible bacteremia. CHIEF COMPLAINT: The patient's chief complaint coming into the hospital is intractable nausea and vomiting. HISTORY OF PRESENT ILLNESS: This is a very pleasant 48-year-old male, who comes to [facility] with intractable nausea and vomiting. The patient was seen by Gastroenterology and a workup was done including an endoscopy and this showed the following: It showed gastritis, esophagitis, and hiatal hernia. The patient also had imaging studies including a CT scan of the abdomen and pelvis, which showed the following. It showed a superior mesenteric vein or SMV vein possible thrombosis. Report was noted. The patient's workup showed that the patient was febrile and white count was as high as 16.1. A chest x-ray will be ordered. UA was fairly unremarkable with 0 to 2 white cells. The patient is currently on vancomycin and Zosyn. One blood cultures out of 4 grew out gram-positive cocci in clusters, which turned out to be coagulase-negative Staph. Sensitivities are pending. Repeat blood cultures will be done. Infectious Disease consultation is requested for antibiotic management. Case discussed with Dr. Partida. The patient will be continued on vancomycin and Zosyn. REVIEW OF SYSTEMS: CONSTITUTIONAL: The patient came in with fevers and generalized fatigue, weakness, and chills. No weight loss mentioned or night sweats. HEAD AND NECK: No head pain or neck pain. CARDIAC: No chest pain. GASTROINTESTINAL: He came in with nausea, vomiting, or diarrhea. Admits to some abdominal discomfort. GENITOURINARY: No dysuria or frequency . PULMONARY: No congestion or shortness of breath. SKIN: No rash. EXTREMITIES: No pain. NEUROLOGIC: No seizures. PAST MEDICAL HISTORY: As discussed, he has a past medical history of nausea, vomiting, gastritis, and the patient has esophagitis history. The patient has history of essential hypertension or hypertension. He has no history of diabetes or cancer. MEDICATIONS: Upon reviewing the MAR, he is on the following medications. He is on warfarin and enoxaparin. He is on amlodipine. He is on vancomycin, Zosyn, sucralfate, and hydralazine. He is on metoclopramide, Zofran, pantoprazole, Compazine, acetaminophen, hydromorphone, and lorazepam. Outside medications were noted and reconciliated. ALLERGIES: No known drug allergies. No antibiotic allergies. SOCIAL HISTORY: Positive for cannabis use or just marijuana abuse. No history of alcohol or IV drug abuse. FAMILY HISTORY: Noncontributory. PHYSICAL EXAMINATION: VITAL SIGNS: Temperature 98.0, pulse rate is 74, respiratory rate 22, blood pressure 100 +/50+, and saturation 97%. T-max was 100.4. Respiratory rate has been as high as 22. GENERAL: Alert and responsive, in no distress. HEAD AND NECK: Oral exam, no thrush. Eye exam, no icterus. Neck is supple. No JVD. Normocephalic. No thrush. HEART: Regular. No gallop or murmur. ABDOMEN: Soft. Positive bowel sounds. No rebound. LUNGS: Clear bilaterally. No rhonchi or rales. SKIN: No rash. MUSCULOSKELETAL: No effusion. Legs are without cellulitis. PERIPHERAL VASCULAR: No cyanosis. GENITOURINARY: No Horton. LINE SITES: Without phlebitis. NEUROLOGIC: Intact. Nonfocal. Alert and oriented. LABORATORY DATA: Laboratory data is as follows: Creatinine 0.9. White count 10.9 and hemoglobin 14.7. White count on admission was 16.1. I did not see lactic acid done. IMAGING STUDIES: CT scan of the abdomen and pelvis showed superior mesenteric vein thrombus. Report was noted. No abscess mentioned. Abdominal ultrasound showed unremarkable gallbladder. Negative Giang's sign. CULTURES: Blood cultures had 1 out of 4 coagulase-negative staph. Urinalysis had 0 to 2 white cells. ASSESSMENT AND PLAN: 1. The patient has elevated white count, fevers, possible sepsis, SIRS criteria, respiratory rate is over 20, and white count was as high as 16.1. The patient was febrile. It is unclear if the source of sepsis was some type of GI translocation based on his intractable nausea and vomiting. The patient also has positive blood cultures 1 out of 4 coag-negative staph, which I think is a contaminant. It is unclear if it is related to the superior mesenteric vein thrombosis. However, one would expect multiple blood cultures to be positive, not just 1 bottle. At this time, I agree with Zosyn and vancomycin to cover the gastrointestinal tract and positive coag-negative Staph bacteremia. We will recheck blood cultures. Await sensitivities of the coagulase-negative staph and monitor the patient clinically. Hopefully, can transition to oral antibiotics once the patient to take p.o.'s and final workup is back. Continue vancomycin and Zosyn for possible sepsis, fevers, leukocytosis, possible coagulase-negative Staph bacteremia even though I think that is more of a contaminant. The patient is also being followed by GI and Surgery. 2. Severe mesenteric vein thrombosis. The patient I believe is on anticoagulation. 3. The patient has history of hypertension. Blood pressure treatment per primary care team. 4. Gastritis. 5. Hiatal hernia. 6. Nausea, vomiting, and abdominal pain. 7. Esophagitis. 8. Allergies are negative. 9. Social history is positive for marijuana use. 10. Family history is noncontributory. 11. MAR was noted. 12. Case was discussed with RN. 13. Continue treatment per primary consultants. 14. Case was discussed with Dr. Partida. Thank you for this consultation. I will follow with you. Shahzad Nath M.D. DR: EDY JOB#: [id number] CC: MARYANNE
[2019-09-10 12:00] VITALS: BP 132/90
--- NOTE | 2019-09-10 12:16 | General Progress Note ---
Assessment/Plan Problem List: (1) Superior mesenteric vein thrombosis SNOMED: 051935698 (2) Cyclic vomiting syndrome ICD Codes: R11.15 - Cyclical vomiting syndrome unrelated to migraine SNOMED: 90226001 (3) Intractable abdominal pain ICD Codes: R10.9 - Unspecified abdominal pain SNOMED: 92809163 (4) Intractable nausea and vomiting ICD Codes: R11.2 - Nausea with vomiting, unspecified SNOMED: 275102010 (5) Marijuana abuse ICD Codes: F12.10 - Cannabis abuse, uncomplicated SNOMED: 99470059 (6) Gastritis ICD Codes: K29.70 - Gastritis, unspecified, without bleeding SNOMED: 5798029 (7) Essential hypertension ICD Codes: I10 - Essential (primary) hypertension SNOMED: 84581845 (8) Esophagitis ICD Codes: K20.9 - Esophagitis, unspecified SNOMED: 43546386 (9) Hypomagnesemia ICD Codes: E83.42 - Hypomagnesemia SNOMED: 570574798 (10) Hypokalemia ICD Codes: E87.6 - Hypokalemia SNOMED: 02744418 (11) Bacteremia ICD Codes: R78.81 - Bacteremia SNOMED: 6108602 (12) Acute kidney injury ICD Codes: N17.9 - Acute kidney failure, unspecified SNOMED: 2366559, 37009943 Status: progressing Assessment/Plan: 48-year-old male with past medical history of cannabis use, presenting with acute epigastric/left upper quadrant abdominal pain and persistent intractable nausea vomiting. Found to have acute SMV thrombus. #Superior Mesenteric Vein Thrombus on anticoagulation, goal INR 2-3 # Abdominal pain, epigastric/left upper quadrant/nonradiating suspected 2/2 acute SMV thrombus -improving > Doubt ACS given negative troponin. Doubt pancreatitis given normal lipase. Component of gastritis? Cyclic vomiting syndrome? #Leukocytosis, reactive vs. infectious. With a slight increase today, possibly reactive. Patient with no other infectious symptoms. #hypokalemia due to vomiting #Distal esophagitis #Gastritis > CT abdomen pelvis with contrast given persistent abdominal pain - SMV thrombus. Discussed with radiologist Dr. Laguna and appears acute. > RUQ abdominal ultrasound to rule out acute oli - negative > AFP, CEA, CA 19-9 all negative > EGD 09/08/2019 showed esophagitis and gastritis. Pathology negative - Supportive care with IVF -Discontinue heparin drip (09/07 - 09/09/19) -Started warfarin per pharmacy 09/09/19, bridge with lovenox 1mg/kg Q12hr -Plan for at least 3 months of anticoagulation. -Continue Zosyn 3.375 g every 8 hours IV for possible gut translocation (09/07 - ) -Appreciate GI recommendations: Dr. Zabala -Appreciate general surgery recommendations: Dr. Back - Appreciate hematology oncology recommendations: Dr. Gant -Zofran 4 mg IV every 6 hours (QTC normal) - Reglan 10mg IV q6hr - Compazine 10mg IV Q6hr PRN -Continue to monitor QTC QOD -Protonix 40mg IV daily -Follow electrolytes and replete PRN #Acute kidney injury. Suspect pre-renal from vomiting and not eating > however feNA borderline at 1.1% - D5NS @ 100cc/hr -Check postvoid residuals -Renal ultrasound -Avoid nephrotoxins continue -Renal consult if does not improve. #coag neg staph bacteremia, suspect contaminant - Vancomycin per pharmacy (09/08 - ) -Follow-up surveillance blood cultures -Appreciate infectious disease recommendations: Dr. Casanova #Essential hypertension, controlled -Continue amlodipine 5 mg p.o. daily -Hydralazine 25 mg p.o. every 6 hours as needed # Cannabis use - Counselling provided - SW follow up as needed #Hypokalemia #hypomagnesemia - replete PRN FENPPX DVTPPX: Lovenox and Warfarin GI PPX: protonix Fluids: D5 NS @100 cc/hr Diet: CLD, advance as tolerated Lines: peripheral PT/OT: pending Code status: Full code Dispo: Home after acute issues resolved Reason for continued hospitalization: Acute SMV thrombus, intractable Nausea/ vomiting 38 minutes spent on this encounter. Discussed with RN and patient, and infectious disease. > 50% spent on counseling and care coordination. Time of note may not reflect time patient was seen. Subjective Date patient seen: Sep 10, 2019 Constitutional: Denies: chills, diaphoresis, fever, malaise, weakness, other HEENT: Denies: eye pain, blurred vision, tearing, double vision, ear pain, ear discharge, nose pain, nose congestion, throat pain, throat swelling, mouth pain , mouth swelling, other Cardiovascular: Denies: chest pain, edema, irregular heart rate, lightheadedness, palpitations, syncope, other Respiratory: Denies: cough, orthopnea, shortness of breath, SOB with excertion , SOB at rest, sputum, stridor, wheezing, other Gastrointestinal/Abdominal: Reports: nausea; Denies: abdomen distended, abdominal pain, black stools, tarry stools, blood in stool, constipated, diarrhea, difficulty swallowing, poor appetite, poor fluid intake, rectal bleeding, vomiting, other Genitourinary: Denies: burning, discharge, frequency, flank pain, hematuria, incontinence, pain, urgency, other Neurologic/Psychiatric: Denies: anxiety, depressed, emotional problems, headache, numbness, paresthesia, pre-existing deficit, seizure, tingling, tremors, weakness, other Endocrine: Denies: excessive sweating, flushing, intolerance to cold, intolerance to heat, increased hunger, increased thirst, increased urine, unexplained weight gain, unexplained weight loss, other Hematologic/Lymphatic: Denies: anemia, easy bleeding, easy bruising, other Allergies: Coded Allergies: No Known Allergies (Unverified , 12/08/17) Subjective No acute events overnight per nursing. Patient continues to complain of persistent nausea. But vomiting has decreased. Has not used as needed and Compazine in the past 24 hours. Abdominal pain has improved per patient. Has used Dilaudid x4 in past 24 hours. Patient states that he does not feel well, but overall he feels better. Still not able to eat though. No signs of any hematemesis or other bleeding. Denies any chest pain, fever, chills, shortness of breath. Objective Last 24 Hour Vital Signs Date Time Temp Pulse Resp B/P (MAP) Pulse Ox O2 Delivery O2 Flow Rate FiO2 09/10/19 09:00 Room Air 09/10/19 08:46 61 141/95 09/10/19 08:00 100.5 61 20 141/95 (110) 96 09/10/19 06:24 98.3 09/10/19 04:00 98.3 62 19 119/82 (94) 98 09/10/19 00:00 98.5 64 19 116/80 (92) 99 09/09/19 21:00 Room Air 09/09/19 20:00 98.4 67 19 120/80 (93) 97 09/09/19 16:00 98.2 76 20 129/68 (88) 98 09/09/19 13:34 74 116/84 Intake and Output 09/09/19 09/10/19 19:00 07:00 Intake Total 1289.540 ml 1300 ml Output Total 1325 ml Balance 1289.540 ml -25 ml Intake Oral 1000 ml 1300 ml IV Total 289.540 ml Output Urine Total 675 ml Emesis 650 ml # Voids 2 4 Laboratory Tests 09/09/19 13:55: Prothrombin Time 11.7H, Prothromb Time International Ratio 1.1 09/09/19 16:15: Lactic Acid Level 0.90 09/10/19 05:00: Prothrombin Time 11.6H, Prothromb Time International Ratio 1.1, White Blood Count 15.9H, Red Blood Count 5.44, Hemoglobin 15.9, Hematocrit 47.2, Mean Corpuscular Volume 87, Mean Corpuscular Hemoglobin 29.2, Mean Corpuscular Hemoglobin Concent 33.6, Red Cell Distribution Width 11.6, Platelet Count 371, Mean Platelet Volume 5.2L, Neutrophils (%) (Auto) 74.9, Lymphocytes (%) (Auto) 14.1L, Monocytes (%) (Auto) 9.6, Eosinophils (%) (Auto) 0.2, Basophils (%) (Auto ) 1.2, Sodium Level 144, Potassium Level 3.8, Chloride Level 104, Carbon Dioxide Level 28, Anion Gap 12, Blood Urea Nitrogen 6L, Creatinine 1.6#H, Estimat Glomerular Filtration Rate 56.5, Glucose Level 97, Calcium Level 9.0, Phosphorus Level 4.4, Magnesium Level 2.3, Vancomycin Level Trough 12.1H 09/10/19 09:10: White Blood Count 14.8H, Red Blood Count 5.09, Hemoglobin 14.9, Hematocrit 43.8 , Mean Corpuscular Volume 86, Mean Corpuscular Hemoglobin 29.3, Mean Corpuscular Hemoglobin Concent 34.1, Red Cell Distribution Width 11.4L, Platelet Count 365, Mean Platelet Volume 4.9L, Neutrophils (%) (Auto) 72.7, Lymphocytes (%) (Auto) 16.0L, Monocytes (%) (Auto) 9.7, Eosinophils (%) (Auto) 0.3, Basophils (%) (Auto) 1.2, Sodium Level 141, Potassium Level 3.3L, Chloride Level 103, Carbon Dioxide Level 26, Anion Gap 12, Blood Urea Nitrogen 6L, Creatinine 1.7H, Estimat Glomerular Filtration Rate 52.6, Glucose Level 136H, Calcium Level 8.9 09/10/19 10:25: Urine Eosinophils None seen, Urine Random Sodium 32, Urine Creatinine 36.6 Height (Feet): 5 Height (Inches): 10.00 Weight (Pounds): 177 General Appearance: WD/WN, no apparent distress, alert EENT: PERRL/EOMI, normal ENT inspection Neck: non-tender, normal alignment, supple Cardiovascular: normal peripheral pulses, normal rate, regular rhythm Respiratory/Chest: chest wall non-tender, lungs clear, normal breath sounds Abdomen: normal bowel sounds, other - Nondistended, slight tenderness to palpation in the epigastric region (improved since yesterday) Extremities: other - No lower extremity edema bilaterally Neurologic: draw hand II-XII grossly normal, no motor/sensory deficits, alert, oriented x 3, responsive Skin: normal pigmentation, warm/dry Sea Partida D.O. Sep 10, 2019 12:16
--- NOTE | 2019-09-10 12:58 | NUR ---
NURSE NOTES: CXR done, Dr FLETCHER notified of result, no new order to RN. Will continue to monitor.
--- NOTE | 2019-09-10 13:01 | GI Progress Note ---
Assessment/Plan Problems: (1) Hypokalemia ICD Codes: E87.6 - Hypokalemia SNOMED: 63282282 (2) Dehydration ICD Codes: E86.0 - Dehydration SNOMED: 37348317 (3) Esophagitis ICD Codes: K20.9 - Esophagitis, unspecified SNOMED: 23975013 (4) Cyclic vomiting syndrome ICD Codes: R11.15 - Cyclical vomiting syndrome unrelated to migraine SNOMED: 89303279 (5) Intractable abdominal pain ICD Codes: R10.9 - Unspecified abdominal pain SNOMED: 18280002 (6) Marijuana abuse ICD Codes: F12.10 - Cannabis abuse, uncomplicated SNOMED: 56850288 (7) Gastritis ICD Codes: K29.70 - Gastritis, unspecified, without bleeding SNOMED: 0777886 Status: progressing, unchanged Status Narrative Discussed with Dr. Zabala Assessment/Plan SUMMARY OF FINDINGS: 1. Distal esophagitis. 2. A 6 cm hiatal hernia. 3. Gastritis, status biopsy. Intractable nausea and vomiting most likely secondary due to cyclic vomiting syndrome. RECOMMENDATIONS: advance diet as tolerated Electrolyte correction Zofran as needed, Reglan ATC PPI + carafate Follow labs, pathology on heparin gtt for thrombus The patient was seen and examined at bedside and all new and available data was reviewed in the patients chart. I agree with the above findings, impression and plan. (Patient seen earlier today. Signature stamp does not reflect patient encounter time.). - Ashok Zabala MD Subjective Subjective The patient still has complaints of emesis, however states it has improved. Still has nausea. Objective Last 24 Hour Vital Signs Date Time Temp Pulse Resp B/P (MAP) Pulse Ox O2 Delivery O2 Flow Rate FiO2 09/10/19 12:00 98.6 73 18 132/90 (104) 99 09/10/19 09:00 Room Air 09/10/19 08:46 61 141/95 09/10/19 08:00 100.5 61 20 141/95 (110) 96 09/10/19 06:24 98.3 09/10/19 04:00 98.3 62 19 119/82 (94) 98 09/10/19 00:00 98.5 64 19 116/80 (92) 99 09/09/19 21:00 Room Air 09/09/19 20:00 98.4 67 19 120/80 (93) 97 10/24/19 16:00 98.2 76 20 129/68 (88) 98 09/09/19 13:34 74 116/84 Intake and Output 09/09/19 09/10/19 19:00 07:00 Intake Total 1289.540 ml 1300 ml Output Total 1325 ml Balance 1289.540 ml -25 ml Intake Oral 1000 ml 1300 ml IV Total 289.540 ml Output Urine Total 675 ml Emesis 650 ml # Voids 2 4 Laboratory Tests Test 09/09/19 13:55 09/09/19 16:15 09/10/19 05:00 09/10/19 09:10 Prothrombin Time 11.7 SEC (9.30-11.50) H 11.6 SEC (9.30-11.50) H Prothromb Time International Ratio 1.1 (0.9-1.1) 1.1 (0.9-1.1) Lactic Acid Level 0.90 mmol/L (0.4-2.0) White Blood Count 15.9 K/UL (4.8-10.8) H 14.8 K/UL (4.8-10.8) H Red Blood Count 5.44 M/UL (4.70-6.10) 5.09 M/UL (4.70-6.10) Hemoglobin 15.9 G/DL (14.2-18.0) 14.9 G/DL (14.2-18.0) Hematocrit 47.2 % (42.0-52.0) 43.8 % (42.0-52.0) Mean Corpuscular Volume 87 FL (80-99) 86 FL (80-99) Mean Corpuscular Hemoglobin 29.2 PG (27.0-31.0) 29.3 PG (27.0-31.0) Mean Corpuscular Hemoglobin Concent 33.6 G/DL (32.0-36.0) 34.1 G/DL (32.0-36.0) Red Cell Distribution Width 11.6 % (11.6-14.8) 11.4 % (11.6-14.8) L Platelet Count 371 K/UL (150-450) 365 K/UL (150-450) Mean Platelet Volume 5.2 FL (6.5-10.1) L 4.9 FL (6.5-10.1) L Neutrophils (%) (Auto) 74.9 % (45.0-75.0) 72.7 % (45.0-75.0) Lymphocytes (%) (Auto) 14.1 % (20.0-45.0) L 16.0 % (20.0-45.0) L Monocytes (%) (Auto) 9.6 % (1.0-10.0) 9.7 % (1.0-10.0) Eosinophils (%) (Auto) 0.2 % (0.0-3.0) 0.3 % (0.0-3.0) Basophils (%) (Auto) 1.2 % (0.0-2.0) 1.2 % (0.0-2.0) Sodium Level 144 MMOL/L (136-145) 141 MMOL/L (136-145) Potassium Level 3.8 MMOL/L (3.5-5.1) 3.3 MMOL/L (3.5-5.1) L Chloride Level 104 MMOL/L (98-107) 103 MMOL/L (98-107) Carbon Dioxide Level 28 MMOL/L (21-32) 26 MMOL/L (21-32) Anion Gap 12 mmol/L (5-15) 12 mmol/L (5-15) Blood Urea Nitrogen 6 mg/dL (7-18) L 6 mg/dL (7-18) L Creatinine 1.6 MG/DL (0.55-1.30) #H 1.7 MG/DL (0.55-1.30) H Estimat Glomerular Filtration Rate 56.5 mL/min (>60) 52.6 mL/min (>60) Glucose Level 97 MG/DL (74-106) 136 MG/DL (74-106) H Calcium Level 9.0 MG/DL (8.5-10.1) 8.9 MG/DL (8.5-10.1) Phosphorus Level 4.4 MG/DL (2.5-4.9) Magnesium Level 2.3 MG/DL (1.8-2.4) Vancomycin Level Trough 12.1 ug/mL (5.0-12.0) H Test 09/10/19 10:25 Urine Eosinophils None seen (NONE SEEN) Urine Random Sodium 32 mmol/L (20-110) Urine Creatinine 36.6 MG/DL (30.0-125.0) Height (Feet): 5 Height (Inches): 10.00 Weight (Pounds): 177 General Appearance: WD/WN, no apparent distress, alert Cardiovascular: normal rate Respiratory/Chest: normal breath sounds, no respiratory distress Abdominal Exam: normal bowel sounds, non tender, soft Extremities: normal range of motion, non-tender Gui Saez NP Sep 10, 2019 13:01
--- NOTE | 2019-09-10 13:09 | NUR ---
DEPUTY DIRECTOR OF PUBLIC WORKSPOWER MANAGER SI: INTRACTABLE PAIN, MESENTERIC VEIN THROMBUS,LEUKOCYTOSIS T. 100.5 HR 61 RR 20 B/P 141/95 RA 98% WBC 14.8 K 3.3 CR 1.7 CXR= COPD IS: IVF D5 NS @ 100ML/HR VANCO IV ZOSYN IV COUMADIN PO PROTONIX IV MED/SURG STATUS
--- NOTE | 2019-09-10 14:07 | NUR ---
*-* INSURANCE *--* ALL AVAILABLE CLINICALS HAVE BEEN FAXED TO: [facility]#[id number] NO CM YET PH#[phone] FAX#[phone] REVIEWS/CLINICALS
--- NOTE | 2019-09-10 14:24 | NUR ---
NURSE NOTES: Dr FLETCHER notified about PVR 133. No new order to RN. Will continue to monitor.
--- NOTE | 2019-09-10 14:38 | Hematology/Onc Progress Note ---
Assessment/Plan Assessment/Plan # Acute SMV and portal vein thrombosis -- potential contributor to abdominal pain, epigastric/left upper quadrant/nonradiating suspected 2/2 acute SMV thrombus --> imaging has been reviewed and cw acute process, millicent rad, pcp, surg --> agree with the use of anticoagulation, hep gtt has been started==> now mckenzie to lovenox/coumadin --> minimum of 3 months of anticoag --> will need a workup to r/o malignancy, tumor markers have been ordered --> recommend hypercoag w/u as well, may be done in o/p setting --> gi to access soon with EGD 09/08: esophagitisgastritis --> Agree to start lovenox and coumadin now --> inr goal 2-3 # Leukocytosis, reactive vs. infectious. Will rule out infectious etiology. --> trend on abx, zosyn/vanc --> wbc trend 15-->9 --> blood cultures reviewed --> id recs noted # Hypokalemia due to vomiting --> k given as needed, daily --> zofran started q6h --> Compazine as needed for breakthrough nausea # Cannabis use --> Counselling provided --> may be contributor to n.v # Dvt ppx now with loven/coumadin po Appreciate consultation and millicent RN. Subjective HEENT: Denies: no symptoms, eye pain, blurred vision, tearing, double vision, ear pain, ear discharge, nose pain, nose congestion, throat pain, throat swelling, mouth pain, mouth swelling, other Cardiovascular: Denies: no symptoms, chest pain, edema, irregular heart rate, lightheadedness, palpitations, syncope, other Respiratory: Denies: no symptoms, cough, shortness of breath, SOB with excertion, SOB at rest, sputum, wheezing, other Gastrointestinal/Abdominal: Denies: no symptoms, abdomen distended, abdominal pain, black stools, tarry stools, blood in stool, constipated, diarrhea, difficulty swallowing, nausea, poor appetite, poor fluid intake, rectal bleeding , vomiting, other Genitourinary: Denies: no symptoms, burning, discharge, frequency, flank pain, hematuria, incontinence, pain, urgency, other Neurologic/Psychiatric: Denies: no symptoms, anxiety, depressed, emotional problems, headache, numbness, paresthesia, pre-existing deficit, seizure, tingling, tremors, weakness, other Endocrine: Denies: no symptoms, excessive sweating, flushing, intolerance to cold, intolerance to heat, increased hunger, increased thirst, increased urine, unexplained weight gain, unexplained weight loss, other Allergies: Coded Allergies: No Known Allergies (Unverified , 12/08/17) Subjective 09/08: no events noted, no bleeding, heparin gtt started yesterday, otherwise feeling better 09/09: egd/colo reviewed, started on love/coumadin and abx 09/10: no events, remains on abx, no bleeding chills, or night sweats Objective Objective Current Medications Medications (Trade) Dose Ordered Sig/Toni Route PRN Reason Start Time Stop Time Status Last Admin Dose Admin Acetaminophen (Tylenol) 650 mg Q4H PRN ORAL Mild Pain (Pain Scale 1-3) 09/05/19 01:30 10/05/19 01:29 09/08/19 16:23 Amlodipine Besylate (Norvasc) 5 mg DAILY ORAL 09/09/19 13:04 10/09/19 13:03 09/10/19 08:46 Dextrose (Dextrose 50%) 25 ml Q30M PRN IV Hypoglycemia 09/05/19 01:30 10/05/19 01:29 Dextrose (Dextrose 50%) 50 ml Q30M PRN IV Hypoglycemia 09/05/19 01:30 10/05/19 01:29 Dextrose/Sodium Chloride 1,000 ml @ 100 mls/hr Q10H IV 09/10/19 09:00 10/10/19 08:59 09/10/19 08:26 Enoxaparin Sodium (Lovenox) 80 mg EVERY 12 HOURS SUBQ 09/09/19 21:00 10/09/19 20:59 09/10/19 08:29 Hydralazine HCl (Apresoline) 25 mg Q6H PRN ORAL SBP>150 09/08/19 08:45 10/08/19 08:44 09/09/19 06:09 Hydromorphone HCl (Dilaudid) 0.5 mg Q6H PRN IVP Pain Scale (6-10) 09/05/19 01:30 09/12/19 01:29 09/10/19 05:54 Lorazepam (Ativan 2mg/ml 1ml) 0.5 mg Q4H PRN IV For Anxiety 09/05/19 01:30 09/12/19 01:29 Metoclopramide HCl (Reglan) 10 mg Q6H IVP 09/07/19 12:15 10/07/19 12:14 09/10/19 12:29 Ondansetron HCl (Zofran) 4 mg Q6H IVP 09/06/19 13:30 10/06/19 13:29 09/10/19 14:16 Pantoprazole (Protonix) 40 mg DAILY IVP 09/06/19 11:45 10/06/19 11:44 09/10/19 08:26 Piperacillin Sod/ Tazobactam Sod 3.375 gm/Sodium Chloride 110 ml @ 27.5 mls/hr EVERY 8 HOURS IVPB 09/07/19 14:00 09/12/19 13:59 09/10/19 14:16 Prochlorperazine (Compazine) 10 mg Q6H PRN IVP Nausea & Vomiting 09/05/19 12:33 10/05/19 12:32 09/09/19 15:28 Sucralfate (Carafate) 1 gm FOUR TIMES A DAY ORAL 09/08/19 13:00 10/08/19 12:59 09/10/19 12:29 Vancomycin HCl (Vanco rx to dose) 1 ea DAILY PRN MISC Per rx protocol 09/08/19 15:15 10/08/19 15:14 Warfarin Sodium (Coumadin per pharmacy) 1 ea DAILY PRN MISC . 09/09/19 13:45 10/09/19 13:44 Warfarin Sodium (Coumadin) 5 mg ONCE ORAL 09/10/19 17:00 09/10/19 18:00 Last 24 Hour Vital Signs Date Time Temp Pulse Resp B/P (MAP) Pulse Ox O2 Delivery O2 Flow Rate FiO2 09/10/19 12:00 98.6 73 18 132/90 (104) 99 09/10/19 09:00 Room Air 09/10/19 08:46 61 141/95 09/10/19 08:00 100.5 61 20 141/95 (110) 96 09/10/19 06:24 98.3 09/10/19 04:00 98.3 62 19 119/82 (94) 98 09/10/19 00:00 98.5 64 19 116/80 (92) 99 09/09/19 21:00 Room Air 09/09/19 20:00 98.4 67 19 120/80 (93) 97 09/09/19 16:00 98.2 76 20 129/68 (88) 98 09/09/19 13:34 74 116/84 09/09/19 12:00 98.0 74 22 114/76 (89) 97 09/09/19 09:00 Room Air 09/09/19 08:00 98.2 67 21 155/97 (116) 98 09/09/19 06:09 141/102 09/09/19 04:00 98.1 69 18 141/102 (115) 98 09/09/19 00:00 98.6 62 18 157/99 (118) 98 09/08/19 21:01 156/100 09/08/19 21:00 Room Air 09/08/19 20:00 100.4 65 18 156/100 (118) 98 09/08/19 16:59 98.6 09/08/19 16:53 98.6 09/08/19 16:00 100.3 72 19 153/99 (117) 98 09/08/19 14:51 159/98 09/08/19 14:43 60 159/98 (118) 98 Intake and Output 09/09/19 09/10/19 19:00 07:00 Intake Total 1289.540 ml 1300 ml Output Total 1325 ml Balance 1289.540 ml -25 ml Intake Oral 1000 ml 1300 ml IV Total 289.540 ml Output Urine Total 675 ml Emesis 650 ml # Voids 2 4 Labs Test 09/07/19 20:20 09/08/19 03:40 09/09/19 04:12 09/09/19 11:55 Activated Partial Thromboplast Time 52 SEC (23-33) 81 SEC (23-33) 39 SEC (23-33) 68 SEC (23-33) White Blood Count 10.6 K/UL (4.8-10.8) 10.9 K/UL (4.8-10.8) Red Blood Count 5.02 M/UL (4.70-6.10) 5.06 M/UL (4.70-6.10) Hemoglobin 14.6 G/DL (14.2-18.0) 14.7 G/DL (14.2-18.0) Hematocrit 42.8 % (42.0-52.0) 43.2 % (42.0-52.0) Mean Corpuscular Volume 85 FL (80-99) 85 FL (80-99) Mean Corpuscular Hemoglobin 29.2 PG (27.0-31.0) 29.0 PG (27.0-31.0) Mean Corpuscular Hemoglobin Concent 34.2 G/DL (32.0-36.0) 33.9 G/DL (32.0-36.0) Red Cell Distribution Width 11.1 % (11.6-14.8) 11.2 % (11.6-14.8) Platelet Count 344 K/UL (150-450) 343 K/UL (150-450) Mean Platelet Volume 5.2 FL (6.5-10.1) 5.0 FL (6.5-10.1) Neutrophils (%) (Auto) 55.9 % (45.0-75.0) 72.2 % (45.0-75.0) Lymphocytes (%) (Auto) 31.8 % (20.0-45.0) 19.0 % (20.0-45.0) Monocytes (%) (Auto) 10.1 % (1.0-10.0) 7.5 % (1.0-10.0) Eosinophils (%) (Auto) 1.3 % (0.0-3.0) 0.4 % (0.0-3.0) Basophils (%) (Auto) 0.9 % (0.0-2.0) 0.9 % (0.0-2.0) Sodium Level 141 MMOL/L (136-145) 140 MMOL/L (136-145) Potassium Level 3.5 MMOL/L (3.5-5.1) 3.0 MMOL/L (3.5-5.1) Chloride Level 104 MMOL/L (98-107) 104 MMOL/L (98-107) Carbon Dioxide Level 28 MMOL/L (21-32) 26 MMOL/L (21-32) Anion Gap 9 mmol/L (5-15) 10 mmol/L (5-15) Blood Urea Nitrogen 6 mg/dL (7-18) 4 mg/dL (7-18) Creatinine 1.0 MG/DL (0.55-1.30) 0.9 MG/DL (0.55-1.30) Estimat Glomerular Filtration Rate > 60 mL/min (>60) > 60 mL/min (>60) Glucose Level 123 MG/DL (74-106) 120 MG/DL (74-106) Calcium Level 8.5 MG/DL (8.5-10.1) 8.5 MG/DL (8.5-10.1) Phosphorus Level 3.5 MG/DL (2.5-4.9) Magnesium Level 1.7 MG/DL (1.8-2.4) Test 09/09/19 13:55 09/09/19 16:15 09/10/19 05:00 09/10/19 09:10 Prothrombin Time 11.7 SEC (9.30-11.50) 11.6 SEC (9.30-11.50) Prothromb Time International Ratio 1.1 (0.9-1.1) 1.1 (0.9-1.1) Lactic Acid Level 0.90 mmol/L (0.4-2.0) White Blood Count 15.9 K/UL (4.8-10.8) 14.8 K/UL (4.8-10.8) Red Blood Count 5.44 M/UL (4.70-6.10) 5.09 M/UL (4.70-6.10) Hemoglobin 15.9 G/DL (14.2-18.0) 14.9 G/DL (14.2-18.0) Hematocrit 47.2 % (42.0-52.0) 43.8 % (42.0-52.0) Mean Corpuscular Volume 87 FL (80-99) 86 FL (80-99) Mean Corpuscular Hemoglobin 29.2 PG (27.0-31.0) 29.3 PG (27.0-31.0) Mean Corpuscular Hemoglobin Concent 33.6 G/DL (32.0-36.0) 34.1 G/DL (32.0-36.0) Red Cell Distribution Width 11.6 % (11.6-14.8) 11.4 % (11.6-14.8) Platelet Count 371 K/UL (150-450) 365 K/UL (150-450) Mean Platelet Volume 5.2 FL (6.5-10.1) 4.9 FL (6.5-10.1) Neutrophils (%) (Auto) 74.9 % (45.0-75.0) 72.7 % (45.0-75.0) Lymphocytes (%) (Auto) 14.1 % (20.0-45.0) 16.0 % (20.0-45.0) Monocytes (%) (Auto) 9.6 % (1.0-10.0) 9.7 % (1.0-10.0) Eosinophils (%) (Auto) 0.2 % (0.0-3.0) 0.3 % (0.0-3.0) Basophils (%) (Auto) 1.2 % (0.0-2.0) 1.2 % (0.0-2.0) Sodium Level 144 MMOL/L (136-145) 141 MMOL/L (136-145) Potassium Level 3.8 MMOL/L (3.5-5.1) 3.3 MMOL/L (3.5-5.1) Chloride Level 104 MMOL/L (98-107) 103 MMOL/L (98-107) Carbon Dioxide Level 28 MMOL/L (21-32) 26 MMOL/L (21-32) Anion Gap 12 mmol/L (5-15) 12 mmol/L (5-15) Blood Urea Nitrogen 6 mg/dL (7-18) 6 mg/dL (7-18) Creatinine 1.6 MG/DL (0.55-1.30) 1.7 MG/DL (0.55-1.30) Estimat Glomerular Filtration Rate 56.5 mL/min (>60) 52.6 mL/min (>60) Glucose Level 97 MG/DL (74-106) 136 MG/DL (74-106) Calcium Level 9.0 MG/DL (8.5-10.1) 8.9 MG/DL (8.5-10.1) Phosphorus Level 4.4 MG/DL (2.5-4.9) Magnesium Level 2.3 MG/DL (1.8-2.4) Vancomycin Level Trough 12.1 ug/mL (5.0-12.0) Test 09/10/19 10:25 Urine Eosinophils None seen (NONE SEEN) Urine Random Sodium 32 mmol/L (20-110) Urine Creatinine 36.6 MG/DL (30.0-125.0) Height (Feet): 5 Height (Inches): 10.00 Weight (Pounds): 177 Objective Gen: Nad, comfortable Pulm: ctab, no cwr CV: Rrr, no mgr Abd: soft, nd ++ bowel sounds Ext: no cce Thomas Gant MD Sep 10, 2019 14:38
--- NOTE | 2019-09-10 14:49 | Diagnostic Imaging Report ---
Indication: Acute renal failure Technique: Grayscale and duplex images of the kidneys, retroperitoneum, and bladder were obtained. Comparison: Findings: Right kidney measures 12 cm in length. Left kidney measures 10.7 cm in length. Both kidneys demonstrate normal echogenicity. No hydronephrosis. There is minimal perinephric fluid bilaterally. No focal abnormality otherwise.. Normal inferior vena cava. Bladder is normal. Calculated initial post void bladder volume is 45 mL. After voiding 30 minutes later, calculated volume is 134 mL. The calculated prostate volume is 36 mL Impression: Bilateral perinephric fluid. This is a nonspecific finding, could indicate renal inflammation Bladder volumes as described Negative for hydronephrosis.
--- NOTE | 2019-09-10 15:00 | NUR ---
NURSE NOTES: Pt still vomiting, [employer] AUGUSTINE notified, no new order to RN. Will continue to monitor.
--- NOTE | 2019-09-10 15:51 | Surgery Progress Note ---
Surgery Progress Note Subjective Additional Comments leukocytosis low grade fevers verenice/dehydration Lovenox / Coumadin Objective Last 24 Hour Vital Signs Date Time Temp Pulse Resp B/P (MAP) Pulse Ox O2 Delivery O2 Flow Rate FiO2 09/10/19 12:00 98.6 73 18 132/90 (104) 99 09/10/19 09:00 Room Air 09/10/19 08:46 61 141/95 09/10/19 08:00 100.5 61 20 141/95 (110) 96 09/10/19 06:24 98.3 09/10/19 04:00 98.3 62 19 119/82 (94) 98 09/10/19 00:00 98.5 64 19 116/80 (92) 99 09/09/19 21:00 Room Air 09/09/19 20:00 98.4 67 19 120/80 (93) 97 09/09/19 16:00 98.2 76 20 129/68 (88) 98 I&O Intake and Output 09/09/19 09/10/19 19:00 07:00 Intake Total 1289.540 ml 1327.5 ml Output Total 1325 ml Balance 1289.540 ml 2.5 ml Intake Oral 1000 ml 1300 ml IV Total 289.540 ml 27.5 ml Output Urine Total 675 ml Emesis 650 ml # Voids 2 4 Cardiovascular: RSR Respiratory: clear Abdomen: soft, non-tender, present bowel sounds, non-distended Extremities: no edema, no tenderness, no cyanosis Laboratory Tests Test 09/09/19 16:15 09/10/19 05:00 09/10/19 09:10 09/10/19 10:25 Lactic Acid Level 0.90 mmol/L (0.4-2.0) White Blood Count 15.9 K/UL (4.8-10.8) H 14.8 K/UL (4.8-10.8) H Red Blood Count 5.44 M/UL (4.70-6.10) 5.09 M/UL (4.70-6.10) Hemoglobin 15.9 G/DL (14.2-18.0) 14.9 G/DL (14.2-18.0) Hematocrit 47.2 % (42.0-52.0) 43.8 % (42.0-52.0) Mean Corpuscular Volume 87 FL (80-99) 86 FL (80-99) Mean Corpuscular Hemoglobin 29.2 PG (27.0-31.0) 29.3 PG (27.0-31.0) Mean Corpuscular Hemoglobin Concent 33.6 G/DL (32.0-36.0) 34.1 G/DL (32.0-36.0) Red Cell Distribution Width 11.6 % (11.6-14.8) 11.4 % (11.6-14.8) L Platelet Count 371 K/UL (150-450) 365 K/UL (150-450) Mean Platelet Volume 5.2 FL (6.5-10.1) L 4.9 FL (6.5-10.1) L Neutrophils (%) (Auto) 74.9 % (45.0-75.0) 72.7 % (45.0-75.0) Lymphocytes (%) (Auto) 14.1 % (20.0-45.0) L 16.0 % (20.0-45.0) L Monocytes (%) (Auto) 9.6 % (1.0-10.0) 9.7 % (1.0-10.0) Eosinophils (%) (Auto) 0.2 % (0.0-3.0) 0.3 % (0.0-3.0) Basophils (%) (Auto) 1.2 % (0.0-2.0) 1.2 % (0.0-2.0) Prothrombin Time 11.6 SEC (9.30-11.50) H Prothromb Time International Ratio 1.1 (0.9-1.1) Sodium Level 144 MMOL/L (136-145) 141 MMOL/L (136-145) Potassium Level 3.8 MMOL/L (3.5-5.1) 3.3 MMOL/L (3.5-5.1) L Chloride Level 104 MMOL/L (98-107) 103 MMOL/L (98-107) Carbon Dioxide Level 28 MMOL/L (21-32) 26 MMOL/L (21-32) Anion Gap 12 mmol/L (5-15) 12 mmol/L (5-15) Blood Urea Nitrogen 6 mg/dL (7-18) L 6 mg/dL (7-18) L Creatinine 1.6 MG/DL (0.55-1.30) #H 1.7 MG/DL (0.55-1.30) H Estimat Glomerular Filtration Rate 56.5 mL/min (>60) 52.6 mL/min (>60) Glucose Level 97 MG/DL (74-106) 136 MG/DL (74-106) H Calcium Level 9.0 MG/DL (8.5-10.1) 8.9 MG/DL (8.5-10.1) Phosphorus Level 4.4 MG/DL (2.5-4.9) Magnesium Level 2.3 MG/DL (1.8-2.4) Vancomycin Level Trough 12.1 ug/mL (5.0-12.0) H Urine Eosinophils None seen (NONE SEEN) Urine Random Sodium 32 mmol/L (20-110) Urine Creatinine 36.6 MG/DL (30.0-125.0) Plan Problems: (1) Intractable abdominal pain Assessment & Plan: afebrile, HD stable, leukocytosis persistent n/v persistent unable to tolerate much po diet exam fairly benign Impression: Linear filling defect in the superior mesenteric vein extending into the portal vein. While possibly in inflow artifact from nonopacified blood, suspect that this is a real finding representing thrombus within the superior mesenteric vein and portal vein. This does not appear to be occlusive and there is no bowel wall thickening. This finding was not described on the [facility] preliminary report, was phoned to Dr. Back at the time of interpretation. [employer] was also notified of either website No other abnormality. Evidence of bullous COPD. This is a new finding since the prior 2008 exam Incidental findings of focal fatty change within the liver, small hiatal hernia egd noted iv fluids will follow with exam lovenox/coumadin reglan/zofran push po diet thank you (2) Intractable nausea and vomiting Jose Back Sep 10, 2019 15:51
[2019-09-10 16:00] VITALS: BP 133/90
[2019-09-10] MEDS ORDERED: Warfarin Sodium 5mg ORAL SCH (17:00)
--- NOTE | 2019-09-10 19:30 | NUR ---
NURSE NOTES: Receive a report from SHOLA Bryant. Round is done. Pt is awake and alert. No acute distress noted. No nausea/vomiting noted at this time. Reinforce to call RN to check RU after self-voiding. Pt is aware. LUQ pain still noted but waiting for next dose of pain medication. Call light within reach. Will continue to monitor.
--- NOTE | 2019-09-10 19:43 | NUR ---
HAND-OFF: Report given to RN OH. Pt is awake and stable. Endorsed to F/U for PVR.
[2019-09-10 20:00] VITALS: BP 125/74
--- NOTE | 2019-09-10 22:00 | NUR ---
NURSE NOTES: After pain medication, pt feels comfortable and falls asleep. No N/V noted at this time. Has not voided yet. Encourage to oral hydration. Will continue to monitor.
[2019-09-11] VITALS: BP 128/71
--- NOTE | 2019-09-11 | NUR ---
NURSE NOTES: Pt voided 200ml yellowish urine. Checked residual urine 0ml. No N/V noted at this time. Will continue to monitor.
[2019-09-11] MEDS: Metoclopramide 10mg/2ml Inj IVP SCH ×4 (01:40→19:01)
[2019-09-11 04:00] VITALS: BP 120/73
[2019-09-11] MEDS: Hydromorphone 0.5mg/0.5ml inj IVP PRN ×2 (05:40→17:20)
[2019-09-11] MEDS: Piperacillin/Tazobactam 3.375 GM in NS 110 ML IVPB SCH ×3 (06:00→23:09)
--- NOTE | 2019-09-11 06:00 | NUR ---
NURSE NOTES: No N/V noted at this time. Pain relieved after pain medication. Will continue to monitor.
[2019-09-11 06:44] LABS: INR 1.5 (0.9-1.1)
[2019-09-11 06:48] LABS: BASOPHILS % (AUTO) 1.2 % (0.0-2.0); HEMATOCRIT 42.9 % (42.0-52.0); HEMOGLOBIN 14.4 G/DL (14.2-18.0); LYMPHOCYTES % (AUTO) 20.8 % (20.0-45.0); MEAN CORPUSCULAR VOLUME 86 FL (80-99); MONOCYTES % (AUTO) 11.1 % (1.0-10.0); NEUTROPHILS % (AUTO) 65.9 % (45.0-75.0); PLATELET COUNT 333 K/UL (150-450); RED BLOOD COUNT 4.97 M/UL (4.70-6.10); RED CELL DISTRIBUTION WIDTH 11.4 % (11.6-14.8); WHITE BLOOD COUNT 11.6 K/UL (4.8-10.8)
[2019-09-11 06:50] LABS: ANION GAP 7 mmol/L (5-15); BLOOD UREA NITROGEN 5 mg/dL (7-18); CALCIUM 8.4 MG/DL (8.5-10.1); CARBON DIOXIDE 29 MMOL/L (21-32); CHLORIDE 107 MMOL/L (98-107); CREATININE 1.9 MG/DL (0.55-1.30); POTASSIUM 3.3 MMOL/L (3.5-5.1); SODIUM 143 MMOL/L (136-145)
[2019-09-11 08:00] VITALS: BP 125/87
--- NOTE | 2019-09-11 08:15 | NUR ---
HAND-OFF: Report given to SHOLA Sharma. Round is done.
--- NOTE | 2019-09-11 08:16 | NUR ---
NURSE NOTES: Received patient on bed awake. No SOB or distress. IV line on right FA intact and patent, no s/s of infiltration. IV line on left wrist intact. Will continue plan of care.
--- NOTE | 2019-09-11 08:42 | General Progress Note ---
Assessment/Plan Problem List: (1) Gastritis ICD Codes: K29.70 - Gastritis, unspecified, without bleeding SNOMED: 0628214 (2) Marijuana abuse ICD Codes: F12.10 - Cannabis abuse, uncomplicated SNOMED: 91359154 (3) Cyclic vomiting syndrome ICD Codes: R11.15 - Cyclical vomiting syndrome unrelated to migraine SNOMED: 62137523 (4) Intractable abdominal pain ICD Codes: R10.9 - Unspecified abdominal pain SNOMED: 52657910 (5) Intractable nausea and vomiting ICD Codes: R11.2 - Nausea with vomiting, unspecified SNOMED: 323992515 (6) Dehydration ICD Codes: E86.0 - Dehydration SNOMED: 18996707 (7) Superior mesenteric vein thrombosis SNOMED: 993640947 (8) Esophagitis ICD Codes: K20.9 - Esophagitis, unspecified SNOMED: 28962649 (9) Hypokalemia ICD Codes: E87.6 - Hypokalemia SNOMED: 60562862 (10) Hypomagnesemia ICD Codes: E83.42 - Hypomagnesemia SNOMED: 686634830 (11) Essential hypertension ICD Codes: I10 - Essential (primary) hypertension SNOMED: 67874699 (12) Bacteremia ICD Codes: R78.81 - Bacteremia SNOMED: 4332276 (13) Acute kidney injury ICD Codes: N17.9 - Acute kidney failure, unspecified SNOMED: 5615838, 77794482 Status: progressing, unchanged Assessment/Plan: 48-year-old male with past medical history of cannabis use, presenting with acute epigastric/left upper quadrant abdominal pain and persistent intractable nausea vomiting. Found to have acute SMV thrombus. #Superior Mesenteric Vein Thrombus on anticoagulation, goal INR 2-3. INR 1.5 today # Abdominal pain, epigastric/left upper quadrant/nonradiating suspected 2/2 acute SMV thrombus -improving > Doubt ACS given negative troponin. Doubt pancreatitis given normal lipase. Component of gastritis? Cyclic vomiting syndrome? #Leukocytosis, reactive vs. infectious. With a slight increase today, possibly reactive. Patient with no other infectious symptoms. #hypokalemia due to vomiting #Distal esophagitis #Gastritis > CT abdomen pelvis with contrast given persistent abdominal pain - SMV thrombus. Discussed with radiologist Dr. Laguna and appears acute. > RUQ abdominal ultrasound to rule out acute oli - negative > AFP, CEA, CA 19-9 all negative > EGD 09/08/2019 showed esophagitis and gastritis. Pathology negative - Supportive care with IVF -Discontinue heparin drip (09/07 - 09/09/19) -Started warfarin per pharmacy 09/09/19, bridge with lovenox 1mg/kg Q12hr -Plan for at least 3 months of anticoagulation. -Continue Zosyn 3.375 g every 8 hours IV for possible gut translocation (09/07 - ) -Appreciate GI recommendations: Dr. Zabala -Appreciate general surgery recommendations: Dr. Back - Appreciate hematology oncology recommendations: Dr. Gant -Zofran 4 mg IV every 6 hours (QTC normal) - Reglan 10mg IV q6hr - Compazine 10mg IV Q6hr PRN -Continue to monitor QTC QOD -Protonix 40mg IV daily -Follow electrolytes and replete PRN #Acute kidney injury. Suspect pre-renal from vomiting and not eating > however feNA borderline at 1.1% - D5NS @ 100cc/hr -Check postvoid residuals -Renal ultrasound -Avoid nephrotoxins continue -Renal consult if does not improve. #coag neg staph bacteremia, suspect contaminant - Vancomycin per pharmacy (09/08 - 09/11)- STOP today -Follow-up surveillance blood cultures -Appreciate infectious disease recommendations: Dr. Casanova #Essential hypertension, controlled -Continue amlodipine 5 mg p.o. daily -Hydralazine 25 mg p.o. every 6 hours as needed # Cannabis use - Counselling provided - SW follow up as needed #Hypokalemia #hypomagnesemia - replete PRN FENPPX DVTPPX: Lovenox and Warfarin GI PPX: protonix Fluids: D5 NS @100 cc/hr Diet: CLD, advance as tolerated Lines: peripheral PT/OT: pending Code status: Full code Dispo: Home after acute issues resolved Reason for continued hospitalization: Acute SMV thrombus, intractable Nausea/ vomiting 38 minutes spent on this encounter. Discussed with patient. > 50% spent on counseling and care coordination. Additional 31 minutes spent in chart review Time of note may not reflect time patient was seen. Subjective Date patient seen: Sep 11, 2019 ROS Limited/Unobtainable: No Constitutional: Denies: no symptoms, chills, diaphoresis, fever, malaise, weakness, other HEENT: Denies: no symptoms, eye pain, blurred vision, tearing, double vision, ear pain, ear discharge, nose pain, nose congestion, throat pain, throat swelling, mouth pain, mouth swelling, other Cardiovascular: Denies: no symptoms, chest pain, edema, irregular heart rate, lightheadedness, palpitations, syncope, other Respiratory: Denies: no symptoms, cough, orthopnea, shortness of breath, SOB with excertion, SOB at rest, sputum, stridor, wheezing, other Gastrointestinal/Abdominal: Denies: no symptoms, abdomen distended, abdominal pain, black stools, tarry stools, blood in stool, constipated, diarrhea, difficulty swallowing, nausea, poor appetite, poor fluid intake, rectal bleeding , vomiting, other Genitourinary: Denies: no symptoms, burning, discharge, frequency, flank pain, hematuria, incontinence, pain, urgency, other Neurologic/Psychiatric: Denies: no symptoms, anxiety, depressed, emotional problems, headache, numbness, paresthesia, pre-existing deficit, seizure, tingling, tremors, weakness, other Endocrine: Denies: no symptoms, excessive sweating, flushing, intolerance to cold, intolerance to heat, increased hunger, increased thirst, increased urine, unexplained weight gain, unexplained weight loss, other Hematologic/Lymphatic: Denies: no symptoms, anemia, easy bleeding, easy bruising, other Allergies: Coded Allergies: No Known Allergies (Unverified , 12/08/17) Subjective seen and examined. doing well ambulating n/v improved Objective Last 24 Hour Vital Signs Date Time Temp Pulse Resp B/P (MAP) Pulse Ox O2 Delivery O2 Flow Rate FiO2 09/11/19 04:00 98.8 67 17 120/73 (89) 96 09/11/19 00:00 98.8 63 17 128/71 (90) 96 09/10/19 21:00 Room Air 09/10/19 20:00 99.1 66 16 125/74 (91) 96 09/10/19 16:00 99.4 67 20 133/90 (104) 97 09/10/19 15:43 98.6 09/10/19 12:00 98.6 73 18 132/90 (104) 99 09/10/19 09:00 Room Air 09/10/19 08:46 61 141/95 Intake and Output 10/25/19 10/26/19 19:00 07:00 Intake Total 1192.5 ml 1780 ml Output Total 633 ml Balance 559.5 ml 1780 ml Intake Oral 780 ml IV Total 1192.5 ml 1000 ml Post Void Residual 133 ml Emesis 500 ml Bladder Scan Volume Amount 101-150 ml # Voids 4 3 # Bowel Movements 1 1 Laboratory Tests 09/10/19 09:10: White Blood Count 14.8H, Red Blood Count 5.09, Hemoglobin 14.9, Hematocrit 43.8 , Mean Corpuscular Volume 86, Mean Corpuscular Hemoglobin 29.3, Mean Corpuscular Hemoglobin Concent 34.1, Red Cell Distribution Width 11.4L, Platelet Count 365, Mean Platelet Volume 4.9L, Neutrophils (%) (Auto) 72.7, Lymphocytes (%) (Auto) 16.0L, Monocytes (%) (Auto) 9.7, Eosinophils (%) (Auto) 0.3, Basophils (%) (Auto) 1.2, Sodium Level 141, Potassium Level 3.3L, Chloride Level 103, Carbon Dioxide Level 26, Anion Gap 12, Blood Urea Nitrogen 6L, Creatinine 1.7H, Estimat Glomerular Filtration Rate 52.6, Glucose Level 136H, Calcium Level 8.9 09/10/19 10:25: Urine Eosinophils None seen, Urine Random Sodium 32, Urine Creatinine 36.6 09/11/19 05:20: White Blood Count 11.6H, Red Blood Count 4.97, Hemoglobin 14.4, Hematocrit 42.9 , Mean Corpuscular Volume 86, Mean Corpuscular Hemoglobin 29.1, Mean Corpuscular Hemoglobin Concent 33.6, Red Cell Distribution Width 11.4L, Platelet Count 333, Mean Platelet Volume 5.1L, Neutrophils (%) (Auto) 65.9, Lymphocytes (%) (Auto) 20.8, Monocytes (%) (Auto) 11.1H, Eosinophils (%) (Auto) 1.0, Basophils (%) (Auto) 1.2, Sodium Level 143, Potassium Level 3.3L, Chloride Level 107, Carbon Dioxide Level 29, Anion Gap 7, Blood Urea Nitrogen 5L, Creatinine 1.9H, Estimat Glomerular Filtration Rate 46.3, Glucose Level 104, Calcium Level 8.4L, Prothrombin Time 15.9H, Prothromb Time International Ratio 1.5H, Random Vancomycin Level 9.7 Height (Feet): 5 Height (Inches): 10.00 Weight (Pounds): 177 Objective General Appearance: WD/WN, no apparent distress, alert EENT: PERRL/EOMI, normal ENT inspection Neck: non-tender, normal alignment, supple Cardiovascular: normal peripheral pulses, normal rate, regular rhythm Respiratory/Chest: chest wall non-tender, lungs clear, normal breath sounds Abdomen: normal bowel sounds, other - Nondistended, mild tenderness to palpation in the epigastric region Extremities: other - No lower extremity edema bilaterally Neurologic: refractory tile helper II-XII grossly normal, no motor/sensory deficits, alert, oriented x 3, responsive Skin: normal pigmentation, warm/dry Umberto Lopez M.D. Sep 11, 2019 08:42
[2019-09-11] MEDS ORDERED: Vancomycin 1gm/D5W 275ml IVPB SCH ×2 (09:00)
[2019-09-11] MEDS: Sucralfate 1gm tab ORAL SCH ×4 (09:08→20:48)
[2019-09-11] MEDS: D5NS 1,000 ML IV SCH ×2 (09:09→23:09)
[2019-09-11] MEDS: Pantoprazole Inj IVP SCH (09:09)
[2019-09-11] MEDS: Enoxaparin 80mg Inj SUBQ SCH ×2 (09:11→20:49)
--- NOTE | 2019-09-11 09:11 | General Progress Note ---
Assessment/Plan Status: progressing, unchanged Assessment/Plan: GI: Plan Problems: (1) Dehydration (2) Intractable nausea and vomiting (3) Cyclic vomiting syndrome (4) Marijuana abuse (5) Intractable abdominal pain (6) Fatty liver (7) Hiatal hernia Plan Intractable nausea and vomiting most likely secondary due to cyclic vomiting syndrome Maintain n.p.o. plus IV fluids Electrolyte correction Zofran as needed, Reglan for persistent vomiting. PPI s/p EGD Subjective Allergies: Coded Allergies: No Known Allergies (Unverified , 12/08/17) Objective Last 24 Hour Vital Signs Date Time Temp Pulse Resp B/P (MAP) Pulse Ox O2 Delivery O2 Flow Rate FiO2 09/11/19 04:00 98.8 67 17 120/73 (89) 96 09/11/19 00:00 98.8 63 17 128/71 (90) 96 09/10/19 21:00 Room Air 09/10/19 20:00 99.1 66 16 125/74 (91) 96 09/10/19 16:00 99.4 67 20 133/90 (104) 97 09/10/19 15:43 98.6 09/10/19 12:00 98.6 73 18 132/90 (104) 99 Intake and Output 09/10/19 09/11/19 19:00 07:00 Intake Total 1192.5 ml 1780 ml Output Total 633 ml Balance 559.5 ml 1780 ml Intake Oral 780 ml IV Total 1192.5 ml 1000 ml Post Void Residual 133 ml Emesis 500 ml Bladder Scan Volume Amount 101-150 ml # Voids 4 3 # Bowel Movements 1 1 Laboratory Tests 09/10/19 10:25: Urine Eosinophils None seen, Urine Random Sodium 32, Urine Creatinine 36.6 09/11/19 05:20: White Blood Count 11.6H, Red Blood Count 4.97, Hemoglobin 14.4, Hematocrit 42.9 , Mean Corpuscular Volume 86, Mean Corpuscular Hemoglobin 29.1, Mean Corpuscular Hemoglobin Concent 33.6, Red Cell Distribution Width 11.4L, Platelet Count 333, Mean Platelet Volume 5.1L, Neutrophils (%) (Auto) 65.9, Lymphocytes (%) (Auto) 20.8, Monocytes (%) (Auto) 11.1H, Eosinophils (%) (Auto) 1.0, Basophils (%) (Auto) 1.2, Prothrombin Time 15.9H, Prothromb Time International Ratio 1.5H, Sodium Level 143, Potassium Level 3.3L, Chloride Level 107, Carbon Dioxide Level 29, Anion Gap 7, Blood Urea Nitrogen 5L, Creatinine 1.9H, Estimat Glomerular Filtration Rate 46.3, Glucose Level 104, Calcium Level 8.4L, Random Vancomycin Level 9.7 Height (Feet): 5 Height (Inches): 10.00 Weight (Pounds): 177 General Appearance: alert EENT: normal ENT inspection Neck: supple Cardiovascular: normal rate Respiratory/Chest: decreased breath sounds Abdomen: normal bowel sounds, non tender, soft Extremities: non-tender Ashok Zabala MD Sep 11, 2019 09:11
--- NOTE | 2019-09-11 11:00 | NUR ---
NURSE NOTES: Iv line on right FA and left wrist both leaking. Removed both and reinserted on left hand using g22, intact and patent. With minimal nausea and no vomiting verbalized.
--- NOTE | 2019-09-11 11:55 | Hematology/Onc Progress Note ---
Assessment/Plan Assessment/Plan # Acute SMV and portal vein thrombosis -- potential contributor to abdominal pain, epigastric/left upper quadrant/nonradiating suspected 2/2 acute SMV thrombus --> imaging has been reviewed and cw acute process, mill[facility]ent rad, pcp, surg --> agree with the use of anticoagulation, hep gtt has been started==> now mckenzie to lovenox/coumadin --> minimum of 3 months of anticoag --> will need a workup to r/o malignancy, tumor markers have been ordered --> recommend hypercoag w/u as well, may be done in o/p setting --> gi to access soon with EGD 09/08: esophagitisgastritis --> Agree to start lovenox and coumadin now --> inr is 1.1-->1.5 --> inr goal 2-3 # Leukocytosis, reactive vs. infectious. Will rule out infectious etiology. --> trend on abx, zosyn/vanc --> wbc trend 15-->9 --> blood cultures reviewed --> id recs noted # Hypokalemia due to vomiting --> k given as needed, daily --> zofran started q6h --> Compazine as needed for breakthrough nausea # TRISTAN --> cr elevated, may be due to dehydration --> ivf given # Cannabis use --> Counselling provided --> may be contributor to n.v # Dvt ppx now with loven/coumadin po Appreciate consultation and millicent RN. Subjective HEENT: Denies: no symptoms, eye pain, blurred vision, tearing, double vision, ear pain, ear discharge, nose pain, nose congestion, throat pain, throat swelling, mouth pain, mouth swelling, other Cardiovascular: Denies: no symptoms, chest pain, edema, irregular heart rate, lightheadedness, palpitations, syncope, other Respiratory: Denies: no symptoms, cough, shortness of breath, SOB with excertion, SOB at rest, sputum, wheezing, other Gastrointestinal/Abdominal: Denies: no symptoms, abdomen distended, abdominal pain, black stools, tarry stools, blood in stool, constipated, diarrhea, difficulty swallowing, nausea, poor appetite, poor fluid intake, rectal bleeding , vomiting, other Neurologic/Psychiatric: Denies: no symptoms, anxiety, depressed, emotional problems, headache, numbness, paresthesia, pre-existing deficit, seizure, tingling, tremors, weakness, other Endocrine: Denies: no symptoms, excessive sweating, flushing, intolerance to cold, intolerance to heat, increased hunger, increased thirst, increased urine, unexplained weight gain, unexplained weight loss, other Allergies: Coded Allergies: No Known Allergies (Unverified , 12/08/17) Subjective 09/08: no events noted, no bleeding, heparin gtt started yesterday, otherwise feeling better 09/09: egd/colo reviewed, started on love/coumadin and abx 09/10: no events, remains on abx, no bleeding chills, or night sweats 09/11: no events, resting comfortable, cotinuing on anticoag Objective Objective Current Medications Medications (Trade) Dose Ordered Sig/Toni Route PRN Reason Start Time Stop Time Status Last Admin Dose Admin Acetaminophen (Tylenol) 650 mg Q4H PRN ORAL Mild Pain (Pain Scale 1-3) 09/05/19 01:30 10/05/19 01:29 09/08/19 16:23 Amlodipine Besylate (Norvasc) 5 mg DAILY ORAL 09/09/19 13:04 10/09/19 13:03 09/11/19 09:09 Dextrose (Dextrose 50%) 25 ml Q30M PRN IV Hypoglycemia 09/05/19 01:30 10/05/19 01:29 Dextrose (Dextrose 50%) 50 ml Q30M PRN IV Hypoglycemia 09/05/19 01:30 10/05/19 01:29 Dextrose/Sodium Chloride 1,000 ml @ 100 mls/hr Q10H IV 09/10/19 09:00 10/10/19 08:59 09/11/19 09:09 Enoxaparin Sodium (Lovenox) 80 mg EVERY 12 HOURS SUBQ 09/09/19 21:00 10/09/19 20:59 09/11/19 09:11 Hydralazine HCl (Apresoline) 25 mg Q6H PRN ORAL SBP>150 09/08/19 08:45 10/08/19 08:44 09/09/19 06:09 Hydromorphone HCl (Dilaudid) 0.5 mg Q6H PRN IVP Pain Scale (6-10) 09/05/19 01:30 09/12/19 01:29 09/11/19 05:40 Lorazepam (Ativan 2mg/ml 1ml) 0.5 mg Q4H PRN IV For Anxiety 09/05/19 01:30 09/12/19 01:29 Metoclopramide HCl (Reglan) 10 mg Q6H IVP 09/07/19 12:15 10/07/19 12:14 09/11/19 05:59 Ondansetron HCl (Zofran) 4 mg Q6H IVP 09/06/19 13:30 10/06/19 13:29 09/11/19 07:13 Pantoprazole (Protonix) 40 mg DAILY IVP 09/06/19 11:45 10/06/19 11:44 09/11/19 09:09 Piperacillin Sod/ Tazobactam Sod 3.375 gm/Sodium Chloride 110 ml @ 27.5 mls/hr EVERY 8 HOURS IVPB 09/07/19 14:00 09/12/19 13:59 09/11/19 06:00 Prochlorperazine (Compazine) 10 mg Q6H PRN IVP Nausea & Vomiting 09/05/19 12:33 10/05/19 12:32 09/09/19 15:28 Sucralfate (Carafate) 1 gm FOUR TIMES A DAY ORAL 09/08/19 13:00 10/08/19 12:59 09/11/19 09:08 Vancomycin HCl (Vanco rx to dose) 1 ea DAILY PRN MISC Per rx protocol 09/08/19 15:15 10/08/19 15:14 Warfarin Sodium (Coumadin per pharmacy) 1 ea DAILY PRN MISC . 09/09/19 13:45 10/09/19 13:44 Warfarin Sodium (Coumadin) 5 mg COUMADIN ORAL 09/11/19 17:00 09/11/19 17:01 Last 24 Hour Vital Signs Date Time Temp Pulse Resp B/P (MAP) Pulse Ox O2 Delivery O2 Flow Rate FiO2 09/11/19 09:09 65 125/87 09/11/19 09:00 Room Air 09/11/19 08:00 98.7 65 17 125/87 (100) 97 09/11/19 04:00 98.8 67 17 120/73 (89) 96 09/11/19 00:00 98.8 63 17 128/71 (90) 96 09/10/19 21:00 Room Air 09/10/19 20:00 99.1 66 16 125/74 (91) 96 09/10/19 16:00 99.4 67 20 133/90 (104) 97 09/10/19 15:43 98.6 09/10/19 12:00 98.6 73 18 132/90 (104) 99 09/10/19 09:00 Room Air 09/10/19 08:46 61 141/95 09/10/19 08:00 100.5 61 20 141/95 (110) 96 09/10/19 04:00 98.3 62 19 119/82 (94) 98 09/10/19 00:00 98.5 64 19 116/80 (92) 99 09/09/19 21:00 Room Air 09/09/19 20:00 98.4 67 19 120/80 (93) 97 09/09/19 16:00 98.2 76 20 129/68 (88) 98 09/09/19 13:34 74 116/84 09/09/19 12:00 98.0 74 22 114/76 (89) 97 Intake and Output 09/10/19 09/11/19 19:00 07:00 Intake Total 1192.5 ml 1780 ml Output Total 633 ml Balance 559.5 ml 1780 ml Intake Oral 780 ml IV Total 1192.5 ml 1000 ml Post Void Residual 133 ml Emesis 500 ml Bladder Scan Volume Amount 101-150 ml # Voids 4 3 # Bowel Movements 1 1 Labs Test 09/09/19 04:12 09/09/19 11:55 09/09/19 13:55 09/09/19 16:15 White Blood Count 10.9 K/UL (4.8-10.8) Red Blood Count 5.06 M/UL (4.70-6.10) Hemoglobin 14.7 G/DL (14.2-18.0) Hematocrit 43.2 % (42.0-52.0) Mean Corpuscular Volume 85 FL (80-99) Mean Corpuscular Hemoglobin 29.0 PG (27.0-31.0) Mean Corpuscular Hemoglobin Concent 33.9 G/DL (32.0-36.0) Red Cell Distribution Width 11.2 % (11.6-14.8) Platelet Count 343 K/UL (150-450) Mean Platelet Volume 5.0 FL (6.5-10.1) Neutrophils (%) (Auto) 72.2 % (45.0-75.0) Lymphocytes (%) (Auto) 19.0 % (20.0-45.0) Monocytes (%) (Auto) 7.5 % (1.0-10.0) Eosinophils (%) (Auto) 0.4 % (0.0-3.0) Basophils (%) (Auto) 0.9 % (0.0-2.0) Activated Partial Thromboplast Time 39 SEC (23-33) 68 SEC (23-33) Sodium Level 140 MMOL/L (136-145) Potassium Level 3.0 MMOL/L (3.5-5.1) Chloride Level 104 MMOL/L (98-107) Carbon Dioxide Level 26 MMOL/L (21-32) Anion Gap 10 mmol/L (5-15) Blood Urea Nitrogen 4 mg/dL (7-18) Creatinine 0.9 MG/DL (0.55-1.30) Estimat Glomerular Filtration Rate > 60 mL/min (>60) Glucose Level 120 MG/DL (74-106) Calcium Level 8.5 MG/DL (8.5-10.1) Phosphorus Level 3.5 MG/DL (2.5-4.9) Magnesium Level 1.7 MG/DL (1.8-2.4) Prothrombin Time 11.7 SEC (9.30-11.50) Prothromb Time International Ratio 1.1 (0.9-1.1) Lactic Acid Level 0.90 mmol/L (0.4-2.0) Test 09/10/19 05:00 09/10/19 09:10 09/10/19 10:25 09/11/19 05:20 White Blood Count 15.9 K/UL (4.8-10.8) 14.8 K/UL (4.8-10.8) 11.6 K/UL (4.8-10.8) Red Blood Count 5.44 M/UL (4.70-6.10) 5.09 M/UL (4.70-6.10) 4.97 M/UL (4.70-6.10) Hemoglobin 15.9 G/DL (14.2-18.0) 14.9 G/DL (14.2-18.0) 14.4 G/DL (14.2-18.0) Hematocrit 47.2 % (42.0-52.0) 43.8 % (42.0-52.0) 42.9 % (42.0-52.0) Mean Corpuscular Volume 87 FL (80-99) 86 FL (80-99) 86 FL (80-99) Mean Corpuscular Hemoglobin 29.2 PG (27.0-31.0) 29.3 PG (27.0-31.0) 29.1 PG (27.0-31.0) Mean Corpuscular Hemoglobin Concent 33.6 G/DL (32.0-36.0) 34.1 G/DL (32.0-36.0) 33.6 G/DL (32.0-36.0) Red Cell Distribution Width 11.6 % (11.6-14.8) 11.4 % (11.6-14.8) 11.4 % (11.6-14.8) Platelet Count 371 K/UL (150-450) 365 K/UL (150-450) 333 K/UL (150-450) Mean Platelet Volume 5.2 FL (6.5-10.1) 4.9 FL (6.5-10.1) 5.1 FL (6.5-10.1) Neutrophils (%) (Auto) 74.9 % (45.0-75.0) 72.7 % (45.0-75.0) 65.9 % (45.0-75.0) Lymphocytes (%) (Auto) 14.1 % (20.0-45.0) 16.0 % (20.0-45.0) 20.8 % (20.0-45.0) Monocytes (%) (Auto) 9.6 % (1.0-10.0) 9.7 % (1.0-10.0) 11.1 % (1.0-10.0) Eosinophils (%) (Auto) 0.2 % (0.0-3.0) 0.3 % (0.0-3.0) 1.0 % (0.0-3.0) Basophils (%) (Auto) 1.2 % (0.0-2.0) 1.2 % (0.0-2.0) 1.2 % (0.0-2.0) Prothrombin Time 11.6 SEC (9.30-11.50) 15.9 SEC (9.30-11.50) Prothromb Time International Ratio 1.1 (0.9-1.1) 1.5 (0.9-1.1) Sodium Level 144 MMOL/L (136-145) 141 MMOL/L (136-145) 143 MMOL/L (136-145) Potassium Level 3.8 MMOL/L (3.5-5.1) 3.3 MMOL/L (3.5-5.1) 3.3 MMOL/L (3.5-5.1) Chloride Level 104 MMOL/L (98-107) 103 MMOL/L (98-107) 107 MMOL/L (98-107) Carbon Dioxide Level 28 MMOL/L (21-32) 26 MMOL/L (21-32) 29 MMOL/L (21-32) Anion Gap 12 mmol/L (5-15) 12 mmol/L (5-15) 7 mmol/L (5-15) Blood Urea Nitrogen 6 mg/dL (7-18) 6 mg/dL (7-18) 5 mg/dL (7-18) Creatinine 1.6 MG/DL (0.55-1.30) 1.7 MG/DL (0.55-1.30) 1.9 MG/DL (0.55-1.30) Estimat Glomerular Filtration Rate 56.5 mL/min (>60) 52.6 mL/min (>60) 46.3 mL/min (>60) Glucose Level 97 MG/DL (74-106) 136 MG/DL (74-106) 104 MG/DL (74-106) Calcium Level 9.0 MG/DL (8.5-10.1) 8.9 MG/DL (8.5-10.1) 8.4 MG/DL (8.5-10.1) Phosphorus Level 4.4 MG/DL (2.5-4.9) Magnesium Level 2.3 MG/DL (1.8-2.4) Vancomycin Level Trough 12.1 ug/mL (5.0-12.0) Urine Eosinophils None seen (NONE SEEN) Urine Random Sodium 32 mmol/L (20-110) Urine Creatinine 36.6 MG/DL (30.0-125.0) Random Vancomycin Level 9.7 ug/mL Height (Feet): 5 Height (Inches): 10.00 Weight (Pounds): 177 Objective Gen: Nad, comfortable Pulm: ctab, no cwr CV: Rrr, no mgr Abd: soft, nd ++ bowel sounds Ext: no cce Thomas Gant MD Sep 11, 2019 11:55
[2019-09-11 12:00] VITALS: BP 124/93
--- NOTE | 2019-09-11 13:58 | Surgery Progress Note ---
Surgery Progress Note Subjective Additional Comments States he feels better. Still with intermittent nausea and emesis but is able to hold down more p.o. diet. Labs noted. Objective Last 24 Hour Vital Signs Date Time Temp Pulse Resp B/P (MAP) Pulse Ox O2 Delivery O2 Flow Rate FiO2 09/11/19 12:00 99.0 63 17 124/93 (103) 98 09/11/19 09:09 65 125/87 09/11/19 09:00 Room Air 09/11/19 08:00 98.7 65 17 125/87 (100) 97 09/11/19 04:00 98.8 67 17 120/73 (89) 96 09/11/19 00:00 98.8 63 17 128/71 (90) 96 09/10/19 21:00 Room Air 09/10/19 20:00 99.1 66 16 125/74 (91) 96 09/10/19 16:00 99.4 67 20 133/90 (104) 97 09/10/19 15:43 98.6 I&O Intake and Output 09/10/19 09/11/19 19:00 07:00 Intake Total 1192.5 ml 1780 ml Output Total 633 ml Balance 559.5 ml 1780 ml Intake Oral 780 ml IV Total 1192.5 ml 1000 ml Post Void Residual 133 ml Emesis 500 ml Bladder Scan Volume Amount 101-150 ml # Voids 4 3 # Bowel Movements 1 1 Cardiovascular: RSR Respiratory: clear Abdomen: soft, flat, non-tender, present bowel sounds Extremities: no edema, no tenderness, no cyanosis Laboratory Tests Test 09/11/19 05:20 White Blood Count 11.6 K/UL (4.8-10.8) H Red Blood Count 4.97 M/UL (4.70-6.10) Hemoglobin 14.4 G/DL (14.2-18.0) Hematocrit 42.9 % (42.0-52.0) Mean Corpuscular Volume 86 FL (80-99) Mean Corpuscular Hemoglobin 29.1 PG (27.0-31.0) Mean Corpuscular Hemoglobin Concent 33.6 G/DL (32.0-36.0) Red Cell Distribution Width 11.4 % (11.6-14.8) L Platelet Count 333 K/UL (150-450) Mean Platelet Volume 5.1 FL (6.5-10.1) L Neutrophils (%) (Auto) 65.9 % (45.0-75.0) Lymphocytes (%) (Auto) 20.8 % (20.0-45.0) Monocytes (%) (Auto) 11.1 % (1.0-10.0) H Eosinophils (%) (Auto) 1.0 % (0.0-3.0) Basophils (%) (Auto) 1.2 % (0.0-2.0) Prothrombin Time 15.9 SEC (9.30-11.50) H Prothromb Time International Ratio 1.5 (0.9-1.1) H Sodium Level 143 MMOL/L (136-145) Potassium Level 3.3 MMOL/L (3.5-5.1) L Chloride Level 107 MMOL/L (98-107) Carbon Dioxide Level 29 MMOL/L (21-32) Anion Gap 7 mmol/L (5-15) Blood Urea Nitrogen 5 mg/dL (7-18) L Creatinine 1.9 MG/DL (0.55-1.30) H Estimat Glomerular Filtration Rate 46.3 mL/min (>60) Glucose Level 104 MG/DL (74-106) Calcium Level 8.4 MG/DL (8.5-10.1) L Random Vancomycin Level 9.7 ug/mL Plan Problems: (1) Intractable abdominal pain Assessment & Plan: afebrile, HD stable, leukocytosis persistent n/v persistent unable to tolerate much po diet exam fairly benign Impression: Linear filling defect in the superior mesenteric vein extending into the portal vein. While possibly in inflow artifact from nonopacified blood, suspect that this is a real finding representing thrombus within the superior mesenteric vein and portal vein. This does not appear to be occlusive and there is no bowel wall thickening. This finding was not described on the [facility] preliminary report, was phoned to Dr. Back at the time of interpretation. [facility] was also notified of either website No other abnormality. Evidence of bullous COPD. This is a new finding since the prior 2008 exam Incidental findings of focal fatty change within the liver, small hiatal hernia egd noted iv fluids will follow with exam lovenox/coumadin reglan/zofran push po diet thank you (2) Intractable nausea and vomiting Jose Back Sep 11, 2019 13:58
--- NOTE | 2019-09-11 14:18 | Infectious Diseases Prog Note ---
Assessment/Plan Assessment/Plan ASSESSMENT AND PLAN: 1. possible sepsis, sirs, fevers, leukocytosis, ? 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 The patient has history of hypertension. Blood pressure treatment per primary care team. 4. Gastritis. 5. Hiatal hernia. 6. Nausea, vomiting, and abdominal pain. 7. Esophagitis. 8. Allergies are negative. 9. Social history is positive for marijuana use. 10. Family history is noncontributory. 11. MAR was noted. 12. Case was discussed with RN. 13. Continue treatment per primary consultants Subjective Constitutional: Denies: fever HEENT: Denies: congestion Respiratory: Denies: shortness of breath Cardiovascular: Denies: chest pain Gastrointestinal/Abdominal: Denies: nausea, vomiting, diarrhea Genitourinary: Denies: dysuria, hematuria, frequency Neurologic: Denies: headache Psychiatric: Denies: depression Skin: Denies: rash Hematologic: Denies: bleeding Musculoskeletal: Reports: pain - less Allergies: Coded Allergies: No Known Allergies (Unverified , 12/08/17) Objective Vital Signs Last 24 Hour Vital Signs Date Time Temp Pulse Resp B/P (MAP) Pulse Ox O2 Delivery O2 Flow Rate FiO2 09/11/19 12:00 99.0 63 17 124/93 (103) 98 09/11/19 09:09 65 125/87 09/11/19 09:00 Room Air 09/11/19 08:00 98.7 65 17 125/87 (100) 97 09/11/19 04:00 98.8 67 17 120/73 (89) 96 09/11/19 00:00 98.8 63 17 128/71 (90) 96 09/10/19 21:00 Room Air 09/10/19 20:00 99.1 66 16 125/74 (91) 96 09/10/19 16:00 99.4 67 20 133/90 (104) 97 09/10/19 15:43 98.6 Height (Feet): 5 Height (Inches): 10.00 Weight (Pounds): 177 General Appearance: no acute distress HEENT: normocephalic, atraumatic, anicteric, mucous membranes moist Respiratory/Chest: lungs clear, normal breath sounds, no accessory muscle use Cardiovascular: normal rate, regular rhythm, no gallop/murmur, no JVD Abdomen: normal bowel sounds, soft, non tender, no organomegaly, non distended Genitourinary: other - no plascencia, no cva pain Extremities: no cyanosis Skin: no rash 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 While possibly in inflow artifact from nonopacified blood, suspect that this is a real finding representing thrombus within the superior mesenteric vein and portal vein. This does not appear to be occlusive and there is no bowel wall thickening. This finding was not described on the [facility] preliminary report, was phoned to Dr. Back at the time of interpretation. [facility] was also notified of either website No other abnormality. Evidence of bullous COPD. This is a new finding since the pr Microbiology Date/Time Source Procedure Growth Status 09/09/19 16:15 Blood Blood Culture - Preliminary NO GROWTH AFTER 24 HOURS Resulted 09/09/19 16:10 Blood Blood Culture - Preliminary NO GROWTH AFTER 24 HOURS Resulted 09/08/19 15:50 Blood Blood Culture - Preliminary NO GROWTH AFTER 48 HOURS Resulted 09/08/19 15:42 Blood Blood Culture - Preliminary NO GROWTH AFTER 48 HOURS Resulted Laboratory Tests Test 09/11/19 05:20 White Blood Count 11.6 K/UL (4.8-10.8) H Red Blood Count 4.97 M/UL (4.70-6.10) Hemoglobin 14.4 G/DL (14.2-18.0) Hematocrit 42.9 % (42.0-52.0) Mean Corpuscular Volume 86 FL (80-99) Mean Corpuscular Hemoglobin 29.1 PG (27.0-31.0) Mean Corpuscular Hemoglobin Concent 33.6 G/DL (32.0-36.0) Red Cell Distribution Width 11.4 % (11.6-14.8) L Platelet Count 333 K/UL (150-450) Mean Platelet Volume 5.1 FL (6.5-10.1) L Neutrophils (%) (Auto) 65.9 % (45.0-75.0) Lymphocytes (%) (Auto) 20.8 % (20.0-45.0) Monocytes (%) (Auto) 11.1 % (1.0-10.0) H Eosinophils (%) (Auto) 1.0 % (0.0-3.0) Basophils (%) (Auto) 1.2 % (0.0-2.0) Prothrombin Time 15.9 SEC (9.30-11.50) H Prothromb Time International Ratio 1.5 (0.9-1.1) H Sodium Level 143 MMOL/L (136-145) Potassium Level 3.3 MMOL/L (3.5-5.1) L Chloride Level 107 MMOL/L (98-107) Carbon Dioxide Level 29 MMOL/L (21-32) Anion Gap 7 mmol/L (5-15) Blood Urea Nitrogen 5 mg/dL (7-18) L Creatinine 1.9 MG/DL (0.55-1.30) H Estimat Glomerular Filtration Rate 46.3 mL/min (>60) Glucose Level 104 MG/DL (74-106) Calcium Level 8.4 MG/DL (8.5-10.1) L Random Vancomycin Level 9.7 ug/mL Current Medications Medications (Trade) Dose Ordered Sig/Toni Route PRN Reason Start Time Stop Time Status Last Admin Dose Admin Acetaminophen (Tylenol) 650 mg Q4H PRN ORAL Mild Pain (Pain Scale 1-3) 09/05/19 01:30 10/05/19 01:29 09/08/19 16:23 Amlodipine Besylate (Norvasc) 5 mg DAILY ORAL 09/09/19 13:04 10/09/19 13:03 09/11/19 09:09 Dextrose (Dextrose 50%) 25 ml Q30M PRN IV Hypoglycemia 09/05/19 01:30 10/05/19 01:29 Dextrose (Dextrose 50%) 50 ml Q30M PRN IV Hypoglycemia 09/05/19 01:30 10/05/19 01:29 Dextrose/Sodium Chloride 1,000 ml @ 100 mls/hr Q10H IV 09/10/19 09:00 10/10/19 08:59 09/11/19 09:09 Enoxaparin Sodium (Lovenox) 80 mg EVERY 12 HOURS SUBQ 09/09/19 21:00 10/09/19 20:59 09/11/19 09:11 Hydralazine HCl (Apresoline) 25 mg Q6H PRN ORAL SBP>150 09/08/19 08:45 10/08/19 08:44 09/09/19 06:09 Hydromorphone HCl (Dilaudid) 0.5 mg Q6H PRN IVP Pain Scale (6-10) 09/05/19 01:30 09/12/19 01:29 09/11/19 05:40 Lorazepam (Ativan 2mg/ml 1ml) 0.5 mg Q4H PRN IV For Anxiety 09/05/19 01:30 09/12/19 01:29 Metoclopramide HCl (Reglan) 10 mg Q6H IVP 09/07/19 12:15 10/07/19 12:14 09/11/19 12:27 Ondansetron HCl (Zofran) 4 mg Q6H IVP 09/06/19 13:30 10/06/19 13:29 09/11/19 07:13 Pantoprazole (Protonix) 40 mg DAILY IVP 09/06/19 11:45 10/06/19 11:44 09/11/19 09:09 Piperacillin Sod/ Tazobactam Sod 3.375 gm/Sodium Chloride 110 ml @ 27.5 mls/hr EVERY 8 HOURS IVPB 09/07/19 14:00 09/12/19 13:59 09/11/19 06:00 Prochlorperazine (Compazine) 10 mg Q6H PRN IVP Nausea & Vomiting 09/05/19 12:33 10/05/19 12:32 09/09/19 15:28 Sucralfate (Carafate) 1 gm FOUR TIMES A DAY ORAL 09/08/19 13:00 10/08/19 12:59 09/11/19 12:27 Vancomycin HCl (Vanco rx to dose) 1 ea DAILY PRN MISC Per rx protocol 09/08/19 15:15 10/08/19 15:14 Warfarin Sodium (Coumadin per pharmacy) 1 ea DAILY PRN MISC . 09/09/19 13:45 10/09/19 13:44 Warfarin Sodium (Coumadin) 5 mg COUMADIN ORAL 09/11/19 17:00 09/11/19 17:01 Shahzad Naht MD Sep 11, 2019 14:18
[2019-09-11 16:00] VITALS: BP 137/90
[2019-09-11] MEDS ORDERED: Warfarin Sodium 5mg ORAL SCH (17:00)
--- NOTE | 2019-09-11 19:30 | NUR ---
NURSE NOTES: Receive a report from SHOLA Sharma. Round is done. Pt is awake and alert. No acute distress noted. No N/V noted at this time. Abdominal pain is tolerating with pain medication. Call light within reach. Will continue to monitor.
[2019-09-11 20:00] VITALS: BP 136/84
--- NOTE | 2019-09-11 20:05 | NUR ---
HAND-OFF: Report given to o.
--- NOTE | 2019-09-11 23:00 | NUR ---
NURSE NOTES: Done changing IV site. Fluid and Zosyn are running on right hand with 20 G. Will continue to monitor.
[2019-09-12] VITALS: BP 153/92
[2019-09-12] MEDS: Metoclopramide 10mg/2ml Inj IVP SCH ×4 (00:09→17:27)
[2019-09-12 04:00] VITALS: BP 120/81
[2019-09-12] MEDS: Piperacillin/Tazobactam 3.375 GM in NS 110 ML IVPB SCH ×3 (05:45→21:18)
--- NOTE | 2019-09-12 07:30 | NUR ---
HAND-OFF: Report given to SHOLA Escalante. Round is done. Pt wants to have solid diet. No N/V noted. Will follow up with MD for diet during AM shift.
--- NOTE | 2019-09-12 07:30 | NUR ---
NURSE NOTES: Patient is in bed awake and able to verbalize needs. Stable. Denies pain or SOB. Patient encouraged to use call light for assistance, verbalized understanding. Plan of care discussed with patient. Patient is in bed in locked and lowest position with call light within reach. Will continue to monitor.
[2019-09-12 07:41] LABS: INR 2.4 (0.9-1.1)
[2019-09-12 07:54] LABS: BASOPHILS % (AUTO) 0.9 % (0.0-2.0); HEMATOCRIT 38.9 % (42.0-52.0); LYMPHOCYTES % (AUTO) 16.3 % (20.0-45.0); MEAN CORPUSCULAR VOLUME 87 FL (80-99); MONOCYTES % (AUTO) 12.3 % (1.0-10.0); NEUTROPHILS % (AUTO) 69.5 % (45.0-75.0); PLATELET COUNT 348 K/UL (150-450); RED BLOOD COUNT 4.48 M/UL (4.70-6.10); RED CELL DISTRIBUTION WIDTH 11.5 % (11.6-14.8); WHITE BLOOD COUNT 12.5 K/UL (4.8-10.8)
[2019-09-12 08:00] VITALS: BP 130/90
[2019-09-12 08:06] LABS: ANION GAP 10 mmol/L (5-15); BLOOD UREA NITROGEN 3 mg/dL (7-18); CALCIUM 8.2 MG/DL (8.5-10.1); CARBON DIOXIDE 26 MMOL/L (21-32); CHLORIDE 108 MMOL/L (98-107); CREATININE 1.8 MG/DL (0.55-1.30); POTASSIUM 3.1 MMOL/L (3.5-5.1); SODIUM 144 MMOL/L (136-145)
[2019-09-12] MEDS: Sucralfate 1gm tab ORAL SCH ×4 (08:34→21:16)
[2019-09-12] MEDS: Enoxaparin 80mg Inj SUBQ SCH (08:35)
[2019-09-12] MEDS: D5NS 1,000 ML IV SCH ×2 (09:54→21:17)
--- NOTE | 2019-09-12 10:26 | General Progress Note ---
Assessment/Plan Problem List: (1) Gastritis ICD Codes: K29.70 - Gastritis, unspecified, without bleeding SNOMED: 0565602 (2) Marijuana abuse ICD Codes: F12.10 - Cannabis abuse, uncomplicated SNOMED: 73102301 (3) Cyclic vomiting syndrome ICD Codes: R11.15 - Cyclical vomiting syndrome unrelated to migraine SNOMED: 34375996 (4) Intractable abdominal pain ICD Codes: R10.9 - Unspecified abdominal pain SNOMED: 27546278 (5) Intractable nausea and vomiting ICD Codes: R11.2 - Nausea with vomiting, unspecified SNOMED: 766275949 (6) Dehydration ICD Codes: E86.0 - Dehydration SNOMED: 49554102 (7) Superior mesenteric vein thrombosis SNOMED: 588604781 (8) Esophagitis ICD Codes: K20.9 - Esophagitis, unspecified SNOMED: 87088373 (9) Hypokalemia ICD Codes: E87.6 - Hypokalemia SNOMED: 42645122 (10) Hypomagnesemia ICD Codes: E83.42 - Hypomagnesemia SNOMED: 260179532 (11) Essential hypertension ICD Codes: I10 - Essential (primary) hypertension SNOMED: 96482506 (12) Bacteremia ICD Codes: R78.81 - Bacteremia SNOMED: 3500785 (13) Acute kidney injury ICD Codes: N17.9 - Acute kidney failure, unspecified SNOMED: 0902558, 46629326 Status: progressing, unchanged Assessment/Plan: 48-year-old male with past medical history of cannabis use, presenting with acute epigastric/left upper quadrant abdominal pain and persistent intractable nausea vomiting. Found to have acute SMV thrombus. #Superior Mesenteric Vein Thrombus on anticoagulation, goal INR 2-3. INR 1.5 today # Abdominal pain, epigastric/left upper quadrant/nonradiating suspected 2/2 acute SMV thrombus -improving > Doubt ACS given negative troponin. Doubt pancreatitis given normal lipase. Component of gastritis? Cyclic vomiting syndrome? #Leukocytosis, reactive vs. infectious. With a slight increase today, possibly reactive. Patient with no other infectious symptoms. #hypokalemia due to vomiting #Distal esophagitis #Gastritis > CT abdomen pelvis with contrast given persistent abdominal pain - SMV thrombus. Discussed with radiologist Dr. Laguna and appears acute. > RUQ abdominal ultrasound to rule out acute oli - negative > AFP, CEA, CA 19-9 all negative > EGD 09/08/2019 showed esophagitis and gastritis. Pathology negative - Supportive care with IVF -Discontinue heparin drip (09/07 - 09/09/19) -Started warfarin per pharmacy 09/09/19, bridge with lovenox 1mg/kg Q12hr -Plan for at least 3 months of anticoagulation. -Continue Zosyn 3.375 g every 8 hours IV for possible gut translocation (09/07 - ) -Appreciate GI recommendations: Dr. Zabala -Appreciate general surgery recommendations: Dr. Back - Appreciate hematology oncology recommendations: Dr. Gant -Zofran 4 mg IV every 6 hours (QTC normal) - Reglan 10mg IV q6hr - Compazine 10mg IV Q6hr PRN -Continue to monitor QTC QOD -Protonix 40mg IV daily -Follow electrolytes and replete PRN #Acute kidney injury. Suspect pre-renal from vomiting and not eating > however feNA borderline at 1.1% - D5NS @ 100cc/hr -Check postvoid residuals -Renal ultrasound -Avoid nephrotoxins continue -Renal consult if does not improve. #coag neg staph bacteremia, suspect contaminant - Vancomycin per pharmacy (09/08 - 09/11) -Follow-up surveillance blood cultures -Appreciate infectious disease recommendations: Dr. Casanova #Essential hypertension, controlled -Continue amlodipine 5 mg p.o. daily -Hydralazine 25 mg p.o. every 6 hours as needed # Cannabis use - Counselling provided - SW follow up as needed #Hypokalemia #hypomagnesemia - replete PRN FENPPX DVTPPX: Lovenox and Warfarin GI PPX: protonix Fluids: D5 NS @100 cc/hr Diet: CLD, advance as tolerated, advanced to full today Lines: peripheral PT/OT: pending Code status: Full code Dispo: Home after acute issues resolved Reason for continued hospitalization: Acute SMV thrombus, intractable Nausea/ vomiting 38 minutes spent on this encounter. Discussed with patient. > 50% spent on counseling and care coordination. Time of note may not reflect time patient was seen. Subjective Date patient seen: Sep 12, 2019 ROS Limited/Unobtainable: No Constitutional: Denies: no symptoms, chills, diaphoresis, fever, malaise, weakness, other HEENT: Denies: no symptoms, eye pain, blurred vision, tearing, double vision, ear pain, ear discharge, nose pain, nose congestion, throat pain, throat swelling, mouth pain, mouth swelling, other Cardiovascular: Denies: no symptoms, chest pain, edema, irregular heart rate, lightheadedness, palpitations, syncope, other Respiratory: Denies: no symptoms, cough, orthopnea, shortness of breath, SOB with excertion, SOB at rest, sputum, stridor, wheezing, other Gastrointestinal/Abdominal: Denies: no symptoms, abdomen distended, abdominal pain, black stools, tarry stools, blood in stool, constipated, diarrhea, difficulty swallowing, nausea, poor appetite, poor fluid intake, rectal bleeding , vomiting, other Genitourinary: Denies: no symptoms, burning, discharge, frequency, flank pain, hematuria, incontinence, pain, urgency, other Neurologic/Psychiatric: Denies: no symptoms, anxiety, depressed, emotional problems, headache, numbness, paresthesia, pre-existing deficit, seizure, tingling, tremors, weakness, other Endocrine: Denies: no symptoms, excessive sweating, flushing, intolerance to cold, intolerance to heat, increased hunger, increased thirst, increased urine, unexplained weight gain, unexplained weight loss, other Hematologic/Lymphatic: Denies: no symptoms, anemia, easy bleeding, easy bruising, other Allergies: Coded Allergies: No Known Allergies (Unverified , 12/08/17) Subjective seen and examined. doing well ambulating n/v improved Potassium low INR theraputic Objective Last 24 Hour Vital Signs Date Time Temp Pulse Resp B/P (MAP) Pulse Ox O2 Delivery O2 Flow Rate FiO2 09/12/19 08:34 67 130/90 09/12/19 04:00 97.6 61 16 120/81 (94) 99 09/12/19 00:00 98.1 63 16 153/92 (112) 97 09/11/19 21:00 Room Air 09/11/19 20:00 98.9 59 16 136/84 (101) 99 09/11/19 16:00 99.8 68 17 137/90 (106) 98 09/11/19 12:00 99.0 63 17 124/93 (103) 98 Intake and Output 09/11/19 09/12/19 19:00 07:00 Intake Total 1010.0 ml 1250 ml Output Total 1400 ml 850 ml Balance -390.0 ml 400 ml Intake Oral 450 ml IV Total 1010.0 ml 800 ml Output Urine Total 1400 ml 850 ml Emesis 0 ml # Bowel Movements 1 Laboratory Tests 09/12/19 05:00: White Blood Count 12.5H, Red Blood Count 4.48L, Hemoglobin 13.0L, Hematocrit 38.9L, Mean Corpuscular Volume 87, Mean Corpuscular Hemoglobin 29.0, Mean Corpuscular Hemoglobin Concent 33.4, Red Cell Distribution Width 11.5L, Platelet Count 348, Mean Platelet Volume 4.9L, Neutrophils (%) (Auto) 69.5, Lymphocytes (%) (Auto) 16.3L, Monocytes (%) (Auto) 12.3H, Eosinophils (%) (Auto ) 1.0, Basophils (%) (Auto) 0.9, Prothrombin Time 24.3H, Prothromb Time International Ratio 2.4H, Sodium Level 144, Potassium Level 3.1L, Chloride Level 108H, Carbon Dioxide Level 26, Anion Gap 10, Blood Urea Nitrogen 3L, Creatinine 1.8H, Estimat Glomerular Filtration Rate 49.2, Glucose Level 98, Calcium Level 8.2L, Random Vancomycin Level 9.3 Height (Feet): 5 Height (Inches): 10.00 Weight (Pounds): 177 Objective General Appearance: WD/WN, no apparent distress, alert EENT: PERRL/EOMI, normal ENT inspection Neck: non-tender, normal alignment, supple Cardiovascular: normal peripheral pulses, normal rate, regular rhythm Respiratory/Chest: chest wall non-tender, lungs clear, normal breath sounds Abdomen: normal bowel sounds, other - Nondistended, mild tenderness to palpation in the epigastric region Extremities: other - No lower extremity edema bilaterally Neurologic: central office technician II-XII grossly normal, no motor/sensory deficits, alert, oriented x 3, responsive Skin: normal pigmentation, warm/dry Umberto Lopez M.D. Sep 12, 2019 10:26
--- NOTE | 2019-09-12 11:23 | General Progress Note ---
Assessment/Plan Status: progressing, unchanged Assessment/Plan: GI: Plan Problems: (1) Dehydration (2) Intractable nausea and vomiting (3) Cyclic vomiting syndrome (4) Marijuana abuse (5) Intractable abdominal pain (6) Fatty liver (7) Hiatal hernia Plan Intractable nausea and vomiting most likely secondary due to cyclic vomiting syndrome Electrolyte correction Zofran as needed, Reglan for persistent vomiting. PPI s/p EGD on reg diet dc planning per primary team Subjective ROS Limited/Unobtainable: Yes Allergies: Coded Allergies: No Known Allergies (Unverified , 12/08/17) Objective Last 24 Hour Vital Signs Date Time Temp Pulse Resp B/P (MAP) Pulse Ox O2 Delivery O2 Flow Rate FiO2 09/12/19 09:00 Room Air 09/12/19 08:34 67 130/90 09/12/19 08:00 98.6 67 18 130/90 (103) 98 09/12/19 04:00 97.6 61 16 120/81 (94) 99 09/12/19 00:00 98.1 63 16 153/92 (112) 97 09/11/19 21:00 Room Air 09/11/19 20:00 98.9 59 16 136/84 (101) 99 09/11/19 16:00 99.8 68 17 137/90 (106) 98 09/11/19 12:00 99.0 63 17 124/93 (103) 98 Intake and Output 09/11/19 09/12/19 19:00 07:00 Intake Total 1010.0 ml 1250 ml Output Total 1400 ml 850 ml Balance -390.0 ml 400 ml Intake Oral 450 ml IV Total 1010.0 ml 800 ml Output Urine Total 1400 ml 850 ml Emesis 0 ml # Bowel Movements 1 Laboratory Tests 09/12/19 05:00: White Blood Count 12.5H, Red Blood Count 4.48L, Hemoglobin 13.0L, Hematocrit 38.9L, Mean Corpuscular Volume 87, Mean Corpuscular Hemoglobin 29.0, Mean Corpuscular Hemoglobin Concent 33.4, Red Cell Distribution Width 11.5L, Platelet Count 348, Mean Platelet Volume 4.9L, Neutrophils (%) (Auto) 69.5, Lymphocytes (%) (Auto) 16.3L, Monocytes (%) (Auto) 12.3H, Eosinophils (%) (Auto ) 1.0, Basophils (%) (Auto) 0.9, Prothrombin Time 24.3H, Prothromb Time International Ratio 2.4H, Sodium Level 144, Potassium Level 3.1L, Chloride Level 108H, Carbon Dioxide Level 26, Anion Gap 10, Blood Urea Nitrogen 3L, Creatinine 1.8H, Estimat Glomerular Filtration Rate 49.2, Glucose Level 98, Calcium Level 8.2L, Random Vancomycin Level 9.3 Height (Feet): 5 Height (Inches): 10.00 Weight (Pounds): 177 General Appearance: alert EENT: normal ENT inspection Neck: supple Cardiovascular: normal rate Respiratory/Chest: lungs clear Abdomen: normal bowel sounds, non tender, soft Extremities: non-tender Ashok Zabala MD Sep 12, 2019 11:23
[2019-09-12 12:00] VITALS: BP 128/82
--- NOTE | 2019-09-12 12:46 | Surgery Progress Note ---
Surgery Progress Note Subjective Symptoms: improved, pain absent Objective Last 24 Hour Vital Signs Date Time Temp Pulse Resp B/P (MAP) Pulse Ox O2 Delivery O2 Flow Rate FiO2 09/12/19 12:00 98.7 69 20 128/82 (97) 98 09/12/19 09:00 Room Air 09/12/19 08:34 67 130/90 09/12/19 08:00 98.6 67 18 130/90 (103) 98 09/12/19 04:00 97.6 61 16 120/81 (94) 99 09/12/19 00:00 98.1 63 16 153/92 (112) 97 09/11/19 21:00 Room Air 09/11/19 20:00 98.9 59 16 136/84 (101) 99 09/11/19 16:00 99.8 68 17 137/90 (106) 98 I&O Intake and Output 09/11/19 09/12/19 19:00 07:00 Intake Total 1010.0 ml 1250 ml Output Total 1400 ml 850 ml Balance -390.0 ml 400 ml Intake Oral 450 ml IV Total 1010.0 ml 800 ml Output Urine Total 1400 ml 850 ml Emesis 0 ml # Bowel Movements 1 Cardiovascular: RSR Respiratory: clear Abdomen: soft, flat, non-tender, present bowel sounds Extremities: no edema, no tenderness, no cyanosis Laboratory Tests Test 09/12/19 05:00 White Blood Count 12.5 K/UL (4.8-10.8) H Red Blood Count 4.48 M/UL (4.70-6.10) L Hemoglobin 13.0 G/DL (14.2-18.0) L Hematocrit 38.9 % (42.0-52.0) L Mean Corpuscular Volume 87 FL (80-99) Mean Corpuscular Hemoglobin 29.0 PG (27.0-31.0) Mean Corpuscular Hemoglobin Concent 33.4 G/DL (32.0-36.0) Red Cell Distribution Width 11.5 % (11.6-14.8) L Platelet Count 348 K/UL (150-450) Mean Platelet Volume 4.9 FL (6.5-10.1) L Neutrophils (%) (Auto) 69.5 % (45.0-75.0) Lymphocytes (%) (Auto) 16.3 % (20.0-45.0) L Monocytes (%) (Auto) 12.3 % (1.0-10.0) H Eosinophils (%) (Auto) 1.0 % (0.0-3.0) Basophils (%) (Auto) 0.9 % (0.0-2.0) Prothrombin Time 24.3 SEC (9.30-11.50) H Prothromb Time International Ratio 2.4 (0.9-1.1) H Sodium Level 144 MMOL/L (136-145) Potassium Level 3.1 MMOL/L (3.5-5.1) L Chloride Level 108 MMOL/L (98-107) H Carbon Dioxide Level 26 MMOL/L (21-32) Anion Gap 10 mmol/L (5-15) Blood Urea Nitrogen 3 mg/dL (7-18) L Creatinine 1.8 MG/DL (0.55-1.30) H Estimat Glomerular Filtration Rate 49.2 mL/min (>60) Glucose Level 98 MG/DL (74-106) Calcium Level 8.2 MG/DL (8.5-10.1) L Random Vancomycin Level 9.3 ug/mL Plan Problems: (1) Intractable abdominal pain Assessment & Plan: afebrile, HD stable, leukocytosis persistent n/v persistent unable to tolerate much po diet exam fairly benign Impression: Linear filling defect in the superior mesenteric vein extending into the portal vein. While possibly in inflow artifact from nonopacified blood, suspect that this is a real finding representing thrombus within the superior mesenteric vein and portal vein. This does not appear to be occlusive and there is no bowel wall thickening. This finding was not described on the [employer] preliminary report, was phoned to Dr. Back at the time of interpretation. [employer] was also notified of either website No other abnormality. Evidence of bullous COPD. This is a new finding since the prior 2008 exam Incidental findings of focal fatty change within the liver, small hiatal hernia egd noted iv fluids will follow with exam lovenox/coumadin reglan/zofran push po diet thank you (2) Intractable nausea and vomiting Jose Back Sep 12, 2019 12:46
[2019-09-12 16:00] VITALS: BP 150/103
[2019-09-12] MEDS ORDERED: NS 500ML ONE (16:07)
[2019-09-12] MEDS ORDERED: Tubing IV Secondary IV ONE (16:07)
[2019-09-12] MEDS ORDERED: D5NS 1000ml IV ONE (16:07)
[2019-09-12] MEDS ORDERED: Warfarin Sodium 1mg ORAL ONE (17:00)
--- NOTE | 2019-09-12 19:30 | NUR ---
HAND-OFF: Report given to Addieo RN. Patient is stable.
--- NOTE | 2019-09-12 19:30 | NUR ---
NURSE NOTES: Receive a report from SHOLA Escalante. Round is done. Pt ambulates in the hallway without N/V or acute distress. Denies pain at this time. Tolerating with regular diet. Call light within reach. Will continue to monitor.
--- NOTE | 2019-09-12 19:30 | NUR ---
NURSE NOTES: Receive a report from SHOLA Escalante. Round is done. Pt is awake and alert. No acute distress noted. Breathing is even and non labored. Op site pain is tolerable as 4/10. Remaining JOSÉ MIGUEL is drained with SS color. Op site dressing kept dry and clean. On npo except ice chips and medication. PICC site is clear without infiltration. TPN and main fluid are running via PICC. No spreading out skin discoloration below PICC site. Denies pain. G-tube, plascencia catheter, and ileostomy are patent. Call light within reach. Will continue to monitor. Addendum: 09/12/19 at 2222 by Nataliia Gomez RN INCORRECT CHARTING
[2019-09-12 20:00] VITALS: BP 132/92
[2019-09-13] VITALS (7 sets, daily range): BP systolic 136–169; BP diastolic 61–103
[2019-09-13] MEDS: Metoclopramide 10mg/2ml Inj IVP SCH ×4 (00:02→17:49)
[2019-09-13 05:31] LABS: BASOPHILS % (AUTO) 1.3 % (0.0-2.0); EOSINOPHILS % (AUTO) 2.3 % (0.0-3.0); HEMATOCRIT 37.4 % (42.0-52.0); HEMOGLOBIN 12.6 G/DL (14.2-18.0); INR 1.9 (0.9-1.1); LYMPHOCYTES % (AUTO) 19.9 % (20.0-45.0); MEAN CORPUSCULAR VOLUME 86 FL (80-99); MONOCYTES % (AUTO) 11.6 % (1.0-10.0); NEUTROPHILS % (AUTO) 64.9 % (45.0-75.0); PLATELET COUNT 357 K/UL (150-450); RED BLOOD COUNT 4.33 M/UL (4.70-6.10); RED CELL DISTRIBUTION WIDTH 11.3 % (11.6-14.8); WHITE BLOOD COUNT 11.5 K/UL (4.8-10.8)
[2019-09-13 05:45] LABS: ALANINE AMINOTRANSFERASE 24 U/L (12-78); ALBUMIN 2.7 G/DL (3.4-5.0); ALBUMIN/GLOBULIN RATIO 0.8 (1.0-2.7); ALKALINE PHOSPHATASE 53 U/L (46-116); ANION GAP 6 mmol/L (5-15); ASPARTATE AMINO TRANSFERASE 17 U/L (15-37); BILIRUBIN,TOTAL 0.2 MG/DL (0.2-1.0); BLOOD UREA NITROGEN 4 mg/dL (7-18); CALCIUM 8.1 MG/DL (8.5-10.1); CARBON DIOXIDE 27 MMOL/L (21-32); CHLORIDE 110 MMOL/L (98-107); CREATININE 1.6 MG/DL (0.55-1.30); POTASSIUM 3.5 MMOL/L (3.5-5.1); SODIUM 143 MMOL/L (136-145)
[2019-09-13] MEDS: Piperacillin/Tazobactam 3.375 GM in NS 110 ML IVPB SCH ×3 (06:13→22:26)
--- NOTE | 2019-09-13 06:53 | NUR ---
NURSE NOTES: No N/V noted. Denies pain at this time. Will continue to monitor.
[2019-09-13] MEDS: D5NS 1,000 ML IV SCH (07:00)
--- NOTE | 2019-09-13 07:30 | NUR ---
HAND-OFF: Report given to SHOLA Dumont.
--- NOTE | 2019-09-13 08:39 | NUR ---
NURSE NOTES: Received report from Nataliia JOLLEY. Patient is awake and oriented, has nausea and is vomiting during rounds. Patient reports abdominal pain, but does not want Tylenol at this time, will administer Compazine PRN for nausea. Noted patient's BP elevated 164/103 while patient is vomiting, will administer scheduled BP medications and reassess and administer PRN N. IV intact, asymptomatic and running IVF and Zosyn per order. Patient updated on plan of care. Side rails upx2, bed low and locked, call light within reach. Addendum: 09/13/19 at 0842 by Julia Crespo RN Add: Will reassess BP and administer PRN BP medication if indicated.
[2019-09-13] MEDS: Sucralfate 1gm tab ORAL SCH ×4 (09:00→21:18)
--- NOTE | 2019-09-13 09:00 | NUR ---
NURSE NOTES: Unable to administer 0900 medications due to patient continuously vomiting. MATTRESS FINISHER at bedside.
--- NOTE | 2019-09-13 09:30 | NUR ---
NURSE NOTES: Received patient from Sandra Dumont. Patient being transferred to the floor S/P DOUGH MACHINE OPERATOR re: fall. Patient is awake and alert. responding to questions appropriately. complaining of nausea and noted vomiting yellowish to clear colored vomitus. vital signs obtained. patient oriented to room and safety precautions activated. will follow.
--- NOTE | 2019-09-13 09:40 | NUR ---
NURSE NOTES: This morning approximately 0847 primary RN (myself) was retrieving compazine and scheduled medications for patient after assessing patient. On the way to patient's room noted bathroom call light was on, walked into the room and found patient laying on the floor of the bathroom in a supine position. Asked patient what happened and patient was unable to verbalize an answer to my question. PER DIEM NURSE was called 0848 and arrived at 0851. Asked patient if he hit his head and patient verbalized "no", asked patient if he was in any pain and the only pain patient reported was left hip pain. VS were assessed, accucheck done, and neuro check done by myself and PER DIEM NURSE nurses (see PER DIEM NURSE sheet), EKG and ABG ordered per PER DIEM NURSE protocol. Dr. Jack was called at 0900 by dry pan charger Danny and callback received from water pollution control inspector physician Dr. Thao at 0910, MD was briefed on patient situation/condition and orders entered by MD. Patient was moved back to [facility] via glider by myself, dry pan charger, and PER DIEM NURSE. Per order from Dr. Thao, patient was transferred to telemetry room 216-2. Report given and care endorsed to Keara JOLLEY at 0940.
[2019-09-13] MEDS ORDERED: Metoclopramide 10mg/2ml Inj IVP PRN (10:30)
--- NOTE | 2019-09-13 10:33 | Consultation ---
Consult Note Consult Note asked to eval at the request of Dr Thurston / Renan for renal failure Patient found in bathroom altered seen in 2E record reviewed examined feels nauseous Assessment/Plan Renal failure : Acute on Chronic Cyclical Vomiting / Cannabis abuse Dehydration Electrolyte imbalance HTN Superior Mesentric vein thrombosis Gastritis / Esophagitis NPO IV Protonix IV Reglan BP control preliminary orders given more note to follow Santi Craig MD Sep 13, 2019 10:33
[2019-09-13] MEDS ORDERED: Morphine Sulfate 4mg/ml Inj (IV USE ONLY) IVP PRN ×2 (10:45)
[2019-09-13 10:52] LABS: PHOSPHORUS 2.7 MG/DL (2.5-4.9)
[2019-09-13] MEDS: Hydromorphone 0.5mg/0.5ml inj IVP PRN ×3 (10:53→21:18)
[2019-09-13 10:58] LABS: CHOLESTEROL 89 MG/DL (< 200); FERRITIN 125 NG/ML (8-388); HDL CHOLESTEROL 31 MG/DL (40-60); TRIGLYCERIDES 75 MG/DL (30-150)
[2019-09-13] MEDS ORDERED: HydrALAZINE 25mg tab ORAL PRN (11:00)
[2019-09-13 11:10] LABS: % IRON SATURATION 25 % (15-50); IRON 46 ug/dL (50-175); TOTAL IRON BINDING CAPACITY 187 ug/dL (250-450)
[2019-09-13] MEDS: Pantoprazole Inj IVP SCH ×2 (11:57→21:18)
--- NOTE | 2019-09-13 12:00 | NUR ---
NURSE NOTES: patient moved to room 210*-2. Dr. Yesi Espinoza in to see patient. new orders from MD. patient S/P CT head which resulted negative. will continue to monitor.
[2019-09-13] MEDS: Dextrose 5%/Lactated Ringer's 1,000 ML IV SCH ×2 (12:04→23:09)
--- NOTE | 2019-09-13 12:06 | Diagnostic Imaging Report ---
Indication: Headache Technique: Contiguous 5 mm thick transaxial imaging of the head obtained in a Siemens Sensation [address] scanner. Soft tissue and bone windows generated. Automatic Exposure Control was utilized. Total Dose length Product (DLP): [address] Dose Index Volume (CTDIvol): 62.7 mGy Comparison: none Findings: The size and configuration of the cortical sulci, basal cisterns, and ventricles are within normal limits for age. There is no mass effect, midline shift, or edema identified. There is no evidence of acute hemorrhage or abnormal intra-axial or extra-axial fluid collections. The bones and soft tissues are unremarkable. Impression: No mass effect, edema or acute bleed. The CT scanner at [facility] is accredited by the [employer] and the scans are performed using dose optimization techniques as appropriate to a performed exam including Automatic Exposure control.
--- NOTE | 2019-09-13 13:19 | NUR ---
RADIOLOGY DEPT., PELVIS, LEFT HIP, CHEST, AND ABDOMEN X-RAYS COMPLETED.-P.DYE
--- NOTE | 2019-09-13 14:07 | Cardiology Report ---
APPROVED REPORT EXAM: Two-dimensional and M-mode echocardiogram with Doppler and color Doppler. INDICATION Syncope M-Mode DIMENSIONS IVSd1.0 (0.7-1.1cm)Left Atrium (MM)3.0 (1.6-4.0cm) LVDd5.0 (3.5-5.6cm)Aortic Root2.9 (2.0-3.7cm) PWd1.0 (0.7-1.1cm)Aortic Cusp Exc.2.1 (1.5-2.0cm) LVDs2.9 (2.5-4.0cm) PWs1.5 cm Normal left ventricular chamber size, systolic function and wall motion. Left ventricular ejection fraction estimated to be 60-65 %. No evidence of pericardial effusion. All other cardiac chamber sizes are within normal limits. Mild focal aortic valve sclerosis with adequate cusp excursion. Mildly thickened mitral valve leaflets with normal excursion. Mild mitral annulus and aortic root calcification. Normal pulmonic valve structure Normal tricuspid valve structure. IVC at normal size with physiologic collapse. A color flow and spectral Doppler study was performed and revealed: reduced left ventricular relaxation c/w impaired relaxation diastolic dysfunction. Trace mitral regurgitation. Trace tricuspid regurgitation. Tricuspid systolic velocities suggests peak right ventricular systolic pressure of 15 mmHg. Pulmonic regurgitation present.
--- NOTE | 2019-09-13 14:39 | Diagnostic Imaging Report ---
Indication: Abdominal pain Comparison: None Single view of the abdomen obtained Findings: Bowel gas pattern is nonspecific. No mass, ectopic calcifications, or abnormal gas collections are identified. The bones are unremarkable. Impression: No acute findings
--- NOTE | 2019-09-13 14:40 | Diagnostic Imaging Report ---
Indication: Dyspnea Comparison: 09/10/2019 A single view chest radiograph was obtained. Findings: There is bilateral upper lobe bullous emphysema present with large areas of hyperlucency especially in the left upper lobe. The findings are relatively stable compared to last exam. Heart size remains normal. No infiltrate identified. Bones are unremarkable. IMPRESSION: Upper lung field bullous emphysema. No change
--- NOTE | 2019-09-13 14:41 | Diagnostic Imaging Report ---
Indications: Left hip pain Findings: Two views of the left hip were obtained. No acute fracture is demonstrated. Alignment of the hip is within normal limits. Soft tissues are unremarkable. Impression: Negative for acute injury.
[2019-09-13] MEDS: HydrALAZINE 25mg tab ORAL SCH ×3 (14:45→22:26)
--- NOTE | 2019-09-13 14:58 | Surgery Progress Note ---
Surgery Progress Note Subjective Additional Comments Still with nausea and vomiting. Transferred to telemetry. Leukocytosis trending down. Renal insufficiency improving. INR 1.9 KUB noted Objective Last 24 Hour Vital Signs Date Time Temp Pulse Resp B/P (MAP) Pulse Ox O2 Delivery O2 Flow Rate FiO2 09/13/19 13:10 60 09/13/19 12:00 97.7 67 20 169/89 (115) 98 09/13/19 11:00 97.3 09/13/19 09:00 Room Air 09/13/19 08:32 97.3 61 20 164/103 (123) 99 09/13/19 04:00 18 09/13/19 00:00 98.7 61 18 145/93 (110) 99 09/12/19 21:00 Room Air 09/12/19 20:00 98.3 66 18 132/92 (105) 99 09/12/19 16:00 98.5 74 20 150/103 (119) 98 I&O Intake and Output 09/12/19 09/13/19 19:00 07:00 Intake Total 1750 ml Output Total 800 ml 1400 ml Balance -800 ml 350 ml Intake Oral 550 ml IV Total 1200 ml Output Urine Total 800 ml 1400 ml Cardiovascular: RSR Respiratory: clear Abdomen: soft, non-tender, present bowel sounds, non-distended Extremities: no edema, no tenderness, no cyanosis Laboratory Tests Test 09/13/19 05:00 09/13/19 08:50 09/13/19 10:30 White Blood Count 11.5 K/UL (4.8-10.8) H Red Blood Count 4.33 M/UL (4.70-6.10) L Hemoglobin 12.6 G/DL (14.2-18.0) L Hematocrit 37.4 % (42.0-52.0) L Mean Corpuscular Volume 86 FL (80-99) Mean Corpuscular Hemoglobin 29.2 PG (27.0-31.0) Mean Corpuscular Hemoglobin Concent 33.8 G/DL (32.0-36.0) Red Cell Distribution Width 11.3 % (11.6-14.8) L Platelet Count 357 K/UL (150-450) Mean Platelet Volume 4.7 FL (6.5-10.1) L Neutrophils (%) (Auto) 64.9 % (45.0-75.0) Lymphocytes (%) (Auto) 19.9 % (20.0-45.0) L Monocytes (%) (Auto) 11.6 % (1.0-10.0) H Eosinophils (%) (Auto) 2.3 % (0.0-3.0) Basophils (%) (Auto) 1.3 % (0.0-2.0) Prothrombin Time 19.3 SEC (9.30-11.50) H Prothromb Time International Ratio 1.9 (0.9-1.1) H Sodium Level 143 MMOL/L (136-145) Potassium Level 3.5 MMOL/L (3.5-5.1) Chloride Level 110 MMOL/L (98-107) H Carbon Dioxide Level 27 MMOL/L (21-32) Anion Gap 6 mmol/L (5-15) Blood Urea Nitrogen 4 mg/dL (7-18) L Creatinine 1.6 MG/DL (0.55-1.30) H Estimat Glomerular Filtration Rate 56.5 mL/min (>60) Glucose Level 109 MG/DL (74-106) H Hemoglobin A1c 6.1 % (4.3-6.0) H Uric Acid 2.2 MG/DL (2.6-7.2) L Calcium Level 8.1 MG/DL (8.5-10.1) L Phosphorus Level 2.7 MG/DL (2.5-4.9) Magnesium Level 1.8 MG/DL (1.8-2.4) Iron Level 46 ug/dL (50-175) L Total Iron Binding Capacity 187 ug/dL (250-450) L Percent Iron Saturation 25 % (15-50) Unsaturated Iron Binding 141 ug/dL (112-346) Ferritin 125 NG/ML (8-388) Total Bilirubin 0.2 MG/DL (0.2-1.0) Aspartate Amino Transf (AST/SGOT) 17 U/L (15-37) Alanine Aminotransferase (ALT/SGPT) 24 U/L (12-78) Alkaline Phosphatase 53 U/L (46-116) Total Protein 5.9 G/DL (6.4-8.2) L Albumin 2.7 G/DL (3.4-5.0) L Globulin 3.2 g/dL Albumin/Globulin Ratio 0.8 (1.0-2.7) L Triglycerides Level 75 MG/DL (30-150) Cholesterol Level 89 MG/DL (< 200) LDL Cholesterol 45 mg/dL (<100) HDL Cholesterol 31 MG/DL (40-60) L Cholesterol/HDL Ratio 2.9 (3.3-4.4) L Vitamin B12 Level 403 PG/ML (193-986) Folate 9.0 NG/ML (8.6-58.9) Arterial Blood pH 7.466 (7.350-7.450) Arterial Blood Partial Pressure CO2 29.6 mmHg (35.0-45.0) L Arterial Blood Partial Pressure O2 92.4 mmHg (75.0-100.0) Arterial Blood HCO3 20.9 mmol/L (22.0-26.0) L Arterial Blood Oxygen Saturation 97.3 % (95-100) Arterial Blood Base Excess -1.7 (-2-2) Pavel Test Positive Troponin I 0.000 ng/mL (0.000-0.056) Plan Problems: (1) Intractable abdominal pain Assessment & Plan: afebrile, HD stable, leukocytosis persistent n/v persistent unable to tolerate much po diet exam fairly benign Impression: Linear filling defect in the superior mesenteric vein extending into the portal vein. While possibly in inflow artifact from nonopacified blood, suspect that this is a real finding representing thrombus within the superior mesenteric vein and portal vein. This does not appear to be occlusive and there is no bowel wall thickening. This finding was not described on the [facility] preliminary report, was phoned to Dr. Back at the time of interpretation. [facility] was also notified of either website No other abnormality. Evidence of bullous COPD. This is a new finding since the prior 2008 exam Incidental findings of focal fatty change within the liver, small hiatal hernia egd noted iv fluids will follow with exam lovenox/coumadin reglan/zofran push po diet inr thank you (2) Intractable nausea and vomiting Jose Back Sep 13, 2019 14:58
--- NOTE | 2019-09-13 15:34 | Infectious Diseases Prog Note ---
Assessment/Plan Assessment/Plan ASSESSMENT AND PLAN: 1. possible sepsis, sirs, fevers, leukocytosis, ? 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 The patient has history of hypertension. Blood pressure treatment per primary care team. 4. Gastritis. 5. Hiatal hernia. 6. Nausea, vomiting, and abdominal pain. 7. Esophagitis. 8. Allergies are negative. 9. Social history is positive for marijuana use. 10. Family history is noncontributory. 11. MAR was noted. 12. Case was discussed with RN. 13. Continue treatment per primary consultants Subjective Constitutional: Denies: fever HEENT: Denies: congestion Respiratory: Denies: shortness of breath Cardiovascular: Denies: chest pain Gastrointestinal/Abdominal: Reports: nausea, vomiting; Denies: diarrhea Genitourinary: Denies: dysuria, hematuria Neurologic: Denies: headache, numbness Psychiatric: Denies: depression Skin: Denies: rash Hematologic: Denies: bleeding Musculoskeletal: Denies: pain Allergies: Coded Allergies: No Known Allergies (Unverified , 12/08/17) Objective Vital Signs Last 24 Hour Vital Signs Date Time Temp Pulse Resp B/P (MAP) Pulse Ox O2 Delivery O2 Flow Rate FiO2 09/13/19 13:10 60 09/13/19 12:00 97.7 67 20 169/89 (115) 98 09/13/19 11:00 97.3 09/13/19 09:00 Room Air 09/13/19 08:32 97.3 61 20 164/103 (123) 99 09/13/19 04:00 18 09/13/19 00:00 98.7 61 18 145/93 (110) 99 09/12/19 21:00 Room Air 09/12/19 20:00 98.3 66 18 132/92 (105) 99 09/12/19 16:00 98.5 74 20 150/103 (119) 98 Height (Feet): 5 Height (Inches): 10.00 Weight (Pounds): 177 General Appearance: no acute distress HEENT: normocephalic, atraumatic, anicteric, mucous membranes moist Respiratory/Chest: lungs clear, normal breath sounds, no respiratory distress, no accessory muscle use Cardiovascular: normal rate, regular rhythm, no gallop/murmur, no JVD Abdomen: normal bowel sounds, soft, non tender, no organomegaly, non distended Genitourinary: other - no plascencia Extremities: no cyanosis Skin: no rash Neurologic/Psychiatric: valve fitter II-XII grossly normal, alert, oriented x 3, responsive Lymphatic: no neck adenopathy Musculoskeletal: no effusion Objective CT scan of abdomen and pelvis: Impression: Linear filling defect in the superior mesenteric vein extending into the portal vein. While possibly in inflow artifact from nonopacified blood, suspect that this is a real finding representing thrombus within the superior mesenteric vein and portal vein. This does not appear to be occlusive and there is no bowel wall thickening. This finding was not described on the [facility] preliminary report, was phoned to Dr. Back at the time of interpretation. [employer] was also notified of either website No other abnormality. Evidence of bullous COPD. This is a new finding since the pr Microbiology Date/Time Source Procedure Growth Status 09/09/19 16:15 Blood Blood Culture - Preliminary NO GROWTH AFTER 72 HOURS Resulted Laboratory Tests Test 09/13/19 05:00 09/13/19 08:50 09/13/19 10:30 White Blood Count 11.5 K/UL (4.8-10.8) H Red Blood Count 4.33 M/UL (4.70-6.10) L Hemoglobin 12.6 G/DL (14.2-18.0) L Hematocrit 37.4 % (42.0-52.0) L Mean Corpuscular Volume 86 FL (80-99) Mean Corpuscular Hemoglobin 29.2 PG (27.0-31.0) Mean Corpuscular Hemoglobin Concent 33.8 G/DL (32.0-36.0) Red Cell Distribution Width 11.3 % (11.6-14.8) L Platelet Count 357 K/UL (150-450) Mean Platelet Volume 4.7 FL (6.5-10.1) L Neutrophils (%) (Auto) 64.9 % (45.0-75.0) Lymphocytes (%) (Auto) 19.9 % (20.0-45.0) L Monocytes (%) (Auto) 11.6 % (1.0-10.0) H Eosinophils (%) (Auto) 2.3 % (0.0-3.0) Basophils (%) (Auto) 1.3 % (0.0-2.0) Prothrombin Time 19.3 SEC (9.30-11.50) H Prothromb Time International Ratio 1.9 (0.9-1.1) H Sodium Level 143 MMOL/L (136-145) Potassium Level 3.5 MMOL/L (3.5-5.1) Chloride Level 110 MMOL/L (98-107) H Carbon Dioxide Level 27 MMOL/L (21-32) Anion Gap 6 mmol/L (5-15) Blood Urea Nitrogen 4 mg/dL (7-18) L Creatinine 1.6 MG/DL (0.55-1.30) H Estimat Glomerular Filtration Rate 56.5 mL/min (>60) Glucose Level 109 MG/DL (74-106) H Hemoglobin A1c 6.1 % (4.3-6.0) H Uric Acid 2.2 MG/DL (2.6-7.2) L Calcium Level 8.1 MG/DL (8.5-10.1) L Phosphorus Level 2.7 MG/DL (2.5-4.9) Magnesium Level 1.8 MG/DL (1.8-2.4) Iron Level 46 ug/dL (50-175) L Total Iron Binding Capacity 187 ug/dL (250-450) L Percent Iron Saturation 25 % (15-50) Unsaturated Iron Binding 141 ug/dL (112-346) Ferritin 125 NG/ML (8-388) Total Bilirubin 0.2 MG/DL (0.2-1.0) Aspartate Amino Transf (AST/SGOT) 17 U/L (15-37) Alanine Aminotransferase (ALT/SGPT) 24 U/L (12-78) Alkaline Phosphatase 53 U/L (46-116) Total Protein 5.9 G/DL (6.4-8.2) L Albumin 2.7 G/DL (3.4-5.0) L Globulin 3.2 g/dL Albumin/Globulin Ratio 0.8 (1.0-2.7) L Triglycerides Level 75 MG/DL (30-150) Cholesterol Level 89 MG/DL (< 200) LDL Cholesterol 45 mg/dL (<100) HDL Cholesterol 31 MG/DL (40-60) L Cholesterol/HDL Ratio 2.9 (3.3-4.4) L Vitamin B12 Level 403 PG/ML (193-986) Folate 9.0 NG/ML (8.6-58.9) Arterial Blood pH 7.466 (7.350-7.450) Arterial Blood Partial Pressure CO2 29.6 mmHg (35.0-45.0) L Arterial Blood Partial Pressure O2 92.4 mmHg (75.0-100.0) Arterial Blood HCO3 20.9 mmol/L (22.0-26.0) L Arterial Blood Oxygen Saturation 97.3 % (95-100) Arterial Blood Base Excess -1.7 (-2-2) Pavel Test Positive Troponin I 0.000 ng/mL (0.000-0.056) Current Medications Medications (Trade) Dose Ordered Sig/Toni Route PRN Reason Start Time Stop Time Status Last Admin Dose Admin Acetaminophen (Tylenol) 650 mg Q4H PRN ORAL Mild Pain (Pain Scale 1-3) 09/13/19 11:00 10/05/19 10:59 Amlodipine Besylate (Norvasc) 5 mg BID ORAL 09/13/19 18:00 10/09/19 13:03 Dextrose (Dextrose 50%) 25 ml Q30M PRN IV Hypoglycemia 09/13/19 10:30 10/05/19 01:29 Dextrose (Dextrose 50%) 50 ml Q30M PRN IV Hypoglycemia 09/13/19 10:30 10/05/19 01:29 Dextrose/Lactated Ringer's 1,000 ml @ 100 mls/hr Q10H IV 09/13/19 13:00 10/13/19 12:59 09/13/19 12:04 Hydralazine HCl (Apresoline) 10 mg Q4H PRN IV bp over 160 syst 09/13/19 10:30 10/13/19 10:29 Hydralazine HCl (Apresoline) 25 mg Q8HR ORAL 09/13/19 14:45 10/13/19 14:44 Hydromorphone HCl (Dilaudid) 0.5 mg Q4H PRN IVP Severe Pain (Pain Scale 7-10) 09/13/19 10:45 09/20/19 10:44 09/13/19 10:53 Metoclopramide HCl (Reglan) 10 mg Q6H IVP 09/13/19 12:15 10/07/19 12:14 09/13/19 11:57 Pantoprazole (Protonix) 40 mg EVERY 12 HOURS IVP 09/13/19 10:30 10/13/19 10:29 09/13/19 11:57 Piperacillin Sod/ Tazobactam Sod 3.375 gm/Sodium Chloride 110 ml @ 27.5 mls/hr EVERY 8 HOURS IVPB 09/13/19 14:00 09/16/19 21:59 09/13/19 14:56 Prochlorperazine (Compazine) 10 mg Q6H PRN IVP Breakthru Nausea & Vomiting 09/13/19 12:45 10/05/19 12:32 09/13/19 14:58 Sucralfate (Carafate) 1 gm FOUR TIMES A DAY ORAL 09/13/19 13:00 10/08/19 12:59 09/13/19 13:33 Tamsulosin HCl (Flomax) 0.4 mg BEDTIME ORAL 09/13/19 21:00 10/13/19 20:59 Warfarin Sodium (Coumadin per pharmacy) 1 ea DAILY PRN MISC . 09/13/19 10:30 10/13/19 10:29 Warfarin Sodium (Coumadin) 4 mg COUMADIN ONCE PO 09/13/19 17:00 09/13/19 17:01 Shahzad Nath MD Sep 13, 2019 15:33
[2019-09-13] MEDS ORDERED: Metoclopramide 10mg/2ml Inj IVP SCH (16:30)
--- NOTE | 2019-09-13 16:30 | NUR ---
NURSE NOTES: post voiding residual done as ordered = 93 ML. will follow.
[2019-09-13] MEDS ORDERED: Warfarin Sodium 4mg PO ONE ×2 (17:00)
--- NOTE | 2019-09-13 17:32 | General Progress Note ---
Assessment/Plan Problem List: (1) Superior mesenteric vein thrombosis SNOMED: 715583446 (2) Cyclic vomiting syndrome ICD Codes: R11.15 - Cyclical vomiting syndrome unrelated to migraine SNOMED: 16279847 (3) Intractable abdominal pain ICD Codes: R10.9 - Unspecified abdominal pain SNOMED: 18693103 (4) Intractable nausea and vomiting ICD Codes: R11.2 - Nausea with vomiting, unspecified SNOMED: 825626395 (5) Marijuana abuse ICD Codes: F12.10 - Cannabis abuse, uncomplicated SNOMED: 85275188 (6) Gastritis ICD Codes: K29.70 - Gastritis, unspecified, without bleeding SNOMED: 8383534 (7) Essential hypertension ICD Codes: I10 - Essential (primary) hypertension SNOMED: 79198314 (8) Esophagitis ICD Codes: K20.9 - Esophagitis, unspecified SNOMED: 26827837 (9) Hypomagnesemia ICD Codes: E83.42 - Hypomagnesemia SNOMED: 934291590 (10) Hypokalemia ICD Codes: E87.6 - Hypokalemia SNOMED: 61777818 (11) Bacteremia ICD Codes: R78.81 - Bacteremia SNOMED: 9557536 (12) Acute kidney injury ICD Codes: N17.9 - Acute kidney failure, unspecified SNOMED: 8109489, 40380269 Status: progressing, unchanged Assessment/Plan: 48-year-old male with past medical history of cannabis use, presenting with acute epigastric/left upper quadrant abdominal pain and persistent intractable nausea vomiting. Found to have acute SMV thrombus. #Superior Mesenteric Vein Thrombus on anticoagulation, goal INR 2-3. # Abdominal pain, epigastric/left upper quadrant/nonradiating suspected 2/2 acute SMV thrombus -improving > Doubt ACS given negative troponin. Doubt pancreatitis given normal lipase. Component of gastritis? Cyclic vomiting syndrome? #Leukocytosis, reactive vs. infectious. With a slight increase today, possibly reactive. Patient with no other infectious symptoms. #hypokalemia due to vomiting #Distal esophagitis #Gastritis > CT abdomen pelvis with contrast given persistent abdominal pain - SMV thrombus. Discussed with radiologist Dr. Laguna and appears acute. > RUQ abdominal ultrasound to rule out acute oli - negative > AFP, CEA, CA 19-9 all negative > EGD 09/08/2019 showed esophagitis and gastritis. Pathology negative - Supportive care with IVF. D5 LR at 100 cc/hr -Discontinue heparin drip (09/07 - 09/09/19) -Started warfarin per pharmacy 09/09/19, bridge with lovenox 1mg/kg Q12hr - Lovenox discontinued on 09/12/19 per heme/onc given INR >2 -Plan for at least 3 months of anticoagulation. -Continue Zosyn 3.375 g every 8 hours IV for possible gut translocation (09/07 - ) day 6 of 7 days. -Appreciate GI recommendations: Dr. Zabala -Appreciate general surgery recommendations: Dr. Back - Appreciate hematology oncology recommendations: Dr. Gant -Zofran 4 mg IV every 6 hours (QTC 435 on 09/13/19) - Reglan 10mg IV q6hr - Compazine 10mg IV Q6hr PRN -Continue to monitor QTC QOD -Protonix 40mg IV daily -Follow electrolytes and replete PRN -Repeat KUB given persistent abdominal pain 09/13/19 - negative #Syncopal event on 09/13/19, suspect vasovagal from vomiting. Doubt AL, PE. #left hip pain s/p fall >Negative troponin > CT head negative > left hip xrays negative -Continue to monitor on telemetry for 24 hours -Repeat chest x-ray - negative #Acute kidney injury. Suspect pre-renal from vomiting and not eating > however feNA borderline at 1.1% > Renal ultrasound showed perinephric inflammation. No hydronephrosis -IV fluids as above -Continue to check postvoid residuals -Avoid nephrotoxins -Given creatinine still has not improved with IV hydration will get nephrology consult #Staph Hominis bacteremia, suspect contaminant - Vancomycin per pharmacy (09/08 - 09/11) -Follow-up surveillance blood cultures - no growth to date -Appreciate infectious disease recommendations: Dr. Casanova #Essential hypertension, continues to be slightly elevated likely secondary to nausea and vomiting -Continue amlodipine 5 mg p.o. daily. Will adjust if persistently elevated and vomiting under control -Hydralazine 25 mg p.o. every 6 hours as needed # Cannabis use - Counselling provided - follow up as needed #Hypokalemia #hypomagnesemia - replete PRN FENPPX DVTPPX: Warfarin GI PPX: protonix Fluids: D5 LR @100 cc/hr Diet: CLD, advance as tolerated, Lines: peripheral PT/OT: pending Code status: Full code Dispo: Home after acute issues resolved Reason for continued hospitalization: Acute SMV thrombus, intractable Nausea/ vomiting 37 minutes spent on this encounter. Discussed with patient. > 50% spent on counseling and care coordination. Time of note may not reflect time patient was seen. Subjective Date patient seen: Sep 13, 2019 Constitutional: Reports: other; Denies: chills, diaphoresis, fever, malaise, weakness HEENT: Denies: eye pain, blurred vision, tearing, double vision, ear pain, ear discharge, nose pain, nose congestion, throat pain, throat swelling, mouth pain , mouth swelling, other Cardiovascular: Denies: chest pain, edema, irregular heart rate, lightheadedness, palpitations, syncope, other Respiratory: Denies: cough, orthopnea, shortness of breath, SOB with excertion , SOB at rest, sputum, stridor, wheezing, other Gastrointestinal/Abdominal: Denies: abdomen distended, abdominal pain, black stools, tarry stools, blood in stool, constipated, diarrhea, difficulty swallowing, nausea, poor appetite, poor fluid intake, rectal bleeding, vomiting , other Genitourinary: Denies: burning, discharge, frequency, flank pain, hematuria, incontinence, pain, urgency, other Neurologic/Psychiatric: Denies: anxiety, depressed, emotional problems, headache, numbness, paresthesia, pre-existing deficit, seizure, tingling, tremors, weakness, other Endocrine: Denies: excessive sweating, flushing, intolerance to cold, intolerance to heat, increased hunger, increased thirst, increased urine, unexplained weight gain, unexplained weight loss, other Hematologic/Lymphatic: Denies: anemia, easy bleeding, easy bruising, other Allergies: Coded Allergies: No Known Allergies (Unverified , 12/08/17) Subjective No acute events overnight per nursing. This morning the patient was found down in the bathroom. He states that he had gotten up to use the restroom and then does not remember what happened. He lost consciousness. He had some left hip pain after the fall but otherwise no other pain. No other lesions or cuts noticed. A rapid response was called and the patient was transferred to telemetry. Patient continues to complain of persistent nausea and vomiting. No hematochezia. He states that the abdominal pain is worse today. Still not able to eat though. No signs of any hematemesis or other bleeding. Denies any chest pain, fever, chills, shortness of breath. Objective Last 24 Hour Vital Signs Date Time Temp Pulse Resp B/P (MAP) Pulse Ox O2 Delivery O2 Flow Rate FiO2 09/13/19 16:42 98.7 09/13/19 16:30 59 09/13/19 16:00 98.7 55 20 168/89 (115) 98 09/13/19 13:10 60 09/13/19 12:00 97.7 67 20 169/89 (115) 98 09/13/19 09:30 98.6 60 20 166/98 (120) 100 09/13/19 09:00 Room Air 09/13/19 08:32 97.3 61 20 164/103 (123) 99 09/13/19 04:00 18 09/13/19 00:00 98.7 61 18 145/93 (110) 99 09/12/19 21:00 Room Air 09/12/19 20:00 98.3 66 18 132/92 (105) 99 Intake and Output 09/12/19 09/13/19 19:00 07:00 Intake Total 1750 ml Output Total 800 ml 1400 ml Balance -800 ml 350 ml Intake Oral 550 ml IV Total 1200 ml Output Urine Total 800 ml 1400 ml Laboratory Tests 09/13/19 05:00: White Blood Count 11.5H, Red Blood Count 4.33L, Hemoglobin 12.6L, Hematocrit 37.4L, Mean Corpuscular Volume 86, Mean Corpuscular Hemoglobin 29.2, Mean Corpuscular Hemoglobin Concent 33.8, Red Cell Distribution Width 11.3L, Platelet Count 357, Mean Platelet Volume 4.7L, Neutrophils (%) (Auto) 64.9, Lymphocytes (%) (Auto) 19.9L, Monocytes (%) (Auto) 11.6H, Eosinophils (%) (Auto ) 2.3, Basophils (%) (Auto) 1.3, Prothrombin Time 19.3H, Prothromb Time International Ratio 1.9H, Sodium Level 143, Potassium Level 3.5, Chloride Level 110H, Carbon Dioxide Level 27, Anion Gap 6, Blood Urea Nitrogen 4L, Creatinine 1.6H, Estimat Glomerular Filtration Rate 56.5, Glucose Level 109H, Hemoglobin A1c 6.1H, Uric Acid 2.2L, Calcium Level 8.1L, Phosphorus Level 2.7, Magnesium Level 1.8, Iron Level 46L, Total Iron Binding Capacity 187L, Percent Iron Saturation 25, Unsaturated Iron Binding 141, Ferritin 125, Total Bilirubin 0.2, Aspartate Amino Transf (AST/SGOT) 17, Alanine Aminotransferase (ALT/SGPT) 24, Alkaline Phosphatase 53, Total Protein 5.9L, Albumin 2.7L, Globulin 3.2, Albumin /Globulin Ratio 0.8L, Triglycerides Level 75, Cholesterol Level 89, LDL Cholesterol 45, HDL Cholesterol 31L, Cholesterol/HDL Ratio 2.9L, Vitamin B12 Level 403, Folate 9.0 09/13/19 08:50: Arterial Blood pH 7.466H, Arterial Blood Partial Pressure CO2 29.6L, Arterial Blood Partial Pressure O2 92.4, Arterial Blood HCO3 20.9L, Arterial Blood Oxygen Saturation 97.3, Arterial Blood Base Excess -1.7, Pavel Test Positive 09/13/19 10:30: Troponin I 0.000 Height (Feet): 5 Height (Inches): 10.00 Weight (Pounds): 177 General Appearance: WD/WN, no apparent distress, lethargic, mild distress EENT: PERRL/EOMI, normal ENT inspection Neck: non-tender, normal alignment, supple Cardiovascular: normal peripheral pulses, normal rate, regular rhythm, no JVD Respiratory/Chest: chest wall non-tender, lungs clear, normal breath sounds Abdomen: other - Nondistended, soft, with tenderness to palpation of the epigastric region. 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 Skin: normal pigmentation, warm/dry Sea Partida D.O. Sep 13, 2019 17:31
--- NOTE | 2019-09-13 19:40 | NUR ---
NURSE NOTES: Received pt and report from SHOLA Sarah. Observed pt asleep in bed with both eyes closed; arousable to voice. Pt is A/Ox4. nuclear monitoring technician is in placed; pt is NSR, IV site intact, asymptomatic, and patent currently running D5 Lactated Ringers @ 100cc/hr. Bed is in the lowest position and locked. Call light within reach. No signs/symptoms of acute distress noted at this time. Will continue plan of care.
--- NOTE | 2019-09-13 19:49 | NUR ---
HAND-OFF: Report given to Sandra Yeager.Patient stable. Plan of care endorsed.
[2019-09-13] MEDS ORDERED: Tamsulosin 0.4mg cap ORAL SCH (21:00)
[2019-09-14] VITALS: BP 121/77
[2019-09-14] MEDS: Metoclopramide 10mg/2ml Inj IVP SCH ×3 (00:38→11:32)
[2019-09-14] MEDS: Hydromorphone 0.5mg/0.5ml inj IVP PRN ×3 (03:00→20:47)
[2019-09-14 04:00] VITALS: BP 143/93
[2019-09-14] MEDS: Piperacillin/Tazobactam 3.375 GM in NS 110 ML IVPB SCH ×3 (06:03→21:22)
[2019-09-14] MEDS: HydrALAZINE 25mg tab ORAL SCH ×3 (06:04→21:22)
[2019-09-14 07:29] LABS: BASOPHILS % (AUTO) 0.6 % (0.0-2.0); EOSINOPHILS % (AUTO) 1.4 % (0.0-3.0); HEMATOCRIT 37.9 % (42.0-52.0); LYMPHOCYTES % (AUTO) 14.2 % (20.0-45.0); MEAN CORPUSCULAR VOLUME 86 FL (80-99); MONOCYTES % (AUTO) 10.9 % (1.0-10.0); NEUTROPHILS % (AUTO) 72.9 % (45.0-75.0); PLATELET COUNT 384 K/UL (150-450); RED BLOOD COUNT 4.43 M/UL (4.70-6.10); RED CELL DISTRIBUTION WIDTH 11.5 % (11.6-14.8); WHITE BLOOD COUNT 13.9 K/UL (4.8-10.8)
--- NOTE | 2019-09-14 07:32 | NUR ---
NURSE NOTES: Report received from SHOLA Yeager. Patient is lying comfortably in semi-fowlers with no signs of distress. A+Ox4, denies pain/SOB. Respirations are even and unlabored on room air. IV site is intact and running fluids @ prescribed rate. Feng in place, patent, and draining at foot of bed. Dr. Espinoza ordered q6hr bladder scan. Will perform during morning medications. Bed is at lowest position, brakes engaged, siderails x2, bed alarm on, and call light within reach. Pt is in stable condition; will continue to monitor. Addendum: 09/14/19 at 0806 by LINDA NUNEZ RN PATIENT DOES NOT HAVE FENG/wrong patient
[2019-09-14 07:37] LABS: INR 3.1 (0.9-1.1)
--- NOTE | 2019-09-14 07:43 | General Progress Note ---
Assessment/Plan Status: progressing, unchanged Assessment/Plan: GI: Plan Problems: (1) Dehydration (2) Intractable nausea and vomiting (3) Cyclic vomiting syndrome (4) Marijuana abuse (5) Intractable abdominal pain (6) Fatty liver (7) Hiatal hernia Plan Intractable nausea and vomiting most likely secondary due to cyclic vomiting syndrome Electrolyte correction Zofran as needed, Reglan for persistent vomiting. PPI s/p EGD on reg diet fu ID recs Subjective ROS Limited/Unobtainable: Yes Allergies: Coded Allergies: No Known Allergies (Unverified , 12/08/17) Objective Last 24 Hour Vital Signs Date Time Temp Pulse Resp B/P (MAP) Pulse Ox O2 Delivery O2 Flow Rate FiO2 09/14/19 06:04 156/92 09/14/19 04:00 70 09/14/19 04:00 98.1 64 18 143/93 (110) 98 09/14/19 00:00 98.2 69 19 121/77 (92) 99 09/14/19 00:00 67 09/13/19 22:26 142/86 09/13/19 21:00 Room Air 09/13/19 20:00 99.4 69 20 142/86 (104) 98 09/13/19 20:00 97 09/13/19 18:53 68 136/61 (86) 09/13/19 18:06 168/89 09/13/19 18:00 59 168/89 09/13/19 16:42 98.7 09/13/19 16:30 59 09/13/19 16:00 98.7 55 20 168/89 (115) 98 09/13/19 13:10 60 09/13/19 12:00 97.7 67 20 169/89 (115) 98 09/13/19 09:30 98.6 60 20 166/98 (120) 100 09/13/19 09:00 Room Air 09/13/19 08:32 97.3 61 20 164/103 (123) 99 Intake and Output 09/13/19 09/14/19 18:59 06:59 Intake Total 440 ml 460 ml Output Total 300 ml 1300 ml Balance 140 ml -840 ml Intake Oral 240 ml 460 ml IV Total 200 ml Output Urine Total 300 ml 1300 ml Bladder Scan Volume Amount 76-100 ml 101-150 ml # Voids 1 3 Laboratory Tests 09/13/19 08:50: Arterial Blood pH 7.466H, Arterial Blood Partial Pressure CO2 29.6L, Arterial Blood Partial Pressure O2 92.4, Arterial Blood HCO3 20.9L, Arterial Blood Oxygen Saturation 97.3, Arterial Blood Base Excess -1.7, Pavel Test Positive 09/13/19 10:30: Troponin I 0.000 09/14/19 06:50: White Blood Count 13.9H, Red Blood Count 4.43L, Hemoglobin 13.0L, Hematocrit 37.9L, Mean Corpuscular Volume 86, Mean Corpuscular Hemoglobin 29.3, Mean Corpuscular Hemoglobin Concent 34.2, Red Cell Distribution Width 11.5L, Platelet Count 384, Mean Platelet Volume 4.8L, Neutrophils (%) (Auto) 72.9, Lymphocytes (%) (Auto) 14.2L, Monocytes (%) (Auto) 10.9H, Eosinophils (%) (Auto ) 1.4, Basophils (%) (Auto) 0.6, Prothrombin Time 31.0H, Prothromb Time International Ratio 3.1H, Sodium Level [Pending], Potassium Level [Pending], Chloride Level [Pending], Carbon Dioxide Level [Pending], Blood Urea Nitrogen [ Pending], Creatinine [Pending], Estimat Glomerular Filtration Rate [Pending], Glucose Level [Pending], Uric Acid [Pending], Calcium Level [Pending], Phosphorus Level [Pending], Magnesium Level [Pending], Total Bilirubin [Pending] , Aspartate Amino Transf (AST/SGOT) [Pending], Alanine Aminotransferase (ALT/ SGPT) [Pending], Alkaline Phosphatase [Pending], Total Creatine Kinase [Pending] , Total Protein [Pending], Albumin [Pending], Globulin [Pending] Height (Feet): 5 Height (Inches): 10.00 Weight (Pounds): 177 General Appearance: alert EENT: normal ENT inspection Neck: supple Cardiovascular: normal rate Respiratory/Chest: decreased breath sounds Abdomen: normal bowel sounds, non tender, soft Extremities: non-tender Ashok Zabala MD Sep 14, 2019 07:43
[2019-09-14 07:53] LABS: ALANINE AMINOTRANSFERASE 28 U/L (12-78); ALBUMIN 2.7 G/DL (3.4-5.0); ALBUMIN/GLOBULIN RATIO 0.8 (1.0-2.7); ALKALINE PHOSPHATASE 57 U/L (46-116); ANION GAP 8 mmol/L (5-15); ASPARTATE AMINO TRANSFERASE 18 U/L (15-37); BILIRUBIN,TOTAL 0.3 MG/DL (0.2-1.0); BLOOD UREA NITROGEN 3 mg/dL (7-18); CALCIUM 8.2 MG/DL (8.5-10.1); CARBON DIOXIDE 28 MMOL/L (21-32); CHLORIDE 104 MMOL/L (98-107); CREATINE KINASE 191 U/L (26-308); CREATININE 1.4 MG/DL (0.55-1.30); PHOSPHORUS 2.9 MG/DL (2.5-4.9); POTASSIUM 2.9 MMOL/L (3.5-5.1); SODIUM 140 MMOL/L (136-145)
--- NOTE | 2019-09-14 07:58 | NUR ---
HAND-OFF: Report given to SHOLA Warren. Plan of care endorsed.
[2019-09-14 08:00] VITALS: BP 137/90
--- NOTE | 2019-09-14 08:06 | NUR ---
NURSE NOTES: Bladder scan shows 366. Patient says he feels he needs to use the urinal and plans to use it when we leave the room.
--- NOTE | 2019-09-14 08:13 | NUR ---
NURSE NOTES: Made Dr. Espinoza aware of potassium and magnesium levels. He said he will order replacements.
--- NOTE | 2019-09-14 08:32 | NUR ---
NURSE NOTES: POST VOID BLADDER SCAN SHOWED A RESIDUAL OF 36ML.
[2019-09-14] MEDS: Sucralfate 1gm tab ORAL SCH ×4 (08:49→21:22)
[2019-09-14] MEDS: Pantoprazole Inj IVP SCH (08:50)
[2019-09-14] MEDS: Dextrose 5%/Lactated Ringer's 1,000 ML IV SCH (08:50)
--- NOTE | 2019-09-14 10:29 | NUR ---
RD ASSESSMENT & RECOMMENDATIONS SEE CARE ACTIVITY FOR COMPLETE ASSESSMENT DAILY ESTIMATED NEEDS: Needs based on TRISTAN/ 68kg 25-30 kcals/kg 0631-3418 total kcals 1-1.3 g protein/kg 68-88 g total protein 25-30 mL/kg 3355-6179 total fluid mLs NUTRITION DIAGNOSIS: Altered GI function R/T gastritis, esophagitis, h/o marijuana abuse as evidenced by c/o abdominal pain, N/V, +tox screen for marijuana upon admit, diet downgraded to CLD-> now full liquid. CURRENT DIET:CLEAR LIQUID DIET-> now orders for full liquid PO DIET RECOMMENDATIONS: Advance diet as tolerated to [facility] ADDITIONAL RECOMMENDATIONS: * Standing weight for accurate CBW * Ensure Clear TID while on CLD-> now on full. Rec Glucerna * Monitor PO tolerance and acceptance: denies N/V this AM (09/14) * Monitor lytes, replete as needed (low K, mg) * Monitor renal fxn- creat trending down (wnl -> 1.4)
[2019-09-14 12:00] VITALS: BP 138/99
[2019-09-14] MEDS ORDERED: Metoclopramide 10mg/2ml Inj IVP PRN ×2 (12:29→15:37)
--- NOTE | 2019-09-14 12:31 | Nephrology Progress Note ---
Assessment/Plan Problem List: (1) Acute kidney injury (2) Superior mesenteric vein thrombosis (3) Essential hypertension (4) Dehydration (5) Intractable nausea and vomiting (6) Marijuana abuse Assessment Renal failure : Acute on Chronic Cyclical Vomiting / Cannabis abuse Dehydration Electrolyte imbalance HTN Superior Mesentric vein thrombosis Gastritis / Esophagitis Plan full liquid Protonix to po Reglan to po BP control preliminary orders given more note to follow Subjective ROS Limited/Unobtainable: No Constitutional: Reports: malaise Objective Objective Last 24 Hour Vital Signs Date Time Temp Pulse Resp B/P (MAP) Pulse Ox O2 Delivery O2 Flow Rate FiO2 09/14/19 09:00 Room Air 09/14/19 08:51 78 137/90 09/14/19 08:00 97.3 78 18 137/90 (106) 95 09/14/19 08:00 89 09/14/19 06:04 156/92 09/14/19 04:00 70 09/14/19 04:00 98.1 64 18 143/93 (110) 98 09/14/19 00:00 98.2 69 19 121/77 (92) 99 09/14/19 00:00 67 09/13/19 22:26 142/86 09/13/19 21:00 Room Air 09/13/19 20:00 99.4 69 20 142/86 (104) 98 09/13/19 20:00 97 09/13/19 18:53 68 136/61 (86) 09/13/19 18:06 168/89 09/13/19 18:00 59 168/89 09/13/19 16:42 98.7 09/13/19 16:30 59 09/13/19 16:00 98.7 55 20 168/89 (115) 98 09/13/19 13:10 60 Intake and Output 09/13/19 09/14/19 19:00 07:00 Intake Total 440 ml 460 ml Output Total 300 ml 1300 ml Balance 140 ml -840 ml Intake Oral 240 ml 460 ml IV Total 200 ml Output Urine Total 300 ml 1300 ml Bladder Scan Volume Amount 76-100 ml 101-150 ml # Voids 1 3 Laboratory Tests 09/14/19 06:50: White Blood Count 13.9H, Red Blood Count 4.43L, Hemoglobin 13.0L, Hematocrit 37.9L, Mean Corpuscular Volume 86, Mean Corpuscular Hemoglobin 29.3, Mean Corpuscular Hemoglobin Concent 34.2, Red Cell Distribution Width 11.5L, Platelet Count 384, Mean Platelet Volume 4.8L, Neutrophils (%) (Auto) 72.9, Lymphocytes (%) (Auto) 14.2L, Monocytes (%) (Auto) 10.9H, Eosinophils (%) (Auto ) 1.4, Basophils (%) (Auto) 0.6, Prothrombin Time 31.0H, Prothromb Time International Ratio 3.1H, Sodium Level 140, Potassium Level 2.9L, Chloride Level 104, Carbon Dioxide Level 28, Anion Gap 8, Blood Urea Nitrogen 3L, Creatinine 1.4H, Estimat Glomerular Filtration Rate > 60, Glucose Level 93, Uric Acid 2.0L, Calcium Level 8.2L, Phosphorus Level 2.9, Magnesium Level 1.6L, Total Bilirubin 0.3, Aspartate Amino Transf (AST/SGOT) 18, Alanine Aminotransferase (ALT/SGPT) 28, Alkaline Phosphatase 57, Total Creatine Kinase 191, Total Protein 6.1L, Albumin 2.7L, Globulin 3.4, Albumin/Globulin Ratio 0.8L Height (Feet): 5 Height (Inches): 10.00 Weight (Pounds): 177 General Appearance: no apparent distress Cardiovascular: normal rate Respiratory/Chest: lungs clear Abdomen: distended Santi Craig MD Sep 14, 2019 12:31
--- NOTE | 2019-09-14 13:18 | NUR ---
*-* INSURANCE *--* ALL AVAILABLE CLINICALS HAVE BEEN FAXED TO: [facility] TR[facility]#[id number] NO CM YET PH#[phone] FAX#[phone] REVIEWS/CLINICALS Addendum: 09/14/19 at 1339 by AMPARO MCNULTY CALLED [facility] SPOKE TO [place] SHE STATES THAT MEDICAL IS THE ONE WHO WILL BE AUTHORIZING AND RECEIVING CLINICALS [phone] SHE TRANSFERRED ME TO [facility] WHO STATES SHE DOES NOT HAVE ACCESS TO THAT INFORMATION ,SHE THEN TRANSFERED ME TO CASE MANAGEMENT HOTLINE [phone] AFTER BEING ON THE PHONE WITH HER FOR 35MIN SHE HAS NOT TX ME AFTER BEING ON HOLD FOR 20 MIN AN ASWERING MACHINE GAVE ANOTHER NUMBER TO CALL [phone] I CALLED THAT NUMBER AND AN ANSWTruli MACHINE PICKS UP AND THEN HANGS UP. UNABLE TO CONTACT ANYONE..... I WAS ON THE PHONE FOR MORE THAN 1 HOUR
--- NOTE | 2019-09-14 14:38 | NUR ---
NURSE NOTES: Made Dr. Espinoza aware of patient's last four post void residuals. He said okay to DC bladder scans q6hr
--- NOTE | 2019-09-14 14:48 | General Progress Note ---
Assessment/Plan Problem List: (1) Superior mesenteric vein thrombosis SNOMED: 728049915 (2) Cyclic vomiting syndrome ICD Codes: R11.15 - Cyclical vomiting syndrome unrelated to migraine SNOMED: 17590769 (3) Intractable abdominal pain ICD Codes: R10.9 - Unspecified abdominal pain SNOMED: 94878235 (4) Intractable nausea and vomiting ICD Codes: R11.2 - Nausea with vomiting, unspecified SNOMED: 058375636 (5) Marijuana abuse ICD Codes: F12.10 - Cannabis abuse, uncomplicated SNOMED: 33864949 (6) Gastritis ICD Codes: K29.70 - Gastritis, unspecified, without bleeding SNOMED: 8875863 (7) Essential hypertension ICD Codes: I10 - Essential (primary) hypertension SNOMED: 97356336 (8) Esophagitis ICD Codes: K20.9 - Esophagitis, unspecified SNOMED: 72323332 (9) Hypomagnesemia ICD Codes: E83.42 - Hypomagnesemia SNOMED: 629989908 (10) Hypokalemia ICD Codes: E87.6 - Hypokalemia SNOMED: 28417456 (11) Bacteremia ICD Codes: R78.81 - Bacteremia SNOMED: 0463605 (12) Acute kidney injury ICD Codes: N17.9 - Acute kidney failure, unspecified SNOMED: 2529521, 33196566 Status: progressing, unchanged Assessment/Plan: 48-year-old male with past medical history of cannabis use, presenting with acute epigastric/left upper quadrant abdominal pain and persistent intractable nausea vomiting. Found to have acute SMV thrombus. #Superior Mesenteric Vein Thrombus on anticoagulation, goal INR 2-3. # Abdominal pain, epigastric/left upper quadrant/nonradiating suspected 2/2 acute SMV thrombus -improving > Doubt ACS given negative troponin. Doubt pancreatitis given normal lipase. Component of gastritis? Cyclic vomiting syndrome? #Leukocytosis, reactive vs. infectious. With a slight increase today, possibly reactive. Patient with no other infectious symptoms. #hypokalemia due to vomiting #Distal esophagitis #Gastritis > CT abdomen pelvis with contrast given persistent abdominal pain - SMV thrombus. Discussed with radiologist Dr. Laguna and appears acute. > RUQ abdominal ultrasound to rule out acute oli - negative > AFP, CEA, CA 19-9 all negative > EGD 09/08/2019 showed esophagitis and gastritis. Pathology negative - Supportive care with IVF. D5 LR at 100 cc/hr -Discontinue heparin drip (09/07 - 09/09/19) -Started warfarin per pharmacy 09/09/19, bridge with lovenox 1mg/kg Q12hr - Lovenox discontinued on 09/12/19 per heme/onc given INR >2 -Plan for at least 3 months of anticoagulation. -Continue Zosyn 3.375 g every 8 hours IV for possible gut translocation (09/07 - ) day 7 of 7 days. -Appreciate GI recommendations: Dr. Zabala -Appreciate general surgery recommendations: Dr. Back - Appreciate hematology oncology recommendations: Dr. Gant -Zofran 4 mg IV every 6 hours (QTC 435 on 09/13/19) - Reglan 10mg IV q6hr - Compazine 10mg IV Q6hr PRN -Continue to monitor QTC QOD -Protonix 40mg IV daily -Follow electrolytes and replete PRN -Repeat KUB given persistent abdominal pain 09/13/19 - negative #Syncopal event on 09/13/19, suspect vasovagal from vomiting. Doubt IA, PE. #left hip pain s/p fall. negative for fx >Negative troponin > CT head negative > left hip xrays negative -Continue to monitor on telemetry for 24 hours -Repeat chest x-ray - negative #Acute kidney injury. Suspect pre-renal from vomiting and not eating - improving > however feNA borderline at 1.1% > Renal ultrasound showed perinephric inflammation. No hydronephrosis -IV fluids as above -Continue to check postvoid residuals -Avoid nephrotoxins -Appreciate nephrology recommendation: Dr. Craig #Staph Hominis bacteremia, suspect contaminant - Vancomycin per pharmacy (09/08 - 09/11) -Follow-up surveillance blood cultures - no growth to date -Appreciate infectious disease recommendations: Dr. Casanova #Essential hypertension, continues to be slightly elevated likely secondary to nausea and vomiting -Continue amlodipine 5 mg p.o. daily. Will adjust if persistently elevated and vomiting under control -Hydralazine 25 mg p.o. every 6 hours as needed # Cannabis use - Counselling provided - SW follow up as needed #Hypokalemia #hypomagnesemia - replete PRN FENPPX DVTPPX: Warfarin GI PPX: protonix Fluids: D5 LR @100 cc/hr Diet: CLD, advance as tolerated, Lines: peripheral PT/OT: pending Code status: Full code Dispo: Home after acute issues resolved Reason for continued hospitalization: Acute SMV thrombus, intractable Nausea/ vomiting 29 minutes spent on this encounter. Discussed with general surgery, RN and patient. > 50% spent on counseling and care coordination. Time of note may not reflect time patient was seen. Subjective Date patient seen: Sep 14, 2019 Constitutional: Denies: chills, diaphoresis, fever, malaise, weakness, other HEENT: Denies: eye pain, blurred vision, tearing, double vision, ear pain, ear discharge, nose pain, nose congestion, throat pain, throat swelling, mouth pain , mouth swelling, other Cardiovascular: Denies: chest pain, edema, irregular heart rate, lightheadedness, palpitations, syncope, other Respiratory: Denies: cough, orthopnea, shortness of breath, SOB with excertion , SOB at rest, sputum, stridor, wheezing, other Gastrointestinal/Abdominal: Reports: nausea; Denies: abdomen distended, abdominal pain, black stools, tarry stools, blood in stool, constipated, diarrhea, difficulty swallowing, poor appetite, poor fluid intake, rectal bleeding, vomiting, other Genitourinary: Denies: burning, discharge, frequency, flank pain, hematuria, incontinence, pain, urgency, other Neurologic/Psychiatric: Denies: anxiety, depressed, emotional problems, headache, numbness, paresthesia, pre-existing deficit, seizure, tingling, tremors, weakness, other Endocrine: Denies: excessive sweating, flushing, intolerance to cold, intolerance to heat, increased hunger, increased thirst, increased urine, unexplained weight gain, unexplained weight loss, other Hematologic/Lymphatic: Denies: anemia, easy bleeding, easy bruising, other Allergies: Coded Allergies: No Known Allergies (Unverified , 12/08/17) Subjective No acute events overnight per nursing. No further syncopal events. The patient did not vomit overnight. Nausea is much better. Has more of an appetite. no signs of any hematemesis or other bleeding. Denies any chest pain , fever, chills, shortness of breath. Objective Last 24 Hour Vital Signs Date Time Temp Pulse Resp B/P (MAP) Pulse Ox O2 Delivery O2 Flow Rate FiO2 09/14/19 13:38 138/99 09/14/19 12:00 69 09/14/19 12:00 97.8 68 20 138/99 (112) 97 09/14/19 09:00 Room Air 09/14/19 08:51 78 137/90 09/14/19 08:00 97.3 78 18 137/90 (106) 95 09/14/19 08:00 89 09/14/19 06:04 156/92 09/14/19 04:00 70 09/14/19 04:00 98.1 64 18 143/93 (110) 98 09/14/19 00:00 98.2 69 19 121/77 (92) 99 09/14/19 00:00 67 09/13/19 22:26 142/86 09/13/19 21:00 Room Air 09/13/19 20:00 99.4 69 20 142/86 (104) 98 09/13/19 20:00 97 09/13/19 18:53 68 136/61 (86) 09/13/19 18:06 168/89 09/13/19 18:00 59 168/89 09/13/19 16:42 98.7 09/13/19 16:30 59 09/13/19 16:00 98.7 55 20 168/89 (115) 98 Intake and Output 09/13/19 09/14/19 19:00 07:00 Intake Total 440 ml 460 ml Output Total 300 ml 1300 ml Balance 140 ml -840 ml Intake Oral 240 ml 460 ml IV Total 200 ml Output Urine Total 300 ml 1300 ml Bladder Scan Volume Amount 76-100 ml 101-150 ml # Voids 1 3 Laboratory Tests 09/14/19 06:50: White Blood Count 13.9H, Red Blood Count 4.43L, Hemoglobin 13.0L, Hematocrit 37.9L, Mean Corpuscular Volume 86, Mean Corpuscular Hemoglobin 29.3, Mean Corpuscular Hemoglobin Concent 34.2, Red Cell Distribution Width 11.5L, Platelet Count 384, Mean Platelet Volume 4.8L, Neutrophils (%) (Auto) 72.9, Lymphocytes (%) (Auto) 14.2L, Monocytes (%) (Auto) 10.9H, Eosinophils (%) (Auto ) 1.4, Basophils (%) (Auto) 0.6, Prothrombin Time 31.0H, Prothromb Time International Ratio 3.1H, Sodium Level 140, Potassium Level 2.9L, Chloride Level 104, Carbon Dioxide Level 28, Anion Gap 8, Blood Urea Nitrogen 3L, Creatinine 1.4H, Estimat Glomerular Filtration Rate > 60, Glucose Level 93, Uric Acid 2.0L, Calcium Level 8.2L, Phosphorus Level 2.9, Magnesium Level 1.6L, Total Bilirubin 0.3, Aspartate Amino Transf (AST/SGOT) 18, Alanine Aminotransferase (ALT/SGPT) 28, Alkaline Phosphatase 57, Total Creatine Kinase 191, C-Reactive Protein, Quantitative 1.1H, Total Protein 6.1L, Albumin 2.7L, Globulin 3.4, Albumin/Globulin Ratio 0.8L Height (Feet): 5 Height (Inches): 10.00 Weight (Pounds): 177 General Appearance: WD/WN, no apparent distress, alert EENT: PERRL/EOMI, normal ENT inspection Neck: non-tender, normal alignment, supple Cardiovascular: normal peripheral pulses, normal rate, regular rhythm, no JVD Respiratory/Chest: chest wall non-tender, lungs clear, normal breath sounds Abdomen: normal bowel sounds, non tender, soft, no organomegaly, no mass Extremities: normal range of motion, non-tender Edema: other - No lower extremity edema bilaterally Neurologic: glass inserter II-XII grossly normal, no motor/sensory deficits, alert, oriented x 3, responsive Skin: normal pigmentation, warm/dry Sea Partida D.O. Sep 14, 2019 14:48
--- NOTE | 2019-09-14 15:14 | Surgery Progress Note ---
Surgery Progress Note Subjective Additional Comments Patient seen and examined bedside. No acute events. States he feels much better. Has not had nausea i or emesis n 24 hours. Labs noted. Exam stable. Is able to tolerate oral diet at this time Objective Last 24 Hour Vital Signs Date Time Temp Pulse Resp B/P (MAP) Pulse Ox O2 Delivery O2 Flow Rate FiO2 09/14/19 13:38 138/99 09/14/19 12:00 69 09/14/19 12:00 97.8 68 20 138/99 (112) 97 09/14/19 09:00 Room Air 09/14/19 08:51 78 137/90 09/14/19 08:00 97.3 78 18 137/90 (106) 95 09/14/19 08:00 89 09/14/19 06:04 156/92 09/14/19 04:00 70 09/14/19 04:00 98.1 64 18 143/93 (110) 98 09/14/19 00:00 98.2 69 19 121/77 (92) 99 09/14/19 00:00 67 09/13/19 22:26 142/86 09/13/19 21:00 Room Air 09/13/19 20:00 99.4 69 20 142/86 (104) 98 09/13/19 20:00 97 09/13/19 18:53 68 136/61 (86) 09/13/19 18:06 168/89 09/13/19 18:00 59 168/89 09/13/19 16:42 98.7 09/13/19 16:30 59 09/13/19 16:00 98.7 55 20 168/89 (115) 98 I&O Intake and Output 09/13/19 09/14/19 19:00 07:00 Intake Total 440 ml 460 ml Output Total 300 ml 1300 ml Balance 140 ml -840 ml Intake Oral 240 ml 460 ml IV Total 200 ml Output Urine Total 300 ml 1300 ml Bladder Scan Volume Amount 76-100 ml 101-150 ml # Voids 1 3 Cardiovascular: RSR Respiratory: clear Abdomen: soft, flat, non-tender, present bowel sounds, non-distended Extremities: no edema, no tenderness, no cyanosis Laboratory Tests Test 09/14/19 06:50 White Blood Count 13.9 K/UL (4.8-10.8) H Red Blood Count 4.43 M/UL (4.70-6.10) L Hemoglobin 13.0 G/DL (14.2-18.0) L Hematocrit 37.9 % (42.0-52.0) L Mean Corpuscular Volume 86 FL (80-99) Mean Corpuscular Hemoglobin 29.3 PG (27.0-31.0) Mean Corpuscular Hemoglobin Concent 34.2 G/DL (32.0-36.0) Red Cell Distribution Width 11.5 % (11.6-14.8) L Platelet Count 384 K/UL (150-450) Mean Platelet Volume 4.8 FL (6.5-10.1) L Neutrophils (%) (Auto) 72.9 % (45.0-75.0) Lymphocytes (%) (Auto) 14.2 % (20.0-45.0) L Monocytes (%) (Auto) 10.9 % (1.0-10.0) H Eosinophils (%) (Auto) 1.4 % (0.0-3.0) Basophils (%) (Auto) 0.6 % (0.0-2.0) Prothrombin Time 31.0 SEC (9.30-11.50) H Prothromb Time International Ratio 3.1 (0.9-1.1) H Sodium Level 140 MMOL/L (136-145) Potassium Level 2.9 MMOL/L (3.5-5.1) L Chloride Level 104 MMOL/L (98-107) Carbon Dioxide Level 28 MMOL/L (21-32) Anion Gap 8 mmol/L (5-15) Blood Urea Nitrogen 3 mg/dL (7-18) L Creatinine 1.4 MG/DL (0.55-1.30) H Estimat Glomerular Filtration Rate > 60 mL/min (>60) Glucose Level 93 MG/DL (74-106) Uric Acid 2.0 MG/DL (2.6-7.2) L Calcium Level 8.2 MG/DL (8.5-10.1) L Phosphorus Level 2.9 MG/DL (2.5-4.9) Magnesium Level 1.6 MG/DL (1.8-2.4) L Total Bilirubin 0.3 MG/DL (0.2-1.0) Aspartate Amino Transf (AST/SGOT) 18 U/L (15-37) Alanine Aminotransferase (ALT/SGPT) 28 U/L (12-78) Alkaline Phosphatase 57 U/L (46-116) Total Creatine Kinase 191 U/L (26-308) C-Reactive Protein, Quantitative 1.1 mg/dL (0.00-0.90) H Total Protein 6.1 G/DL (6.4-8.2) L Albumin 2.7 G/DL (3.4-5.0) L Globulin 3.4 g/dL Albumin/Globulin Ratio 0.8 (1.0-2.7) L Plan Problems: (1) Intractable abdominal pain Assessment & Plan: afebrile, HD stable, leukocytosis persistent n/v persistent unable to tolerate much po diet exam fairly benign Impression: Linear filling defect in the superior mesenteric vein extending into the portal vein. While possibly in inflow artifact from nonopacified blood, suspect that this is a real finding representing thrombus within the superior mesenteric vein and portal vein. This does not appear to be occlusive and there is no bowel wall thickening. This finding was not described on the [facility] preliminary report, was phoned to Dr. Back at the time of interpretation. [facility] was also notified of either website No other abnormality. Evidence of bullous COPD. This is a new finding since the prior 2008 exam Incidental findings of focal fatty change within the liver, small hiatal hernia egd noted iv fluids will follow with exam lovenox/coumadin reglan/zofran push po diet Downgrade to MedSurg discharge planning inr thank you (2) Intractable nausea and vomiting Jose Back Sep 14, 2019 15:14
--- NOTE | 2019-09-14 15:32 | NUR ---
HAND-OFF: Report given to SHOLA Sands. Pt transferred safely to . Patient is in stable condition. Pt belongings verified.
--- NOTE | 2019-09-14 15:33 | NUR ---
NURSE NOTES: Patient is transferred from tele via hospital bed. AAO x 4. Room air. No c/o of pain/distress at this moment. IV on ADENIKE 22g intact and patent, running kcl and zosyn. Family at the bedside. All belongings were accounted for. Orientation on new unit given. Bed in the lowest and locked. Call light within reach. Will continue to monitor
[2019-09-14 16:00] VITALS: BP 147/88
--- NOTE | 2019-09-14 16:50 | Cardiology Report ---
APPROVED REPORT EKG Measurement Heart [id number] [place] [id number] [id number] Sinus bradycardia Otherwise normal ECG
--- NOTE | 2019-09-14 17:02 | Cardiology Report ---
APPROVED REPORT EKG Measurement Heart [id number] MD 144P78 [id number] Normal sinus rhythm Incomplete right bundle branch block Borderline ECG
--- NOTE | 2019-09-14 17:07 | Cardiology Report ---
APPROVED REPORT EKG Measurement Heart [id number] [place] 146P68 [id number] Sinus bradycardia Otherwise normal ECG
--- NOTE | 2019-09-14 17:26 | Hematology/Onc Progress Note ---
Assessment/Plan Assessment/Plan # Acute SMV and portal vein thrombosis -- potential contributor to abdominal pain, epigastric/left upper quadrant/nonradiating suspected 2/2 acute SMV thrombus --> imaging has been reviewed and cw acute process, millicent rad, pcp, surg --> agree with the use of anticoagulation, hep gtt has been started==> now mckenzie to lovenox/coumadin --> minimum of 3 months of anticoag --> will need a workup to r/o malignancy, tumor markers have been ordered --> recommend hypercoag w/u as well, may be done in o/p setting --> gi to access soon with EGD 09/08: esophagitisgastritis --> Agree to continue coumadin --> okay to now hold lonveox --> inr is 1.1-->1.5-->2.4-->3.1 --> inr goal 2-3 # Leukocytosis, reactive vs. infectious. Will rule out infectious etiology. --> trend on abx, zosyn/vanc --> wbc trend 15-->9 --> blood cultures reviewed --> id recs noted # Hypokalemia due to vomiting --> k given as needed, daily --> zofran started q6h --> Compazine as needed for breakthrough nausea # TRISTAN --> cr elevated, may be due to dehydration --> ivf given # Cannabis use --> Counselling provided --> may be contributor to n.v # Dvt ppx now with coumadin po Appreciate consultation and millicent RN. Subjective Constitutional: Denies: no symptoms, chills, fever, malaise, weakness, other Cardiovascular: Denies: no symptoms, chest pain, edema, irregular heart rate, lightheadedness, palpitations, syncope, other Respiratory: Denies: no symptoms, cough, shortness of breath, SOB with excertion, SOB at rest, sputum, wheezing, other Gastrointestinal/Abdominal: Denies: no symptoms, abdomen distended, abdominal pain, black stools, tarry stools, blood in stool, constipated, diarrhea, difficulty swallowing, nausea, poor appetite, poor fluid intake, rectal bleeding , vomiting, other Genitourinary: Denies: no symptoms, burning, discharge, frequency, flank pain, hematuria, incontinence, pain, urgency, other Neurologic/Psychiatric: Denies: no symptoms, anxiety, depressed, emotional problems, headache, numbness, paresthesia, pre-existing deficit, seizure, tingling, tremors, weakness, other Allergies: Coded Allergies: No Known Allergies (Unverified , 12/08/17) Subjective 09/08: no events noted, no bleeding, heparin gtt started yesterday, otherwise feeling better 09/09: egd/colo reviewed, started on love/coumadin and abx 09/10: no events, remains on abx, no bleeding chills, or night sweats 09/11: no events, resting comfortable, cotinuing on anticoag 09/14: no events, no bleeding, no f/c, no major changes Objective Objective Current Medications Medications (Trade) Dose Ordered Sig/Toni Route PRN Reason Start Time Stop Time Status Last Admin Dose Admin Acetaminophen (Tylenol) 650 mg Q4H PRN ORAL Mild Pain (Pain Scale 1-3) 09/14/19 15:36 10/14/19 15:35 Amlodipine Besylate (Norvasc) 5 mg BID ORAL 09/14/19 18:00 10/09/19 13:03 09/14/19 17:09 Dextrose (Dextrose 50%) 25 ml Q30M PRN IV Hypoglycemia 09/14/19 16:00 10/05/19 01:29 Dextrose (Dextrose 50%) 50 ml Q30M PRN IV Hypoglycemia 09/14/19 16:00 10/05/19 01:29 Hydralazine HCl (Apresoline) 25 mg Q8HR ORAL 09/14/19 22:00 10/13/19 14:44 Hydromorphone HCl (Dilaudid) 0.5 mg Q4H PRN IVP Severe Pain (Pain Scale 7-10) 09/14/19 15:37 09/21/19 15:36 Metoclopramide HCl (Reglan) 10 mg Q6H PRN IVP nausea 09/14/19 15:37 10/14/19 15:36 Metoclopramide HCl (Reglan) 10 mg THREE TIMES A DAY ORAL 09/14/19 18:00 10/14/19 12:59 09/14/19 17:09 Pantoprazole (Protonix) 40 mg BID ORAL 09/14/19 18:00 10/15/19 08:59 09/14/19 17:09 Piperacillin Sod/ Tazobactam Sod 3.375 gm/Sodium Chloride 110 ml @ 27.5 mls/hr EVERY 8 HOURS IVPB 09/14/19 22:00 09/16/19 21:59 Potassium Chloride (K-Dur) 40 meq DAILY ORAL 09/15/19 09:00 09/16/19 08:59 Prochlorperazine (Compazine) 10 mg Q6H PRN IVP Breakthru Nausea & Vomiting 09/14/19 15:38 10/14/19 15:37 Sucralfate (Carafate) 1 gm FOUR TIMES A DAY ORAL 09/14/19 18:00 10/08/19 12:59 09/14/19 17:09 Tamsulosin HCl (Flomax) 0.4 mg BEDTIME ORAL 09/14/19 21:00 10/13/19 20:59 Warfarin Sodium (Coumadin per pharmacy) 1 ea DAILY PRN MISC . 09/15/19 09:00 10/13/19 10:29 Last 24 Hour Vital Signs Date Time Temp Pulse Resp B/P (MAP) Pulse Ox O2 Delivery O2 Flow Rate FiO2 09/14/19 17:09 82 147/88 09/14/19 16:00 99.7 82 18 147/88 (107) 97 09/14/19 13:38 138/99 09/14/19 12:00 69 09/14/19 12:00 97.8 68 20 138/99 (112) 97 09/14/19 09:00 Room Air 09/14/19 08:51 78 137/90 09/14/19 08:00 97.3 78 18 137/90 (106) 95 09/14/19 08:00 89 09/14/19 06:04 156/92 09/14/19 04:00 70 09/14/19 04:00 98.1 64 18 143/93 (110) 98 09/14/19 00:00 98.2 69 19 121/77 (92) 99 09/14/19 00:00 67 09/13/19 22:26 142/86 09/13/19 21:00 Room Air 09/13/19 20:00 99.4 69 20 142/86 (104) 98 09/13/19 20:00 97 09/13/19 18:53 68 136/61 (86) 09/13/19 18:06 168/89 09/13/19 18:00 59 168/89 09/13/19 16:42 98.7 09/13/19 16:30 59 09/13/19 16:00 98.7 55 20 168/89 (115) 98 09/13/19 13:10 60 09/13/19 12:00 97.7 67 20 169/89 (115) 98 09/13/19 09:30 98.6 60 20 166/98 (120) 100 09/13/19 09:00 Room Air 09/13/19 08:32 97.3 61 20 164/103 (123) 99 09/13/19 04:00 18 09/13/19 00:00 98.7 61 18 145/93 (110) 99 09/12/19 21:00 Room Air 09/12/19 20:00 98.3 66 18 132/92 (105) 99 Intake and Output 09/13/19 09/14/19 19:00 07:00 Intake Total 440 ml 460 ml Output Total 300 ml 1300 ml Balance 140 ml -840 ml Intake Oral 240 ml 460 ml IV Total 200 ml Output Urine Total 300 ml 1300 ml Bladder Scan Volume Amount 76-100 ml 101-150 ml # Voids 1 3 Labs Test 09/12/19 05:00 09/13/19 05:00 09/13/19 08:50 09/13/19 10:30 White Blood Count 12.5 K/UL (4.8-10.8) 11.5 K/UL (4.8-10.8) Red Blood Count 4.48 M/UL (4.70-6.10) 4.33 M/UL (4.70-6.10) Hemoglobin 13.0 G/DL (14.2-18.0) 12.6 G/DL (14.2-18.0) Hematocrit 38.9 % (42.0-52.0) 37.4 % (42.0-52.0) Mean Corpuscular Volume 87 FL (80-99) 86 FL (80-99) Mean Corpuscular Hemoglobin 29.0 PG (27.0-31.0) 29.2 PG (27.0-31.0) Mean Corpuscular Hemoglobin Concent 33.4 G/DL (32.0-36.0) 33.8 G/DL (32.0-36.0) Red Cell Distribution Width 11.5 % (11.6-14.8) 11.3 % (11.6-14.8) Platelet Count 348 K/UL (150-450) 357 K/UL (150-450) Mean Platelet Volume 4.9 FL (6.5-10.1) 4.7 FL (6.5-10.1) Neutrophils (%) (Auto) 69.5 % (45.0-75.0) 64.9 % (45.0-75.0) Lymphocytes (%) (Auto) 16.3 % (20.0-45.0) 19.9 % (20.0-45.0) Monocytes (%) (Auto) 12.3 % (1.0-10.0) 11.6 % (1.0-10.0) Eosinophils (%) (Auto) 1.0 % (0.0-3.0) 2.3 % (0.0-3.0) Basophils (%) (Auto) 0.9 % (0.0-2.0) 1.3 % (0.0-2.0) Prothrombin Time 24.3 SEC (9.30-11.50) 19.3 SEC (9.30-11.50) Prothromb Time International Ratio 2.4 (0.9-1.1) 1.9 (0.9-1.1) Sodium Level 144 MMOL/L (136-145) 143 MMOL/L (136-145) Potassium Level 3.1 MMOL/L (3.5-5.1) 3.5 MMOL/L (3.5-5.1) Chloride Level 108 MMOL/L (98-107) 110 MMOL/L (98-107) Carbon Dioxide Level 26 MMOL/L (21-32) 27 MMOL/L (21-32) Anion Gap 10 mmol/L (5-15) 6 mmol/L (5-15) Blood Urea Nitrogen 3 mg/dL (7-18) 4 mg/dL (7-18) Creatinine 1.8 MG/DL (0.55-1.30) 1.6 MG/DL (0.55-1.30) Estimat Glomerular Filtration Rate 49.2 mL/min (>60) 56.5 mL/min (>60) Glucose Level 98 MG/DL (74-106) 109 MG/DL (74-106) Calcium Level 8.2 MG/DL (8.5-10.1) 8.1 MG/DL (8.5-10.1) Random Vancomycin Level 9.3 ug/mL Hemoglobin A1c 6.1 % (4.3-6.0) Uric Acid 2.2 MG/DL (2.6-7.2) Phosphorus Level 2.7 MG/DL (2.5-4.9) Magnesium Level 1.8 MG/DL (1.8-2.4) Iron Level 46 ug/dL (50-175) Total Iron Binding Capacity 187 ug/dL (250-450) Percent Iron Saturation 25 % (15-50) Unsaturated Iron Binding 141 ug/dL (112-346) Ferritin 125 NG/ML (8-388) Total Bilirubin 0.2 MG/DL (0.2-1.0) Aspartate Amino Transf (AST/SGOT) 17 U/L (15-37) Alanine Aminotransferase (ALT/SGPT) 24 U/L (12-78) Alkaline Phosphatase 53 U/L (46-116) Total Protein 5.9 G/DL (6.4-8.2) Albumin 2.7 G/DL (3.4-5.0) Globulin 3.2 g/dL Albumin/Globulin Ratio 0.8 (1.0-2.7) Triglycerides Level 75 MG/DL (30-150) Cholesterol Level 89 MG/DL (< 200) LDL Cholesterol 45 mg/dL (<100) HDL Cholesterol 31 MG/DL (40-60) Cholesterol/HDL Ratio 2.9 (3.3-4.4) Vitamin B12 Level 403 PG/ML (193-986) Folate 9.0 NG/ML (8.6-58.9) Arterial Blood pH 7.466 (7.350-7.450) Arterial Blood Partial Pressure CO2 29.6 mmHg (35.0-45.0) Arterial Blood Partial Pressure O2 92.4 mmHg (75.0-100.0) Arterial Blood HCO3 20.9 mmol/L (22.0-26.0) Arterial Blood Oxygen Saturation 97.3 % (95-100) Arterial Blood Base Excess -1.7 (-2-2) Pavel Test Positive Troponin I 0.000 ng/mL (0.000-0.056) Test 09/14/19 06:50 White Blood Count 13.9 K/UL (4.8-10.8) Red Blood Count 4.43 M/UL (4.70-6.10) Hemoglobin 13.0 G/DL (14.2-18.0) Hematocrit 37.9 % (42.0-52.0) Mean Corpuscular Volume 86 FL (80-99) Mean Corpuscular Hemoglobin 29.3 PG (27.0-31.0) Mean Corpuscular Hemoglobin Concent 34.2 G/DL (32.0-36.0) Red Cell Distribution Width 11.5 % (11.6-14.8) Platelet Count 384 K/UL (150-450) Mean Platelet Volume 4.8 FL (6.5-10.1) Neutrophils (%) (Auto) 72.9 % (45.0-75.0) Lymphocytes (%) (Auto) 14.2 % (20.0-45.0) Monocytes (%) (Auto) 10.9 % (1.0-10.0) Eosinophils (%) (Auto) 1.4 % (0.0-3.0) Basophils (%) (Auto) 0.6 % (0.0-2.0) Prothrombin Time 31.0 SEC (9.30-11.50) Prothromb Time International Ratio 3.1 (0.9-1.1) Sodium Level 140 MMOL/L (136-145) Potassium Level 2.9 MMOL/L (3.5-5.1) Chloride Level 104 MMOL/L (98-107) Carbon Dioxide Level 28 MMOL/L (21-32) Anion Gap 8 mmol/L (5-15) Blood Urea Nitrogen 3 mg/dL (7-18) Creatinine 1.4 MG/DL (0.55-1.30) Estimat Glomerular Filtration Rate > 60 mL/min (>60) Glucose Level 93 MG/DL (74-106) Uric Acid 2.0 MG/DL (2.6-7.2) Calcium Level 8.2 MG/DL (8.5-10.1) Phosphorus Level 2.9 MG/DL (2.5-4.9) Magnesium Level 1.6 MG/DL (1.8-2.4) Total Bilirubin 0.3 MG/DL (0.2-1.0) Aspartate Amino Transf (AST/SGOT) 18 U/L (15-37) Alanine Aminotransferase (ALT/SGPT) 28 U/L (12-78) Alkaline Phosphatase 57 U/L (46-116) Total Creatine Kinase 191 U/L (26-308) C-Reactive Protein, Quantitative 1.1 mg/dL (0.00-0.90) Total Protein 6.1 G/DL (6.4-8.2) Albumin 2.7 G/DL (3.4-5.0) Globulin 3.4 g/dL Albumin/Globulin Ratio 0.8 (1.0-2.7) Height (Feet): 5 Height (Inches): 10.00 Weight (Pounds): 177 Objective Gen: Nad, comfortable Pulm: ctab, no cwr CV: Rrr, no mgr Abd: soft, nd ++ bowel sounds Ext: no cce Thomas Gant MD Sep 14, 2019 17:26
[2019-09-14] MEDS ORDERED: D5NS 1000ml IV ONE (17:42)
--- NOTE | 2019-09-14 19:23 | NUR ---
HAND-OFF: Report given to SHOLA Posada.
--- NOTE | 2019-09-14 19:30 | NUR ---
NURSE NOTES: Received patient in no apparent distress. A&OX4. IV site patent and intact. Bed in lowest position. Call light within reach. Will continue to monitor.
[2019-09-14 20:00] VITALS: BP 150/94
[2019-09-14] MEDS: Tamsulosin 0.4mg cap ORAL SCH (21:21)
[2019-09-15] VITALS (7 sets, daily range): BP systolic 117–145; BP diastolic 73–92
[2019-09-15] MEDS: Hydromorphone 0.5mg/0.5ml inj IVP PRN ×3 (02:50→19:31)
[2019-09-15] MEDS: HydrALAZINE 25mg tab ORAL SCH ×3 (05:45→21:03)
[2019-09-15] MEDS: Piperacillin/Tazobactam 3.375 GM in NS 110 ML IVPB SCH ×2 (05:46→14:28)
--- NOTE | 2019-09-15 06:01 | Hematology/Onc Progress Note ---
Assessment/Plan Assessment/Plan # Acute SMV and portal vein thrombosis -- potential contributor to abdominal pain, epigastric/left upper quadrant/nonradiating suspected 2/2 acute SMV thrombus --> imaging has been reviewed and cw acute process, millicent rad, pcp, surg --> agree with the use of anticoagulation, hep gtt has been started==> now mckenzie to lovenox/coumadin --> minimum of 3 months of anticoag --> will need a workup to r/o malignancy, tumor markers have been ordered --> recommend hypercoag w/u as well, may be done in o/p setting --> gi to access soon with EGD 09/08: esophagitisgastritis --> Agree to continue coumadin --> okay to now hold lonveox --> inr is 1.1-->1.5-->2.4-->3.1 --> inr goal 2-3 # Leukocytosis, reactive vs. infectious. Will rule out infectious etiology. --> trend on abx, zosyn/vanc--> zosyn --> wbc trend 15-->9 --> blood cultures reviewed --> id recs noted # Hypokalemia due to vomiting --> k given as needed, daily --> zofran started q6h --> Compazine as needed for breakthrough nausea # TRISTAN --> cr elevated, may be due to dehydration --> ivf given # Cannabis use --> Counselling provided --> may be contributor to n.v # Dvt ppx now with coumadin po Appreciate consultation and millicent RN. Subjective Constitutional: Denies: no symptoms, chills, fever, malaise, weakness, other HEENT: Denies: no symptoms, eye pain, blurred vision, tearing, double vision, ear pain, ear discharge, nose pain, nose congestion, throat pain, throat swelling, mouth pain, mouth swelling, other Cardiovascular: Denies: no symptoms, chest pain, edema, irregular heart rate, lightheadedness, palpitations, syncope, other Gastrointestinal/Abdominal: Denies: no symptoms, abdomen distended, abdominal pain, black stools, tarry stools, blood in stool, constipated, diarrhea, difficulty swallowing, nausea, poor appetite, poor fluid intake, rectal bleeding , vomiting, other Genitourinary: Denies: no symptoms, burning, discharge, frequency, flank pain, hematuria, incontinence, pain, urgency, other Endocrine: Denies: no symptoms, excessive sweating, flushing, intolerance to cold, intolerance to heat, increased hunger, increased thirst, increased urine, unexplained weight gain, unexplained weight loss, other Allergies: Coded Allergies: No Known Allergies (Unverified , 12/08/17) Subjective 09/08: no events noted, no bleeding, heparin gtt started yesterday, otherwise feeling better 09/09: egd/colo reviewed, started on love/coumadin and abx 09/10: no events, remains on abx, no bleeding chills, or night sweats 09/11: no events, resting comfortable, cotinuing on anticoag 09/14: no events, no bleeding, no f/c, no major changes 09/15: no changes, on abx, in bed comfortable, no pain Objective Objective Current Medications Medications (Trade) Dose Ordered Sig/Toni Route PRN Reason Start Time Stop Time Status Last Admin Dose Admin Acetaminophen (Tylenol) 650 mg Q4H PRN ORAL Mild Pain (Pain Scale 1-3) 09/14/19 15:36 10/14/19 15:35 Amlodipine Besylate (Norvasc) 5 mg BID ORAL 09/14/19 18:00 10/09/19 13:03 09/14/19 17:09 Dextrose (Dextrose 50%) 25 ml Q30M PRN IV Hypoglycemia 09/14/19 16:00 10/05/19 01:29 Dextrose (Dextrose 50%) 50 ml Q30M PRN IV Hypoglycemia 09/14/19 16:00 10/05/19 01:29 Hydralazine HCl (Apresoline) 25 mg Q8HR ORAL 09/14/19 22:00 10/13/19 14:44 09/15/19 05:45 Hydromorphone HCl (Dilaudid) 0.5 mg Q4H PRN IVP Severe Pain (Pain Scale 7-10) 09/14/19 15:37 09/21/19 15:36 09/15/19 02:50 Metoclopramide HCl (Reglan) 10 mg Q6H PRN IVP nausea 09/14/19 15:37 10/14/19 15:36 09/14/19 21:36 Metoclopramide HCl (Reglan) 10 mg THREE TIMES A DAY ORAL 09/14/19 18:00 10/14/19 12:59 09/14/19 17:09 Pantoprazole (Protonix) 40 mg BID ORAL 09/14/19 18:00 10/15/19 08:59 09/14/19 17:09 Piperacillin Sod/ Tazobactam Sod 3.375 gm/Sodium Chloride 110 ml @ 27.5 mls/hr EVERY 8 HOURS IVPB 09/14/19 22:00 09/16/19 21:59 09/15/19 05:46 Potassium Chloride (K-Dur) 40 meq DAILY ORAL 09/15/19 09:00 09/16/19 08:59 Prochlorperazine (Compazine) 10 mg Q6H PRN IVP Breakthru Nausea & Vomiting 09/14/19 15:38 10/14/19 15:37 Sucralfate (Carafate) 1 gm FOUR TIMES A DAY ORAL 09/14/19 18:00 10/08/19 12:59 09/14/19 21:22 Tamsulosin HCl (Flomax) 0.4 mg BEDTIME ORAL 09/14/19 21:00 10/13/19 20:59 09/14/19 21:21 Warfarin Sodium (Coumadin per pharmacy) 1 ea DAILY PRN MISC . 09/15/19 09:00 10/13/19 10:29 Last 24 Hour Vital Signs Date Time Temp Pulse Resp B/P (MAP) Pulse Ox O2 Delivery O2 Flow Rate FiO2 09/15/19 05:45 145/92 09/15/19 04:00 98.0 61 20 145/92 (109) 99 09/15/19 00:00 98.8 76 20 132/90 (104) 96 09/14/19 21:22 150/94 09/14/19 21:00 Room Air 09/14/19 20:00 99.5 76 18 150/94 (112) 97 09/14/19 17:09 82 147/88 09/14/19 16:00 99.7 82 18 147/88 (107) 97 09/14/19 13:38 138/99 09/14/19 12:00 69 09/14/19 12:00 97.8 68 20 138/99 (112) 97 09/14/19 09:00 Room Air 09/14/19 08:51 78 137/90 09/14/19 08:00 97.3 78 18 137/90 (106) 95 09/14/19 08:00 89 09/14/19 06:04 156/92 09/14/19 04:00 70 09/14/19 04:00 98.1 64 18 143/93 (110) 98 09/14/19 00:00 98.2 69 19 121/77 (92) 99 09/14/19 00:00 67 09/13/19 22:26 142/86 09/13/19 21:00 Room Air 09/13/19 20:00 99.4 69 20 142/86 (104) 98 09/13/19 20:00 97 09/13/19 18:53 68 136/61 (86) 09/13/19 18:06 168/89 09/13/19 18:00 59 168/89 09/13/19 16:42 98.7 09/13/19 16:30 59 09/13/19 16:00 98.7 55 20 168/89 (115) 98 09/13/19 13:10 60 09/13/19 12:00 97.7 67 20 169/89 (115) 98 09/13/19 09:30 98.6 60 20 166/98 (120) 100 09/13/19 09:00 Room Air 09/13/19 08:32 97.3 61 20 164/103 (123) 99 Intake and Output 09/14/19 09/15/19 18:59 06:59 Intake Total 240 ml 82.5 ml Output Total 550 ml 300 ml Balance -310 ml -217.5 ml Intake Oral 240 ml IV Total 82.5 ml Output Urine Total 550 ml 300 ml Bladder Scan Volume Amount 31-50 ml # Voids 1 Labs Test 09/13/19 05:00 09/13/19 08:50 09/13/19 10:30 09/14/19 06:50 White Blood Count 11.5 K/UL (4.8-10.8) 13.9 K/UL (4.8-10.8) Red Blood Count 4.33 M/UL (4.70-6.10) 4.43 M/UL (4.70-6.10) Hemoglobin 12.6 G/DL (14.2-18.0) 13.0 G/DL (14.2-18.0) Hematocrit 37.4 % (42.0-52.0) 37.9 % (42.0-52.0) Mean Corpuscular Volume 86 FL (80-99) 86 FL (80-99) Mean Corpuscular Hemoglobin 29.2 PG (27.0-31.0) 29.3 PG (27.0-31.0) Mean Corpuscular Hemoglobin Concent 33.8 G/DL (32.0-36.0) 34.2 G/DL (32.0-36.0) Red Cell Distribution Width 11.3 % (11.6-14.8) 11.5 % (11.6-14.8) Platelet Count 357 K/UL (150-450) 384 K/UL (150-450) Mean Platelet Volume 4.7 FL (6.5-10.1) 4.8 FL (6.5-10.1) Neutrophils (%) (Auto) 64.9 % (45.0-75.0) 72.9 % (45.0-75.0) Lymphocytes (%) (Auto) 19.9 % (20.0-45.0) 14.2 % (20.0-45.0) Monocytes (%) (Auto) 11.6 % (1.0-10.0) 10.9 % (1.0-10.0) Eosinophils (%) (Auto) 2.3 % (0.0-3.0) 1.4 % (0.0-3.0) Basophils (%) (Auto) 1.3 % (0.0-2.0) 0.6 % (0.0-2.0) Prothrombin Time 19.3 SEC (9.30-11.50) 31.0 SEC (9.30-11.50) Prothromb Time International Ratio 1.9 (0.9-1.1) 3.1 (0.9-1.1) Sodium Level 143 MMOL/L (136-145) 140 MMOL/L (136-145) Potassium Level 3.5 MMOL/L (3.5-5.1) 2.9 MMOL/L (3.5-5.1) Chloride Level 110 MMOL/L (98-107) 104 MMOL/L (98-107) Carbon Dioxide Level 27 MMOL/L (21-32) 28 MMOL/L (21-32) Anion Gap 6 mmol/L (5-15) 8 mmol/L (5-15) Blood Urea Nitrogen 4 mg/dL (7-18) 3 mg/dL (7-18) Creatinine 1.6 MG/DL (0.55-1.30) 1.4 MG/DL (0.55-1.30) Estimat Glomerular Filtration Rate 56.5 mL/min (>60) > 60 mL/min (>60) Glucose Level 109 MG/DL (74-106) 93 MG/DL (74-106) Hemoglobin A1c 6.1 % (4.3-6.0) Uric Acid 2.2 MG/DL (2.6-7.2) 2.0 MG/DL (2.6-7.2) Calcium Level 8.1 MG/DL (8.5-10.1) 8.2 MG/DL (8.5-10.1) Phosphorus Level 2.7 MG/DL (2.5-4.9) 2.9 MG/DL (2.5-4.9) Magnesium Level 1.8 MG/DL (1.8-2.4) 1.6 MG/DL (1.8-2.4) Iron Level 46 ug/dL (50-175) Total Iron Binding Capacity 187 ug/dL (250-450) Percent Iron Saturation 25 % (15-50) Unsaturated Iron Binding 141 ug/dL (112-346) Ferritin 125 NG/ML (8-388) Total Bilirubin 0.2 MG/DL (0.2-1.0) 0.3 MG/DL (0.2-1.0) Aspartate Amino Transf (AST/SGOT) 17 U/L (15-37) 18 U/L (15-37) Alanine Aminotransferase (ALT/SGPT) 24 U/L (12-78) 28 U/L (12-78) Alkaline Phosphatase 53 U/L (46-116) 57 U/L (46-116) Total Protein 5.9 G/DL (6.4-8.2) 6.1 G/DL (6.4-8.2) Albumin 2.7 G/DL (3.4-5.0) 2.7 G/DL (3.4-5.0) Globulin 3.2 g/dL 3.4 g/dL Albumin/Globulin Ratio 0.8 (1.0-2.7) 0.8 (1.0-2.7) Triglycerides Level 75 MG/DL (30-150) Cholesterol Level 89 MG/DL (< 200) LDL Cholesterol 45 mg/dL (<100) HDL Cholesterol 31 MG/DL (40-60) Cholesterol/HDL Ratio 2.9 (3.3-4.4) Vitamin B12 Level 403 PG/ML (193-986) Folate 9.0 NG/ML (8.6-58.9) Arterial Blood pH 7.466 (7.350-7.450) Arterial Blood Partial Pressure CO2 29.6 mmHg (35.0-45.0) Arterial Blood Partial Pressure O2 92.4 mmHg (75.0-100.0) Arterial Blood HCO3 20.9 mmol/L (22.0-26.0) Arterial Blood Oxygen Saturation 97.3 % (95-100) Arterial Blood Base Excess -1.7 (-2-2) Pavel Test Positive Troponin I 0.000 ng/mL (0.000-0.056) Total Creatine Kinase 191 U/L (26-308) C-Reactive Protein, Quantitative 1.1 mg/dL (0.00-0.90) Height (Feet): 5 Height (Inches): 10.00 Weight (Pounds): 177 Objective Gen: Nad, comfortable Pulm: ctab, no cwr CV: Rrr, no mgr Abd: soft, nd ++ bowel sounds Ext: no cce Thomas Gant MD Sep 15, 2019 06:01
[2019-09-15 06:41] LABS: INR 2.4 (0.9-1.1)
[2019-09-15 07:06] LABS: ALANINE AMINOTRANSFERASE 38 U/L (12-78); ALBUMIN 2.9 G/DL (3.4-5.0); ALBUMIN/GLOBULIN RATIO 0.8 (1.0-2.7); ALKALINE PHOSPHATASE 61 U/L (46-116); ANION GAP 8 mmol/L (5-15); ASPARTATE AMINO TRANSFERASE 23 U/L (15-37); BILIRUBIN,TOTAL 0.3 MG/DL (0.2-1.0); BLOOD UREA NITROGEN 3 mg/dL (7-18); CALCIUM 8.5 MG/DL (8.5-10.1); CARBON DIOXIDE 29 MMOL/L (21-32); CHLORIDE 103 MMOL/L (98-107); CREATININE 1.3 MG/DL (0.55-1.30); PHOSPHORUS 3.3 MG/DL (2.5-4.9); SODIUM 140 MMOL/L (136-145)
[2019-09-15 07:16] LABS: BASOPHILS % (AUTO) 0.7 % (0.0-2.0); EOSINOPHILS % (AUTO) 2.5 % (0.0-3.0); HEMATOCRIT 38.8 % (42.0-52.0); HEMOGLOBIN 13.4 G/DL (14.2-18.0); LYMPHOCYTES % (AUTO) 18.4 % (20.0-45.0); MEAN CORPUSCULAR VOLUME 85 FL (80-99); MONOCYTES % (AUTO) 11.2 % (1.0-10.0); NEUTROPHILS % (AUTO) 67.2 % (45.0-75.0); PLATELET COUNT 449 K/UL (150-450); RED BLOOD COUNT 4.56 M/UL (4.70-6.10); RED CELL DISTRIBUTION WIDTH 11.2 % (11.6-14.8); WHITE BLOOD COUNT 10.6 K/UL (4.8-10.8)
--- NOTE | 2019-09-15 07:17 | NUR ---
HAND-OFF: Report given to Dante Chaparro RN.
[2019-09-15] MEDS ORDERED: Sodium Chloride for KCL Premix x 2hrs IV SCH (08:30)
[2019-09-15] MEDS: Sucralfate 1gm tab ORAL SCH ×2 (08:32→17:06)
--- NOTE | 2019-09-15 10:04 | General Progress Note ---
Assessment/Plan Status: progressing, unchanged Assessment/Plan: GI: Plan Problems: (1) Dehydration (2) Intractable nausea and vomiting (3) Cyclic vomiting syndrome (4) Marijuana abuse (5) Intractable abdominal pain (6) Fatty liver (7) Hiatal hernia Plan Intractable nausea and vomiting most likely secondary due to cyclic vomiting syndrome Electrolyte correction Zofran as needed, Reglan for persistent vomiting. PPI s/p EGD on reg diet fu ID recs Subjective ROS Limited/Unobtainable: Yes Allergies: Coded Allergies: No Known Allergies (Unverified , 12/08/17) Objective Last 24 Hour Vital Signs Date Time Temp Pulse Resp B/P (MAP) Pulse Ox O2 Delivery O2 Flow Rate FiO2 09/15/19 09:00 Room Air 09/15/19 08:32 65 133/89 09/15/19 08:29 98.1 14 133/89 (104) 99 09/15/19 08:00 98.1 65 14 133/89 (104) 99 09/15/19 05:45 145/92 09/15/19 04:00 98.0 61 20 145/92 (109) 99 09/15/19 00:00 98.8 76 20 132/90 (104) 96 09/14/19 21:22 150/94 09/14/19 21:00 Room Air 09/14/19 20:00 99.5 76 18 150/94 (112) 97 09/14/19 17:09 82 147/88 09/14/19 16:00 99.7 82 18 147/88 (107) 97 09/14/19 13:38 138/99 09/14/19 12:00 69 09/14/19 12:00 97.8 68 20 138/99 (112) 97 Intake and Output 09/14/19 09/15/19 18:59 06:59 Intake Total 240 ml 1137.5 ml Output Total 550 ml 300 ml Balance -310 ml 837.5 ml Intake Oral 240 ml 1000 ml IV Total 137.5 ml Output Urine Total 550 ml 300 ml Bladder Scan Volume Amount 31-50 ml # Voids 3 Laboratory Tests 09/15/19 05:45: White Blood Count 10.6, Red Blood Count 4.56L, Hemoglobin 13.4L, Hematocrit 38.8L, Mean Corpuscular Volume 85, Mean Corpuscular Hemoglobin 29.3, Mean Corpuscular Hemoglobin Concent 34.4, Red Cell Distribution Width 11.2L, Platelet Count 449, Mean Platelet Volume 4.9L, Neutrophils (%) (Auto) 67.2, Lymphocytes (%) (Auto) 18.4L, Monocytes (%) (Auto) 11.2H, Eosinophils (%) (Auto ) 2.5, Basophils (%) (Auto) 0.7, Prothrombin Time 24.5H, Prothromb Time International Ratio 2.4H, Sodium Level 140, Potassium Level 3.0L, Chloride Level 103, Carbon Dioxide Level 29, Anion Gap 8, Blood Urea Nitrogen 3L, Creatinine 1.3, Estimat Glomerular Filtration Rate > 60, Glucose Level 88, Uric Acid 1.8L, Calcium Level 8.5, Phosphorus Level 3.3, Magnesium Level 1.8, Total Bilirubin 0.3, Aspartate Amino Transf (AST/SGOT) 23, Alanine Aminotransferase ( ALT/SGPT) 38, Alkaline Phosphatase 61, Pro-B-Type Natriuretic Peptide 222H, Total Protein 6.4, Albumin 2.9L, Globulin 3.5, Albumin/Globulin Ratio 0.8L Height (Feet): 5 Height (Inches): 10.00 Weight (Pounds): 152 General Appearance: alert EENT: normal ENT inspection Neck: supple Cardiovascular: normal rate Respiratory/Chest: decreased breath sounds Abdomen: normal bowel sounds, non tender, soft Extremities: non-tender Ashok Zabala MD Sep 15, 2019 10:04
--- NOTE | 2019-09-15 10:58 | NUR ---
NURSE NOTES: PT AXOX4, STATES BURNING SENSATION OF LEFT AC IV ACCESS. RN DISCONTINUED IV ACCESS AND INSERTED NEW LEFT FA G22 AND DECREASED IC KCL 10MEQ FROM 50CC/HR TO 40CC/HR. PT STATES DECREASED RATE IS TOLERABLE. WILL CONTINUE TO MONITOR.
--- NOTE | 2019-09-15 11:20 | NUR ---
NURSE NOTES: PER DR KWOK, PT MAY BE DISCHARGED AFTER CDIFF RESULT AND COUMADIN DOSE VERIFIED. [place], TO WORK ON ARRANGING COUMADIN CLINIC FOR PT.
--- NOTE | 2019-09-15 11:50 | NUR ---
*-* INSURANCE *--* ALL AVAILABLE CLINICALS HAVE BEEN FAXED TO: [facility] TRACKING#[id number] [address] [address] PH#[phone] FAX#[phone] REVIEWS/CLINICALS Addendum: 09/15/19 at 1210 by AMPARO MCNULTY CM CALLED [facility] [phone] WHOM THEN GAVE ME [phone] TO CALL , I CALLED THAT NUMBER THE AUTOMATED SYSTEM STATED THE ID NUMBER WAS NO VALID. I CALLED BACK ASKED TO SPEAK TO [employer]ER [employer] I SPOKE TO SHE THEY TX ME TO [phone] REF CALL # [id number]. i WAS ON HOLD FOR 20 MIN CALL DROPPED. WILL CALL BACK Addendum: 09/16/19 at 8305 by AMPARO MCNULTY CM SPOKE TO ISIAH SHE ASKED FOR ME TO RE-FAX THE CLINICALS DUE TO THE WIND THEY PHONE LINE WERE DOWN
--- NOTE | 2019-09-15 12:37 | Nephrology Progress Note ---
Assessment/Plan Problem List: (1) Acute kidney injury (2) Superior mesenteric vein thrombosis (3) Essential hypertension (4) Dehydration (5) Intractable nausea and vomiting (6) Marijuana abuse Assessment Renal failure : Acute on Chronic Cyclical Vomiting / Cannabis abuse Dehydration Electrolyte imbalance HTN Superior Mesentric vein thrombosis Gastritis / Esophagitis Plan regular diet Protonix to po Reglan to po BP control preliminary orders given more note to follow Subjective ROS Limited/Unobtainable: No Constitutional: Reports: malaise Objective Objective Last 24 Hour Vital Signs Date Time Temp Pulse Resp B/P (MAP) Pulse Ox O2 Delivery O2 Flow Rate FiO2 09/15/19 11:43 98.2 66 12 131/92 (105) 99 09/15/19 09:00 Room Air 09/15/19 08:32 65 133/89 09/15/19 08:29 98.1 14 133/89 (104) 99 09/15/19 08:00 98.1 65 14 133/89 (104) 99 09/15/19 05:45 145/92 09/15/19 04:00 98.0 61 20 145/92 (109) 99 09/15/19 00:00 98.8 76 20 132/90 (104) 96 09/14/19 21:22 150/94 09/14/19 21:00 Room Air 09/14/19 20:00 99.5 76 18 150/94 (112) 97 09/14/19 17:09 82 147/88 09/14/19 16:00 99.7 82 18 147/88 (107) 97 09/14/19 13:38 138/99 Intake and Output 09/14/19 09/15/19 18:59 06:59 Intake Total 240 ml 1137.5 ml Output Total 550 ml 300 ml Balance -310 ml 837.5 ml Intake Oral 240 ml 1000 ml IV Total 137.5 ml Output Urine Total 550 ml 300 ml Bladder Scan Volume Amount 31-50 ml # Voids 3 Laboratory Tests 09/15/19 05:45: White Blood Count 10.6, Red Blood Count 4.56L, Hemoglobin 13.4L, Hematocrit 38.8L, Mean Corpuscular Volume 85, Mean Corpuscular Hemoglobin 29.3, Mean Corpuscular Hemoglobin Concent 34.4, Red Cell Distribution Width 11.2L, Platelet Count 449, Mean Platelet Volume 4.9L, Neutrophils (%) (Auto) 67.2, Lymphocytes (%) (Auto) 18.4L, Monocytes (%) (Auto) 11.2H, Eosinophils (%) (Auto ) 2.5, Basophils (%) (Auto) 0.7, Prothrombin Time 24.5H, Prothromb Time International Ratio 2.4H, Sodium Level 140, Potassium Level 3.0L, Chloride Level 103, Carbon Dioxide Level 29, Anion Gap 8, Blood Urea Nitrogen 3L, Creatinine 1.3, Estimat Glomerular Filtration Rate > 60, Glucose Level 88, Uric Acid 1.8L, Calcium Level 8.5, Phosphorus Level 3.3, Magnesium Level 1.8, Total Bilirubin 0.3, Aspartate Amino Transf (AST/SGOT) 23, Alanine Aminotransferase ( ALT/SGPT) 38, Alkaline Phosphatase 61, Pro-B-Type Natriuretic Peptide 222H, Total Protein 6.4, Albumin 2.9L, Globulin 3.5, Albumin/Globulin Ratio 0.8L Height (Feet): 5 Height (Inches): 10.00 Weight (Pounds): 152 General Appearance: no apparent distress Objective no change Santi Craig MD Sep 15, 2019 12:37
[2019-09-15] MEDS ORDERED: COUMADIN2.5 MG ORAL ×2 (13:44)
[2019-09-15] MEDS ORDERED: SUCRALFATE1 GM ORAL (13:44)
[2019-09-15] MEDS ORDERED: HYDRALAZINE HCL25 M1 ORAL (13:44)
[2019-09-15] MEDS ORDERED: FLOMAX0.4 MG ORAL (13:44)
[2019-09-15] MEDS ORDERED: COMPAZINE10 M2 PO (13:44)
[2019-09-15] MEDS ORDERED: PANTOPRAZOLE SO40 MG ORAL (13:44)
[2019-09-15] MEDS ORDERED: NORVASC5 MG ORAL (13:44)
[2019-09-15] MEDS ORDERED: ZOFRAN4 MG ORAL (13:44)
--- NOTE | 2019-09-15 13:51 | Discharge Instructions ---
Discharge Instructions Discharge Instructions Follow up with: PCP in 1-[address] Gant. Coumadin clinic Call MD/Return to Hospital if: Abdominal pain returns, worsens, or nausea vomiting worsens, you have bleed Additional Diet Information: as tolerated. Can start with liquids and advance Activity: resume normal activities, other - avoid contact sports Special Instructions Take Warfarin 2.5mg as prescribed. Follow up at [facility] to check your INR (blood test) no later than this Friday09/17/19 Follow up with your PCP in 1-2 days or early next week. Follow up with Dr. Gant regarding your blood clot in 2-4 weeks. Authorization for referral is pending. For your PCP: Mr. Field was diagnosed with a superior mesenteric vein thrombus causing persistent abdominal pain, nausea, and vomiting. Unclear etiology. Needs outpatient follow up with Hematology/Oncology. EGD also showed gastritis and esophagitis, on sucralfate and PPI BID. Was seen by Dr. Gant as inpatient, can follow up with him if insurance approves. Discharged on Warfarin 2.5mg PO daily. Goal INR 2-3. Also found to have hypertension. Started on amlodipine 5mg PO BID and hydralazine 25mg PO Q8hr. Also need to check BMP to follow up on potassium and Cr. Sea Partida D.O. Sep 15, 2019 13:51
--- NOTE | 2019-09-15 13:57 | General Progress Note ---
Assessment/Plan Problem List: (1) Superior mesenteric vein thrombosis SNOMED: 779088178 (2) Cyclic vomiting syndrome ICD Codes: R11.15 - Cyclical vomiting syndrome unrelated to migraine SNOMED: 66844059 (3) Intractable abdominal pain ICD Codes: R10.9 - Unspecified abdominal pain SNOMED: 84753574 (4) Intractable nausea and vomiting ICD Codes: R11.2 - Nausea with vomiting, unspecified SNOMED: 293644175 (5) Marijuana abuse ICD Codes: F12.10 - Cannabis abuse, uncomplicated SNOMED: 68644107 (6) Gastritis ICD Codes: K29.70 - Gastritis, unspecified, without bleeding SNOMED: 7095801 (7) Essential hypertension ICD Codes: I10 - Essential (primary) hypertension SNOMED: 51267167 (8) Esophagitis ICD Codes: K20.9 - Esophagitis, unspecified SNOMED: 57454034 (9) Hypomagnesemia ICD Codes: E83.42 - Hypomagnesemia SNOMED: 062532716 (10) Hypokalemia ICD Codes: E87.6 - Hypokalemia SNOMED: 84834202 (11) Bacteremia ICD Codes: R78.81 - Bacteremia SNOMED: 6747465 (12) Acute kidney injury ICD Codes: N17.9 - Acute kidney failure, unspecified SNOMED: 7728670, 27776074 Status: progressing, unchanged Assessment/Plan: 48-year-old male with past medical history of cannabis use, presenting with acute epigastric/left upper quadrant abdominal pain and persistent intractable nausea vomiting. CT abdomen/pelvis showed acute SMV thrombus. EGD performed which showed distal esophagitis and gastritis. Seen by hematology oncology who recommended anticoagulation. Patient bridged with Lovenox to Coumadin. Patient completed 7 days of Zosyn for possible gut translocation. Unclear etiology for thrombus. Needs outpatient follow-up with hematology oncology in 2 to 4 weeks. Discharged on warfarin 2.5 mg p.o. daily. Needs INR monitored no later than Friday09/17/19. Patient also developed mild TRISTAN secondary to persistent nausea vomiting. This improved with IV hydration. His blood pressure was also found to be elevated and was diagnosed with hypertension. Patient was discharged on amlodipine 5 mg p.o. twice daily and hydralazine 25 mg p.o. every 8 hours. Patient counseled on cannabis discontinuation. Patient stated that he will no longer be using this as it can contribute to his nausea and vomiting. Next Patient medically stable on discharge. Discharged home on Coumadin and given Zofran and Compazine as needed. Needs follow-up with his PCP within 1 week and monitoring of his INR within the next 1 to 2 days. #Superior Mesenteric Vein Thrombus on anticoagulation, goal INR 2-3. # Abdominal pain, epigastric/left upper quadrant/nonradiating suspected 2/2 acute SMV thrombus -improving > Doubt ACS given negative troponin. Doubt pancreatitis given normal lipase. Component of gastritis? Cyclic vomiting syndrome? #Leukocytosis, reactive vs. infectious. With a slight increase today, possibly reactive. Patient with no other infectious symptoms. #hypokalemia due to vomiting #Distal esophagitis #Gastritis > CT abdomen pelvis with contrast given persistent abdominal pain - SMV thrombus. Discussed with radiologist Dr. Laguna and appears acute. > RUQ abdominal ultrasound to rule out acute oli - negative > AFP, CEA, CA 19-9 all negative > EGD 09/08/2019 showed esophagitis and gastritis. Pathology negative - Supportive care with IVF. D5 LR at 100 cc/hr -Discontinue heparin drip (09/07 - 09/09/19) -Started warfarin per pharmacy 09/09/19, bridge with lovenox 1mg/kg Q12hr - Lovenox discontinued on 09/12/19 per heme/onc given INR >2 -Plan for at least 3 months of anticoagulation. -Discontinue Zosyn 3.375 g every 8 hours IV for possible gut translocation ( - 09/15/19). -Appreciate GI recommendations: Dr. Zabala -Appreciate general surgery recommendations: Dr. Back. No further interventions. Ok to discharge - Appreciate hematology oncology recommendations: Dr. Gant. Needs outpatient follow up. -Zofran 4 mg IV every 6 hours (QTC 435 on 09/13/19) - Reglan 10mg IV q6hr - Compazine 10mg IV Q6hr PRN -Continue to monitor QTC QOD -Protonix -Follow electrolytes and replete PRN -Repeat KUB given persistent abdominal pain 09/13/19 - negative #watery diarrhea -rule out C. Diff #Syncopal event on 09/13/19, suspect vasovagal from vomiting. Doubt [place], PE. #left hip pain s/p fall. negative for fx >Negative troponin > CT head negative > left hip xrays negative -Continue to monitor on telemetry for 24 hours -Repeat chest x-ray - negative #Acute kidney injury. Suspect pre-renal from vomiting and not eating - improving > however feNA borderline at 1.1% > Renal ultrasound showed perinephric inflammation. No hydronephrosis -IV fluids as above -Continue to check postvoid residuals -Avoid nephrotoxins -Appreciate nephrology recommendation: Dr. Craig #Staph Hominis bacteremia, suspect contaminant - Vancomycin per pharmacy (09/08 - 09/11) -Follow-up surveillance blood cultures - no growth to date -Appreciate infectious disease recommendations: Dr. Casanova #Essential hypertension, continues to be slightly elevated likely secondary to nausea and vomiting -Continue amlodipine 5 mg p.o. daily. Will adjust if persistently elevated and vomiting under control -Hydralazine 25 mg p.o. every 6 hours as needed # Cannabis use - Counselling provided - follow up as needed #Hypokalemia #hypomagnesemia - replete PRN FENPPX DVTPPX: Warfarin GI PPX: protonix Fluids: D5 LR @100 cc/hr Diet: CLD, advance as tolerated, Lines: peripheral PT/OT: Complete: NO PT services needed Code status: Full code Dispo: Home after acute issues resolved and rule out C Diff Reason for continued hospitalization: Acute SMV thrombus, intractable Nausea/ vomiting 29 minutes spent on this encounter. Discussed with general surgery, RN and patient. > 50% spent on counseling and care coordination. Time of note may not reflect time patient was seen. Subjective Constitutional: Denies: chills, diaphoresis, fever, malaise, weakness, other HEENT: Denies: eye pain, blurred vision, tearing, double vision, ear pain, ear discharge, nose pain, nose congestion, throat pain, throat swelling, mouth pain , mouth swelling, other Cardiovascular: Denies: chest pain, edema, irregular heart rate, lightheadedness, palpitations, syncope, other Respiratory: Denies: cough, orthopnea, shortness of breath, SOB with excertion , SOB at rest, sputum, stridor, wheezing, other Gastrointestinal/Abdominal: Reports: diarrhea; Denies: abdomen distended, abdominal pain, black stools, tarry stools, blood in stool, constipated, difficulty swallowing, nausea, poor appetite, poor fluid intake, rectal bleeding , vomiting, other Genitourinary: Denies: burning, discharge, frequency, flank pain, hematuria, incontinence, pain, urgency, other Neurologic/Psychiatric: Denies: anxiety, depressed, emotional problems, headache, numbness, paresthesia, pre-existing deficit, seizure, tingling, tremors, weakness, other Endocrine: Denies: excessive sweating, flushing, intolerance to cold, intolerance to heat, increased hunger, increased thirst, increased urine, unexplained weight gain, unexplained weight loss, other Hematologic/Lymphatic: Denies: anemia, easy bleeding, easy bruising, other Allergies: Coded Allergies: No Known Allergies (Unverified , 12/08/17) Subjective No acute events overnight per nursing. Patient feels much better today. No longer having nausea/vomiting. Abdominal pain resolved. Complaining of watery diarrhea for the past two days. No melena or hematochezia. 2-4 times per day. No further syncopal events. Tolerating PO well. Has more of an appetite. no signs of any hematemesis or other bleeding. Denies any chest pain, fever, chills, shortness of breath. Objective Last 24 Hour Vital Signs Date Time Temp Pulse Resp B/P (MAP) Pulse Ox O2 Delivery O2 Flow Rate FiO2 09/15/19 11:43 98.2 66 12 131/92 (105) 99 09/15/19 09:00 Room Air 09/15/19 08:32 65 133/89 09/15/19 08:29 98.1 14 133/89 (104) 99 09/15/19 08:00 98.1 65 14 133/89 (104) 99 09/15/19 05:45 145/92 09/15/19 04:00 98.0 61 20 145/92 (109) 99 09/15/19 00:00 98.8 76 20 132/90 (104) 96 09/14/19 21:22 150/94 09/14/19 21:00 Room Air 09/14/19 20:00 99.5 76 18 150/94 (112) 97 09/14/19 17:09 82 147/88 09/14/19 16:00 99.7 82 18 147/88 (107) 97 Intake and Output 10/29/19 10/30/19 19:00 07:00 Intake Total 240 ml 1137.5 ml Output Total 550 ml 300 ml Balance -310 ml 837.5 ml Intake Oral 240 ml 1000 ml IV Total 137.5 ml Output Urine Total 550 ml 300 ml Bladder Scan Volume Amount 31-50 ml # Voids 3 Laboratory Tests 09/15/19 05:45: White Blood Count 10.6, Red Blood Count 4.56L, Hemoglobin 13.4L, Hematocrit 38.8L, Mean Corpuscular Volume 85, Mean Corpuscular Hemoglobin 29.3, Mean Corpuscular Hemoglobin Concent 34.4, Red Cell Distribution Width 11.2L, Platelet Count 449, Mean Platelet Volume 4.9L, Neutrophils (%) (Auto) 67.2, Lymphocytes (%) (Auto) 18.4L, Monocytes (%) (Auto) 11.2H, Eosinophils (%) (Auto ) 2.5, Basophils (%) (Auto) 0.7, Prothrombin Time 24.5H, Prothromb Time International Ratio 2.4H, Sodium Level 140, Potassium Level 3.0L, Chloride Level 103, Carbon Dioxide Level 29, Anion Gap 8, Blood Urea Nitrogen 3L, Creatinine 1.3, Estimat Glomerular Filtration Rate > 60, Glucose Level 88, Uric Acid 1.8L, Calcium Level 8.5, Phosphorus Level 3.3, Magnesium Level 1.8, Total Bilirubin 0.3, Aspartate Amino Transf (AST/SGOT) 23, Alanine Aminotransferase ( ALT/SGPT) 38, Alkaline Phosphatase 61, Pro-B-Type Natriuretic Peptide 222H, Total Protein 6.4, Albumin 2.9L, Globulin 3.5, Albumin/Globulin Ratio 0.8L Height (Feet): 5 Height (Inches): 10.00 Weight (Pounds): 152 General Appearance: WD/WN, no apparent distress, alert EENT: PERRL/EOMI, normal ENT inspection Neck: non-tender, normal alignment, supple Cardiovascular: normal peripheral pulses, normal rate, regular rhythm, no JVD Respiratory/Chest: chest wall non-tender, lungs clear, normal breath sounds, no respiratory distress Abdomen: normal bowel sounds, non tender, soft, no organomegaly, no mass Extremities: normal range of motion, non-tender, normal inspection Edema: other - no LE edema bilaterally 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 Sep 15, 2019 13:57
--- NOTE | 2019-09-15 13:57 | Discharge Summary ---
Discharge Summary Hospital Course Date of Admission Sep 05, 2019 at 00:02 Date of Discharge 09/16/19 Admitting Diagnosis intractable nausea/vomiting, Superior mesenteric vein thrombus [facility] Leandro Field is a 48 year old male who was admitted on Sep 05, 2019 at 00:02 for Intractable Nausea/Vomiting Consultations nephrology, gastroenterology, general surgery, infectious disease Procedures EGD Hospital Course 48-year-old male with past medical history of cannabis use, presenting with acute epigastric/left upper quadrant abdominal pain and persistent intractable nausea vomiting. CT abdomen/pelvis showed acute SMV thrombus. EGD performed which showed distal esophagitis and gastritis. Seen by hematology oncology who recommended anticoagulation. Patient bridged with Lovenox to Coumadin. Patient completed 7 days of Zosyn for possible gut translocation. Unclear etiology for thrombus. Needs outpatient follow-up with hematology oncology in 2 to 4 weeks. Discharged on warfarin 2 mg p.o. daily. Needs INR monitored in 3 days. Patient given strict instructions to check his INR. Will complete this at [facility]. Patient also developed mild TRISTAN secondary to persistent nausea vomiting. This improved with IV hydration. His blood pressure was also found to be elevated and was diagnosed with hypertension. Patient was discharged on amlodipine 5 mg p.o. twice daily and hydralazine 25 mg p.o. every 8 hours. Patient counseled on cannabis discontinuation. Patient stated that he will no longer be using this as it can contribute to his nausea and vomiting. Patient with some diarrhea on discharge. C diff checked and was negative. LIkely related to abx use and lack of solid food intake. Diarrhea resolved on discharge. Patient medically stable on discharge. Discharged home on Coumadin and given Zofran and Compazine as needed. Needs follow-up with his PCP within 1 week and monitoring of his INR in 3 days. #Superior Mesenteric Vein Thrombus on anticoagulation, goal INR 2-3. # Abdominal pain, epigastric/left upper quadrant/nonradiating suspected 2/2 acute SMV thrombus -improving > Doubt ACS given negative troponin. Doubt pancreatitis given normal lipase. Component of gastritis? Cyclic vomiting syndrome? #Leukocytosis, reactive vs. infectious. With a slight increase today, possibly reactive. Patient with no other infectious symptoms. #hypokalemia due to vomiting #Distal esophagitis #Gastritis > CT abdomen pelvis with contrast given persistent abdominal pain - SMV thrombus. Discussed with radiologist Dr. Laguna and appears acute. > RUQ abdominal ultrasound to rule out acute oli - negative > AFP, CEA, CA 19-9 all negative > EGD 09/08/2019 showed esophagitis and gastritis. Pathology negative - Supportive care with IVF. D5 LR at 100 cc/hr -Discontinue heparin drip (09/07 - 09/09/19) -Started warfarin per pharmacy 09/09/19, bridge with lovenox 1mg/kg Q12hr - Lovenox discontinued on 09/12/19 per heme/onc given INR >2 -Plan for at least 3 months of anticoagulation. -s/p Zosyn 3.375 g every 8 hours IV for possible gut translocation (09/07 - ) -Appreciate GI recommendations: Dr. Zabala -Appreciate general surgery recommendations: Dr. Back - Appreciate hematology oncology recommendations: Dr. Gant -Zofran 4 mg IV every 6 hours (QTC 435 on 09/13/19) - Reglan 10mg IV q6hr - Compazine 10mg IV Q6hr PRN -Continue to monitor QTC QOD -Protonix 40mg IV daily -Follow electrolytes and replete PRN -Repeat KUB given persistent abdominal pain 09/13/19 - negative #Syncopal event on 09/13/19, suspect vasovagal from vomiting. Doubt [place], PE. #left hip pain s/p fall. negative for fx >Negative troponin > CT head negative > left hip xrays negative -Continue to monitor on telemetry for 24 hours -Repeat chest x-ray - negative #Acute kidney injury. Suspect pre-renal from vomiting and not eating - improving > however feNA borderline at 1.1% > Renal ultrasound showed perinephric inflammation. No hydronephrosis -IV fluids as above -Continue to check postvoid residuals -Avoid nephrotoxins -Appreciate nephrology recommendation: Dr. Craig #Staph Hominis bacteremia, suspect contaminant - Vancomycin per pharmacy (09/08 - 09/11) -Follow-up surveillance blood cultures - no growth to date -Appreciate infectious disease recommendations: Dr. Casanova #Essential hypertension, continues to be slightly elevated likely secondary to nausea and vomiting -Continue amlodipine 5 mg p.o. daily. Will adjust if persistently elevated and vomiting under control -Hydralazine 25 mg p.o. every 6 hours as needed # Cannabis use - Counselling provided - follow up as needed #Hypokalemia #hypomagnesemia - replete PRN FENPPX DVTPPX: Warfarin GI PPX: protonix Fluids: none Diet: CLD, advance as tolerated, Lines: peripheral PT/OT: pending Code status: Full code Physical Exam Vitals: Temperature 98.5 pulse 80 respirations 20 blood pressure 136/99 SPO2 98 % on room air General: WDWN male in NAD, A&O x 4 HEENT: Normocephalic cephalic atraumatic, pupils equal round reactive to light and accommodation, nares patent and no symmetrical, no tonsillar exudates, mucous membranes moist CV: Regular rate regular rhythm, no murmurs, rubs, or gallops Pulm: Lungs clear to auscultation bilaterally. No wheezes, rhonchi, or rales GI: Soft, nontender, nondistended, bowel sounds present Neuro: CN 2-12 intact bilaterally, no focal signs. Ext: No lower extremity edema bilaterally Skin: no rashes lesions or ulcers Msk: Joints symmetrical in upper extremity and lower extremity bilaterally, no joint swelling. Lymph: No lymphadenopathy in upper extremity and lower extremity >30 minutes spent on this discharge. Discussed with general surgery, RN, gastroenterology, hematology oncology, and patient. > 50% spent on counseling and care coordination. Time of note may not reflect time patient was seen. Discharge Condition Upon Discharge: improving Discharge Disposition Patient was discharged to home Discharge Diagnoses: (1) Intractable abdominal pain (2) Intractable nausea and vomiting (3) Superior mesenteric vein thrombosis (4) Acute kidney injury (5) Bacteremia (6) Essential hypertension (7) Hypomagnesemia (8) Hypokalemia (9) Esophagitis (10) Dehydration (11) Cyclic vomiting syndrome (12) Marijuana abuse (13) Gastritis Discharge Instructions Discharge Instructions Follow up with: PCP in 1-[address] Gant. Coumadin clinic Call MD/Return to Hospital if: Abdominal pain returns, worsens, or nausea vomiting worsens, you have bleed Additional Diet Information: as tolerated. Can start with liquids and advance Activity: resume normal activities, other - avoid contact sports Sea Partida D.O. Sep 15, 2019 13:57
--- NOTE | 2019-09-15 14:44 | NUR ---
P.T NOTE: P.T EVALUATION COMPLETED. PATIENT IS INDEPENDENT IN ALL AREAS OF ADL/FUNCTIONAL MOBILITIES ADN GAIT/LOCOMOTION. CURRENT FUNCTIONAL STATUS DOES NOT WARRANT SKILLED P.T SERVICES PATIENT IS ALREADY AT BASELINE FUNCTION. D/C P.T SERVICES. Addendum: 09/15/19 at 1444 by DAVE VENTURA PT Amended: Links added.
--- NOTE | 2019-09-15 15:10 | Infectious Diseases Prog Note ---
Assessment/Plan Assessment/Plan ASSESSMENT AND PLAN: 1. possible sepsis, sirs, fevers, leukocytosis, ? 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 The patient has history of hypertension. Blood pressure treatment per primary care team. 4. Gastritis. 5. Hiatal hernia. 6. Nausea, vomiting, and abdominal pain. 7. Esophagitis. 8. Allergies are negative. 9. Social history is positive for marijuana use. 10. Family history is noncontributory. 11. MAR was noted. 12. Case was discussed with RN. 13. Continue treatment per primary consultants Subjective Constitutional: Denies: fever Respiratory: Denies: shortness of breath Cardiovascular: Denies: chest pain Gastrointestinal/Abdominal: Denies: nausea, vomiting, diarrhea Genitourinary: Reports: other - no plascencia Neurologic: Denies: headache Psychiatric: Denies: depression Skin: Denies: rash Hematologic: Denies: bleeding Musculoskeletal: Denies: pain Allergies: Coded Allergies: No Known Allergies (Unverified , 12/08/17) Objective Vital Signs Last 24 Hour Vital Signs Date Time Temp Pulse Resp B/P (MAP) Pulse Ox O2 Delivery O2 Flow Rate FiO2 09/15/19 14:29 131/92 09/15/19 11:43 98.2 66 12 131/92 (105) 99 09/15/19 09:00 Room Air 09/15/19 08:32 65 133/89 09/15/19 08:29 98.1 14 133/89 (104) 99 09/15/19 08:00 98.1 65 14 133/89 (104) 99 09/15/19 05:45 145/92 09/15/19 04:00 98.0 61 20 145/92 (109) 99 09/15/19 00:00 98.8 76 20 132/90 (104) 96 09/14/19 21:22 150/94 09/14/19 21:00 Room Air 09/14/19 20:00 99.5 76 18 150/94 (112) 97 09/14/19 17:09 82 147/88 09/14/19 16:00 99.7 82 18 147/88 (107) 97 Height (Feet): 5 Height (Inches): 10.00 Weight (Pounds): 152 General Appearance: no acute distress HEENT: normocephalic, atraumatic, anicteric, mucous membranes moist Respiratory/Chest: lungs clear, normal breath sounds, no respiratory distress, no accessory muscle use Cardiovascular: normal rate, regular rhythm, no gallop/murmur, no JVD Abdomen: normal bowel sounds, soft, non tender, no organomegaly, non distended Genitourinary: other - no plascencia Extremities: no cyanosis Skin: no rash Neurologic/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 While possibly in inflow artifact from nonopacified blood, suspect that this is a real finding representing thrombus within the superior mesenteric vein and portal vein. This does not appear to be occlusive and there is no bowel wall thickening. This finding was not described on the [employer] preliminary report, was phoned to Dr. Back at the time of interpretation. [employer] was also notified of either website No other abnormality. Evidence of bullous COPD. This is a new finding since the pr Microbiology Date/Time Source Procedure Growth Status 09/09/19 16:15 Blood Blood Culture - Final NO GROWTH AFTER 5 DAYS Complete Microbiology Date/Time Source Procedure Growth Status 09/09/19 16:15 Blood Blood Culture - Final NO GROWTH AFTER 5 DAYS Complete Laboratory Tests Test 09/15/19 05:45 White Blood Count 10.6 K/UL (4.8-10.8) Red Blood Count 4.56 M/UL (4.70-6.10) L Hemoglobin 13.4 G/DL (14.2-18.0) L Hematocrit 38.8 % (42.0-52.0) L Mean Corpuscular Volume 85 FL (80-99) Mean Corpuscular Hemoglobin 29.3 PG (27.0-31.0) Mean Corpuscular Hemoglobin Concent 34.4 G/DL (32.0-36.0) Red Cell Distribution Width 11.2 % (11.6-14.8) L Platelet Count 449 K/UL (150-450) Mean Platelet Volume 4.9 FL (6.5-10.1) L Neutrophils (%) (Auto) 67.2 % (45.0-75.0) Lymphocytes (%) (Auto) 18.4 % (20.0-45.0) L Monocytes (%) (Auto) 11.2 % (1.0-10.0) H Eosinophils (%) (Auto) 2.5 % (0.0-3.0) Basophils (%) (Auto) 0.7 % (0.0-2.0) Prothrombin Time 24.5 SEC (9.30-11.50) H Prothromb Time International Ratio 2.4 (0.9-1.1) H Sodium Level 140 MMOL/L (136-145) Potassium Level 3.0 MMOL/L (3.5-5.1) L Chloride Level 103 MMOL/L (98-107) Carbon Dioxide Level 29 MMOL/L (21-32) Anion Gap 8 mmol/L (5-15) Blood Urea Nitrogen 3 mg/dL (7-18) L Creatinine 1.3 MG/DL (0.55-1.30) Estimat Glomerular Filtration Rate > 60 mL/min (>60) Glucose Level 88 MG/DL (74-106) Uric Acid 1.8 MG/DL (2.6-7.2) L Calcium Level 8.5 MG/DL (8.5-10.1) Phosphorus Level 3.3 MG/DL (2.5-4.9) Magnesium Level 1.8 MG/DL (1.8-2.4) Total Bilirubin 0.3 MG/DL (0.2-1.0) Aspartate Amino Transf (AST/SGOT) 23 U/L (15-37) Alanine Aminotransferase (ALT/SGPT) 38 U/L (12-78) Alkaline Phosphatase 61 U/L (46-116) Pro-B-Type Natriuretic Peptide 222 pg/mL (0-125) H Total Protein 6.4 G/DL (6.4-8.2) Albumin 2.9 G/DL (3.4-5.0) L Globulin 3.5 g/dL Albumin/Globulin Ratio 0.8 (1.0-2.7) L Current Medications Medications (Trade) Dose Ordered Sig/Toni Route PRN Reason Start Time Stop Time Status Last Admin Dose Admin Acetaminophen (Tylenol) 650 mg Q4H PRN ORAL Mild Pain (Pain Scale 1-3) 09/14/19 15:36 10/14/19 15:35 Amlodipine Besylate (Norvasc) 5 mg BID ORAL 09/14/19 18:00 10/09/19 13:03 09/15/19 08:32 Dextrose (Dextrose 50%) 25 ml Q30M PRN IV Hypoglycemia 09/14/19 16:00 10/05/19 01:29 Dextrose (Dextrose 50%) 50 ml Q30M PRN IV Hypoglycemia 09/14/19 16:00 10/05/19 01:29 Hydralazine HCl (Apresoline) 25 mg Q8HR ORAL 09/14/19 22:00 10/13/19 14:44 09/15/19 14:29 Hydromorphone HCl (Dilaudid) 0.5 mg Q4H PRN IVP Severe Pain (Pain Scale 7-10) 09/14/19 15:37 09/21/19 15:36 09/15/19 08:33 Metoclopramide HCl (Reglan) 10 mg Q6H PRN IVP nausea 09/14/19 15:37 10/14/19 15:36 09/14/19 21:36 Metoclopramide HCl (Reglan) 10 mg THREE TIMES A DAY ORAL 09/14/19 18:00 10/14/19 12:59 09/15/19 12:42 Pantoprazole (Protonix) 40 mg BID ORAL 09/14/19 18:00 10/15/19 08:59 09/15/19 08:32 Piperacillin Sod/ Tazobactam Sod 3.375 gm/Sodium Chloride 110 ml @ 27.5 mls/hr EVERY 8 HOURS IVPB 09/14/19 22:00 09/16/19 21:59 09/15/19 14:28 Potassium Chloride (K-Dur) 40 meq THREE TIMES A DAY ORAL 09/15/19 13:00 10/15/19 12:59 09/15/19 12:43 Prochlorperazine (Compazine) 10 mg Q6H PRN IVP Breakthru Nausea & Vomiting 09/14/19 15:38 10/14/19 15:37 Sucralfate (Carafate) 1 gm BID ORAL 09/15/19 18:00 10/08/19 12:59 Tamsulosin HCl (Flomax) 0.4 mg BEDTIME ORAL 09/14/19 21:00 10/13/19 20:59 09/14/19 21:21 Warfarin Sodium (Coumadin per pharmacy) 1 ea DAILY PRN MISC . 09/15/19 09:00 10/13/19 10:29 Warfarin Sodium (Coumadin) 2.5 mg COUMADIN ORAL 09/15/19 17:00 09/15/19 18:00 Shahzad Nath MD Sep 15, 2019 15:10
--- NOTE | 2019-09-15 15:54 | Cardiology Report ---
APPROVED REPORT EKG Measurement Heart [id number] Sinus bradycardia Otherwise normal ECG
--- NOTE | 2019-09-15 16:34 | NUR ---
NURSE NOTES: RN SPOKE TO DR KWOK, NO RESULTS FROM Angel[facility] PIZANO AND MD WAITING ON [facility] REGARDING FOLLOW UP WITH COUMADIN CLINIC OR WITH DR GONSALVES'S OFFICE.
--- NOTE | 2019-09-15 16:55 | NUR ---
NURSE NOTES: RN SPOKE TO JOEY AT [facility] AND CONFIRMED RECEIPT OF ELECTRONIC PRESCRIPTIONS FROM DR KWOK.
[2019-09-15] MEDS ORDERED: Warfarin Sodium 2.5mg ORAL SCH (17:00)
--- NOTE | 2019-09-15 18:39 | NUR ---
NURSE NOTES: [facility] DELIVERED PRESCRIPTIONS TO BEDSIDE. RN REVIEWED MEDICATIONS AND EDUCATED AT BEDSIDE. PT VERBALIZED UNDERSTANDING. PT REQUESTS FOR PAIN MEDICATION UPON DISCHARGE. ALL DELIVERED MEDICATIONS DELIVERED TO PHARMACY UNTIL PT IS DISCHARGED. WILL CONTINUE TO MONITOR.
--- NOTE | 2019-09-15 19:15 | NUR ---
NURSE NOTES: DISCHARGE PLANNING ENDORSED TO [facility]. WAITING FOR C DIFF RESULT, PT REQUEST FOR PRESCRIPTION PAIN MEDICATION FOR HOME, AND WAITING FOR CALENDER LET OFF OPERATOR TO SET UP COUMADIN CLINIC OR FOLLOW UPS WITH DR GONSALVES'S OFFICE FOR PT/INR MONITORING. ENDORSED PT'S DISCHARGE MEDICATIONS PLACED IN PHARMACY UNTIL READY FOR DISCHARGE.
--- NOTE | 2019-09-15 19:20 | NUR ---
HAND-OFF: Report given to Emiliana LO RN.
--- NOTE | 2019-09-15 19:30 | NUR ---
NURSE NOTES: Received patient in no apparent distress. A&OX4. IV site patent and intact. No vomiting today. Bed in lowest position. Call light within reach. Will continue to monitor.
--- NOTE | 2019-09-15 20:30 | Surgery Progress Note ---
Surgery Progress Note Subjective Additional Comments Patient seen and examined bedside. States he feels better. Has not had emesis in over 24 hours. Tolerating oral intake. Having diarrhea. Labs improved. C. difficile sent and pending prior to discharge. Transitioning to oral anticoagulation with outpatient follow-up. Objective Last 24 Hour Vital Signs Date Time Temp Pulse Resp B/P (MAP) Pulse Ox O2 Delivery O2 Flow Rate FiO2 09/15/19 20:11 Room Air 09/15/19 20:00 97.7 79 18 133/85 (101) 98 09/15/19 17:06 76 117/73 09/15/19 15:52 98.2 76 18 117/73 (88) 99 09/15/19 14:29 131/92 09/15/19 11:43 98.2 66 12 131/92 (105) 99 09/15/19 09:00 Room Air 09/15/19 08:32 65 133/89 09/15/19 08:29 98.1 14 133/89 (104) 99 09/15/19 08:00 98.1 65 14 133/89 (104) 99 09/15/19 05:45 145/92 09/15/19 04:00 98.0 61 20 145/92 (109) 99 09/15/19 00:00 98.8 76 20 132/90 (104) 96 09/14/19 21:22 150/94 09/14/19 21:00 Room Air I&O Intake and Output 09/14/19 09/15/19 19:00 07:00 Intake Total 240 ml 1137.5 ml Output Total 550 ml 300 ml Balance -310 ml 837.5 ml Intake Oral 240 ml 1000 ml IV Total 137.5 ml Output Urine Total 550 ml 300 ml Bladder Scan Volume Amount 31-50 ml # Voids 3 Cardiovascular: RSR Respiratory: clear Abdomen: soft, flat, non-tender, present bowel sounds, non-distended Extremities: no edema, no tenderness, no cyanosis Laboratory Tests Test 09/15/19 05:45 White Blood Count 10.6 K/UL (4.8-10.8) Red Blood Count 4.56 M/UL (4.70-6.10) L Hemoglobin 13.4 G/DL (14.2-18.0) L Hematocrit 38.8 % (42.0-52.0) L Mean Corpuscular Volume 85 FL (80-99) Mean Corpuscular Hemoglobin 29.3 PG (27.0-31.0) Mean Corpuscular Hemoglobin Concent 34.4 G/DL (32.0-36.0) Red Cell Distribution Width 11.2 % (11.6-14.8) L Platelet Count 449 K/UL (150-450) Mean Platelet Volume 4.9 FL (6.5-10.1) L Neutrophils (%) (Auto) 67.2 % (45.0-75.0) Lymphocytes (%) (Auto) 18.4 % (20.0-45.0) L Monocytes (%) (Auto) 11.2 % (1.0-10.0) H Eosinophils (%) (Auto) 2.5 % (0.0-3.0) Basophils (%) (Auto) 0.7 % (0.0-2.0) Prothrombin Time 24.5 SEC (9.30-11.50) H Prothromb Time International Ratio 2.4 (0.9-1.1) H Sodium Level 140 MMOL/L (136-145) Potassium Level 3.0 MMOL/L (3.5-5.1) L Chloride Level 103 MMOL/L (98-107) Carbon Dioxide Level 29 MMOL/L (21-32) Anion Gap 8 mmol/L (5-15) Blood Urea Nitrogen 3 mg/dL (7-18) L Creatinine 1.3 MG/DL (0.55-1.30) Estimat Glomerular Filtration Rate > 60 mL/min (>60) Glucose Level 88 MG/DL (74-106) Uric Acid 1.8 MG/DL (2.6-7.2) L Calcium Level 8.5 MG/DL (8.5-10.1) Phosphorus Level 3.3 MG/DL (2.5-4.9) Magnesium Level 1.8 MG/DL (1.8-2.4) Total Bilirubin 0.3 MG/DL (0.2-1.0) Aspartate Amino Transf (AST/SGOT) 23 U/L (15-37) Alanine Aminotransferase (ALT/SGPT) 38 U/L (12-78) Alkaline Phosphatase 61 U/L (46-116) Pro-B-Type Natriuretic Peptide 222 pg/mL (0-125) H Total Protein 6.4 G/DL (6.4-8.2) Albumin 2.9 G/DL (3.4-5.0) L Globulin 3.5 g/dL Albumin/Globulin Ratio 0.8 (1.0-2.7) L Plan Problems: (1) Intractable abdominal pain Assessment & Plan: afebrile, HD stable, leukocytosis persistent n/v persistent unable to tolerate much po diet exam fairly benign Impression: Linear filling defect in the superior mesenteric vein extending into the portal vein. While possibly in inflow artifact from nonopacified blood, suspect that this is a real finding representing thrombus within the superior mesenteric vein and portal vein. This does not appear to be occlusive and there is no bowel wall thickening. This finding was not described on the [employer] preliminary report, was phoned to Dr. Back at the time of interpretation. [employer] was also notified of either website No other abnormality. Evidence of bullous COPD. This is a new finding since the prior 2008 exam Incidental findings of focal fatty change within the liver, small hiatal hernia egd noted iv fluids will follow with exam lovenox/coumadin reglan/zofran push po diet discharge planning inr thank you (2) Intractable nausea and vomiting Jose Back Sep 15, 2019 20:30
[2019-09-15] MEDS: Tamsulosin 0.4mg cap ORAL SCH (21:03)
[2019-09-16] VITALS: BP 126/78
[2019-09-16 04:00] VITALS: BP 129/75
[2019-09-16] MEDS: HydrALAZINE 25mg tab ORAL SCH ×2 (05:23→14:29)
[2019-09-16 06:00] LABS: EOSINOPHILS % (AUTO) 2.8 % (0.0-3.0); HEMATOCRIT 39.9 % (42.0-52.0); HEMOGLOBIN 13.6 G/DL (14.2-18.0); LYMPHOCYTES % (AUTO) 21.7 % (20.0-45.0); MEAN CORPUSCULAR VOLUME 86 FL (80-99); MONOCYTES % (AUTO) 10.9 % (1.0-10.0); NEUTROPHILS % (AUTO) 63.7 % (45.0-75.0); PLATELET COUNT 496 K/UL (150-450); RED BLOOD COUNT 4.66 M/UL (4.70-6.10); RED CELL DISTRIBUTION WIDTH 11.4 % (11.6-14.8); WHITE BLOOD COUNT 11.5 K/UL (4.8-10.8)
[2019-09-16 06:12] LABS: INR 1.4 (0.9-1.1)
[2019-09-16 06:22] LABS: ALANINE AMINOTRANSFERASE 37 U/L (12-78); ALBUMIN 3.2 G/DL (3.4-5.0); ALBUMIN/GLOBULIN RATIO 0.8 (1.0-2.7); ALKALINE PHOSPHATASE 77 U/L (46-116); ANION GAP 6 mmol/L (5-15); ASPARTATE AMINO TRANSFERASE 20 U/L (15-37); BILIRUBIN,TOTAL 0.1 MG/DL (0.2-1.0); BLOOD UREA NITROGEN 6 mg/dL (7-18); CALCIUM 8.8 MG/DL (8.5-10.1); CARBON DIOXIDE 27 MMOL/L (21-32); CHLORIDE 105 MMOL/L (98-107); CREATININE 1.4 MG/DL (0.55-1.30); PHOSPHORUS 2.9 MG/DL (2.5-4.9); POTASSIUM 4.2 MMOL/L (3.5-5.1); SODIUM 138 MMOL/L (136-145)
--- NOTE | 2019-09-16 07:28 | NUR ---
HAND-OFF: Report given to Damon JOLLEY.
--- NOTE | 2019-09-16 07:40 | NUR ---
NURSE NOTES: Received patient on bed, awake. IV site intact. Bed is in low and locked position, call light in reach. No signs of respiratory distress or pain. Room board updated, will continue to monitor.
[2019-09-16 08:00] VITALS: BP 137/97
[2019-09-16] MEDS: Sucralfate 1gm tab ORAL SCH (08:58)
--- NOTE | 2019-09-16 09:58 | General Progress Note ---
Assessment/Plan Problem List: (1) Superior mesenteric vein thrombosis SNOMED: 545053320 (2) Cyclic vomiting syndrome ICD Codes: R11.15 - Cyclical vomiting syndrome unrelated to migraine SNOMED: 25882474 (3) Intractable abdominal pain ICD Codes: R10.9 - Unspecified abdominal pain SNOMED: 27681575 (4) Intractable nausea and vomiting ICD Codes: R11.2 - Nausea with vomiting, unspecified SNOMED: 524385605 (5) Marijuana abuse ICD Codes: F12.10 - Cannabis abuse, uncomplicated SNOMED: 61580172 (6) Gastritis ICD Codes: K29.70 - Gastritis, unspecified, without bleeding SNOMED: 7341691 (7) Essential hypertension ICD Codes: I10 - Essential (primary) hypertension SNOMED: 45097882 (8) Esophagitis ICD Codes: K20.9 - Esophagitis, unspecified SNOMED: 99400383 (9) Hypomagnesemia ICD Codes: E83.42 - Hypomagnesemia SNOMED: 334682172 (10) Hypokalemia ICD Codes: E87.6 - Hypokalemia SNOMED: 91621337 (11) Bacteremia ICD Codes: R78.81 - Bacteremia SNOMED: 8027240 (12) Acute kidney injury ICD Codes: N17.9 - Acute kidney failure, unspecified SNOMED: 7810964, 23220747 Status: progressing, unchanged Assessment/Plan: 48-year-old male with past medical history of cannabis use, presenting with acute epigastric/left upper quadrant abdominal pain and persistent intractable nausea vomiting. CT abdomen/pelvis showed acute SMV thrombus. EGD performed which showed distal esophagitis and gastritis. Seen by hematology oncology who recommended anticoagulation. Patient bridged with Lovenox to Coumadin. Patient completed 7 days of Zosyn for possible gut translocation. Unclear etiology for thrombus. Needs outpatient follow-up with hematology oncology in 2 to 4 weeks. Discharged on warfarin 2.5 mg p.o. daily. Needs INR monitored no later than Friday09/17/19. Patient also developed mild TRISTAN secondary to persistent nausea vomiting. This improved with IV hydration. His blood pressure was also found to be elevated and was diagnosed with hypertension. Patient was discharged on amlodipine 5 mg p.o. twice daily and hydralazine 25 mg p.o. every 8 hours. Patient counseled on cannabis discontinuation. Patient stated that he will no longer be using this as it can contribute to his nausea and vomiting. Next Patient medically stable on discharge. Discharged home on Coumadin and given Zofran and Compazine as needed. Needs follow-up with his PCP within 1 week and monitoring of his INR within the next 1 to 2 days. #Superior Mesenteric Vein Thrombus on anticoagulation, goal INR 2-3. # Abdominal pain, epigastric/left upper quadrant/nonradiating suspected 2/2 acute SMV thrombus -improving > Doubt ACS given negative troponin. Doubt pancreatitis given normal lipase. Component of gastritis? Cyclic vomiting syndrome? #Leukocytosis, reactive vs. infectious. With a slight increase today, possibly reactive. Patient with no other infectious symptoms. #hypokalemia due to vomiting #Distal esophagitis #Gastritis > CT abdomen pelvis with contrast given persistent abdominal pain - SMV thrombus. Discussed with radiologist Dr. Laguna and appears acute. > RUQ abdominal ultrasound to rule out acute oli - negative > AFP, CEA, CA 19-9 all negative > EGD 09/08/2019 showed esophagitis and gastritis. Pathology negative - Supportive care with IVF. D5 LR at 100 cc/hr -Discontinue heparin drip (09/07 - 09/09/19) -Started warfarin per pharmacy 09/09/19, bridge with lovenox 1mg/kg Q12hr - Lovenox discontinued on 09/12/19 per heme/onc given INR >2 -Plan for at least 3 months of anticoagulation. -Discontinue Zosyn 3.375 g every 8 hours IV for possible gut translocation ( - 09/15/19). -Appreciate GI recommendations: Dr. Zabala -Appreciate general surgery recommendations: Dr. Back. No further interventions. Ok to discharge - Appreciate hematology oncology recommendations: Dr. Gant. Needs outpatient follow up. -Zofran 4 mg IV every 6 hours (QTC 435 on 09/13/19) - Reglan 10mg IV q6hr - Compazine 10mg IV Q6hr PRN -Continue to monitor QTC QOD -Protonix -Follow electrolytes and replete PRN -Repeat KUB given persistent abdominal pain 09/13/19 - negative #watery diarrhea- resolved -rule out C. Diff - negative #Syncopal event on 09/13/19, suspect vasovagal from vomiting. Doubt IL, PE. #left hip pain s/p fall. negative for fx >Negative troponin > CT head negative > left hip xrays negative -Continue to monitor on telemetry for 24 hours -Repeat chest x-ray - negative #Acute kidney injury. Suspect pre-renal from vomiting and not eating - resolved > however feNA borderline at 1.1% > Renal ultrasound showed perinephric inflammation. No hydronephrosis -IV fluids as above -Continue to check postvoid residuals -Avoid nephrotoxins -Appreciate nephrology recommendation: Dr. Craig #Staph Hominis bacteremia, suspect contaminant - Vancomycin per pharmacy (09/08 - 09/11) -Follow-up surveillance blood cultures - no growth to date -Appreciate infectious disease recommendations: Dr. Casanova #Essential hypertension, continues to be slightly elevated likely secondary to nausea and vomiting -Continue amlodipine 5 mg p.o. daily. Will adjust if persistently elevated and vomiting under control -Hydralazine 25 mg p.o. every 6 hours as needed # Cannabis use - Counselling provided - follow up as needed #Hypokalemia #hypomagnesemia - replete PRN FENPPX DVTPPX: Warfarin GI PPX: protonix Fluids: D5 LR @100 cc/hr Diet: CLD, advance as tolerated, Lines: peripheral PT/OT: Complete: NO PT services needed Code status: Full code Dispo: Home Reason for continued hospitalization: Acute SMV thrombus, intractable Nausea/ vomiting 28 minutes spent on this encounter. Discussed with general surgery, RN and patient. > 50% spent on counseling and care coordination. Time of note may not reflect time patient was seen. Subjective Date patient seen: Sep 16, 2019 Constitutional: Denies: chills, diaphoresis, fever, malaise, weakness, other HEENT: Denies: eye pain, blurred vision, tearing, double vision, ear pain, ear discharge, nose pain, nose congestion, throat pain, throat swelling, mouth pain , mouth swelling, other Cardiovascular: Denies: chest pain, edema, irregular heart rate, lightheadedness, palpitations, syncope, other Respiratory: Denies: cough, orthopnea, shortness of breath, SOB with excertion , SOB at rest, sputum, stridor, wheezing, other Gastrointestinal/Abdominal: Denies: abdomen distended, abdominal pain, black stools, tarry stools, blood in stool, constipated, diarrhea, difficulty swallowing, nausea, poor appetite, poor fluid intake, rectal bleeding, vomiting , other Genitourinary: Denies: burning, discharge, frequency, flank pain, hematuria, incontinence, pain, urgency, other Neurologic/Psychiatric: Denies: anxiety, depressed, emotional problems, headache, numbness, paresthesia, pre-existing deficit, seizure, tingling, tremors, weakness, other Endocrine: Denies: excessive sweating, flushing, intolerance to cold, intolerance to heat, increased hunger, increased thirst, increased urine, unexplained weight gain, unexplained weight loss, other Hematologic/Lymphatic: Denies: anemia, easy bleeding, easy bruising, other Allergies: Coded Allergies: No Known Allergies (Unverified , 12/08/17) Subjective No acute events overnight per nursing. No further episodes of nausea vomiting, pain is controlled. Tolerating regular diet. no signs of any hematemesis or other bleeding. Denies any chest pain, fever, chills, shortness of breath. Objective Last 24 Hour Vital Signs Date Time Temp Pulse Resp B/P (MAP) Pulse Ox O2 Delivery O2 Flow Rate FiO2 09/16/19 08:58 80 137/97 09/16/19 08:00 98.7 20 137/97 (110) 99 09/16/19 05:23 129/75 09/16/19 04:00 97.0 80 18 129/75 (93) 98 09/16/19 00:00 97.0 81 18 126/78 (94) 97 09/15/19 21:03 133/85 09/15/19 20:11 Room Air 09/15/19 20:00 97.7 79 18 133/85 (101) 98 09/15/19 17:06 76 117/73 09/15/19 15:52 98.2 76 18 117/73 (88) 99 09/15/19 14:29 131/92 09/15/19 11:43 98.2 66 12 131/92 (105) 99 Intake and Output 09/15/19 09/16/19 18:59 06:59 Intake Total 1137.5 ml 850 ml Output Total 0 ml Balance 1137.5 ml 850 ml Intake Oral 800 ml 800 ml IV Total 337.5 ml 50 ml Emesis 0 ml # Voids 4 3 # Bowel Movements 1 Laboratory Tests 09/16/19 05:15: White Blood Count 11.5H, Red Blood Count 4.66L, Hemoglobin 13.6L, Hematocrit 39.9L, Mean Corpuscular Volume 86, Mean Corpuscular Hemoglobin 29.2, Mean Corpuscular Hemoglobin Concent 34.1, Red Cell Distribution Width 11.4L, Platelet Count 496H, Mean Platelet Volume 4.3L, Neutrophils (%) (Auto) 63.7, Lymphocytes (%) (Auto) 21.7, Monocytes (%) (Auto) 10.9H, Eosinophils (%) (Auto) 2.8, Basophils (%) (Auto) 1.0, Prothrombin Time 15.0H, Prothromb Time International Ratio 1.4H, Sodium Level 138, Potassium Level 4.2, Chloride Level 105, Carbon Dioxide Level 27, Anion Gap 6, Blood Urea Nitrogen 6L, Creatinine 1.4H, Estimat Glomerular Filtration Rate > 60, Glucose Level 90, Calcium Level 8.8, Phosphorus Level 2.9, Magnesium Level 1.8, Total Bilirubin 0.1L, Aspartate Amino Transf (AST/SGOT) 20, Alanine Aminotransferase (ALT/SGPT) 37, Alkaline Phosphatase 77, Total Protein 7.0, Albumin 3.2L, Globulin 3.8, Albumin/Globulin Ratio 0.8L Height (Feet): 5 Height (Inches): 10.00 Weight (Pounds): 152 General Appearance: WD/WN, no apparent distress, alert EENT: PERRL/EOMI, normal ENT inspection Neck: non-tender, normal alignment, supple Cardiovascular: normal peripheral pulses, normal rate, regular rhythm, no JVD Respiratory/Chest: chest wall non-tender, lungs clear Abdomen: normal bowel sounds, non tender, soft, no organomegaly Extremities: normal range of motion, non-tender Edema: other - No lower extremity edema bilaterally Neurologic: asparagus buncher II-XII grossly normal, no motor/sensory deficits, alert, oriented x 3 Skin: normal pigmentation, warm/dry Sea Partida D.O. Sep 16, 2019 09:58
[2019-09-16] MEDS ORDERED: COUMADIN2.5 MG ORAL (09:59)
--- NOTE | 2019-09-16 11:31 | NUR ---
NURSE NOTES: Contacted in patient and [facility] about warfarin that was delivered to patient yesterday. MD Bertrand Gallagher changed betsy order from 2.5mg to 2mg. Neither pharmacy can take medication back, Charge nurse Chrystal was notified and witnessed medication waste. Spoke to Francis at [facility].
[2019-09-16 12:00] VITALS: BP 136/99
--- NOTE | 2019-09-16 12:07 | Nephrology Progress Note ---
Assessment/Plan Problem List: (1) Acute kidney injury (2) Superior mesenteric vein thrombosis (3) Essential hypertension (4) Dehydration (5) Intractable nausea and vomiting (6) Marijuana abuse Assessment Renal failure : Acute on Chronic Cyclical Vomiting / Cannabis abuse Dehydration Electrolyte imbalance HTN Superior Mesentric vein thrombosis Gastritis / Esophagitis Plan regular diet Protonix to po Reglan to po BP control preliminary orders given more note to follow Subjective ROS Limited/Unobtainable: No Objective Objective Last 24 Hour Vital Signs Date Time Temp Pulse Resp B/P (MAP) Pulse Ox O2 Delivery O2 Flow Rate FiO2 09/16/19 09:00 Room Air 09/16/19 08:58 80 137/97 09/16/19 08:00 98.7 20 137/97 (110) 99 09/16/19 05:23 129/75 09/16/19 04:00 97.0 80 18 129/75 (93) 98 09/16/19 00:00 97.0 81 18 126/78 (94) 97 09/15/19 21:03 133/85 09/15/19 20:11 Room Air 09/15/19 20:00 97.7 79 18 133/85 (101) 98 09/15/19 17:06 76 117/73 09/15/19 15:52 98.2 76 18 117/73 (88) 99 09/15/19 14:29 131/92 Intake and Output 09/15/19 09/16/19 18:59 06:59 Intake Total 1137.5 ml 850 ml Output Total 0 ml Balance 1137.5 ml 850 ml Intake Oral 800 ml 800 ml IV Total 337.5 ml 50 ml Emesis 0 ml # Voids 4 3 # Bowel Movements 1 Laboratory Tests 09/16/19 05:15: White Blood Count 11.5H, Red Blood Count 4.66L, Hemoglobin 13.6L, Hematocrit 39.9L, Mean Corpuscular Volume 86, Mean Corpuscular Hemoglobin 29.2, Mean Corpuscular Hemoglobin Concent 34.1, Red Cell Distribution Width 11.4L, Platelet Count 496H, Mean Platelet Volume 4.3L, Neutrophils (%) (Auto) 63.7, Lymphocytes (%) (Auto) 21.7, Monocytes (%) (Auto) 10.9H, Eosinophils (%) (Auto) 2.8, Basophils (%) (Auto) 1.0, Prothrombin Time 15.0H, Prothromb Time International Ratio 1.4H, Sodium Level 138, Potassium Level 4.2, Chloride Level 105, Carbon Dioxide Level 27, Anion Gap 6, Blood Urea Nitrogen 6L, Creatinine 1.4H, Estimat Glomerular Filtration Rate > 60, Glucose Level 90, Calcium Level 8.8, Phosphorus Level 2.9, Magnesium Level 1.8, Total Bilirubin 0.1L, Aspartate Amino Transf (AST/SGOT) 20, Alanine Aminotransferase (ALT/SGPT) 37, Alkaline Phosphatase 77, Total Protein 7.0, Albumin 3.2L, Globulin 3.8, Albumin/Globulin Ratio 0.8L Height (Feet): 5 Height (Inches): 10.00 Weight (Pounds): 152 General Appearance: no apparent distress Objective no change Santi Craig MD Sep 16, 2019 12:07
--- NOTE | 2019-09-16 13:01 | GI Progress Note ---
Assessment/Plan Problems: (1) Hypokalemia ICD Codes: E87.6 - Hypokalemia SNOMED: 35565155 (2) Dehydration ICD Codes: E86.0 - Dehydration SNOMED: 78905119 (3) Esophagitis ICD Codes: K20.9 - Esophagitis, unspecified SNOMED: 18465290 (4) Cyclic vomiting syndrome ICD Codes: R11.15 - Cyclical vomiting syndrome unrelated to migraine SNOMED: 67585416 (5) Intractable abdominal pain ICD Codes: R10.9 - Unspecified abdominal pain SNOMED: 76249132 (6) Marijuana abuse ICD Codes: F12.10 - Cannabis abuse, uncomplicated SNOMED: 55895474 (7) Gastritis ICD Codes: K29.70 - Gastritis, unspecified, without bleeding SNOMED: 1600371 Status: stable Status Narrative Discussed with Dr. Zabala. Assessment/Plan SUMMARY OF FINDINGS: 1. Distal esophagitis. 2. A 6 cm hiatal hernia. 3. Gastritis, status biopsy. Intractable nausea and vomiting most likely secondary due to cyclic vomiting syndrome. Electrolyte correction Zofran as needed, Reglan for persistent vomiting. PPI s/p EGD on reg diet fu ID recs The patient was seen and examined at bedside and all new and available data was reviewed in the patients chart. I agree with the above findings, impression and plan. (Patient seen earlier today. Signature stamp does not reflect patient encounter time.). - Ashok Zabala MD Subjective Gastrointestinal/Abdominal: Reports: no symptoms Objective Last 24 Hour Vital Signs Date Time Temp Pulse Resp B/P (MAP) Pulse Ox O2 Delivery O2 Flow Rate FiO2 09/16/19 09:00 Room Air 09/16/19 08:58 80 137/97 09/16/19 08:00 98.7 20 137/97 (110) 99 09/16/19 05:23 129/75 09/16/19 04:00 97.0 80 18 129/75 (93) 98 09/16/19 00:00 97.0 81 18 126/78 (94) 97 09/15/19 21:03 133/85 09/15/19 20:11 Room Air 09/15/19 20:00 97.7 79 18 133/85 (101) 98 09/15/19 17:06 76 117/73 09/15/19 15:52 98.2 76 18 117/73 (88) 99 09/15/19 14:29 131/92 Intake and Output 09/15/19 09/16/19 18:59 06:59 Intake Total 1137.5 ml 850 ml Output Total 0 ml Balance 1137.5 ml 850 ml Intake Oral 800 ml 800 ml IV Total 337.5 ml 50 ml Emesis 0 ml # Voids 4 3 # Bowel Movements 1 Laboratory Tests Test 09/16/19 05:15 White Blood Count 11.5 K/UL (4.8-10.8) H Red Blood Count 4.66 M/UL (4.70-6.10) L Hemoglobin 13.6 G/DL (14.2-18.0) L Hematocrit 39.9 % (42.0-52.0) L Mean Corpuscular Volume 86 FL (80-99) Mean Corpuscular Hemoglobin 29.2 PG (27.0-31.0) Mean Corpuscular Hemoglobin Concent 34.1 G/DL (32.0-36.0) Red Cell Distribution Width 11.4 % (11.6-14.8) L Platelet Count 496 K/UL (150-450) H Mean Platelet Volume 4.3 FL (6.5-10.1) L Neutrophils (%) (Auto) 63.7 % (45.0-75.0) Lymphocytes (%) (Auto) 21.7 % (20.0-45.0) Monocytes (%) (Auto) 10.9 % (1.0-10.0) H Eosinophils (%) (Auto) 2.8 % (0.0-3.0) Basophils (%) (Auto) 1.0 % (0.0-2.0) Prothrombin Time 15.0 SEC (9.30-11.50) H Prothromb Time International Ratio 1.4 (0.9-1.1) H Sodium Level 138 MMOL/L (136-145) Potassium Level 4.2 MMOL/L (3.5-5.1) Chloride Level 105 MMOL/L (98-107) Carbon Dioxide Level 27 MMOL/L (21-32) Anion Gap 6 mmol/L (5-15) Blood Urea Nitrogen 6 mg/dL (7-18) L Creatinine 1.4 MG/DL (0.55-1.30) H Estimat Glomerular Filtration Rate > 60 mL/min (>60) Glucose Level 90 MG/DL (74-106) Calcium Level 8.8 MG/DL (8.5-10.1) Phosphorus Level 2.9 MG/DL (2.5-4.9) Magnesium Level 1.8 MG/DL (1.8-2.4) Total Bilirubin 0.1 MG/DL (0.2-1.0) L Aspartate Amino Transf (AST/SGOT) 20 U/L (15-37) Alanine Aminotransferase (ALT/SGPT) 37 U/L (12-78) Alkaline Phosphatase 77 U/L (46-116) Total Protein 7.0 G/DL (6.4-8.2) Albumin 3.2 G/DL (3.4-5.0) L Globulin 3.8 g/dL Albumin/Globulin Ratio 0.8 (1.0-2.7) L Microbiology Date/Time Source Procedure Growth Status 09/15/19 13:15 Stool Clostridium difficile Toxin Assay - Final Complete Height (Feet): 5 Height (Inches): 10.00 Weight (Pounds): 152 General Appearance: WD/WN, no apparent distress, alert Cardiovascular: normal rate Respiratory/Chest: normal breath sounds, no respiratory distress Abdominal Exam: normal bowel sounds, non tender, soft Extremities: normal range of motion, non-tender Gui Saez NP Sep 16, 2019 13:01
[2019-09-16 14:29] VITALS: BP 136/99
--- NOTE | 2019-09-16 15:10 | NUR ---
NURSE NOTES: Patient discharged. Iv removed and site covered. ID band removed and disposed of. Patient medications and prescription given to patient along with discharge instructions. Patient was instructed to see his PMD tomorrow to PT INR labs for coumadin treatment. Patient needs met and patient kept comfortable at all times. Patient departed with family member in personal vehicle.
--- NOTE | 2019-09-16 15:35 | NUR ---
*-* INSURANCE *--* UPDATED CLINICALS HAVE BEEN FAXED TO: [facility]#[id number] [address] [place] [address] #[phone] FAX#[phone] REVIEWS/CLINICALS Addendum: 09/16/19 at 1541 by AMPARO MCNULTY CM SPOKE TO NCM:ISIAH SHE STATED IF I COULD PLEASE RE-FAX YESTERDAY INFO THEIR PHONE LINES WERE NOT WORKING YESTERDAY.
--- NOTE | 2019-09-16 16:44 | Surgery Progress Note ---
Surgery Progress Note Subjective Symptoms: improved, tolerating diet, voiding well, passing flatus, BM Additional Comments No more nausea or vomiting. Diarrhea resolved normal bowel movement. Doing well. No complaints. Wants to go home. Objective Last 24 Hour Vital Signs Date Time Temp Pulse Resp B/P (MAP) Pulse Ox O2 Delivery O2 Flow Rate FiO2 09/16/19 14:29 136/99 09/16/19 12:00 98.5 20 136/99 (111) 98 09/16/19 09:00 Room Air 09/16/19 08:58 80 137/97 09/16/19 08:00 98.7 20 137/97 (110) 99 09/16/19 05:23 129/75 09/16/19 04:00 97.0 80 18 129/75 (93) 98 09/16/19 00:00 97.0 81 18 126/78 (94) 97 09/15/19 21:03 133/85 09/15/19 20:11 Room Air 09/15/19 20:00 97.7 79 18 133/85 (101) 98 09/15/19 17:06 76 117/73 I&O Intake and Output 09/15/19 09/16/19 19:00 07:00 Intake Total 1137.5 ml 850 ml Output Total 0 ml Balance 1137.5 ml 850 ml Intake Oral 800 ml 800 ml IV Total 337.5 ml 50 ml Emesis 0 ml # Voids 4 3 # Bowel Movements 1 Cardiovascular: RSR Respiratory: clear Abdomen: soft, flat, non-tender, present bowel sounds Extremities: no edema, no tenderness, no cyanosis Laboratory Tests Test 09/16/19 05:15 White Blood Count 11.5 K/UL (4.8-10.8) H Red Blood Count 4.66 M/UL (4.70-6.10) L Hemoglobin 13.6 G/DL (14.2-18.0) L Hematocrit 39.9 % (42.0-52.0) L Mean Corpuscular Volume 86 FL (80-99) Mean Corpuscular Hemoglobin 29.2 PG (27.0-31.0) Mean Corpuscular Hemoglobin Concent 34.1 G/DL (32.0-36.0) Red Cell Distribution Width 11.4 % (11.6-14.8) L Platelet Count 496 K/UL (150-450) H Mean Platelet Volume 4.3 FL (6.5-10.1) L Neutrophils (%) (Auto) 63.7 % (45.0-75.0) Lymphocytes (%) (Auto) 21.7 % (20.0-45.0) Monocytes (%) (Auto) 10.9 % (1.0-10.0) H Eosinophils (%) (Auto) 2.8 % (0.0-3.0) Basophils (%) (Auto) 1.0 % (0.0-2.0) Prothrombin Time 15.0 SEC (9.30-11.50) H Prothromb Time International Ratio 1.4 (0.9-1.1) H Sodium Level 138 MMOL/L (136-145) Potassium Level 4.2 MMOL/L (3.5-5.1) Chloride Level 105 MMOL/L (98-107) Carbon Dioxide Level 27 MMOL/L (21-32) Anion Gap 6 mmol/L (5-15) Blood Urea Nitrogen 6 mg/dL (7-18) L Creatinine 1.4 MG/DL (0.55-1.30) H Estimat Glomerular Filtration Rate > 60 mL/min (>60) Glucose Level 90 MG/DL (74-106) Calcium Level 8.8 MG/DL (8.5-10.1) Phosphorus Level 2.9 MG/DL (2.5-4.9) Magnesium Level 1.8 MG/DL (1.8-2.4) Total Bilirubin 0.1 MG/DL (0.2-1.0) L Aspartate Amino Transf (AST/SGOT) 20 U/L (15-37) Alanine Aminotransferase (ALT/SGPT) 37 U/L (12-78) Alkaline Phosphatase 77 U/L (46-116) Total Protein 7.0 G/DL (6.4-8.2) Albumin 3.2 G/DL (3.4-5.0) L Globulin 3.8 g/dL Albumin/Globulin Ratio 0.8 (1.0-2.7) L Plan Problems: (1) Intractable abdominal pain Assessment & Plan: afebrile, HD stable, leukocytosis persistent n/v persistent unable to tolerate much po diet exam fairly benign Impression: Linear filling defect in the superior mesenteric vein extending into the portal vein. While possibly in inflow artifact from nonopacified blood, suspect that this is a real finding representing thrombus within the superior mesenteric vein and portal vein. This does not appear to be occlusive and there is no bowel wall thickening. This finding was not described on the [employer] preliminary report, was phoned to Dr. Back at the time of interpretation. [employer] was also notified of either website No other abnormality. Evidence of bullous COPD. This is a new finding since the prior 2008 exam Incidental findings of focal fatty change within the liver, small hiatal hernia egd noted iv fluids will follow with exam lovenox/coumadin reglan/zofran push po diet discharge planning inr thank you (2) Intractable nausea and vomiting Jose Back Sep 16, 2019 16:44
[2019-09-16] MEDS ORDERED: Warfarin Sodium 1mg ORAL SCH (17:00)
--- NOTE | 2019-09-22 08:37 | Cardiology Report ---
APPROVED REPORT EKG Measurement Heart [id number] CT 144P63 [id number] Normal sinus rhythm Possible Left atrial enlargement Septal infarct, age undetermined Abnormal ECG
== END 2019-09-16 15:15 | disposition home or self-care (01) | DRG 246 ==
LOC: EDBD 21:13 → EMR 22:35 → 3E 09-05 00:02 → EDBEDREQ 09-05 01:02 → 2E 09-13 09:45 → 4E 09-14 15:36
PROC: 0DD78ZX Extraction of Stomach, Pylorus, Via Natural or Artificial Opening Endoscopic, Diagnostic (ICD-10-PCS; principal; 2019-09-08 11:06)
DX: K55.069 Acute infarction of intestine, part and extent unspecified (principal); I81 Portal vein thrombosis; R11.15 Cyclical vomiting syndrome unrelated to migraine; E86.0 Dehydration; K44.9 Diaphragmatic hernia without obstruction or gangrene; F12.188 Cannabis abuse with other cannabis-induced disorder; E87.6 Hypokalemia; N17.9 Acute kidney failure, unspecified; K20.9 Esophagitis, unspecified; K29.70 Gastritis, unspecified, without bleeding; D72.828 Other elevated white blood cell count; I12.9 Hypertensive chronic kidney disease with stage 1 through stage 4 chronic kidney disease, or unspecified chronic kidney disease; N18.9 Chronic kidney disease, unspecified; R19.7 Diarrhea, unspecified; R55 Syncope and collapse; M25.552 Pain in left hip
CPT/HCPCS: 36415; 36600; 70450; 71045; 73502; 74018; 74177; 76705; 76770; 80048; 80053; 80061; 80076; 80202; 80307; 81003; 82105; 82378; 82550; 82570; 82607; 82728; 82746; 82803; 83036; 83540; 83550; 83605; 83690; 83735; 83880; 84100; 84153; 84300; 84484; 84550; 85025; 85610; 85730; 86140; 87040; 87181; 87324; 89050; 93005; 93306; 94003; 94150; 96361; 96365; 96375; 96376; 99285; J2405; J2765; J7030; J8499

== ENCOUNTER 2020-07-12 09:08 | Inpatient (IN) | payer MEDICAID ==
[~2020-07-12] VITALS: Ht 177.8 cm; Wt 62.1 kg
[~2020-07-12 09:08] MED LIST changes: +COMPAZINE10 M2 PO; +COUMADIN2.5 MG ORAL; +FLOMAX0.4 MG ORAL; +HYDRALAZINE HCL25 M1 ORAL; +NORVASC5 MG ORAL; +PANTOPRAZOLE SO40 MG ORAL; +SUCRALFATE1 GM ORAL; +ZOFRAN4 MG ORAL
--- NOTE | 2020-07-12 09:26 | Emergency Room Report ---
History of Present Illness General Chief Complaint: abdominal pain Source: Patient Present Illness HPI Patient is a 49-year-old male presents after increased abdominal pain. He reports of increased left-sided epigastric pain. Had prior history of gastritis. He had previous hospitalization here with similar symptoms in the past. Reports having multiple episodes of vomiting over the past 2 days. Patient had previous history of cyclic vomiting as well as superior mesenteric vein thrombosis. He had been prescribed multiple medications from hospitalization in [place] but he did not fill his medications. Allergies: Coded Allergies: No Known Allergies (Unverified , 12/08/17) COVID-19 Screening Contact w/high risk pt: No Recent Travel to affected area: No Experienced COVID-19 symptoms?: No Patient History Past Medical History: see triage record Reviewed Nursing Documentation: PMH: Agreed; PSxH: Agreed Nursing Documentation-PMH Hx Cardiac Problems: Yes Hx Hypertension: Yes Hx Cancer: No Hx Gastrointestinal Problems: Yes - GASTRITID Hx Neurological Problems: No Review of Systems All Other Systems: negative except mentioned in HPI Physical Exam Sp02 EP Interpretation: reviewed, normal General Appearance: normal inspection, well appearing, no apparent distress, alert, GCS 15 Head: atraumatic ENT: normal ENT inspection, hearing grossly normal, normal voice Neck: normal inspection, full range of motion, supple, no bony tend Respiratory: normal inspection, lungs clear, normal breath sounds, no respiratory distress, no retraction, no wheezing Cardiovascular #1: regular rate, rhythm, no edema Gastrointestinal: normal inspection, normal bowel sounds, non tender, soft, no guarding, no hernia Genitourinary: no CVA tenderness Musculoskeletal: normal inspection, back normal, normal range of motion Neurologic: alert, motor strength/tone normal, paintings 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 Differential diagnosis include was not limited to gastritis, ulcer disease, urinary tract infection, bowel obstruction among others. Because of complexity of patient's case laboratory tests and imaging studies were ordered. Patient had recent hospitalization with similar symptoms. He had recently been hospitalized at hospital in [place]. Patient was given IV fluids as well as antiemetics. Patient was noted to have persistent nausea. Testing showed markedly elevated white blood count compared to baseline. Patient was discussed with Dr. Lucy Cotter for admission due to recent admission . Status: unchanged Disposition: ADMITTED INPATIENT Condition: Stable Scripts No Active Prescriptions or Reported Meds Desmond Nascimento MD Jul 12, 2020 09:26
[2020-07-12] MEDS ORDERED: Morphine Sulfate 4mg/ml Inj (IV USE ONLY) IVP ONE (09:45)
[2020-07-12] MEDS ORDERED: Pantoprazole Inj IVP ONE (09:45)
[2020-07-12 10:00] VITALS: BP 129/91
--- NOTE | 2020-07-12 10:39 | NUR ---
ED Nurse Note: US @ bedside
[2020-07-12 10:40] LABS: HEMATOCRIT 52.3 % (42.0-52.0); HEMOGLOBIN 17.3 G/DL (14.2-18.0); MEAN CORPUSCULAR VOLUME 85 FL (80-99); PLATELET COUNT 619 K/UL (150-450); RED BLOOD COUNT 6.14 M/UL (4.70-6.10); RED CELL DISTRIBUTION WIDTH 12.3 % (11.6-14.8); WHITE BLOOD COUNT 18.7 K/UL (4.8-10.8)
--- NOTE | 2020-07-12 10:41 | NUR ---
ED Nurse Note: urinal provided to patient for urine specimen collection
[2020-07-12 10:49] LABS: ANION GAP 16 mmol/L (5-15); BLOOD UREA NITROGEN 16 mg/dL (7-18); CARBON DIOXIDE 29 MMOL/L (21-32); CHLORIDE 92 MMOL/L (98-107); CREATININE 1.1 MG/DL (0.55-1.30); POTASSIUM 3.4 MMOL/L (3.5-5.1); SODIUM 137 MMOL/L (136-145)
[2020-07-12 10:53] LABS: ALANINE AMINOTRANSFERASE 38 U/L (12-78); ALBUMIN 4.4 G/DL (3.4-5.0); ALKALINE PHOSPHATASE 97 U/L (46-116); ASPARTATE AMINO TRANSFERASE 26 U/L (15-37); BILIRUBIN,TOTAL 0.5 MG/DL (0.2-1.0)
--- NOTE | 2020-07-12 11:19 | NUR ---
ED Nurse Note: urine sample and covid swab sent to lab
[2020-07-12 11:38] LABS: APPEARANCE,URINE CLEAR; BILIRUBIN, URINE NEGATIVE (NEGATIVE); COLOR,URINE YELLOW; GLUCOSE, URINE (UA) NEGATIVE (NEGATIVE); KETONES,URINE 1+ (NEGATIVE); LEUKOCYTE ESTERASE ,URINE 1+ (NEGATIVE); NITRITE,URINE NEGATIVE (NEGATIVE); PH,URINE 5 (4.5-8.0); PROTEIN,URINE 2+ (NEGATIVE); UROBILINOGEN,URINE NORMAL MG/DL (0.0-1.0)
--- NOTE | 2020-07-12 12:32 | Diagnostic Imaging Report ---
Indication: Abdominal pain Technique: Duplex and color Doppler imaging of the abdomen Comparison: CT abdomen pelvis 09/06/2019 Findings: Imaged portions of the pancreatic head unremarkable. The body and tail are not well seen. Imaged portions of the abdominal aorta are normal in caliber. Proximal portions of the celiac and superior mesenteric arteries are patent with normal arterial waveforms. The liver demonstrates normal echogenicity. No focal hepatic mass lesion appreciated sonographically. Hepatic contour is smooth. Liver is normal in size. Imaged hepatic veins are patent. There is linear eccentric echogenic material within the splenoportal confluence extending into the main portal vein with residual flow. Possibility of chronic or partially occlusive thrombus not excluded. Portal vein flow is hepatopedal. No gallstones or gallbladder sludge identified. No gallbladder wall thickening or pericholecystic fluid. No biliary ductal dilatation. Common bile duct measures 3 mm diameter. Kidneys demonstrate normal echogenicity. There is no hydronephrosis or sonographically appreciable renal stone. Spleen is unremarkable in appearance. No ascites demonstrated. IMPRESSION: Linear echogenic material with rouleaux flow noted at the spinal portal confluence, extending into the main portal vein. Findings are concerning for partially occlusive portal vein thrombosis, possibly chronic. Recommend further evaluation with contrast-enhanced CT of the abdomen with portal venous phase imaging for further evaluation as clinically indicated.
[2020-07-12 13:43] VITALS: BP 125/92
--- NOTE | 2020-07-12 13:50 | NUR ---
NURSE NOTES: Received report from ER nurse Iva, will wait for pt arrival to the unit
--- NOTE | 2020-07-12 13:52 | NUR ---
ED Nurse Note: REPORT GIVEN TO SHOLA HARGROVE. ENDORSED THE CONTINUATION OF CARE
--- NOTE | 2020-07-12 14:00 | NUR ---
ED Nurse Note: Pt transferred safely to 3E with all belongings including roper.
[2020-07-12 14:05] VITALS: BP 118/85
--- NOTE | 2020-07-12 14:05 | NUR ---
NURSE NOTES: Pt arrived to the unit in stable condition
--- NOTE | 2020-07-12 14:05 | NUR ---
NURSE NOTES: Pt brought to the unit via [facility], pt helped self transfer to hospital bed , pt is a/ox4, breaths regular unlabored on RA, no s/o of distress, pt c/o of abd pain 6/10 and nausea , will notify md. pt educated on how to use hospital bed, pt provided with call light and Tv remote, verified belongings with pt, assessed pt's skin intact, no skin issues , bed in low locked position, side rails upX2, call light with in reach , will call for admission orders
--- NOTE | 2020-07-12 14:56 | NUR ---
NURSE NOTES: Called and left for DR Jack for Admission orders
--- NOTE | 2020-07-12 15:01 | NUR ---
NURSE NOTES: MD called back DR Cotter, will put in orders , she is coming to see the pt
[2020-07-12 16:00] VITALS: BP 138/96
[2020-07-12] MEDS ORDERED: Morphine Sulfate 2mg/ml Inj(IV/IM USE ONLY) IVP PRN (16:00)
[2020-07-12] MEDS ORDERED: LORazepam 1mg tab ORAL PRN (16:00)
[2020-07-12] MEDS: Morphine Sulfate 4mg/ml Inj (IV USE ONLY) IVP PRN ×2 (17:24→21:37)
[2020-07-12] MEDS: Enoxaparin 40mg Inj SUBQ SCH (17:25)
[2020-07-12] MEDS ORDERED: NS w/KCl 20mEq 1000ml 1,000 ML IV SCH (17:30)
--- NOTE | 2020-07-12 17:30 | History and Physical ---
History of Present Illness General Date patient seen: Jul 12, 2020 Reason for Hospitalization: Abdominal Pain Present Illness HPI This is a 49yo AAM with past medical history of h/o gastritis, hypertension, and supra mesenteric thrombosis not on warfarin (noncompliance vs completed therapy) who represents after multiple episodes of vomiting. This is has happened before due to similar circumstances of high exposure of smoking marijuana, recently admitted 06/20/2020 for similiar symptoms . He claims multiple episodes of non bloody vomiting. In the ED noted to be hypokalemic. He received multiple dosages of antiemetics and on my initial evaluation patient was no longer nauseous, and tolerating PO. Patient lives with parents. Denies sick contacts, fevers, chills, diarrhea. Allergies: Coded Allergies: No Known Allergies (Unverified , 12/08/17) COVID-19 Screening Contact w/high risk pt: No Recent Travel to affected area: No Experienced COVID-19 symptoms?: No Medication History No Active Prescriptions or Reported Meds Patient History History Provided By: Patient Healthcare decision maker Resuscitation status Advanced Directive on File Social History Social History: (1) Marijuana abuse Review of Systems Constitutional: Reports: no symptoms ENT: Reports: no symptoms Respiratory: Reports: no symptoms Cardiovascular: Reports: no symptoms Gastrointestinal: Reports: nausea, vomiting Genitourinary: Reports: no symptoms Musculoskeletal: Reports: no symptoms Hematologic/Lymphatic: Reports: no symptoms Physical Exam Last 24 Hour Vital Signs Date Time Temp Pulse Resp B/P (MAP) Pulse Ox O2 Delivery O2 Flow Rate FiO2 07/12/20 14:23 Room Air 07/12/20 14:00 98.3 89 18 134/88 99 Room Air 07/12/20 13:43 98.4 84 16 125/92 99 Room Air 07/12/20 10:00 99 20 Room Air 07/12/20 10:00 98.6 99 20 129/91 97 Room Air 07/12/20 09:24 98.8 113 20 132/87 (102) 96 Room Air Laboratory Tests Test 07/12/20 10:00 07/12/20 11:15 White Blood Count 18.7 K/UL (4.8-10.8) H Red Blood Count 6.14 M/UL (4.70-6.10) H Hemoglobin 17.3 G/DL (14.2-18.0) Hematocrit 52.3 % (42.0-52.0) H Mean Corpuscular Volume 85 FL (80-99) Mean Corpuscular Hemoglobin 28.1 PG (27.0-31.0) Mean Corpuscular Hemoglobin Concent 33.0 G/DL (32.0-36.0) Red Cell Distribution Width 12.3 % (11.6-14.8) Platelet Count 619 K/UL (150-450) H Mean Platelet Volume 4.5 FL (6.5-10.1) L Neutrophils (%) (Auto) % (45.0-75.0) Lymphocytes (%) (Auto) % (20.0-45.0) Monocytes (%) (Auto) % (1.0-10.0) Eosinophils (%) (Auto) % (0.0-3.0) Basophils (%) (Auto) % (0.0-2.0) Differential Total Cells Counted 100 Neutrophils % (Manual) 62 % (45-75) Lymphocytes % (Manual) 20 % (20-45) Monocytes % (Manual) 17 % (1-10) H Eosinophils % (Manual) 0 % (0-3) Basophils % (Manual) 1 % (0-2) Band Neutrophils 0 % (0-8) Platelet Estimate Increased H Platelet Morphology Normal Red Blood Cell Morphology Normal Sodium Level 137 MMOL/L (136-145) Potassium Level 3.4 MMOL/L (3.5-5.1) L Chloride Level 92 MMOL/L (98-107) L Carbon Dioxide Level 29 MMOL/L (21-32) Anion Gap 16 mmol/L (5-15) H Blood Urea Nitrogen 16 mg/dL (7-18) Creatinine 1.1 MG/DL (0.55-1.30) Estimat Glomerular Filtration Rate > 60 mL/min (>60) Glucose Level 114 MG/DL (74-106) H Calcium Level 10.0 MG/DL (8.5-10.1) Total Bilirubin 0.5 MG/DL (0.2-1.0) Aspartate Amino Transf (AST/SGOT) 26 U/L (15-37) Alanine Aminotransferase (ALT/SGPT) 38 U/L (12-78) Alkaline Phosphatase 97 U/L (46-116) Troponin I 0.000 ng/mL (0.000-0.056) Total Protein 8.7 G/DL (6.4-8.2) H Albumin 4.4 G/DL (3.4-5.0) Globulin 4.3 g/dL Albumin/Globulin Ratio 1.0 (1.0-2.7) Lipase 78 U/L (73-393) Urine Color Yellow Urine Appearance Clear Urine pH 5 (4.5-8.0) Urine Specific [place] 1.020 (1.005-1.035) Urine Protein 2+ (NEGATIVE) H Urine Glucose (UA) Negative (NEGATIVE) Urine Ketones 1+ (NEGATIVE) H Urine Blood 2+ (NEGATIVE) H Urine Nitrite Negative (NEGATIVE) Urine Bilirubin Negative (NEGATIVE) Urine Urobilinogen Normal MG/DL (0.0-1.0) Urine Leukocyte Esterase 1+ (NEGATIVE) H Urine RBC 2-4 /HPF (0 - 0) H Urine WBC 2-4 /HPF (0 - 0) Urine Squamous Epithelial Cells None /LPF (NONE/OCC) Urine Bacteria Few /HPF (NONE) Urine Hyaline Casts 0-2 /LPF (NONE) H Urine Mucus Moderate /LPF (NONE/OCC) H Microbiology Date/Time Source Procedure Growth Status 07/12/20 11:15 Nasopharynx SARS-CoV-2 RdRp Gene Assay - Final Complete 07/12/20 14:00 Rectum Received Height (Feet): 5 Height (Inches): 10.00 Weight (Pounds): 137 Medications Current Medications Medications (Trade) Dose Ordered Sig/Toni Route PRN Reason Start Time Stop Time Status Last Admin Dose Admin Acetaminophen (Tylenol) 650 mg Q4H PRN ORAL Mild Pain (Pain Scale 1-3) 07/12/20 16:00 08/11/20 15:59 Dextrose (Dextrose 50%) 25 ml Q30M PRN IV Hypoglycemia 07/12/20 16:00 10/10/20 15:59 Dextrose (Dextrose 50%) 50 ml Q30M PRN IV Hypoglycemia 07/12/20 16:00 10/10/20 15:59 Diphenhydramine HCl (Benadryl) 25 mg Q6H PRN ORAL Itching/Pruritis 07/12/20 16:00 08/11/20 15:59 Lorazepam (Ativan) 1 mg Q4H PRN ORAL For Anxiety 07/12/20 16:00 07/19/20 15:59 Morphine Sulfate (Morphine Sulfate) 1 mg Q4H PRN IVP Moderate Pain (Pain Scale 4-6) 07/12/20 16:00 07/19/20 15:59 Morphine Sulfate (Morphine Sulfate) 2 mg Q4H PRN IVP Severe Pain (Pain Scale 7-10) 07/12/20 16:00 07/19/20 15:59 Ondansetron HCl (Zofran) 4 mg Q6H PRN IVP Nausea & Vomiting 07/12/20 16:00 08/11/20 15:59 Potassium Chloride/Sodium Chloride 1,000 ml @ 75 mls/hr [id number] IV 07/12/20 17:30 08/11/20 17:29 Objective Narrative General Appearance: WD/WN, no apparent distress, alert HEENT: normocephalic Neck: non-tender Respiratory/Chest: chest wall non-tender, lungs clear Cardiovascular/Chest: regular rhythm Abdomen: normal bowel sounds, non tender, soft Extremities: normal range of motion, non-tender, no edema Skin Exam: normal pigmentation Neurologic: healthcare associate II-XII grossly normal Assessment/Plan Status: stable Assessment/Plan: 49 year old M admitted for cyclical vomiting likely 2/2 marijuana use. #Cyclical vomiting likely 2/2 marijuana use #Marijuana abuse -Continue with antiemetic PRN -Start IVF NS + KCL 20meq -Repeat BMP in the morning -clear liquid diet adv as tolerated -Counseling on cessation of marijuana #Hypokalemia 2/2 above -cont IVf as stated above -Nephrology consulted #Hx Superior mesenteric vein thrombosis -has not been taking coumadin -dx in Aug 2019 -per hematology rec at least 3 months of AC - unclear if pt completed -Hematology consulted for further recs regarding AC Code: Full Lucy Cotter MD Jul 12, 2020 17:30
[2020-07-12] MEDS: NS w/KCl 20mEq 1000ml 1,000 ML IV SCH (17:45)
[2020-07-12] MEDS ORDERED: HydrALAZINE 25mg tab ORAL PRN (17:45)
--- NOTE | 2020-07-12 19:07 | NUR ---
NURSE HAND-OFF: Important Events on Shift: Horton catheter removed at 1510, pt has not yet voided Diet: NPO Pending Orders: Pending Results/Labs:CBC,CMP Pending MD notification: Latest Vital Signs: Temperature 99.3 , Pulse 75 , B/P 138 /96 , Respiratory Rate 21 , O2 SAT 97 , Room Air, O2 Flow Rate . Vital Sign Comment: Latest Mcleod Fall Score: 20 Fall Risk: Low Risk Safety Measures: Call light Within Reach, Bed Alarm Zone 2, Side Rails Side Rails x2, Bed position Low and Locked. Fall Precautions: Yellow Socks Report given to Swetha Gibson RN. Addendum: 07/12/20 at 1910 by Shalom Valdez RN Error wrong pt Addendum: 07/12/20 at 1921 by Shalom Valdez RN Entered in error , wrong pt
--- NOTE | 2020-07-12 19:23 | NUR ---
NURSE HAND-OFF: Important Events on Shift: New admit, nausea/ vomiting Patient Status: stable Diet: clear liquid Pending Orders: Pending Results/Labs: Pending MD notification: Latest Vital Signs: Temperature 99.3 , Pulse 75 , B/P 138 /96 , Respiratory Rate 21 , O2 SAT 97 , Room Air, O2 Flow Rate . Vital Sign Comment: Latest Mcleod Fall Score: 20 Fall Risk: Low Risk Safety Measures: Call light Within Reach, Bed Alarm Zone 2, Side Rails Side Rails x2, Bed position Low and Locked. Fall Precautions: Yellow Socks Report given to Opal JOLLEY .
--- NOTE | 2020-07-12 19:30 | NUR ---
NURSE NOTES: Patient in bed, awake and alert x4. On room air with no signs of distress or SOB. Patient reporting abdominal pain; will administer pain medications as ordered. IV intact and running IVF. Bed locked and in lowest position. Call light within easy reach. Will continue plan of care.
[2020-07-12 20:00] VITALS: BP 112/81
[2020-07-13] VITALS: BP 117/79
--- NOTE | 2020-07-13 01:40 | NUR ---
NURSE NOTES: Patient vomited x2 after receiving PRN Zofran. Left message for Dr. Jack. Awaiting callback.
--- NOTE | 2020-07-13 01:47 | NUR ---
NURSE NOTES: Receive a call-back from Dr. Oglesby, on-call, for pt's N/V and esophageal soreness. New orders got received. Will relay to primary nurse, Opal. Will continue to monitor.
[2020-07-13] MEDS: Morphine Sulfate 4mg/ml Inj (IV USE ONLY) IVP PRN ×4 (02:27→20:08)
[2020-07-13] MEDS: NS w/KCl 20mEq 1000ml 1,000 ML IV SCH ×2 (03:48→13:19)
[2020-07-13 04:00] VITALS: BP 121/74
[2020-07-13 07:00] LABS: BASOPHILS % (AUTO) 1.6 % (0.0-2.0); EOSINOPHILS % (AUTO) 0.5 % (0.0-3.0); HEMATOCRIT 48.2 % (42.0-52.0); HEMOGLOBIN 15.6 G/DL (14.2-18.0); LYMPHOCYTES % (AUTO) 28.1 % (20.0-45.0); MEAN CORPUSCULAR VOLUME 87 FL (80-99); MONOCYTES % (AUTO) 6.9 % (1.0-10.0); NEUTROPHILS % (AUTO) 62.9 % (45.0-75.0); PLATELET COUNT 495 K/UL (150-450); RED BLOOD COUNT 5.54 M/UL (4.70-6.10); RED CELL DISTRIBUTION WIDTH 12.3 % (11.6-14.8); WHITE BLOOD COUNT 11.3 K/UL (4.8-10.8)
--- NOTE | 2020-07-13 07:15 | NUR ---
NURSE NOTES: Received report from Opal RN, rounds made , pt sleeping, breaths regular unlabored on RA, with no s/s of distress , pt has IVF on the Rt hand 22G patent asymptomatic, bed in low locked position, side rails up X2, call light with in reach, will continue to monitor
[2020-07-13 07:20] LABS: ANION GAP 7 mmol/L (5-15); BLOOD UREA NITROGEN 13 mg/dL (7-18); CARBON DIOXIDE 32 MMOL/L (21-32); CHLORIDE 101 MMOL/L (98-107); CREATININE 1.1 MG/DL (0.55-1.30); POTASSIUM 3.6 MMOL/L (3.5-5.1); SODIUM 140 MMOL/L (136-145)
--- NOTE | 2020-07-13 07:31 | NUR ---
NURSE HAND-OFF: Important Events on Shift: Nausea, Vomiting, Pain Patient Status: Stable Diet: Clear liquid Pending Orders: N/A Pending Results/Labs: CBC, BMP Mag, Phos Pending MD notification: N/A Latest Vital Signs: Temperature 97.8 , Pulse 64 , B/P 121 /74 , Respiratory Rate 20 , O2 SAT 97 , Room Air, O2 Flow Rate . Vital Sign Comment: Latest Mcleod Fall Score: 20 Fall Risk: Low Risk Safety Measures: Call light Within Reach, Bed Alarm Zone 1, Side Rails Side Rails x2, Bed position Low and Locked. Fall Precautions: Yellow Socks Patient Fall Education Report given to SHOLA Rausch.
[2020-07-13 08:00] VITALS: BP 136/91
[2020-07-13] MEDS: Enoxaparin 40mg Inj SUBQ SCH (09:10)
[2020-07-13 11:55] VITALS: BP 124/79
--- NOTE | 2020-07-13 13:02 | Consultation ---
History of Present Illness General Chief Complaint: Abdominal Pain Present Illness Allergies: Coded Allergies: No Known Allergies (Unverified , 12/08/17) Medication History No Active Prescriptions or Reported Meds Patient History Healthcare decision maker Resuscitation status Advanced Directive on File Physical Exam Last 24 Hour Vital Signs Date Time Temp Pulse Resp B/P (MAP) Pulse Ox O2 Delivery O2 Flow Rate FiO2 07/13/20 11:55 98.0 65 18 124/79 (94) 96 07/13/20 09:00 Room Air 07/13/20 08:00 97.8 66 18 136/91 (106) 97 07/13/20 04:00 97.8 64 20 121/74 (90) 97 07/13/20 00:00 99.0 96 20 117/79 (92) 97 07/12/20 21:00 Room Air 07/12/20 20:00 99.3 95 21 112/81 (91) 97 07/12/20 16:00 99.3 75 21 138/96 (110) 97 07/12/20 14:23 Room Air 07/12/20 14:05 98.1 19 118/85 (96) 98 07/12/20 14:00 98.3 89 18 134/88 99 Room Air 07/12/20 13:43 98.4 84 16 125/92 99 Room Air Intake and Output 07/12/20 07/13/20 19:00 07:00 Intake Total 700 ml Output Total 800 ml Balance -100 ml Intake Oral 700 ml Output Urine Total 800 ml # Voids 2 2 # Bowel Movements 1 Laboratory Tests Test 07/13/20 05:50 White Blood Count 11.3 K/UL (4.8-10.8) H Red Blood Count 5.54 M/UL (4.70-6.10) Hemoglobin 15.6 G/DL (14.2-18.0) Hematocrit 48.2 % (42.0-52.0) Mean Corpuscular Volume 87 FL (80-99) Mean Corpuscular Hemoglobin 28.1 PG (27.0-31.0) Mean Corpuscular Hemoglobin Concent 32.3 G/DL (32.0-36.0) Red Cell Distribution Width 12.3 % (11.6-14.8) Platelet Count 495 K/UL (150-450) H Mean Platelet Volume 4.6 FL (6.5-10.1) L Neutrophils (%) (Auto) 62.9 % (45.0-75.0) Lymphocytes (%) (Auto) 28.1 % (20.0-45.0) Monocytes (%) (Auto) 6.9 % (1.0-10.0) Eosinophils (%) (Auto) 0.5 % (0.0-3.0) Basophils (%) (Auto) 1.6 % (0.0-2.0) Sodium Level 140 MMOL/L (136-145) Potassium Level 3.6 MMOL/L (3.5-5.1) Chloride Level 101 MMOL/L (98-107) Carbon Dioxide Level 32 MMOL/L (21-32) Anion Gap 7 mmol/L (5-15) Blood Urea Nitrogen 13 mg/dL (7-18) Creatinine 1.1 MG/DL (0.55-1.30) Estimat Glomerular Filtration Rate > 60 mL/min (>60) Glucose Level 91 MG/DL (74-106) Calcium Level 9.0 MG/DL (8.5-10.1) Phosphorus Level 3.2 MG/DL (2.5-4.9) Magnesium Level 2.1 MG/DL (1.8-2.4) Microbiology Date/Time Source Procedure Growth Status 07/12/20 14:00 Rectum Received Height (Feet): 5 Height (Inches): 10.00 Weight (Pounds): 137 Medications Current Medications Medications (Trade) Dose Ordered Sig/Toni Route PRN Reason Start Time Stop Time Status Last Admin Dose Admin Acetaminophen (Tylenol) 650 mg Q4H PRN ORAL Mild Pain (Pain Scale 1-3) 07/12/20 16:00 08/11/20 15:59 07/12/20 20:22 Al Hydroxide/Mg Hydroxide (Mylanta) 30 ml Q6H PRN ORAL acid reflux pain 07/13/20 01:45 08/12/20 01:44 07/13/20 02:24 Dextrose (Dextrose 50%) 25 ml Q30M PRN IV Hypoglycemia 07/12/20 16:00 10/10/20 15:59 Dextrose (Dextrose 50%) 50 ml Q30M PRN IV Hypoglycemia 07/12/20 16:00 10/10/20 15:59 Diphenhydramine HCl (Benadryl) 25 mg Q6H PRN ORAL Itching/Pruritis 07/12/20 16:00 08/11/20 15:59 Enoxaparin Sodium (Lovenox) 40 mg DAILY SUBQ 07/12/20 17:15 10/10/20 17:14 07/13/20 09:10 Hydralazine HCl (Apresoline) 25 mg Q6H PRN ORAL sbp>160 07/12/20 17:45 10/10/20 17:44 Lorazepam (Ativan) 1 mg Q4H PRN ORAL For Anxiety 07/12/20 16:00 07/19/20 15:59 Morphine Sulfate (Morphine Sulfate) 1 mg Q4H PRN IVP Moderate Pain (Pain Scale 4-6) 07/12/20 16:00 07/19/20 15:59 Morphine Sulfate (Morphine Sulfate) 2 mg Q4H PRN IVP Severe Pain (Pain Scale 7-10) 07/12/20 16:00 07/19/20 15:59 07/13/20 09:11 Ondansetron HCl (Zofran) 4 mg Q6H PRN IVP Nausea & Vomiting 07/12/20 16:00 08/11/20 15:59 07/13/20 01:24 Potassium Chloride/Sodium Chloride 1,000 ml @ 100 mls/hr Q10H IV 07/12/20 17:45 08/11/20 17:44 07/13/20 03:48 Prochlorperazine (Compazine) 10 mg Q6H PRN IVP Nausea & Vomiting 07/13/20 01:45 08/12/20 01:44 07/13/20 02:24 Assessment/Plan Assessment/Plan: HEmatology Consultation REQ MD: Jemal Jack and Lucy Cotter (called by) DOS 07/13/20 RFC: Eval of hx of DVT thromboembolic events HPI This is a 49yo AAM with past medical history of h/o gastritis, hypertension, and supra mesenteric thrombosis not on warfarin (noncompliance vs completed therapy) who represents after multiple episodes of vomiting. This is has happened before due to similar circumstances of high exposure of smoking marijuana, recently admitted 06/20/2020 for similiar symptoms . He claims multiple episodes of non bloody vomiting. In the ED noted to be hypokalemic. He received multiple dosages of antiemetics and on my initial evaluation patient was no longer nauseous, and tolerating PO. Patient lives with parents. Denies sick contacts, fevers, chills, diarrhea. Overnight continues to have nausea/vomiting and heme was consulted for eval as needed Allergies: No Known Allergies (Unverified , 12/08/17) COVID-19 Screening Contact w/high risk pt: No Recent Travel to affected area: No Experienced COVID-19 symptoms?: No Medication History No Active Prescriptions or Reported Meds Patient History History Provided By: Patient Healthcare decision maker Resuscitation status Social History: (1) Marijuana abuse Review of Systems Constitutional: Reports: no symptoms ENT: Reports: no symptoms Respiratory: Reports: no symptoms Cardiovascular: Reports: no symptoms Gastrointestinal: Reports: nausea, vomiting Genitourinary: Reports: no symptoms Musculoskeletal: Reports: no symptoms Hematologic/Lymphatic: Reports: no symptoms Physical Exam: Vitals: reviewed General: NAD HEENT: nc, at Neck: supple Chest: clear breath sounds bilaterally Cardiovascular: RRR, no s3, s4 Abdomen: soft, nontender, nd Extremities: no cce, normal range of motion Neuro: alert and oriented Labs reviewed Imaging noted Assessment and Recs # hx Acute SMV and portal vein thrombosis history -- potential contributor to abdominal pain, epigastric/left upper quadrant/nonradiating suspected 2/2 acute SMV thrombus --> imaging has been reviewed and cw acute process, dw rad, pcp, surg (this was back in 2019) --> agree with the use of anticoagulation, hep gtt has been started==> now mckenzie to lovenox/coumadin --> minimum of 3 months of anticoag (unknown if completed it since poor historian) --> will need a workup to r/o malignancy, tumor markers have been ordered --> recommend hypercoag w/u as well, may be done in o/p setting --> gi to access soon with EGD 09/08: esophagitisgastritis --> agree with low dose lovenox --> agree to obtain repeat venous duplex abd to r/o VTE event # Leukocytosis, reactive vs. infectious. Will rule out infectious etiology. --> trend on abx as needed --> wbc trend 18-->13 --> blood cultures reviewed --> id recs noted # Hypokalemia due to vomiting --> k given as needed, daily --> zofran started q6h --> Compazine as needed for breakthrough nausea # TRISTAN --> cr elevated, may be due to dehydration --> ivf given # Cannabis use --> Counselling provided --> may be contributor to n.v # Dvt ppx now with lovenox sq Appreciate consultation and millicent RN. Thomas Gant MD Jul 13, 2020 13:02
--- NOTE | 2020-07-13 13:53 | Consultation ---
History of Present Illness General Date patient seen: Jul 13, 2020 Reason for Hospitalization: Abdominal Pain Present Illness HPI This is a 49 year old male with past medical history of h/o gastritis, hypertension, and supra mesenteric thrombosis not on warfarin (noncompliance vs completed therapy), chronic abd pain who represents after multiple episodes of vomiting. This is has happened before due to similar circumstances of high exposure of smoking marijuana, recently admitted 06/20/2020 for similiar symptoms . He claims multiple episodes of non bloody vomiting. admitted for care and management. US noted. c/o abd pain. surgery called to evaluate and assist with care. patient care plan prior reviewed. hx non compliance Allergies: Coded Allergies: No Known Allergies (Unverified , 12/08/17) COVID-19 Screening Contact w/high risk pt: No Recent Travel to affected area: No Experienced COVID-19 symptoms?: No Medication History No Active Prescriptions or Reported Meds Patient History History Provided By: Patient, Medical Record, PMD Healthcare decision maker Resuscitation status Advanced Directive on File Past Medical/Surgical History Past Medical/Surgical History: (1) Esophagitis (2) Hypomagnesemia (3) Bacteremia (4) Superior mesenteric vein thrombosis (5) Essential hypertension (6) Dehydration (7) Hypokalemia (8) Acute kidney injury (9) Gastritis (10) Marijuana abuse Review of Systems Review of Symptoms General ROS: no weight loss or fever Psychological ROS: no depression or mood changes, no memory loss Ophthalmic ROS: no visual changes or eye irritation ENT ROS: no nasal congestion, hearing loss, dizziness Allergy and Immunology ROS: no allergic symptoms or urticaria Hematological and Lymphatic ROS: no swollen glands, unusual bleeding or bruising Endocrine ROS: no polyuria, polydipsia, weight changes, temperature intolerance Respiratory ROS: no cough, shortness of breath, or wheezing Cardiovascular ROS: no chest pain or dyspnea on exertion Gastrointestinal ROS: ++abdominal pain, no bright red blood in stool. Musculoskeletal ROS: no myalgias or arthralgias Neurological ROS: no TIA or stroke symptoms Dermatological ROS: no new or changing skin lesions, rashes or pruritis Physical Exam Physical Exam General appearance: alert, cooperative, no distress, appears stated age Head: Normocephalic, without obvious abnormality, atraumatic Eyes: conjunctivae/corneas clear. PERRL, EOM's intact. Fundi benign Throat: Lips, mucosa, and tongue normal. Teeth and gums normal Neck: supple, symmetrical, trachea midline, no adenopathy, thyroid: not enlarged, symmetric, no tenderness/mass/nodules, no carotid bruit and no JVD Lungs: clear to auscultation bilaterally Heart: regular rate and rhythm, S1, S2 normal, no murmur, click, rub or gallop Abdomen: soft, non-tender. Bowel sounds normal. No masses, no organomegaly Extremities: extremities normal, atraumatic, no cyanosis or edema Pulses: 2+ and symmetric Skin: Skin color, texture, turgor normal. No rashes or lesions Neurologic: Grossly normal Last 24 Hour Vital Signs Date Time Temp Pulse Resp B/P (MAP) Pulse Ox O2 Delivery O2 Flow Rate FiO2 07/13/20 11:55 98.0 65 18 124/79 (94) 96 07/13/20 09:00 Room Air 07/13/20 08:00 97.8 66 18 136/91 (106) 97 07/13/20 04:00 97.8 64 20 121/74 (90) 97 07/13/20 00:00 99.0 96 20 117/79 (92) 97 07/12/20 21:00 Room Air 07/12/20 20:00 99.3 95 21 112/81 (91) 97 07/12/20 16:00 99.3 75 21 138/96 (110) 97 07/12/20 14:23 Room Air 07/12/20 14:05 98.1 19 118/85 (96) 98 07/12/20 14:00 98.3 89 18 134/88 99 Room Air Intake and Output 07/12/20 07/13/20 19:00 07:00 Intake Total 700 ml Output Total 800 ml Balance -100 ml Intake Oral 700 ml Output Urine Total 800 ml # Voids 2 2 # Bowel Movements 1 Laboratory Tests Test 07/13/20 05:50 White Blood Count 11.3 K/UL (4.8-10.8) H Red Blood Count 5.54 M/UL (4.70-6.10) Hemoglobin 15.6 G/DL (14.2-18.0) Hematocrit 48.2 % (42.0-52.0) Mean Corpuscular Volume 87 FL (80-99) Mean Corpuscular Hemoglobin 28.1 PG (27.0-31.0) Mean Corpuscular Hemoglobin Concent 32.3 G/DL (32.0-36.0) Red Cell Distribution Width 12.3 % (11.6-14.8) Platelet Count 495 K/UL (150-450) H Mean Platelet Volume 4.6 FL (6.5-10.1) L Neutrophils (%) (Auto) 62.9 % (45.0-75.0) Lymphocytes (%) (Auto) 28.1 % (20.0-45.0) Monocytes (%) (Auto) 6.9 % (1.0-10.0) Eosinophils (%) (Auto) 0.5 % (0.0-3.0) Basophils (%) (Auto) 1.6 % (0.0-2.0) Sodium Level 140 MMOL/L (136-145) Potassium Level 3.6 MMOL/L (3.5-5.1) Chloride Level 101 MMOL/L (98-107) Carbon Dioxide Level 32 MMOL/L (21-32) Anion Gap 7 mmol/L (5-15) Blood Urea Nitrogen 13 mg/dL (7-18) Creatinine 1.1 MG/DL (0.55-1.30) Estimat Glomerular Filtration Rate > 60 mL/min (>60) Glucose Level 91 MG/DL (74-106) Calcium Level 9.0 MG/DL (8.5-10.1) Phosphorus Level 3.2 MG/DL (2.5-4.9) Magnesium Level 2.1 MG/DL (1.8-2.4) Microbiology Date/Time Source Procedure Growth Status 07/12/20 14:00 Rectum Received Height (Feet): 5 Height (Inches): 10.00 Weight (Pounds): 137 Medications Current Medications Medications (Trade) Dose Ordered Sig/Toni Route PRN Reason Start Time Stop Time Status Last Admin Dose Admin Acetaminophen (Tylenol) 650 mg Q4H PRN ORAL Mild Pain (Pain Scale 1-3) 07/12/20 16:00 08/11/20 15:59 07/12/20 20:22 Al Hydroxide/Mg Hydroxide (Mylanta) 30 ml Q6H PRN ORAL acid reflux pain 07/13/20 01:45 08/12/20 01:44 07/13/20 02:24 Dextrose (Dextrose 50%) 25 ml Q30M PRN IV Hypoglycemia 07/12/20 16:00 10/10/20 15:59 Dextrose (Dextrose 50%) 50 ml Q30M PRN IV Hypoglycemia 07/12/20 16:00 10/10/20 15:59 Diphenhydramine HCl (Benadryl) 25 mg Q6H PRN ORAL Itching/Pruritis 07/12/20 16:00 08/11/20 15:59 Enoxaparin Sodium (Lovenox) 40 mg DAILY SUBQ 07/12/20 17:15 10/10/20 17:14 07/13/20 09:10 Hydralazine HCl (Apresoline) 25 mg Q6H PRN ORAL sbp>160 07/12/20 17:45 10/10/20 17:44 Lorazepam (Ativan) 1 mg Q4H PRN ORAL For Anxiety 07/12/20 16:00 07/19/20 15:59 Morphine Sulfate (Morphine Sulfate) 1 mg Q4H PRN IVP Moderate Pain (Pain Scale 4-6) 07/12/20 16:00 07/19/20 15:59 Morphine Sulfate (Morphine Sulfate) 2 mg Q4H PRN IVP Severe Pain (Pain Scale 7-10) 07/12/20 16:00 07/19/20 15:59 07/13/20 09:11 Ondansetron HCl (Zofran) 4 mg Q6H PRN IVP Nausea & Vomiting 07/12/20 16:00 08/11/20 15:59 07/13/20 01:24 Potassium Chloride/Sodium Chloride 1,000 ml @ 100 mls/hr Q10H IV 07/12/20 17:45 08/11/20 17:44 07/13/20 13:19 Prochlorperazine (Compazine) 10 mg Q6H PRN IVP Nausea & Vomiting 07/13/20 01:45 08/12/20 01:44 07/13/20 02:24 Assessment/Plan Problem List: (1) Marijuana abuse ICD Codes: F12.10 - Cannabis abuse, uncomplicated SNOMED: 81446523 (2) Esophagitis ICD Codes: K20.9 - Esophagitis, unspecified SNOMED: 67660222 (3) Dehydration ICD Codes: E86.0 - Dehydration SNOMED: 09728776 (4) Hypokalemia ICD Codes: E87.6 - Hypokalemia SNOMED: 98052038 (5) Hypomagnesemia ICD Codes: E83.42 - Hypomagnesemia SNOMED: 015535887 (6) Essential hypertension ICD Codes: I10 - Essential (primary) hypertension SNOMED: 60145731 (7) Bacteremia ICD Codes: R78.81 - Bacteremia SNOMED: 0699164 (8) Gastritis ICD Codes: K29.70 - Gastritis, unspecified, without bleeding SNOMED: 3268376 (9) Superior mesenteric vein thrombosis Assessment & Plan: chronic thrombosis seemingly worsening non compliance with therapy anticoag as per heme will plan ct contrast once hydrated thank you Imaged portions of the abdominal aorta are normal in caliber. Proximal portions of the celiac and superior mesenteric arteries are patent with normal arterial waveforms. The liver demonstrates normal echogenicity. No focal hepatic mass lesion appreciated sonographically. Hepatic contour is smooth. Liver is normal in size. Imaged hepatic veins are patent. There is linear eccentric echogenic material within the splenoportal confluence extending into the main portal vein with residual flow. Possibility of chronic or partially occlusive thrombus not excluded. Portal vein flow is hepatopedal. No gallstones or gallbladder sludge identified. No gallbladder wall thickening or pericholecystic fluid. No biliary ductal dilatation. Common bile duct measures 3 mm diameter. Kidneys demonstrate normal echogenicity. There is no hydronephrosis or sonographically appreciable renal stone. Spleen is unremarkable in appearance. No ascites demonstrated. IMPRESSION: Linear echogenic material with rouleaux flow noted at the spinal portal confluence, extending into the main portal vein. Findings are concerning for partially occlusive portal vein thrombosis, possibly chronic. Recommend further evaluation with contrast-enhanced CT of the abdomen with portal venous phase imaging for further evaluation as clinically indicated. ICD Codes: K55.069 - Superior mesenteric vein thrombosis SNOMED: 428133759 (10) Acute kidney injury ICD Codes: N17.9 - Acute kidney failure, unspecified SNOMED: 1118483, 42878255 (11) Abdominal pain Assessment & Plan: likely secondary to thrombus okay for diet anticoag as per heme trend labs ICD Codes: R10.9 - Unspecified abdominal pain SNOMED: 19653094 Jose Back Jul 13, 2020 13:53
--- NOTE | 2020-07-13 14:01 | NUR ---
CASE MANAGEMENT: INITIAL REVIEW 49YR OLD FEMALE FROM HOME CC:ABDOMINAL PAIN; VOMITING HX PVT BUT NOT ON TREATMENT PLAN SI:PORTAL VEIN THROMBOSIS . GASTRITIS . ABD PAIN 98.8 113 20 132/87 96% ON RA WBC 18.7 RBC 6.14 Hct 52.3 PLT 619 K+ 3.4 ANION GAP 114 IS:IV ZOFRAN X1 IV PROTONIX X1 IVF NS BOLUS X1 IV MORPHINE SULFATE X1 US ABD- Linear echogenic material with rouleaux flow noted at the spinal portal confluence,extending into the main portal vein. Findings are concerning for partially occlusive portal vein thrombosis, possibly chronic. Recommend further evaluation with contrast-enhanced CT of the abdomen with portal venous phase imaging for further evaluation as clinically indicated. \: [facility] DCP: HOME WHEN STABLE PLAN: OBTAIN MEDICATION REGIMEN FOR PVT MONITOR WBC MONITOR K+ SURGICAL CONSULT CASE MANAGEMENT: REVIEW 07/13/2020 SI:PORTAL VEIN THROMBOSIS. ESOPHAGITIS . GASTRITIS . ABD PAIN 98.0 65 18 124/79 96% ON RA WBC 11.3 PLT 495 IS:IV KCL/NS @100ML/HR LOVENOX SQ QD IV MORPHINE SULFATE Q4HR/PRN \: [facility] DCP: HOME WHEN STABLE PLAN: CONSULT HEMATOLOGY START ON CLEAR DIET
--- NOTE | 2020-07-13 14:31 | NUR ---
*-* INSURANCE *-* UPDATED CLINICALS AND REVIEWS HAVE BEEN FAXED TO: FAX#[phone] REVIEWS/CLINICALS INFORMATION OBTAINED FROM [facility]
--- NOTE | 2020-07-13 14:37 | General Progress Note ---
Assessment/Plan Status: stable Assessment/Plan: 49 year old M admitted for cyclical vomiting likely 2/2 marijuana use. #Cyclical vomiting likely 2/2 marijuana use #Marijuana abuse -Continue with antiemetic PRN -Cont IVF NS + KCL 20meq -Repeat BMP in the morning -clear liquid diet adv as tolerated -Counseling on cessation of marijuana #Hypokalemia 2/2 above - improved -cont IVf as stated above -Nephrology consulted #Hx Superior mesenteric vein thrombosis -has not been taking coumadin -dx in Aug 2019 -Abd US noted -Surgery consult appreciated -AC per hematology -per hematology rec at least 3 months of AC - unclear if pt completed -Hematology consult appreciated #Leukocytosis - downtrending -suspect reactive -CTM -afebrile VSS Code: Full Subjective Date patient seen: Jul 13, 2020 ROS Limited/Unobtainable: No Constitutional: Reports: weakness HEENT: Reports: no symptoms Cardiovascular: Reports: no symptoms Respiratory: Reports: no symptoms Gastrointestinal/Abdominal: Reports: abdominal pain, nausea, vomiting Genitourinary: Reports: no symptoms Hematologic/Lymphatic: Reports: no symptoms Allergies: Coded Allergies: No Known Allergies (Unverified , 12/08/17) Subjective Had 3 episodes of vomiting overnight, abdominal pain stable, abd US reviewed. WBC down trending Objective Last 24 Hour Vital Signs Date Time Temp Pulse Resp B/P (MAP) Pulse Ox O2 Delivery O2 Flow Rate FiO2 07/13/20 11:55 98.0 65 18 124/79 (94) 96 07/13/20 09:00 Room Air 07/13/20 08:00 97.8 66 18 136/91 (106) 97 07/13/20 04:00 97.8 64 20 121/74 (90) 97 07/13/20 00:00 99.0 96 20 117/79 (92) 97 07/12/20 21:00 Room Air 07/12/20 20:00 99.3 95 21 112/81 (91) 97 07/12/20 16:00 99.3 75 21 138/96 (110) 97 Intake and Output 07/12/20 07/13/20 19:00 07:00 Intake Total 700 ml Output Total 800 ml Balance -100 ml Intake Oral 700 ml Output Urine Total 800 ml # Voids 2 2 # Bowel Movements 1 Laboratory Tests 07/13/20 05:50: White Blood Count 11.3H, Red Blood Count 5.54, Hemoglobin 15.6, Hematocrit 48.2 , Mean Corpuscular Volume 87, Mean Corpuscular Hemoglobin 28.1, Mean Corpuscular Hemoglobin Concent 32.3, Red Cell Distribution Width 12.3, Platelet Count 495H, Mean Platelet Volume 4.6L, Neutrophils (%) (Auto) 62.9, Lymphocytes (%) (Auto) 28.1, Monocytes (%) (Auto) 6.9, Eosinophils (%) (Auto) 0.5, Basophils (%) (Auto) 1.6, Sodium Level 140, Potassium Level 3.6, Chloride Level 101, Carbon Dioxide Level 32, Anion Gap 7, Blood Urea Nitrogen 13, Creatinine 1.1, Estimat Glomerular Filtration Rate > 60, Glucose Level 91, Calcium Level 9.0, Phosphorus Level 3.2, Magnesium Level 2.1 Height (Feet): 5 Height (Inches): 10.00 Weight (Pounds): 137 Objective General Appearance: WD/WN, no apparent distress, alert HEENT: normocephalic Neck: non-tender Respiratory/Chest: chest wall non-tender, lungs clear Cardiovascular/Chest: regular rhythm Abdomen: normal bowel sounds, non tender, soft Extremities: normal range of motion, non-tender, no edema Skin Exam: normal pigmentation Neurologic: rn surgical II-XII grossly normal Lucy Cotter MD Jul 13, 2020 14:37
[2020-07-13 16:00] VITALS: BP 120/81
--- NOTE | 2020-07-13 16:14 | Diagnostic Imaging Report ---
Indication: Abdominal distention 10.7, suspicion for portal vein thrombosis on previous abdominal sonogram Technique: Becker-scale and duplex images of the upper abdomen were obtained Comparison: 07/12/2020 09/06/2019 Findings: Gallbladder is unremarkable, without stones, wall thickening, nor pericholecystic fluid. Sonographic Giang's sign is negative. Common bile duct measures for mm in diameter. No intrahepatic biliary ductal dilatation. Liver demonstrates normal echogenicity, no focal abnormality. Portal vein and hepatic veins are patent on color Doppler imaging. Grayscale images, demonstrated mobile echoes are seen within the superior mesenteric vein, main and right portal veins all also demonstrated on the previous study. That portal vein and nonocclusive thrombus was also demonstrated on prior CT scan of 09/06/2019. Pancreas is unremarkable. Spleen is unremarkable. Left kidney measures 10.3 cm in length. Right kidney measures cm length. Both kidneys demonstrate normal echogenicity. There is no hydronephrosis. No focal abnormality . Non-aneurysmal abdominal aorta . Impression: Mobile echoes within the main portal vein, similar to findings reported on previous day's exam. Note that prior CT scan of 09/06/2019 demonstrated nonocclusive portal vein thrombus; current findings presumably reflect such as well Negative for gallstones or dilated bile ducts.
[2020-07-13 20:00] VITALS: BP 130/80
--- NOTE | 2020-07-13 20:02 | NUR ---
NURSE HAND-OFF: Important Events on Shift: Patient Status: stable Diet: clear liquid Pending Orders: Pending Results/Labs: Pending MD notification: Latest Vital Signs: Temperature 99.1 , Pulse 72 , B/P 120 /81 , Respiratory Rate 18 , O2 SAT 99 , Room Air, O2 Flow Rate . Vital Sign Comment: Latest Mcleod Fall Score: 20 Fall Risk: Low Risk Safety Measures: Call light Within Reach, Bed Alarm Zone 1, Side Rails Side Rails x2, Bed position Low and Locked. Fall Precautions: Yellow Socks Patient Fall Education Report given to .
--- NOTE | 2020-07-13 20:05 | NUR ---
NURSE NOTES: Received report from Shalom RN, Pt A/O x4 breaths regular and unlabored, Pt complains of 10/10 pain will give medication when due , IVF on the Rt hand running fluids as ordered, bed in low locked position, side rails up X2, call light with in reach, will continue to monitor
[2020-07-14] VITALS: BP 125/78
[2020-07-14] MEDS: NS w/KCl 20mEq 1000ml 1,000 ML IV SCH ×3 (01:04→11:47)
[2020-07-14] MEDS: Morphine Sulfate 4mg/ml Inj (IV USE ONLY) IVP PRN ×5 (01:05→23:56)
[2020-07-14 04:00] VITALS: BP 123/72
[2020-07-14 06:29] LABS: BASOPHILS % (AUTO) 1.5 % (0.0-2.0); EOSINOPHILS % (AUTO) 0.5 % (0.0-3.0); HEMATOCRIT 46.7 % (42.0-52.0); HEMOGLOBIN 15.3 G/DL (14.2-18.0); LYMPHOCYTES % (AUTO) 27.9 % (20.0-45.0); MEAN CORPUSCULAR VOLUME 87 FL (80-99); MONOCYTES % (AUTO) 5.9 % (1.0-10.0); NEUTROPHILS % (AUTO) 64.2 % (45.0-75.0); PLATELET COUNT 473 K/UL (150-450); RED CELL DISTRIBUTION WIDTH 11.9 % (11.6-14.8); WHITE BLOOD COUNT 11.8 K/UL (4.8-10.8)
--- NOTE | 2020-07-14 07:07 | NUR ---
NURSE HAND-OFF: Important Events on Shift: Vomited x2 on shift Patient Status: Stable Diet: Clear liquid ( advance at tolerated) Pending Orders: Pending Results/Labs: Pending MD notification: Latest Vital Signs: Temperature 98.8 , Pulse 65 , B/P 123 /72 , Respiratory Rate 18 , O2 SAT 98 , Room Air, O2 Flow Rate . Vital Sign Comment: Latest Mcleod Fall Score: 20 Fall Risk: Low Risk Safety Measures: Call light Within Reach, Bed Alarm Zone 1, Side Rails Side Rails x2, Bed position Low and Locked. Fall Precautions: Yellow Socks Patient Fall Education Report given to SHOLA Rausch.
--- NOTE | 2020-07-14 07:11 | NUR ---
NURSE NOTES: Received report from Paras JOLLEY, rounds made , pt sleeping, breaths regular unlabored on RA, with no s/s of distress , pt has IVF on the Rt hand 24G patent asymptomatic,pt continues clear liquid due to Nausea and vomiting, will advance diet as tolerated, bed in low locked position, side rails up X2, call light with in reach, will continue to monitor
[2020-07-14 07:26] LABS: ALANINE AMINOTRANSFERASE 23 U/L (12-78); ALBUMIN 3.4 G/DL (3.4-5.0); ALBUMIN/GLOBULIN RATIO 0.9 (1.0-2.7); ALKALINE PHOSPHATASE 71 U/L (46-116); AMYLASE 314 U/L (25-115); ANION GAP 9 mmol/L (5-15); ASPARTATE AMINO TRANSFERASE 23 U/L (15-37); BILIRUBIN,TOTAL 0.7 MG/DL (0.2-1.0); BLOOD UREA NITROGEN 10 mg/dL (7-18); CALCIUM 8.9 MG/DL (8.5-10.1); CARBON DIOXIDE 27 MMOL/L (21-32); CHLORIDE 104 MMOL/L (98-107); CREATININE 0.9 MG/DL (0.55-1.30); POTASSIUM 3.7 MMOL/L (3.5-5.1); SODIUM 140 MMOL/L (136-145)
[2020-07-14 07:55] LABS: INR 1.1 (0.9-1.1)
[2020-07-14 08:00] VITALS: BP 135/95
[2020-07-14] MEDS: Enoxaparin 40mg Inj SUBQ SCH (08:49)
[2020-07-14 12:02] VITALS: BP 130/98
--- NOTE | 2020-07-14 12:33 | NUR ---
NURSE NOTES: Spoke to regarding patient and new blood test order received for tomorrow. Order noted and carried out.
--- NOTE | 2020-07-14 13:26 | Surgery Progress Note ---
Surgery Progress Note Subjective Additional Comments resting comfortable no acute events labs noted Objective Last 24 Hour Vital Signs Date Time Temp Pulse Resp B/P (MAP) Pulse Ox O2 Delivery O2 Flow Rate FiO2 07/14/20 12:02 98.1 63 18 130/98 (109) 98 07/14/20 09:00 Room Air 07/14/20 08:00 97.6 68 18 135/95 (108) 100 07/14/20 04:00 98.8 65 18 123/72 (89) 98 07/14/20 00:00 98.5 70 18 125/78 (94) 97 07/13/20 21:00 Room Air 07/13/20 20:00 98.0 75 18 130/80 (97) 96 07/13/20 16:00 99.1 72 18 120/81 (94) 99 I&O Intake and Output 07/13/20 07/14/20 19:00 07:00 Intake Total 1100 ml 300 ml Output Total 820 ml Balance 1100 ml -520 ml Intake Oral 600 ml 300 ml IV Total 500 ml Output Urine Total 820 ml # Voids 3 # Bowel Movements 1 Cardiovascular: RSR Respiratory: clear, decreased breath sounds Abdomen: soft, non-tender, present bowel sounds, non-distended Extremities: no edema, no tenderness, no cyanosis Laboratory Tests Test 07/14/20 05:20 07/14/20 07:30 White Blood Count 11.8 K/UL (4.8-10.8) H Red Blood Count 5.40 M/UL (4.70-6.10) Hemoglobin 15.3 G/DL (14.2-18.0) Hematocrit 46.7 % (42.0-52.0) Mean Corpuscular Volume 87 FL (80-99) Mean Corpuscular Hemoglobin 28.4 PG (27.0-31.0) Mean Corpuscular Hemoglobin Concent 32.8 G/DL (32.0-36.0) Red Cell Distribution Width 11.9 % (11.6-14.8) Platelet Count 473 K/UL (150-450) H Mean Platelet Volume 4.7 FL (6.5-10.1) L Neutrophils (%) (Auto) 64.2 % (45.0-75.0) Lymphocytes (%) (Auto) 27.9 % (20.0-45.0) Monocytes (%) (Auto) 5.9 % (1.0-10.0) Eosinophils (%) (Auto) 0.5 % (0.0-3.0) Basophils (%) (Auto) 1.5 % (0.0-2.0) Erythrocyte Sedimentation Rate 10 MM/HR (0-15) Sodium Level 140 MMOL/L (136-145) Potassium Level 3.7 MMOL/L (3.5-5.1) Chloride Level 104 MMOL/L (98-107) Carbon Dioxide Level 27 MMOL/L (21-32) Anion Gap 9 mmol/L (5-15) Blood Urea Nitrogen 10 mg/dL (7-18) Creatinine 0.9 MG/DL (0.55-1.30) Estimat Glomerular Filtration Rate > 60 mL/min (>60) Glucose Level 85 MG/DL (74-106) Lactic Acid Level 0.90 mmol/L (0.4-2.0) Calcium Level 8.9 MG/DL (8.5-10.1) Total Bilirubin 0.7 MG/DL (0.2-1.0) Aspartate Amino Transf (AST/SGOT) 23 U/L (15-37) Alanine Aminotransferase (ALT/SGPT) 23 U/L (12-78) Alkaline Phosphatase 71 U/L (46-116) C-Reactive Protein, Quantitative < 0.4 mg/dL (0.00-0.90) Total Protein 7.4 G/DL (6.4-8.2) Albumin 3.4 G/DL (3.4-5.0) Globulin 4.0 g/dL Albumin/Globulin Ratio 0.9 (1.0-2.7) L Amylase Level 314 U/L (25-115) H Lipase 107 U/L (73-393) Prothrombin Time 12.0 SEC (9.30-11.50) H Prothromb Time International Ratio 1.1 (0.9-1.1) Activated Partial Thromboplast Time 30 SEC (23-33) Plan Problems: (1) Marijuana abuse (2) Esophagitis (3) Dehydration (4) Hypokalemia (5) Hypomagnesemia (6) Essential hypertension (7) Bacteremia (8) Gastritis (9) Superior mesenteric vein thrombosis Assessment & Plan: chronic thrombosis seemingly worsening non compliance with therapy anticoag as per heme will plan ct contrast once hydrated thank you Imaged portions of the abdominal aorta are normal in caliber. Proximal portions of the celiac and superior mesenteric arteries are patent with normal arterial waveforms. The liver demonstrates normal echogenicity. No focal hepatic mass lesion appreciated sonographically. Hepatic contour is smooth. Liver is normal in size. Imaged hepatic veins are patent. There is linear eccentric echogenic material within the splenoportal confluence extending into the main portal vein with residual flow. Possibility of chronic or partially occlusive thrombus not excluded. Portal vein flow is hepatopedal. No gallstones or gallbladder sludge identified. No gallbladder wall thickening or pericholecystic fluid. No biliary ductal dilatation. Common bile duct measures 3 mm diameter. Kidneys demonstrate normal echogenicity. There is no hydronephrosis or sonographically appreciable renal stone. Spleen is unremarkable in appearance. No ascites demonstrated. IMPRESSION: Linear echogenic material with rouleaux flow noted at the spinal portal confluence, extending into the main portal vein. Findings are concerning for partially occlusive portal vein thrombosis, possibly chronic. Recommend further evaluation with contrast-enhanced CT of the abdomen with portal venous phase imaging for further evaluation as clinically indicated. (10) Acute kidney injury (11) Abdominal pain Assessment & Plan: likely secondary to thrombus okay for diet anticoag as per heme trend labs Jose Back Jul 14, 2020 13:26
--- NOTE | 2020-07-14 14:09 | Hematology/Onc Progress Note ---
Assessment/Plan Assessment/Plan Assessment and Recs # hx Acute SMV and portal vein thrombosis history -- potential contributor to abdominal pain, epigastric/left upper quadrant/nonradiating suspected 2/2 acute SMV thrombus --> imaging has been reviewed and cw acute process, millicent rad, pcp, surg (this was back in 2019) --> agree with the use of anticoagulation, hep gtt has been started==> now mckenzie to lovenox/coumadin --> minimum of 3 months of anticoag (unknown if completed it since poor historian) --> will need a workup to r/o malignancy, tumor markers have been ordered --> recommend hypercoag w/u as well, may be done in o/p setting --> gi to access soon with EGD 09/08: esophagitisgastritis --> agree with low dose lovenox --> agree to obtain repeat venous duplex abd to r/o VTE event # Leukocytosis, reactive vs. infectious. Will rule out infectious etiology. --> trend on abx as needed --> wbc trend 18-->13 --> blood cultures reviewed --> id recs noted # Hypokalemia due to vomiting --> k given as needed, daily --> zofran started q6h --> Compazine as needed for breakthrough nausea # TRISTAN --> cr elevated, may be due to dehydration --> ivf given # Cannabis use --> Counselling provided --> may be contributor to n.v # Dvt ppx now with lovenox sq Appreciate consultation and millicent RN. Subjective Constitutional: Denies: no symptoms, chills, fever, malaise, weakness, other HEENT: Denies: no symptoms, eye pain, blurred vision, tearing, double vision, ear pain, ear discharge, nose pain, nose congestion, throat pain, throat swelling, mouth pain, mouth swelling, other Cardiovascular: Denies: no symptoms, chest pain, edema, irregular heart rate, lightheadedness, palpitations, syncope, other Respiratory: Denies: no symptoms, cough, shortness of breath, SOB with excertion, SOB at rest, sputum, wheezing, other Gastrointestinal/Abdominal: Denies: no symptoms, abdomen distended, abdominal pain, black stools, tarry stools, blood in stool, constipated, diarrhea, difficulty swallowing, nausea, poor appetite, poor fluid intake, rectal bleeding , vomiting, other Genitourinary: Denies: no symptoms, burning, discharge, frequency, flank pain, hematuria, incontinence, pain, urgency, other Neurologic/Psychiatric: Denies: no symptoms, anxiety, depressed, emotional problems, headache, numbness, paresthesia, pre-existing deficit, seizure, tingling, tremors, weakness, other Endocrine: Denies: no symptoms, excessive sweating, flushing, intolerance to cold, intolerance to heat, increased hunger, increased thirst, increased urine, unexplained weight gain, unexplained weight loss, other Allergies: Coded Allergies: No Known Allergies (Unverified , 12/08/17) Subjective 07/14 labs reviewed, continue on lovenox, wbc is 12, no bleeding Objective Objective Current Medications Medications (Trade) Dose Ordered Sig/Toni Route PRN Reason Start Time Stop Time Status Last Admin Dose Admin Acetaminophen (Tylenol) 650 mg Q4H PRN ORAL Mild Pain (Pain Scale 1-3) 07/12/20 16:00 08/11/20 15:59 07/12/20 20:22 Al Hydroxide/Mg Hydroxide (Mylanta) 30 ml Q6H PRN ORAL acid reflux pain 07/13/20 01:45 08/12/20 01:44 07/13/20 02:24 Dextrose (Dextrose 50%) 25 ml Q30M PRN IV Hypoglycemia 07/12/20 16:00 10/10/20 15:59 Dextrose (Dextrose 50%) 50 ml Q30M PRN IV Hypoglycemia 07/12/20 16:00 10/10/20 15:59 Diphenhydramine HCl (Benadryl) 25 mg Q6H PRN ORAL Itching/Pruritis 07/12/20 16:00 08/11/20 15:59 Enoxaparin Sodium (Lovenox) 40 mg DAILY SUBQ 07/12/20 17:15 10/10/20 17:14 07/14/20 08:49 Hydralazine HCl (Apresoline) 25 mg Q6H PRN ORAL sbp>160 07/12/20 17:45 10/10/20 17:44 Lorazepam (Ativan) 1 mg Q4H PRN ORAL For Anxiety 07/12/20 16:00 07/19/20 15:59 Morphine Sulfate (Morphine Sulfate) 1 mg Q4H PRN IVP Moderate Pain (Pain Scale 4-6) 07/12/20 16:00 07/19/20 15:59 Morphine Sulfate (Morphine Sulfate) 2 mg Q4H PRN IVP Severe Pain (Pain Scale 7-10) 07/12/20 16:00 07/19/20 15:59 07/14/20 11:47 Ondansetron HCl (Zofran) 4 mg Q6H PRN IVP Nausea & Vomiting 07/12/20 16:00 08/11/20 15:59 07/14/20 01:05 Potassium Chloride/Sodium Chloride 1,000 ml @ 100 mls/hr Q10H IV 07/12/20 17:45 08/11/20 17:44 07/14/20 11:47 Prochlorperazine (Compazine) 10 mg Q6H PRN IVP Nausea & Vomiting 07/13/20 01:45 08/12/20 01:44 07/14/20 11:47 Last 24 Hour Vital Signs Date Time Temp Pulse Resp B/P (MAP) Pulse Ox O2 Delivery O2 Flow Rate FiO2 07/14/20 12:02 98.1 63 18 130/98 (109) 98 07/14/20 09:00 Room Air 07/14/20 08:00 97.6 68 18 135/95 (108) 100 07/14/20 04:00 98.8 65 18 123/72 (89) 98 07/14/20 00:00 98.5 70 18 125/78 (94) 97 07/13/20 21:00 Room Air 07/13/20 20:00 98.0 75 18 130/80 (97) 96 07/13/20 16:00 99.1 72 18 120/81 (94) 99 07/13/20 11:55 98.0 65 18 124/79 (94) 96 07/13/20 09:00 Room Air 07/13/20 08:00 97.8 66 18 136/91 (106) 97 07/13/20 04:00 97.8 64 20 121/74 (90) 97 07/13/20 00:00 99.0 96 20 117/79 (92) 97 07/12/20 21:00 Room Air 07/12/20 20:00 99.3 95 21 112/81 (91) 97 07/12/20 16:00 99.3 75 21 138/96 (110) 97 07/12/20 14:23 Room Air Intake and Output 07/13/20 07/14/20 19:00 07:00 Intake Total 1100 ml 300 ml Output Total 820 ml Balance 1100 ml -520 ml Intake Oral 600 ml 300 ml IV Total 500 ml Output Urine Total 820 ml # Voids 3 # Bowel Movements 1 Labs Test 07/12/20 10:00 07/12/20 11:15 07/13/20 05:50 07/14/20 05:20 White Blood Count 18.7 K/UL (4.8-10.8) 11.3 K/UL (4.8-10.8) 11.8 K/UL (4.8-10.8) Red Blood Count 6.14 M/UL (4.70-6.10) 5.54 M/UL (4.70-6.10) 5.40 M/UL (4.70-6.10) Hemoglobin 17.3 G/DL (14.2-18.0) 15.6 G/DL (14.2-18.0) 15.3 G/DL (14.2-18.0) Hematocrit 52.3 % (42.0-52.0) 48.2 % (42.0-52.0) 46.7 % (42.0-52.0) Mean Corpuscular Volume 85 FL (80-99) 87 FL (80-99) 87 FL (80-99) Mean Corpuscular Hemoglobin 28.1 PG (27.0-31.0) 28.1 PG (27.0-31.0) 28.4 PG (27.0-31.0) Mean Corpuscular Hemoglobin Concent 33.0 G/DL (32.0-36.0) 32.3 G/DL (32.0-36.0) 32.8 G/DL (32.0-36.0) Red Cell Distribution Width 12.3 % (11.6-14.8) 12.3 % (11.6-14.8) 11.9 % (11.6-14.8) Platelet Count 619 K/UL (150-450) 495 K/UL (150-450) 473 K/UL (150-450) Mean Platelet Volume 4.5 FL (6.5-10.1) 4.6 FL (6.5-10.1) 4.7 FL (6.5-10.1) Neutrophils (%) (Auto) % (45.0-75.0) 62.9 % (45.0-75.0) 64.2 % (45.0-75.0) Lymphocytes (%) (Auto) % (20.0-45.0) 28.1 % (20.0-45.0) 27.9 % (20.0-45.0) Monocytes (%) (Auto) % (1.0-10.0) 6.9 % (1.0-10.0) 5.9 % (1.0-10.0) Eosinophils (%) (Auto) % (0.0-3.0) 0.5 % (0.0-3.0) 0.5 % (0.0-3.0) Basophils (%) (Auto) % (0.0-2.0) 1.6 % (0.0-2.0) 1.5 % (0.0-2.0) Differential Total Cells Counted 100 Neutrophils % (Manual) 62 % (45-75) Lymphocytes % (Manual) 20 % (20-45) Monocytes % (Manual) 17 % (1-10) Eosinophils % (Manual) 0 % (0-3) Basophils % (Manual) 1 % (0-2) Band Neutrophils 0 % (0-8) Platelet Estimate Increased Platelet Morphology Normal Red Blood Cell Morphology Normal Sodium Level 137 MMOL/L (136-145) 140 MMOL/L (136-145) 140 MMOL/L (136-145) Potassium Level 3.4 MMOL/L (3.5-5.1) 3.6 MMOL/L (3.5-5.1) 3.7 MMOL/L (3.5-5.1) Chloride Level 92 MMOL/L (98-107) 101 MMOL/L (98-107) 104 MMOL/L (98-107) Carbon Dioxide Level 29 MMOL/L (21-32) 32 MMOL/L (21-32) 27 MMOL/L (21-32) Anion Gap 16 mmol/L (5-15) 7 mmol/L (5-15) 9 mmol/L (5-15) Blood Urea Nitrogen 16 mg/dL (7-18) 13 mg/dL (7-18) 10 mg/dL (7-18) Creatinine 1.1 MG/DL (0.55-1.30) 1.1 MG/DL (0.55-1.30) 0.9 MG/DL (0.55-1.30) Estimat Glomerular Filtration Rate > 60 mL/min (>60) > 60 mL/min (>60) > 60 mL/min (>60) Glucose Level 114 MG/DL (74-106) 91 MG/DL (74-106) 85 MG/DL (74-106) Calcium Level 10.0 MG/DL (8.5-10.1) 9.0 MG/DL (8.5-10.1) 8.9 MG/DL (8.5-10.1) Total Bilirubin 0.5 MG/DL (0.2-1.0) 0.7 MG/DL (0.2-1.0) Aspartate Amino Transf (AST/SGOT) 26 U/L (15-37) 23 U/L (15-37) Alanine Aminotransferase (ALT/SGPT) 38 U/L (12-78) 23 U/L (12-78) Alkaline Phosphatase 97 U/L (46-116) 71 U/L (46-116) Troponin I 0.000 ng/mL (0.000-0.056) Total Protein 8.7 G/DL (6.4-8.2) 7.4 G/DL (6.4-8.2) Albumin 4.4 G/DL (3.4-5.0) 3.4 G/DL (3.4-5.0) Globulin 4.3 g/dL 4.0 g/dL Albumin/Globulin Ratio 1.0 (1.0-2.7) 0.9 (1.0-2.7) Lipase 78 U/L (73-393) 107 U/L (73-393) Urine Color Yellow Urine Appearance Clear Urine pH 5 (4.5-8.0) Urine Specific [place] 1.020 (1.005-1.035) Urine Protein 2+ (NEGATIVE) Urine Glucose (UA) Negative (NEGATIVE) Urine Ketones 1+ (NEGATIVE) Urine Blood 2+ (NEGATIVE) Urine Nitrite Negative (NEGATIVE) Urine Bilirubin Negative (NEGATIVE) Urine Urobilinogen Normal MG/DL (0.0-1.0) Urine Leukocyte Esterase 1+ (NEGATIVE) Urine RBC 2-4 /HPF (0 - 0) Urine WBC 2-4 /HPF (0 - 0) Urine Squamous Epithelial Cells None /LPF (NONE/OCC) Urine Bacteria Few /HPF (NONE) Urine Hyaline Casts 0-2 /LPF (NONE) Urine Mucus Moderate /LPF (NONE/OCC) Phosphorus Level 3.2 MG/DL (2.5-4.9) Magnesium Level 2.1 MG/DL (1.8-2.4) Erythrocyte Sedimentation Rate 10 MM/HR (0-15) Lactic Acid Level 0.90 mmol/L (0.4-2.0) C-Reactive Protein, Quantitative < 0.4 mg/dL (0.00-0.90) Amylase Level 314 U/L (25-115) Test 07/14/20 07:30 Prothrombin Time 12.0 SEC (9.30-11.50) Prothromb Time International Ratio 1.1 (0.9-1.1) Activated Partial Thromboplast Time 30 SEC (23-33) Height (Feet): 5 Height (Inches): 10.00 Weight (Pounds): 137 Objective Vitals: reviewed General: NAD HEENT: nc, at Neck: supple Chest: clear breath sounds bilaterally Cardiovascular: RRR, no s3, s4 Abdomen: soft, nontender, nd Extremities: no cce, normal range of motion Neuro: alert and oriented Thomas Gant MD Jul 14, 2020 14:09
--- NOTE | 2020-07-14 15:36 | NUR ---
CASE MANAGEMENT: REVIEW 07/13/2020 SI:PORTAL VEIN THROMBOSIS. ESOPHAGITIS . GASTRITIS . ABD PAIN 98.1 63 18 130/98 98% ON RA WBC 11.8 PLT 473 IS:IV KCL/NS @100ML/HR LOVENOX SQ QD IV MORPHINE SULFATE Q4HR/PRN \: 3E MED SURG UNIT DCP: HOME WHEN STABLE PLAN: MEDICATION ADJUSTED DC PLANNING HOME
[2020-07-14 16:00] VITALS: BP 142/93
--- NOTE | 2020-07-14 16:25 | NUR ---
CASE MANAGEMENT:NOTE CM received a call from JERAMY Marquez Patient only meets criteria for observation CM informed Dr Cotter observation order enter patient to dc home today Addendum: 07/14/20 at 1629 [address] LVN Dr Cotter given number for peer to peer Dr Cotter agree to call insurance
--- NOTE | 2020-07-14 17:30 | NUR ---
NURSE NOTES: pt vomited x2 after ingesting the first regular tray, and c/o abd pain, pt given medication for N/V and pain medication, MD Vazquezu notified of TENNILLE and she said PT has been prescribed nausea medication and advise pt to continue clear liquid diet when he gets home, pt notified of those recommendations
[2020-07-14] MEDS ORDERED: ZOFRAN4 MG ORAL (17:51)
--- NOTE | 2020-07-14 17:54 | Discharge Instructions ---
Discharge Instructions Discharge Instructions Follow up with: PCP Call MD/Return to Hospital if: severe abdominal pain, intractable vomiting Diet: other Resume Normal Activity?: Yes Activity: resume normal activities For Congestive Heart Failure Reminder Report to your physician any weight gain of 5 pounds or more in one week. Lucy Cotter MD Jul 14, 2020 17:54
--- NOTE | 2020-07-14 17:55 | Discharge Summary ---
Discharge Summary Hospital Course Date of Admission Jul 12, 2020 at 11:30 Date of Discharge 07/14/20 Admitting Diagnosis gastritis, abd pain HPI Leandro Dileep Field is a 49 year old male who was admitted on Jul 12, 2020 at 11: 30 for Gastritis,Abdominal Pain This is a 49yo AAM with past medical history of h/o gastritis, hypertension, and supra mesenteric thrombosis not on warfarin (noncompliance vs completed therapy) who represents after multiple episodes of vomiting. This is has happened before due to similar circumstances of high exposure of smoking marijuana, recently admitted 06/20/2020 for similiar symptoms . He claims multiple episodes of non bloody vomiting. In the ED noted to be hypokalemic. He received multiple dosages of antiemetics and on my initial evaluation patient was no longer nauseous, and tolerating PO. Patient lives with parents. Denies sick contacts, fevers, chills, diarrhea. Consultations Surgery, nephrology, hematology Hospital Course 49 year old M admitted for cyclical vomiting likely 2/2 marijuana use. Pt started on IV fluids and antiemetics with improvement in symptoms. Pt started on clear liquid diet and slowly advanced to regular diet. Pt evaluated by hematology for hx of superior mesenteric vein thrombosis, abdominal US with chronic nonocclusive thrombus, unclear if pt completed at least 3 months of anticoagulation. Advised pt to follow up with PCP for contrast-enhanced CT of the abdomen with portal venous phase imaging for further evaluation. On discharge, pt was ambulating with a stable gait, hemodynamically stable and tolerating diet. Discharge Medications New Medications: Ondansetron (Zofran) 4 Mg Tablet 4 MG ORAL Q6H PRN, #30 TAB 0 Refills Discharge Condition Upon Discharge: stable Discharge Vital Signs Last Vital Signs Date Time Temp Pulse Resp B/P (MAP) Pulse Ox O2 Delivery O2 Flow Rate FiO2 07/14/20 16:00 98.2 71 21 142/93 (109) 98 07/14/20 09:00 Room Air Discharge Disposition Patient was discharged to home Discharge Diagnoses: (1) Dehydration (2) Hypokalemia (3) Essential hypertension (4) Gastritis (5) Superior mesenteric vein thrombosis (6) Acute kidney injury Discharge Instructions Discharge Instructions Follow up with: PCP Call MD/Return to Hospital if: severe abdominal pain, intractable vomiting Activity: resume normal activities Lucy Cotter MD Jul 14, 2020 17:55
--- NOTE | 2020-07-14 18:21 | NUR ---
NURSE NOTES: pt to be discharged , prescription called in to pt's preferred pharmacy by
--- NOTE | 2020-07-14 19:40 | NUR ---
Requested a cab at [employer], spoke with Shahid and said that they will give us a call when the cab has been dispatched. service desk lead also made aware to call 3E when the cab is downstairs. endorsed to [place]
--- NOTE | 2020-07-14 19:49 | NUR ---
NURSE HAND-OFF: Important Events on Shift: Pt vomited after ingesting first regular meal , on coming nurse notified of TENNILLE Patient Status: Diet: Regular Pending Orders: Pending Results/Labs: Pending MD notification: Latest Vital Signs: Temperature 98.2 , Pulse 71 , B/P 142 /93 , Respiratory Rate 21 , O2 SAT 98 , Room Air, O2 Flow Rate . Vital Sign Comment: Latest Mcleod Fall Score: 20 Fall Risk: Low Risk Safety Measures: Call light Within Reach, Bed Alarm Zone 1, Side Rails Side Rails x2, Bed position Low and Locked. Fall Precautions: Yellow Socks Patient Fall Education Report given to Denise JOLLEY .
--- NOTE | 2020-07-14 19:50 | NUR ---
NURSE NOTES: Received report from Shalom JOLLEY. Rounding is done. Patient had vomiting during change of shift and Dr. Cotter already knew and still ordered discharge. Patient is a/o x4. Denied any pain at this time, but c/o n/v. IV site is intact and patent. Will continue to follow up patient's condition. No any distress noted at this time. Breathing is even and unlabored. Bed is on alarm, locked, and lowest position. Call light within reach. Will continue to monitor.
[2020-07-14 20:00] VITALS: BP 151/89
--- NOTE | 2020-07-14 21:40 | NUR ---
NURSE NOTES: Followed up with [facility] [employer] [facility] and was told by Will that the taxi will be here as soon as possible. Cab number [id number]. Endorsed to Raheel.
--- NOTE | 2020-07-14 22:37 | NUR ---
NURSE NOTES: Followed up again with Will from [facility], and was told that taxi #[id number] is not responding and will get another taxi and eta will be around 10-20 minutes. Endorsed to Raheel.
--- NOTE | 2020-07-14 23:02 | NUR ---
NURSE NOTES: Followed up Will for the taxi and was told now they don't have any wheelchair van driver near our area and will let us know as soon as they find a taxi. Raheel made aware. Lizeth Bocanegra Potato Grader notified as well.
--- NOTE | 2020-07-14 23:10 | NUR ---
NURSE NOTES: Lizeth Bocanegra paint supervisor ordered uber ride. Will cancel taxi from [employer] [facility] [employer]
--- NOTE | 2020-07-14 23:43 | NUR ---
NURSE NOTES: Patient's bp is high 179/[address] Oglesby and Dr Oglesby said that Keep patient until in the morning. Will keep monitor patient's bp.
[2020-07-15] VITALS: BP 179/110
[2020-07-15] MEDS: Morphine Sulfate 4mg/ml Inj (IV USE ONLY) IVP PRN (01:07)
[2020-07-15 04:00] VITALS: BP 158/102
[2020-07-15] MEDS: NS w/KCl 20mEq 1000ml 1,000 ML IV SCH (05:45)
[2020-07-15 06:16] LABS: BASOPHILS % (AUTO) 1.1 % (0.0-2.0); EOSINOPHILS % (AUTO) 0.5 % (0.0-3.0); HEMATOCRIT 50.9 % (42.0-52.0); HEMOGLOBIN 16.9 G/DL (14.2-18.0); LYMPHOCYTES % (AUTO) 26.3 % (20.0-45.0); MEAN CORPUSCULAR VOLUME 86 FL (80-99); MONOCYTES % (AUTO) 6.6 % (1.0-10.0); NEUTROPHILS % (AUTO) 65.5 % (45.0-75.0); PLATELET COUNT 496 K/UL (150-450); RED BLOOD COUNT 5.94 M/UL (4.70-6.10); RED CELL DISTRIBUTION WIDTH 11.9 % (11.6-14.8); WHITE BLOOD COUNT 14.2 K/UL (4.8-10.8)
[2020-07-15 06:28] LABS: ANION GAP 11 mmol/L (5-15); BLOOD UREA NITROGEN 7 mg/dL (7-18); CARBON DIOXIDE 27 MMOL/L (21-32); CHLORIDE 99 MMOL/L (98-107); CREATININE 0.9 MG/DL (0.55-1.30); PHOSPHORUS 3.4 MG/DL (2.5-4.9); POTASSIUM 3.6 MMOL/L (3.5-5.1); SODIUM 137 MMOL/L (136-145)
[2020-07-15 07:34] VITALS: BP 139/106
--- NOTE | 2020-07-15 07:35 | NUR ---
NURSE NOTES: patient's bp is 139/106, HR 97, RR 19. Will continue to monitor.
--- NOTE | 2020-07-15 07:40 | NUR ---
NURSE NOTES: Patient is ambulating around room, awake and able to verbalize needs. Stable. No visible signs of distress noted. Patient instructed to use call light for assistance, verbalized understanding. All needs met at this time. Pending discharge. Will continue to monitor.
--- NOTE | 2020-07-15 07:41 | NUR ---
NURSE HAND-OFF: Important Events on Shift:[Discharge] Patient Status: [stable] Diet: [Regular] Pending Orders: [n/a] Pending Results/Labs:[n/a] Pending MD notification:[n/a] Latest Vital Signs: Temperature 98.6 , Pulse 97 , B/P 139 /106 , Respiratory Rate 18 , O2 SAT 97 , Room Air, O2 Flow Rate . Vital Sign Comment: [stable] Latest Mcleod Fall Score: 20 Fall Risk: Low Risk Safety Measures: Call light Within Reach, Bed Alarm Zone 1, Side Rails Side Rails x2, Bed position Low and Locked. Fall Precautions: Yellow Socks Patient Fall Education Report given to [Ava rn].
--- NOTE | 2020-07-15 08:30 | NUR ---
NURSE NOTES: Patient discharged home as ordered. Stable All discharge paperwork and teaching given by Shalom JOLLEY. Patient assisted into uber by staff without incident. No IV access. All belongings with patient. Skin is c/d/i.
[2020-07-15] MEDS ORDERED: D5 1/2NS 1000ml IV ONE (09:19)
--- NOTE | 2020-07-15 09:19 | Surgery Progress Note ---
Surgery Progress Note Subjective Symptoms: improved, tolerating diet, passing flatus, pain decreased Objective Last 24 Hour Vital Signs Date Time Temp Pulse Resp B/P (MAP) Pulse Ox O2 Delivery O2 Flow Rate FiO2 07/15/20 07:34 97 18 139/106 (117) 97 07/15/20 04:00 98.6 73 19 158/102 (120) 97 07/15/20 00:00 97.4 94 20 179/110 (133) 98 07/14/20 23:56 179/110 07/14/20 21:00 Room Air 07/14/20 20:00 99.0 94 19 151/89 (109) 98 07/14/20 16:00 98.2 71 21 142/93 (109) 98 07/14/20 12:02 98.1 63 18 130/98 (109) 98 I&O Intake and Output 07/14/20 07/15/20 19:00 07:00 Intake Total 1080 ml 400 ml Balance 1080 ml 400 ml Intake Oral 480 ml 400 ml IV Total 600 ml # Voids 3 2 # Bowel Movements 1 1 Cardiovascular: RSR Respiratory: clear Abdomen: soft, non-tender, present bowel sounds Extremities: no edema, no tenderness, no cyanosis Laboratory Tests Test 07/15/20 05:20 White Blood Count 14.2 K/UL (4.8-10.8) H Red Blood Count 5.94 M/UL (4.70-6.10) Hemoglobin 16.9 G/DL (14.2-18.0) Hematocrit 50.9 % (42.0-52.0) Mean Corpuscular Volume 86 FL (80-99) Mean Corpuscular Hemoglobin 28.4 PG (27.0-31.0) Mean Corpuscular Hemoglobin Concent 33.1 G/DL (32.0-36.0) Red Cell Distribution Width 11.9 % (11.6-14.8) Platelet Count 496 K/UL (150-450) H Mean Platelet Volume 4.8 FL (6.5-10.1) L Neutrophils (%) (Auto) 65.5 % (45.0-75.0) Lymphocytes (%) (Auto) 26.3 % (20.0-45.0) Monocytes (%) (Auto) 6.6 % (1.0-10.0) Eosinophils (%) (Auto) 0.5 % (0.0-3.0) Basophils (%) (Auto) 1.1 % (0.0-2.0) Sodium Level 137 MMOL/L (136-145) Potassium Level 3.6 MMOL/L (3.5-5.1) Chloride Level 99 MMOL/L (98-107) Carbon Dioxide Level 27 MMOL/L (21-32) Anion Gap 11 mmol/L (5-15) Blood Urea Nitrogen 7 mg/dL (7-18) Creatinine 0.9 MG/DL (0.55-1.30) Estimat Glomerular Filtration Rate > 60 mL/min (>60) Glucose Level 99 MG/DL (74-106) Calcium Level 9.0 MG/DL (8.5-10.1) Phosphorus Level 3.4 MG/DL (2.5-4.9) Magnesium Level 2.0 MG/DL (1.8-2.4) Plan Problems: (1) Marijuana abuse (2) Esophagitis (3) Dehydration (4) Hypokalemia (5) Hypomagnesemia (6) Essential hypertension (7) Bacteremia (8) Gastritis (9) Superior mesenteric vein thrombosis Assessment & Plan: chronic thrombosis seemingly worsening non compliance with therapy anticoag as per heme will plan ct contrast once hydrated thank you Imaged portions of the abdominal aorta are normal in caliber. Proximal portions of the celiac and superior mesenteric arteries are patent with normal arterial waveforms. The liver demonstrates normal echogenicity. No focal hepatic mass lesion appreciated sonographically. Hepatic contour is smooth. Liver is normal in size. Imaged hepatic veins are patent. There is linear eccentric echogenic material within the splenoportal confluence extending into the main portal vein with residual flow. Possibility of chronic or partially occlusive thrombus not excluded. Portal vein flow is hepatopedal. No gallstones or gallbladder sludge identified. No gallbladder wall thickening or pericholecystic fluid. No biliary ductal dilatation. Common bile duct measures 3 mm diameter. Kidneys demonstrate normal echogenicity. There is no hydronephrosis or sonographically appreciable renal stone. Spleen is unremarkable in appearance. No ascites demonstrated. IMPRESSION: Linear echogenic material with rouleaux flow noted at the spinal portal confluence, extending into the main portal vein. Findings are concerning for partially occlusive portal vein thrombosis, possibly chronic. Recommend further evaluation with contrast-enhanced CT of the abdomen with portal venous phase imaging for further evaluation as clinically indicated. (10) Acute kidney injury (11) Abdominal pain Assessment & Plan: likely secondary to thrombus okay for diet anticoag as per heme trend labs d/c planninng anticoag per heme non compliance Jose Back Jul 15, 2020 09:19
== END 2020-07-15 09:20 | disposition home or self-care (01) | DRG 241 ==
LOC: EMR 09:38 → 3E 11:30 → EDBEDREQ 13:08
DX: K29.70 Gastritis, unspecified, without bleeding (principal); R11.15 Cyclical vomiting syndrome unrelated to migraine; E87.6 Hypokalemia; F12.188 Cannabis abuse with other cannabis-induced disorder; K55.1 Chronic vascular disorders of intestine; N17.9 Acute kidney failure, unspecified; E86.0 Dehydration; K20.9 Esophagitis, unspecified; E83.42 Hypomagnesemia; I10 Essential (primary) hypertension; Z91.14 Patient's other noncompliance with medication regimen
CPT/HCPCS: 36415; 76700; 80048; 80053; 81003; 82150; 83605; 83690; 83735; 84100; 84484; 85007; 85025; 85610; 85651; 85730; 86140; 87081; 93005; 96361; 96374; 96375; 99285; J2405; J7030; U0002